=== PATIENT | female | born 1955 | race Caucasian/White ===

== ENCOUNTER 2023-06-15 13:32 | Outpatient (RCR) | payer MEDICARE, OTHER, SELFPAY | END 2023-06-16 11:30 | disposition home or self-care (01) | LOC: PT 13:32 | PROVIDERS: PCP Nurse Practitioner Family; Visit Provider Nurse Practitioner Family | DX: M16.11 Unilateral primary osteoarthritis, right hip (principal); M15.9 Polyosteoarthritis, unspecified | CPT/HCPCS: 97163 ==

== ENCOUNTER 2023-08-11 07:18 | Outpatient (OUT) | payer MEDICARE, OTHER, SELFPAY ==
[2023-08-11 07:35] LABS: Basophils Percent Auto 0.8 % (0.2-2.0); Eosinophils Absolute Auto 0.1 10^3/uL (0.0-0.7); Eosinophils Percent Auto 1.8 % (0.9-7.0); Hematocrit 38.2 % (36.0-48.0); Hemoglobin 12.7 g/dL (12.0-16.0); Immature Granulocytes Abs Auto 0.02 10^3/uL (0.00-0.03); Immature Granulocytes Pct Auto 0.4 % (0.0-0.5); Lymphocytes Absolute Auto 2.1 10^3/uL (1.2-3.8); Lymphocytes Percent Auto 41.8 % (20.5-60.0); Mean Corpuscular HGB Conc 33.2 g/dL (29.9-35.2); Mean Corpuscular Hemoglobin 31.1 pg (26.7-34.0); Mean Corpuscular Volume 93.6 fL (81.0-99.0); Mean Platelet Volume 8.8 fL (9.5-13.5); Monocytes Absolute Auto 0.5 10^3/uL (0.3-0.8); Neutrophils Absolute Auto 2.3 10^3/uL (1.4-6.5); Neutrophils Percent Auto 46.2 % (43.0-75.0); Platelet Count 147 10^3/uL (150-450); Red Blood Count 4.08 10^6/uL (4.20-5.40); Red Cell Distribution Width 13.8 % (11.0-15.0)
[2023-08-11 07:55] LABS: Anion Gap 10.2; Calcium 9.3 mg/dL (8.5-10.1); Carbon Dioxide 34.2 mmol/L (21.0-32.0); Chloride 102 mmol/L (98-107); Estimated GFR (African America >60 (>=60); Estimated GFR (Non-African Ame >60 (>=60); Glucose 106 mg/dL (74-106); Potassium 3.4 mmol/L (3.5-5.1); Sodium 143 mmol/L (136-145)
== END 2023-08-11 07:19 | disposition home or self-care (01) ==
LOC: LAB 07:20
PROVIDERS: PCP Nurse Practitioner Family
DX: K92.1 Melena (principal); Z86.39 Personal history of other endocrine, nutritional and metabolic disease
CPT/HCPCS: 36415; 80048; 85025

== ENCOUNTER 2023-11-29 12:42 | Emergency (ER) | payer MEDICARE, OTHER, SELFPAY ==
[2023-11-29 12:48] VITALS: BP 143/68; PULSE 73; RESP 18; TEMP 36.6; O2SAT 100; BMI 33.8
--- NOTE | 2023-11-29 13:44 | XR_ITS ---
The [address] [address] Patient Name: JERICA OGDEN MRN: [id number] date: 1955 Sex: F Assigned Patient Location: ER Current Patient Location: ER Accession/Order Number: [id number] Exam Date: 11/29/2023 13:30 Report Date: 11/29/2023 13:54 At the request of: THALIA BANDA Procedure: XR ankle RT min 3V PROCEDURE: XR ankle RT min 3V, XR foot RT min 3V COMPARISON: None. HISTORY: injury FINDINGS: BONES:4 mm calcification identified along the inferior aspect of the lateral malleolus possibly representing a small avulsion fracture. No additional fracture or dislocation of the foot or ankle. Moderate enthesopathic spurring Achilles insertion of the calcaneus SOFT TISSUES:Moderate lateral soft tissue swelling of the ankle EFFUSION:None visible. OTHER: Negative. XR/XR ankle RT min 3V IMPRESSION: Possible 4 mm fracture inferior lateral malleolus with overlying soft tissue swelling Electronically authenticated by: BRIANNA FUENTES Date: 11/29/2023 13:54
--- NOTE | 2023-11-29 13:44 | XR_ITS ---
The [address] [address] Patient Name: JERICA OGDEN MRN: [id number] date: 1955 Sex: F Assigned Patient Location: ER Current Patient Location: ER Accession/Order Number: [id number] Exam Date: 11/29/2023 13:30 Report Date: 11/29/2023 13:54 At the request of: THALIA BANDA Procedure: XR foot RT min 3V PROCEDURE: XR ankle RT min 3V, XR foot RT min 3V COMPARISON: None. HISTORY: injury FINDINGS: BONES:4 mm calcification identified along the inferior aspect of the lateral malleolus possibly representing a small avulsion fracture. No additional fracture or dislocation of the foot or ankle. Moderate enthesopathic spurring Achilles insertion of the calcaneus SOFT TISSUES:Moderate lateral soft tissue swelling of the ankle EFFUSION:None visible. OTHER: Negative. XR/XR foot RT min 3V IMPRESSION: Possible 4 mm fracture inferior lateral malleolus with overlying soft tissue swelling Electronically authenticated by: BRIANNA FUENTES Date: 11/29/2023 13:54
--- NOTE | 2023-11-29 13:50 | ED_ITS ---
HPI - Extremity Injury (Lower) General Chief Complaint: Extremity Injury, Lower Stated Complaint: lower extremity injury- right Time Seen by Provider: 11/29/23 13:21 History of Present Illness HPI Narrative: Patient is a 68-year-old female 5 weeks status post right hip replacement states she was in her kitchen last night when she dropped blueberries and in the process of trying to clean them up, she dropped a vacuum drum cleaner on her right foot. She complains of pain over the dorsum of the distal right foot and today has noticed mild pain and swelling into the ankle. She has finished taking Xarelto from her surgery. She denies any fall to the ground or other associated injuries. No medications taken prior to arrival other than Tylenol for pain. Related Data Previous Rx's Medication Instructions Recorded nabumetone 750 mg tablet 750 mg PO BID #10 tabs 11/29/23 Allergies Allergy/AdvReac Type Severity Reaction Status Date / Time beclomethasone Allergy Unknown Verified 11/29/23 13:01 [From Vancenase] clarithromycin [From Biaxin] Allergy Unknown Verified 11/29/23 13:01 diazepam [From Valium] Allergy Unknown Verified 11/29/23 13:01 doxycycline [From Vibramycin] Allergy Unknown Verified 11/29/23 13:01 erythromycin base Allergy Unknown Verified 11/29/23 13:01 Iodinated Contrast Media Allergy Unknown Verified 11/29/23 13:01 isoetharine [From Bronkosol] Allergy Unknown Verified 11/29/23 13:01 loratadine [From Claritin] Allergy Unknown Verified 11/29/23 13:01 metaxalone [From Skelaxin] Allergy Unknown Verified 11/29/23 13:01 metronidazole [From Flagyl] Allergy Unknown Verified 11/29/23 13:01 ofloxacin [From Floxin] Allergy Unknown Verified 11/29/23 13:01 Penicillins Allergy Unknown Verified 11/29/23 13:01 prochlorperazine Allergy Unknown Verified 11/29/23 13:01 [From Compazine] Review of Systems ROS Constitutional Denies: fever or chills Ears, nose, mouth, and throat Denies: throat pain or nasal congestion Cardiovascular Denies: chest pain Respiratory Denies: shortness of breath Gastrointestinal Denies: nausea or vomiting Musculoskeletal Reports: extremity pain, extremity swelling, joint pain and limited range of motion; Denies: back pain or neck pain Integumentary/Breast Denies: rash Neurological Denies: headache Hematologic/Lymphatic Reports: easy bruising Exam Narrative Exam Narrative: Gen.: Awake, alert, in no distress Head: Normocephalic, atraumatic ENT: Moist mucous membranes Respiratory: No respiratory distress Extremities: Moves extremities equally, Tenderness with diffuse mild swelling of the right dorsal aspect of the foot, limited flexion and extension of the toes of the right foot. 2+ DP pulse of the right foot. Minimal tenderness to the medial and lateral malleolus of the ankle Psych: Normal mood and affect Neuro: No focal neuro deficit Skin: Warm, dry, intact Constitutional Vital Signs, click to edit/add: Last Vital Signs Temp 97.9 F 11/29/23 12:48 Pulse 73 11/29/23 12:48 Resp 18 11/29/23 12:48 BP 143/68 H 11/29/23 12:48 Pulse Ox 100 11/29/23 12:48 O2 Del Method Room Air 11/29/23 12:48 Course Vital Signs Vital signs: Vital Signs Temperature 97.9 F 11/29/23 12:48 Pulse Rate 73 11/29/23 12:48 Respiratory Rate 18 11/29/23 12:48 Blood Pressure 143/68 H 11/29/23 12:48 Pulse Oximetry 100 11/29/23 12:48 Oxygen Delivery Method Room Air 11/29/23 12:48 Temperature 97.9 F 11/29/23 12:48 Pulse Rate 73 11/29/23 12:48 Respiratory Rate 18 11/29/23 12:48 Blood Pressure 143/68 H 11/29/23 12:48 Pulse Oximetry 100 11/29/23 12:48 Oxygen Delivery Method Room Air 11/29/23 12:48 MDM - Extremity Injury (Lower) MDM Narrative Medical decision making narrative: X-rays reviewed by the radiologist showing a possible 4 mm fracture of the lateral malleolus. Patient has no bony point tenderness to this area, her pain is located on the dorsum of the distal toes. She was made aware of these results but at this time we do not feel she has a fracture to this area. She was placed in an [place] wrap and postop shoe. Rest, ice, elevate. She remains neurovascularly intact. Return to the ER if symptoms change or worsen. Time of discharge, patient states she is not able to take tramadol, She is prescribed Relafen. She is no longer taking Xarelto and has taken Celebrex in the past. Medical Records Attestation: I reviewed the patient's medical records. Imaging Data XR foot: Attestation: I have reviewed the pertinent imaging results. Radiologist's impression: ITS Impressions Ankle X-Ray 11/29/23 13:44 IMPRESSION: Possible 4 mm fracture inferior lateral malleolus with overlying soft tissue swelling Electronically authenticated by: BRIANNA FUENTES Date: 11/29/2023 13:54 Foot X-Ray 11/29/23 13:44 IMPRESSION: Possible 4 mm fracture inferior lateral malleolus with overlying soft tissue swelling Electronically authenticated by: BRIANNA FUENTES Date: 11/29/2023 13:54 Discharge Plan Discharge Chief Complaint: Extremity Injury, Lower Clinical Impression: Contusion of foot, right Patient Disposition: Home, Self-Care Time of Disposition Decision: 14:08 Condition: Good Prescriptions / Home Meds: New nabumetone 750 mg tablet 750 mg PO BID Qty: 10 0RF Instructions: Foot Contusion (ED) Stand Alone Forms: Portal Instructions Referrals: ITA STANLEY [Primary Care Provider] - 1 week
== END 2023-11-29 14:39 | disposition home or self-care (01) ==
PROVIDERS: Emergency Provider Emergency Medicine; PCP Nurse Practitioner Family
DX: S90.31XA Contusion of right foot, initial encounter (principal); Z96.641 Presence of right artificial hip joint; W20.8XXA Other cause of strike by thrown, projected or falling object, initial encounter
CPT/HCPCS: 73610; 73630; 99284

== ENCOUNTER 2024-02-05 12:31 | Emergency (ER) | payer MEDICARE, OTHER, SELFPAY ==
--- OUTSIDE RECORDS SUMMARY | 2024-02-05 12:38 | XMS_ITS | CCD ---
Author Organization [facility] Care Team Providers Care Hemodialysis Technician Name Role Phone PHYSICIAN, DEFAULT Unavailable Unavailable PHYSICIAN, DEFAULT Unavailable Unavailable EBRAHEIM, SELIN Unavailable Unavailable EBRAHEIM, SELIN Unavailable Unavailable SELF, REFERRED Unavailable Unavailable SELF, REFERRED Unavailable Unavailable ANNELISE PEÑALOZA Primary Care Physician [phone] Luigi Flower II Unavailable Annelise Peñaloza Unavailable Yony Monahan Unavailable Nima Henning Unavailable JEN Peñaloza Primary Care Provider JEN Peñaloza Attending Provider Nima Pepper Unavailable Latisha Saenz Unavailable RAHEEL Saenz Attending Provider Annelise Peñaloza Unavailable Unavailable Unavailable ANNELISE PEÑALOZA Primary Care Physician JEN Peñaloza Primary Care Provider RAHEEL Saenz Attending Provider MD Luigi Flower II Attending Provider [phone] JEN Peñaloza Primary Care Provider JEN Peñaloza Attending Provider ANNELISE PEÑALOZA Primary Care Unavailable CHI ., NORTH Admitting Unavailable CHI ., NORTH Attending Unavailable GRECHNY ., SAFIA VÁSQUEZ Consulting Unavailabl e NEWATIA, LAUREN Consulting Unavailable ANABELA, ANNELISE Admitting Unavailable NAABELA, ANNELISE Attending Unavailable ANABELA, ANNELISE Primary Care Unavailable ANABELA, ANNELISE Consulting Unavailable ANABELA, ANNELISE Admitting Unavailable ANABELA, ANNELISE Attending Unavailable ANABELA, ANNELISE Primary Care Unavailable ANABELA, ANNELISE Consulting Unavailable ANABELA, ANNELISE Primary Care Unavailable MARKER ., DR PIZANO Admitting Unavailable MARKER ., DR PIZANO Attending Unavailable GRECHNY ., SAFIA VÁSQUEZ Consulting Unavailabl e MARKER ., DR PIZANO Consulting Unavailable EMMA, SHEREE Consulting Unavailable Anabela, ARMAAN-C Annelise Primary Care Provider MD Luigi Flower II Attending Provider JEN Peñaloza Attending Provider DO Simone Leiva Attending Provider DIONY Peñaloza Attending Provider [phone] Anabela, Ms. Castelan [facility] Care Un available Tawanda BASURTO, Dr. Alfie Ghotra Attending Unavailable Tawanda BASURTO, Dr. Alfie Ghotra Referring Unavailable Anabela, Ms. Castelan [facility] Care Un available Tawanda BASURTO, Dr. Alfie Ghotra Attending Unavailable [facility]. [facility] Primary Care Provider Annelise Peñaloza CNP Unavailable Unavailab le [facility] ANNELISE Trevino Attending Unavailable ANNELISE MORGAN A Referring Unavailable [facility], [facility] Care ANNELISE Infante Primary Care Physician [phone] JEN Peñaloza Primary Care Provider U rajeshailMD Luigi Vinson II Attending Provider [facility] ider Annelise Peñaloza CNP Unavailable Anabelairineo [facility] Primary Care Provider ALFIE NEFF Attending Unavailable [facility]avai JEN Castaneda Annelise Primary Care Provider U MD Luigi Dixon II Attending Provider JEN Peñaloza Primary Care Provider U MD Luigi Dixno II Attending Provider [phone] MD Luigi Flower II Admit Provider ISABELLA Hammer Other Provider Unavailable ISABELLA Christensen Other Provider Unavailable ISABELLA Deleon Other Provider Unavailable ISABELLA Mendoza Other Provider Unavailable ISABELLA Phan Other Provider Unavailable ISABELLA Pennington Other Provider Unavailable MD Calvin Balderas Other Provider GIO Hansen Other Provider [phone] DO Dewey Chapman Other Provider [phone] MD Brian Kruger Other Provider DO Kyle Morse Other Provider MD Yann Peterson Other Provider MD Clary Kirk Other Provider GIO Iyer Other Provider [phone] MD Cecy Goodwin Other Provider MD Man Clifford Other Provider MD Zack Don Other Provider MD Hina Prakash Other Provider DO Roscoe Wood Other Provider MD Ayo Brice Other Provider MD Raoul Griffiths Other Provider RAHEEL De La O Other Provider MD Domenico Stephen Other Provider MD Dylan Shafer Other Provider MD Chriss Blackwell Other Provider MD Fam Nunez Other Provider DO Laurie Stern Other Provider DO Parth Chairez Other Provider DO Sudheer Acosta Other Provider GIO Bennett Other Provider DO Rubio Heart Other Provider MD Maria Elena Alberto Other Provider GIO Nunes Other Provider GIO Silva Other Provider MD Pavel Mendez Other Provider MD Jeb Marin Other Provider [phone] DO Dominguez Emerson T Other Provider GIO Pelletier Other Provider DO Jocelyn Encarnacion Other Provider ISABELLA Desouza Other Provider Unavailable MD Alexander Blue Other Provider ANNELISE PEÑALOZA Attending Unavailable ANABELA, ANNELISE Admitting Unavailable ANABELA, ANNELISE Primary Care Unavailable LENNY BRADSHAW Admitting Unavailable LENNY BRADSHAW Attending Unavailable ANABELA, ANNELISE Primary Care Unavailable Hafredo, Astrit H Attending Unavailable ANABELA, ANNELISE Primary Care Unavailable ANABELA, ANNELISE Primary Care Unavailable Sarmini, Thai Talal Admitting Unavaila ble Sarmini, Andre Talal Attending Unavaila ble Carlitomini, Andre Talal Referring Unavaila ble ANABELA, ANNELISE Attending Unavailable ANABELA, ANNELISE Referring Unavailable ANABELA, ANNELISE Primary Care Unavailable ANABELA, ANNELISE Primary Care Unavailable Kortney Shelley Attending Unavailable ANABELA, ANNELISE Primary Care Unavailable ANABELA, ANNELISE Primary Care Unavailable Thai Abbasi Attending UnavailAdryan Victoria Attending Unavailable ANABELA, ANNELISE Primary Care Unavailable ANABELA, ANNELISE Referring Unavailable ANABELA, ANNELISE Admitting Unavailable ANABELA, ANNELISE Primary Care Unavailable ANABELA, ANNELISE Attending Unavailable LUIGI FLOWER Attending Unavailable ANABELA, ANNELISE Primary Care Unavailable MUNDO, LUIGI Admitting Unavailable Bhakti Waddell Unavailable Unavailable Primary Care Provider UnavailFERMIN Mensah Attending Unavailable AZAEL PAK Attending Unavailable SAMMY GILBERT Attending Unavailable MUNDO, LUIGI Referring Unavailable BETINA, BOOKER Attending Unavailable MUNDO, LUIGI Referring Unavailable TATTERSSAMMY ROGERS Attending Unavailable MUNDO, LUIGI Referring Unavailable BRKRISHNA EUBANKS Attending Unavailable MUNDO, LUIGI Referring Unavailable SAMMY GILBERT Attending Unavailable MUNDO, LUIGI Referring Unavailable BETINA, BOOKER Attending Unavailable MUNDO, LUIGI Referring Unavailable BRINKKRISHNA Attending Unavailable MUNDO, LUIGI Referring Unavailable BRKRISHNA EUBANKS Attending Unavailable MUNDO, LUIGI Referring Unavailable KELRADHA LIRIANO Attending Unavailable MUNDO, LUIGI Referring Unavailable FERMIN TAYLOR Attending Unavailable FERMIN TAYLOR Referring Unavailable KRISHNA WEISS Attending Unavailable MUNDO, LUIGI Referring Unavailable DAVIETERSSAMMY ROGERS Attending Unavailable MUNDO, LUIGI Referring Unavailable KELRADHA LIRIANO Attending Unavailable MUNDO, LUIGI Referring Unavailable BRINK, KRISHNA Attending Unavailable MUNDO, LUIGI Referring Unavailable BRKRISHNA EUBANKS Attending Unavailable MUNDO, LUIGI Referring Unavailable BRINKKRISHNA Attending Unavailable MUNDO, LUIGI Referring Unavailable FERMIN TAYLOR Attending Unavailable KRISHNA WEISS Attending Unavailable MUNDO, LUIGI Referring Unavailable RADHA SOLOMON Attending Unavailable LUIGI FLOWER Referring Unavailable ARMAAN Peñaloza-C Annelise Primary Care Provider U navailMD Luigi Vinson II Attending Provider [phone] DIONY Peñaloza Attending Provider [phone] Luigi Flower II Attending Unavailabl e Anabela, Annelise Primary Care Unavailable Yuba II, Luigi M Admitting Unavailabl e Anabela, Annelise Admitting Unavailable Anabela, Annelise Attending Unavailable Anabela, Annelise Primary Care Unavailable Anabela, Annelise Attending Unavailable Anabela, Annelise Admitting Unavailable Anabela, Annelise Primary Care Unavailable Yuba II, Luigi M Admitting Unavailabl e Mundo II, Luigi M Attending Unavailabl e Anabela, Annelise Primary Care Unavailable Yuba II, Luigi M Attending Unavailabl e Anabela, Annelise Primary Care Unavailable Yuba II, Luigi M Admitting Unavailabl e Yuba II, Luigi M Attending Unavailabl e Yuba II, Luigi M Admitting Unavailabl e Anabela, Annelise Primary Care Unavailable Yuba II, Luigi M Admitting Unavailabl e Mundo II, Luigi M Attending Unavailabl e Megan Hammer Consulting Unavailable Anabela, Annelise Primary Care Unavailable Rocio Christensen Consulting Unavailable Beth Deleon Consulting Unavailable Mary Jane Mendoza Consulting Unavailable Margo Phan Consulting Unavailable Sandee Pennington Consulting Unavailable Calvin Balderas Consulting Unavailable Dianne Hansen Consulting Unavailable Dewey Chapman Consulting Unavailable Brian Kruger Consulting Unavailable Kyle Morse Consulting UnavailYann Austin Consulting Unavailable Clary Kirk Consulting Unavailable Magda Iyer Consulting Unavailabl e Cecy Goodwin Consulting Unavailable Man Clifford Consulting Unavailable Zack Don Consulting Unavailable Hina Prakash Consulting Unavailable Roscoe Wood Consulting Unavailable Ayo Brice Consulting Unavailable Raoul Griffiths Consulting Unavailable Yaquelin De La O Consulting Unavailable Hailee Domenico E Consulting Unavailab Dylan Henderson Consulting Unavailable Chriss Blackwell Consulting Unavailable Fam Nunez Consulting Unavailable Laurie Stern Consulting Unavailable Parth Chairez Consulting Unavailable Sudheer Acosta Consulting Unavailable Delicia Bennett Consulting Unavailable Rubio [facility] Consulting Unavailable Maria Elena Alberto Consulting Unavailable Lindsay Nunes Consulting Unavailable Sonia Silva Consulting Unavailable Pavel Mendez Consulting Unavailable Jeb Marin Consulting Unavailable Dominguez Emerson Consulting Unavailable Stacy Pelletier Consulting Unavailable Jocelyn Encarnacion Consulting Unavailable Mariely Desouza Consulting Unavailable Alexander Blue Consulting Unavailable Luigi Flower II Admitting UnavailLuigi Genao II Attending UnavailAnnelise Stapleton Primary Care Unavailable Allergies Allergy Classification Reported Allergen(s) Allergy Type Date of Onset Reaction(s) Facility (20 sources) Clarithromycin; Translations: [clarithromycin] Drug Allergy 07-20-20 14 Unknown [facility] Other (20 sources) diazePAM; Translations: [diazepam] Drug Allergy 01-23-20 14 Unknown [facility] Other (20 sources) Erythromycin; Translations: [erythromycin] Drug Allergy 12-15-19 Anaphylaxis [facility] Other (20 sources) Loratadine; Translations: [loratadine] Drug Allergy 07-20-20 14 Unknown [facility] Other (20 sources) metaxalone; Translations: [metaxalone] Drug Allergy 07-20-20 14 Unknown [facility] Other (20 sources) metroNIDAZOLE; Translations: [metronidazole] Drug Allergy 12-15-19 20 Unknown [facility] Other (20 sources) Ofloxacin; Translations: [ofloxacin] Drug Allergy 12-15-19 20 Unknown [facility] (9 sources) Penicillin; Translations: [penicillin] Drug Allergy unknown [facility] (20 sources) Prochlorperazine; Translations: [prochlorperazine] Drug Allergy 12-15-19 20 sob, Unknown, Anaphylaxis [facility] Other (20 sources) Sertraline; Translations: [sertraline] Drug Allergy 12-15-19 Unknown [facility] Other (20 sources) Beclomethasone; Translations: [Vancenase] Drug Allergy 01-19-20 14 Unknown [facility] (20 sources) Doxycycline; Translations: [Doxycycline] Drug Allergy Dyspnea (finding) [facility] (20 sources) metaproterenol Drug Allergy Unknown [facility] Other (20 sources) Penicillin G Drug Allergy 11-10-19 24 Unknown [facility] (20 sources) Sulfamethoxazole / Trimethoprim Drug Allergy hives [facility] Other (20 sources) broncosol Propensity to adverse reactions 11-10-19 [facility] (20 sources) Floxin Otic Drug allergy Unknown [facility] Other (20 sources) Bronchial Drug allergy 11-10-19 Unknown [facility] (20 sources) GI, & IVP DYE Propensity to adverse reactions 11-10-19 [facility] (18 sources) Acetaminophen; Translations: [acetaminophen] Drug Allergy abdominal pain/constipat ion [facility] Other (20 sources) bees Propensity to adverse reactions anaphylaxis [facility] Other (13 sources) Beclomethasone; Translations: [beclomethasone] Drug Allergy 09-22-20 21 Unknown Reaction [facility] (13 sources) Doxycycline; Translations: [doxycycline] Drug Allergy 12-15-19 [facility] (20 sources) Isoetharine; Translations: [Isoetharine] Drug Allergy 01-23-20 14 [facility] (13 sources) metaproterenol; Translations: [metaproterenol] Drug Allergy 09-22-20 21 Unknown Reaction [facility] (20 sources) Penicillins; Translations: [Penicillins] Allergy to substance 01-19-20 14 [facility] (13 sources) Sulfamethoxazole; Translations: [sulfamethoxazole] Drug Allergy 09-22-20 Unknown Reaction, Unknown Reaction, [facility] (13 sources) Trimethoprim; Translations: [trimethoprim] Drug Allergy 09-22-20 Unknown Reaction, Unknown Reaction, [facility] (15 sources) erythromycin base; Translations: [Erythromycin Base] Allergy to substance 12-15-19 [facility] (20 sources) Iodinated Contrast Media; Translations: [IODINATED CONTRAST MEDIA] Allergy to substance 07-20-20 14 Unknown [facility] (2 sources) Contrast media Allergy to substance (finding) [place] [address] DO Work Phone: (2 sources) Hmg-Coa Reductase Inhibitors (Statins); Translations: [Statins] Allergy to drug (finding) [place] [address] DO Work Phone: (2 sources) Sulfonamides (Antibiotic); Translations: [Sulfa Drugs] Allergy to drug (finding) Rash [place] [address] DO Work Phone: (8 sources) oxybutynin; Translations: [oxybutynin] Drug Allergy Headache (finding) [facility] (7 sources) Contrast media; Translations: [contrast media (iodine-based)] Drug allergy Anaphylaxis (disorder) [facility] (7 sources) Tetracycline; Translations: [tetracycline] Drug Allergy Tachycardia [facility] (1 source) Clarithromycin Drug Allergy 01-19-[address] [facility] (1 source) diazePAM Drug Allergy 01-23-20 [address] [facility] (1 source) Doxycycline Drug Allergy 01-19-20 [address] [facility] (2 sources) Floxacillin; Translations: [FLOXACILLIN] Drug Allergy 01-19-20 [address] [facility] (1 source) Iodine (And Iodine Containting Drugs) Drug allergy (disorder) 01-19-20 [address] [facility] (1 source) Loratadine Drug Allergy 01-19-20 [address] [facility] (1 source) metaxalone Drug Allergy 01-19-20 [address] [facility] (1 source) metroNIDAZOLE Drug Allergy 01-19-20 [address] [facility] (1 source) Prochlorperazine Drug Allergy 01-19-20 [address] [facility] (1 source) Sertraline Drug Allergy 01-19-20 [address] [facility] (9 sources) Doxycycline; Translations: [DOXYCYCLINE CALCIUM] Drug Allergy 07-20-20 14 Unknown [facility] (8 sources) Floxacillin Drug Allergy 07-20-20 14 Unknown [facility] (9 sources) metaproterenol; Translations: [METAPROTERENOL SULFATE] Drug Allergy 07-20-20 14 Unknown [facility] (9 sources) metroNIDAZOLE; Translations: [METRONIDAZOLE HCL] Drug Allergy 07-20-20 14 Unknown [facility] (9 sources) Prochlorperazine; Translations: [PROCHLORPERAZINE EDISYLATE] Drug Allergy 07-20-20 14 Unknown [facility] (9 sources) Sertraline; Translations: [SERTRALINE HCL] Drug Allergy 07-20-20 14 Unknown [facility] (2 sources) HMG-CoA reductase inhibitor; Translations: [[id number]-HTQ REDUCTASE INHIBITORS] Drug Allergy 09-12-20 [facility] Work Phone: (2 sources) Sulfonamides (Antibiotic); Translations: [SULFA (SULFONAMIDE ANTIBIOTICS)] Drug Allergy 09-12-[address] [facility] Work Phone: (2 sources) Other; Translations: [OTHER] Propensity to adverse reactions 09-12-20 [facility] Work Phone: (10 sources) Iodine Drug Allergy 05-27-[address] [facility] (10 sources) Pravastatin Drug Allergy 05-27-[address] [facility] (3 sources) venom-honey bee Allergy to substance 11-10-19 anaphylaxis [facility] (1 source) Clarithromycin Drug Allergy 10-25-20 [facility] (1 source) diazePAM Drug Allergy 10-25-20 [facility] (1 source) Loratadine Drug Allergy 10-25-20 [facility] (1 source) metaxalone Drug Allergy 10-25-20 [facility] (1 source) metroNIDAZOLE Drug Allergy 10-25-20 [facility] (1 source) Ofloxacin Drug Allergy 10-25-20 [facility] (1 source) Prochlorperazine Drug Allergy 10-25-20 [facility] (1 source) Sertraline Drug Allergy 10-25-20 [facility] Medications Current Medications Medication Drug Class(es) Dates Sig (Normalized) Sig (Original) acetaminophen 500 mg oral tablet (20 sources) Start: 10-26-2023 take 500 mg by mouth every six hours Acetaminophen Active 500 MG PO Q6H October 26, 2023 1:00am Start: 10-13-2023 take 2 tablets by mo uth every eight hours for pain Acetaminophen 500 MG 2 tablets for pain Orally every 8 hrs for 30 days med to bed upon discharge DOS: 10/25/2023 Oct, Active Start: 10-11-2023 End: 10-26-2023 take 1 capsule by mouth four times daily Acetaminophen (Tylenol Extra Strength) 500 mg Capsule Discontinued 500 MG PO Four times daily October 11, 2023 1:00am October 26, 2023 12:35pm biotin 10 mg oral tablet (20 sources) take 1 tablet by ceasar th every twenty-four hours Biotin 10 MG 1 tablet Orally Once a day Active bisoprolol fumarate 5 mg / hydroCHLOROthiazide 6.25 mg oral tablet (20 sources) Thiazide Diuretic, beta-Adrenergic Mayela Start: 11-17-2017 End: 09-14-2023 take 1 tablet by mouth once daily in the morning Bisoprolol-Hydrochlorothiazide Active 1 TAB PO Every morning May 29, 2018 12:00am take 1 tablet by ceasar th in the morning bisoprolol-hydroCHLOROthiazide (Ziac) 5- 6.25 MG tablet Take 1 tablet by mouth in the morning. 0 Active Comment on above: Take 1 tablet by ceasar th once daily. cefadroxil 500 mg oral capsule (6 sources) Cephalosporin Antibacterial Start: 3 take 1 capsule by mouth every twelve hours Cefadroxil 500 MG 1 tablet Orally every 12 hrs for 7 days med to bed upon discharge DOS: 10/25/2023 Oct, Active cefdinir 300 mg oral capsule (5 sources) Cephalosporin Antibacterial Start: 3 take 1 tablet by mouth every twelve hours Cefdinir 300 MG ONE TABLET Orally EVERY 12 HOURS for 5 days Oct, Active chromium picolinate 0.4 mg oral tablet (20 sources) Start: 3 take 400 ug by mouth once daily Chromium Picolinate Active 400 MCG PO Daily October 11, 2023 1:00am Start: 09-15-2023 chromium picol inate 0 Refill(s), Refills(s) 0 Start Date: 09/15/23 Status: Ordered Chromium Picolin ate 800 MCG tablet 1 (one) time each day at the same time. 0 Active chromium picolin ate 1,000 mcg tab CHROMIUM PICOLINATE (20 sources) 0 Active Chromium Picolin ate Pt. unsure of dosage Active Comment on above: CHROMIUM PICOLINATE (20 sources) ciprofloxacin 500 mg oral tablet (4 sources) Quinolone Antimicrobial Start: 023 take 1 tablet by mouth every twelve hours Cipro 500 MG 1 tablet Orally every 12 hrs for 5 days Oct, Active cyclobenzaprine hydrochloride 5 mg oral tablet (18 sources) Muscle Relaxant Start: 023 take 1 tablet by mouth once daily at bedtime as needed cyclobenzaprine (Flexeril) 5 MG tablet TAKE 1 TABLET BY MOUTH AT BEDTIME ONCE A DAY NEEDED 0 04/28/2023 Active Start: 05-31-2021 take 1 tablet by ceasar th three times daily as needed for muscle spasms cyclobenzaprine 10 mg Tab 10 mg = 1 tab(s), Oral, TID, PRN for spasm, # 30 tab(s), Refills(s) 0 Start Date: 05/31/21 Status: Ordered dapagliflozin 5 mg oral tablet (20 sources) Sodium-Glucose Cotransporter 2 Inhibitor Start: 09-22-2021 take 1 tablet by mouth once daily in the morning Dapagliflozin Propanediol (Farxiga) 5 mg tablet Active 5 MG PO Every morning September 22, 2021 1:00am Comment on above: Take 5 mg by mouth o nce daily. ergocalciferol 1.25 mg oral capsule (11 sources) Provitamin D2 Compound Start: 08-25-2023 take 1 capsule by mouth every week Ergocalciferol 1.25 MG (12906 UT) 1 capsule Orally weekly for 30 days Aug, Active fluconazole 150 mg oral tablet (20 sources) Azole Antifungal Start: 11-23-2023 Fluconazole 150 MG 1 tablet Orally once daily and repeat in 72 hours for 2 days Nov, Active Start: 08-04-2021 End: 10-26-2023 Fluconazole (Diflucan) 150 m g tablet Discontinued 150 MG PO Once October 11, 2023 3:16pm October 26, 2023 12:35pm take one PO, if still symptomatic then take another pill in 72 hrs furosemide 20 mg oral tablet (19 sources) Loop Diuretic Start: 01-24-2023 End: 02-03-2023 take 1 tablet by mouth once daily Lasix 20 mg Tab 20 mg = 1 tab(s), Oral, Daily, X 10 day(s), # 10 tab(s), Refills(s) 0, Pharmacy: [facility] [id number], 159, cm, 01/24/23 12:15:00 EDT, Height/Length Dosing, 87, kg, 01/24/23 12:15:00 EDT, Weight Dosing Start Date: 01/24/23 Stop Date: 02/03/23 Status: Ordered furosemide (LASI X) 40 mg tablet Take 40 mg by mouth. 0 Active Comment on above: Take 40 mg by mouth. Handicap placards as directed (19 sources) Start: 2022 Handicap placards as directed use as directed to 2028 as directed as directed Jan, Active hydroCHLOROthiazide 12.5 mg oral tablet (20 sources) Thiazide Diuretic Start: 2022 take 1 tablet by mouth every twenty-four hours hydroCHLOROthiazide 12.5 MG 1 tablet in the morning Orally Once a day for 15 day(s) Nov, Active hyoscyamine sulfate 0.125 mg oral tablet (1 source) Start: 2020 take 1 tablet by mouth every four hours Levsin 0.125 mg SL Tab 0.125 mg = 1 tab(s), Oral, q4hr, # 30 tab(s), Refills(s) 0, Pharmacy: [facility] [place]/[facility]acy #[id number], 159, cm, 04/25/21 9:41:00 EDT, Height/Length Dosing, 83, kg, 04/25/21 9:41:00 EDT, Weight Dosing Start Date: 04/30/21 Status: Ordered meloxicam 7.5 mg oral tablet (20 sources) Nonsteroidal Anti-inflammatory Drug Start: 2019 take 1 tablet by mouth every twenty-four hours 24 hr mirabegron 25 mg extended release oral tablet (7 sources) beta3-Adrenergic Agonist Start: 2021 take 1 tablet by mouth once daily Myrbetriq 25 mg oral tablet, extended release 25 mg = 1 tab(s), Oral, Daily, # 30 tab(s), Refills(s) 11, Pharmacy: [facility] [place]/pharmacy #[id number], 159, cm, 11/03/22 15:30:00 EST, Height/Length Dosing, 83, kg, 11/03/22 15:30:00 EST, Weight Dosing Start Date: 11/03/22 Status: Ordered montelukast 10 mg oral tablet (16 sources) Leukotriene Receptor Antagonist Start: 2018 take 1 tablet by mouth once daily in the evening montelukast 10 mg Tab 10 mg = 1 tab(s), Oral, qPM, # 30 tab(s), Refills(s) 0 Start Date: 04/16/19 Status: Ordered Start: 04-15-2019 Singulair 4 mg oral granule 4 mg = 1 EA, Oral, Daily, # 30 EA, Refills(s) 0 Start Date: 04/15/19 Status: Ordered mupirocin 0.02 mg/mg topical ointment (20 sources) RNA Synthetase Inhibitor Antibacterial Start: 12-29-2022 Mupirocin 2 % 1 application to affected area Externally 2 times a day for 7 days prn Dec, Active naproxen 250 mg oral tablet (20 sources) Nonsteroidal Anti-inflammatory Drug take 1 tablet by mouth every twelve hours Naproxen 250 MG 1 tablet with food or milk Orally Twice a day Active omeprazole 40 mg delayed release oral capsule (15 sources) Proton Pump Inhibitor Start: 08-24-2023 take 1 capsule by mouth once daily omeprazole 40 mg Cap-DR 40 mg = 1 cap(s), Oral, Daily, # 90 cap(s), Refills(s) 3, Pharmacy: [facility] [id number], 159, cm, 08/24/23 14:20:00 EDT, Height/Length Dosing, 85.5, kg, 08/24/23 14:20:00 EDT, Weight Dosing Start Date: 08/24/23 Status: Ordered take 1 capsule by mouth once mary lou ly Omeprazole 10 MG 1 capsule 30 minutes before morning meal Orally Once a day Active take 1 capsule by [facility] once daily before mealtime omeprazole (PriLOSEC) [address] capsule Take 1 capsule (20 mg) by mouth once daily in the morning. Take before meals. Do not crush or chew. 0 Active ondansetron 4 mg disintegrating oral tablet (11 sources) Serotonin-3 Receptor Antagonist Start: 10-26-2023 take 8 mg by mouth three times daily Ondansetron Active 8 MG PO Three times daily October 26, 2023 1:00am Start: 10-13-2023 take 1 tablet by ceasar th three times daily as needed for nausea Ondansetron HCl 8 MG 1 tablet as needed for nausea Orally Three times a day for 10 days med to bed upon discharge DOS: 10/25/2023 Oct, Active pantoprazole 40 mg delayed release oral tablet (10 sources) Proton Pump Inhibitor Protonix 40 MG EC tablet 1 capsule 0 Active phenazopyridine hydrochloride 200 mg oral tablet (5 sources) Start: 2 take 1 tablet by mouth every eight hours Pyridium 200 MG 1 tablet after meals Orally Three times a day for 2 day(s) Aug, Active ramipril 10 mg oral capsule (20 sources) Angiotensin Converting Enzyme Inhibitor Start: 8 End: 3 take 10 mg by mouth once daily in the morning Ramipril Active 10 MG PO Every morning November 17, 2017 1:00am Comment on above: Take 10 mg by mouth once daily. Stool Softener (20 sources) Stool Softener Not-Taking Stool Softener A ctive tiZANidine 4 mg oral tablet (10 sources) Central alpha-2 Adrenergic Agonist Start: 05-17-2023 tiZANidine (Zanaflex ) 4 MG tablet every 8 (eight) hours. 0 05/17/2023 Active True Metrix Air Glucose Meter w/Device (20 sources) Start: 06-17-2020 Start: 06-17-2020 True Metrix r Glucose Meter w/Device as directed subQ before meals for 25 days Jun, Active Ventolin HFA 90 mcg/inh Aerosol (8 sources) Start: 04-15-2019 take 1 puff(s) by inhalation four times daily for wheezing Ventolin HFA 90 mcg/inh Aerosol 1 puff(s), Inhalation, QID for wheezing, 18 gram, Refill(s) 0 Start Date: 04/15/19 Status: Ordered Completed/Discontinued Medications Medication Drug Class(es) Dates Sig (Normalized) Sig (Original) acetaminophen 300 mg / codeine phosphate 30 mg oral tablet (20 sources) Opioid Agonist Start: 10-11-2023 End: 10-26-2023 take 1 tablet by mouth twice daily Acetaminophen-Codei ne (Tylenol-Codeine #3) 300-30 mg Tablet Discontinued 1 TAB PO Twice daily October 11, 2023 1:00am October 26, 2023 12:35pm Start: 11-05-2022 Acetaminophen- Codeine #3 300-30 MG 1 tablet as needed Orally at bedtime for 15 day(s) Oct, Active Start: 11-05-2022 Acetaminophen- Codeine #3 300-30 MG 1 tablet as needed Orally at bedtime for 15 day(s) Oct, Active Start: 04-13-2022 Acetaminophen- Codeine #3 300-30 MG 1 tablet as needed Orally at bedtime for 30 days Sep, Active [id number] 200 actuat albuterol 0.09 mg/actuat metered dose inhaler (20 sources) beta2-Adrenergic Agonist Start: 11-17-2017 End: 05-29-2018 Albuterol Sulfate (Proair Hfa) 90 mcg/actuation Hfa Aerosol Inhaler Discontinued 2 INH INHALATION Q4H November 17, 2017 1:00am May 29, 2018 10:01pm take 1 puff(s) by in halation every six hours albuterol HFA 90 mcg/act inhaler Inhale 1 puff every 6 (six) hours if needed. 0 Active take 1 puff(s) by in halation every six hours as needed albuterol HFA (PROVENTIL HFA, VENTOLIN HFA) 90 mcg/actuation inhaler Inhale 1 Puff as instructed every 6 hours as needed. 0 Active Comment on above: Inhale 1 Puff as ins tructed every 6 hours as needed. albuterol 0.833 mg/ml / ipratropium bromide 0.167 mg/ml inhalation solution (12 sources) Anticholinergic, beta2-Adrenergic Agonist Start: 06-16-20 End: 09-22-20 21 take 1 mL by inhalation every four to six hours Ipratropium-Albutero l Discontinued 3 ML INHALATION EVERY 4-6 HOURS June 16, 2019 12:00am September 22, 2021 2:40pm celecoxib 100 mg oral capsule (20 sources) Nonsteroidal Anti-inflammatory Drug Start: 01-01-20 End: 09-14-20 take 1 capsule by mouth twice daily at mealtime celecoxib (CeleBREX) 100 mg capsule Take 1 capsule (100 mg) by mouth 2 times a day. WITH FOOD FOR 30 DAYS 0 08/24/2022 09/14/2023 Discontinued (Therapy completed) Start: 01-01-2022 take 1 capsule by [facility] every twenty-four hours Celecoxib 100 MG 1 capsule with food Orally Once a day for 30 day(s) Dec, Active clindamycin 300 mg oral capsule (17 sources) Lincosamide Antibacterial Start: 10-28-2023 End: 01-27-2024 take 300 mg by mouth three times daily Clindamycin Hcl Discontinued 300 MG PO Three times daily 28 05October 28, 2023 1:00am January 27, 2024 2:57pm Start: 10-26-2023 take 300 mg by mouth every eight hours Clindamycin Hcl Active 300 MG PO Every 8 hours October 26, 2023 12:00am Start: 08-10-2018 End: 06-16-2019 take 300 mg by mouth twice daily Clindamycin Hcl Discontinued 300 MG PO Twice daily August 10, 2018 12:00am June 16, 2019 4:52pm clotrimazole 20 mg/ml vaginal cream (20 sources) Azole Antifungal Start: 09-11-2021 Clotrimazole 2 % 1 application at bedtime Vaginal Once a day for 3 day(s) Sep, Not-Taking/PRN Start: 09-11-2021 codeine phosphate 2 mg/ml / guaiFENesin 20 mg/ml oral solution (12 sources) Opioid Agonist Start: 11-17-2017 End: 05-29-2018 take 1 [tsp_us] by mouth every six hours Codeine-Guaifenesin Discontinued 2 TSP PO Q6H November 17, 2017 1:00am May 29, 2018 10:05pm Dexamethasone (20 sources) Corticosteroid Start: 03-28-2019 DEXAMETHASONE March, 8 mg 24 hr dilTIAZem hydrochloride 180 mg extended release oral capsule (8 sources) Calcium Channel Mayela Start: 06-15-2016 take 1 capsule by mouth once daily diltiazem CD (CARDIZEM CD, CARTIA XT) 180 mg 24 hr capsule Take 1 capsule by mouth once daily. 90 capsule 3 06/15/2016 Active Comment on above: Take 1 capsule by mo [facility] once daily. docusate sodium 50 mg / sennosides, [facility] 8.6 mg oral tablet (11 sources) Start: 10-13-2023 End: 01-27-2024 take 2 tablets by mouth once daily Sennosides-Docusate Sodium Discontinued 2 TAB PO Daily October 26, 2023 1:00am January 27, 2024 2:56pm doxycycline monohydrate 100 mg oral capsule (20 sources) Tetracycline-class Drug Start: 07-06-2022 take 1 capsule by mouth every twelve hours Doxycycline Monohydrate 100 MG 1 capsule Orally every 12 hrs for 10 days prn Dec, Not-Taking/PRN Start: 06-04-2022 take 1 capsule by mo [facility] every twelve hours Doxycycline Monohydrate 100 MG 1 capsule Orally every 12 hrs for 10 days May, Active Start: 04-05-2022 take 1 tablet by [facility] every twelve hours Doxycycline Monohydrate 100 MG 1 tablet Orally every 12 hrs for 10 day(s) March, Active Echinacea (12 sources) Start: 11-17-2017 End: 05-10-2018 take 760 mg by mouth once daily Echinacea Discontinued 760 MG PO Daily November 17, 2017 12:00am May 10, 2018 1:00pm Start: 11-17-2017 End: 05-10-2018 take 760 mg by mouth once daily Echinacea Discontinued 760 MG PO Daily November 17, 2017 1:00am May 10, 2018 2:00pm [id number] 0.3 ml EPINEPHrine 1 mg/ml auto-injector (20 sources) alpha-Adrenergic Agonist, beta-Adrenergic Agonist, Catecholamine Start: 06-16-2022 EpiPen 2-Johnny 0.3 MG/0.3ML as directed Injection qd for 1 days prn Jun, Not-Taking/PRN Start: 08-03-2018 End: 12-15-2019 inject 0.3 mg by intramuscular injection once Epinephrine Discontinued 0.3 MG IM Once 2 August 03, 2018 12:00am December 15, 2019 11:53pm famotidine 20 mg oral tablet (20 sources) Histamine-2 Receptor Antagonist Start: 07-06-2022 End: 09-14-2023 take 1 tablet by mouth once daily at dinner famotidine (Pepcid) 20 mg tablet Take 1 tablet (20 mg) by mouth once daily. DAY WTIH DINNER 0 07/06/2022 09/14/2023 Discontinued (Therapy completed) Ketorolac (20 sources) Nonsteroidal Anti-inflammatory Drug, Cyclooxygenase Inhibitor Start: 08-25-2019 Toradol per 15 mg Aug, 60 mg methylPREDNISolone (20 sources) Corticosteroid Start: 10-23-2020 Depo-Medrol 80 mg Oct, 80 mg Start: 08-29-2020 Depo-Medrol 80 mg Aug, 60 mg MOMETASONE/FORMOTEROL (DULERA INHALATION) (8 sources) MOMETASONE/FORMO TEROL (DULERA INHALATION) Inhale as instructed once daily. 0 Active Comment on above: Inhale as instructed once daily. nitrofurantoin, macrocrystals 25 mg / nitrofurantoin, monohydrate 75 mg oral capsule (20 sources) Nitrofuran Antibacterial Star t: 08-08 End: 02-25 take 1 capsule by mouth twice daily at mealtime Nitrofurantoin Monohyd/M-Cryst (Macrobid) 100 mg capsule Discontinued 100 MG PO Twice daily 10 September 22, 2021 1:00am October 11, 2023 3:14pm must administer with a meal/food nystatin 100 unt/mg topical powder (20 sources) Polyene Antifungal Star t: 07-10 Nystatin 149155 UNIT/GM 1 application Externally tid for 10 day(s) Jul, Not-Taking/PRN Start: 07-28-2021 [place] 6-Qoc-Qmh-Fish Oil (Fish Oil) 1,000 mg (120 mg-180 mg) Capsule (12 sources) Start: 05-29-2018 End: 08-10-2018 take 1 capsule by mouth once daily [place] 4-Aul-Cpf-Fish Oil (Fish Oil) 1,000 mg (120 mg-180 mg) Capsule Discontinued 1000 MG PO Daily May 28, 2018 11:00pm August 10, 2018 7:26pm Start: 05-29-2018 End: 08-10-2018 take 1 capsule by mouth once daily [place] 6-Eoz-Itu-Fish Oil (Fish Oil) 1,000 mg (120 mg-180 mg) Capsule Discontinued 1000 MG PO Daily May 29, 2018 12:00am August 10, 2018 8:26pm 24 hr oxybutynin chloride 5 mg extended release oral tablet (14 sources) Cholinergic Muscarinic Antagonist Start: 09-08-2022 End: 09-14-2023 take 1 tablet by mouth once daily oxybutynin XL (Ditropan-XL) 5 mg 24 hr tablet Take 1 tablet (5 mg) by mouth once daily. 0 09/08/2022 09/14/2023 Discontinued (Therapy completed) Start: 09-08-2022 take 1 tablet by ceasar th every twenty-four hours Oxybutynin Chloride ER 5 MG Oral Tablet Extended Release 24 Hour 1 pill a day Quantity: 0 Refills: 0 Ordered: 08-Sep-2022 DO Start : 08-Sep-2022 Active oxyCODONE hydrochloride 5 mg oral tablet (13 sources) Opioid Agonist Start: 10-13-2023 End: 01-27-2024 take 5 mg by mouth every four hours Oxycodone Discontinued 5 MG PO Every 4 hours October 26, 2023 January 27, 2024 2:56pm polyethylene glycol 3350 [id number] mg powder for oral solution (20 sources) Osmotic Laxative Start: 12-15-2019 End: 01-27-2024 Polyethylene Glycol 3350 (Miralax) 17 gram Powder In Packet Discontinued 17 GM PO Daily October 27, 2023 12:00pm January 27, 2024 2:56pm mix into 4-8 oz. of any hot/cold/room temp. beverage; use immediately predniSONE 10 mg oral tablet (20 sources) Start: 10-13-2023 End: 01-27-2024 take 10 mg by mouth once daily Prednisone Discontinued 10 MG PO Daily October 26, 2023 1:00am January 27, 2024 2:56pm Start: 04-16-2019 predniSONE 10 mg Tab See Instructions, supplemented for the previous prescription 60mg x 3 days 40mg x 3 days 20mg x 3 days then stop with food, # 21 tab(s), Refills(s) 0 Start Date: 04/16/19 Status: Ordered Start: 04-15-2019 predniSONE 20 mg Tab See Instructions, 60mg x 3 days 40mg x 3 days 20mg x 3 days then stop, # 18 tab(s), Refills(s) 0 Start Date: 04/15/19 Status: Ordered Start: 11-17-2017 End: 05-10-2018 take 20 mg by mouth once daily at mealtime Prednisone Discontinued 20 MG PO Daily November 17, 2017 1:00am May 10, 2018 2:00pm administer with food or milk rivaroxaban 10 mg oral tablet (13 sources) Factor Xa Inhibitor Start: 10-13-2023 End: 01-27-2024 take 1 tablet by mouth once daily Rivaroxaban (Xarelto) 10 mg Tablet Discontinued 10 MG PO Daily October 26, 2023 1:00am January 27, 2024 2:56pm sulfamethoxazole 800 mg / trimethoprim 160 mg oral tablet (20 sources) Dihydrofolate Reductase Inhibitor Antibacterial, Sulfonamide Antimicrobial Start: 08-24-2021 take 1 tablet by mouth every twelve hours Bactrim DS 800-160 MG 1 tablet Orally Twice a day for 7 days Aug, Not-Taking/PRN Start: 08-24-2021 take 1 tablet by mouth every t welve hours traMADol hydrochloride 50 mg oral tablet (20 sources) Opioid Agonist Start: 10-13-2023 End: 01-27-2024 take 50 mg by mouth every six hours Tramadol Discontinued 50 MG PO Q6H October 27, 2023 1:00am January 27, 2024 2:56pm Start: 01-24-2023 End: 01-27-2023 take 1 tablet by mouth every six hours as needed for pain Ultram 50 mg Tab 50 mg = 1 tab(s), Oral, q6hr, PRN as needed for pain, Take one tab by mouth every six hours as needed for pain, X 3 day(s), # 15 tab(s), Refills(s) 0, Pharmacy: [facility] [id number], 159, cm, 01/24/23 12:15:00 EDT, Height/Length Dosing, 87, kg, 01/24/23... Start Date: 01/24/23 Stop Date: 01/27/23 Status: Ordered Start: 01-20-2022 take 1 tablet by ceasar th every eight hours traMADol HCl 50 MG 1 tablet as needed Orally every 8 hours Jan, Not-Taking/PRN Start: 09-11-2021 take 1 tablet by ceasar th every eight hours traMADol HCl 50 MG 1 tablet as needed Orally every 8 hours Sep, Active Problems Active Problems Problem Classification Problem Date Documented Da te Episodic/Chronic Abdominal hernia (2 sources) Diaphragmatic hernia; Translations: [Diaphragmatic hernia without obstruction or gangrene] Onset: 3 Episodic Abdominal pain (4 sources) Generalized abdominal pain; Translations: [Abdominal pain] Onset: 1 Resolved: 1 Episodic Allergic reactions (20 sources) Allergy to bee venom; Translations: [Bee allergy status] Onset: 2 Resolved: 2 Episodic Asthma (20 sources) Asthma; Translations: [Exacerbation of intermittent asthma] 12-31-2020 Chronic Cardiac dysrhythmias (20 sources) Atrial fibrillation; Translations: [Unspecified atrial fibrillation] Onset: 4 12-31-2020 Chronic Cardiac dysrhythmias (18 sources) Palpitations; Translations: [Palpitations] Onset: 3 06-16-2019 Episodic Chronic obstructive pulmonary disease and bronchiectasis (20 sources) Bronchitis; Translations: [Bronchitis, not specified as acute or chronic] 11-17-2017 Episodic Deficiency and other anemia (16 sources) Anemia; Translations: [Anemia, unspecified] 12-31-2020 Episodic Diabetes mellitus with complications (2 sources) Secondary diabetes mellitus; Translations: [Diabetes mellitus due to underlying condition with diabetic polyneuropathy] 12-23-2023 Chronic Diabetes mellitus without complication (20 sources) Diabetes mellitus; Translations: [Type 2 diabetes mellitus without complication] Onset: 1 Resolved: 2 10-21-2020 Chronic Disorders of lipid metabolism (20 sources) Hypercholesterolemia; Translations: [Pure hypercholesterolemia, unspecified] Onset: 3 12-31-2020 Chronic Esophageal disorders (20 sources) Gastroesophageal reflux disease; Translations: [Gastro-esophageal reflux disease without esophagitis] Onset: 3 09-22-2021 Chronic Essential hypertension (20 sources) Hypertensive disorder; Translations: [Essential hypertension] Onset: 1 Resolved: 2 10-21-2020 Chronic Fracture of lower limb (2 sources) Closed fracture proximal phalanx, toe ; Translations: [Nondisplaced fracture of proximal phalanx of right lesser toe(s), initial encounter for closed fracture] 12-23-2023 Episodic Gastrointestinal hemorrhage (3 sources) Melena; Translations: [Melena] Onset: 3 Episodic Genitourinary symptoms and ill-defined conditions (20 sources) Genuine stress incontinence; Translations: [Post-micturition incontinence ] Onset: 2 12-31-2020 Chronic Genitourinary symptoms and ill-defined conditions (20 sources) Increased frequency of urination; Translations: [Nocturia] Onset: 2 12-31-2020 Episodic Gout and other crystal arthropathies (20 sources) Chondrocalcinosis of joint of right knee; Translations: [Other chondrocalcinosis, right knee] Chronic Headache; including migraine (8 sources) Headache 12-31-2020 Episodic Hemorrhoids (2 sources) Hemorrhoids; Translations: [Unspecified hemorrhoids] Onset: 3 Episodic Mood disorders (8 sources) Depressive disorder 12-31-2020 Chronic Nonmalignant breast conditions (20 sources) Fibrocystic disease of breast; Translations: [Diffuse cystic mastopathy of left breast] Chronic Nonmalignant breast conditions (14 sources) Mastitis without abscess; Translations: [Mastodynia] Onset: 2 Resolved: 2 Episodic Nonspecific chest pain (17 sources) Atypical chest pain; Translations: [Other chest pain] Onset: 3 06-16-2019 Episodic Osteoarthritis (20 sources) Primary osteoarthritis, left shoulder; Translations: [Arthritis] Onset: 8 Resolved: 2 12-31-2020 Chronic Osteoporosis (20 sources) Age-related osteoporosis without current pathological fracture; Translations: [Osteoporosis] Onset: 8 Resolved: 1 Chronic Other acquired deformities (2 sources) Contracture of joint of right ankle; Translations: [Contracture, right ankle] 12-23-2023 Chronic Other aftercare (7 sources) Patient encounter status; Translations: [Aftercare following joint replacement surgery] 12-10-2023 Chronic Other aftercare (2 sources) Aftercare following joint replacement surgery Chronic Other aftercare (5 sources) Other lobsterman (current) drug therapy; Translations: [OTH [facility] CURRENT DRUG THERAPY] Onset: 1 Resolved: 1 Episodic Other circulatory disease (1 source) Personal history of other diseases of the circulatory system; Translations: [PERSONAL HISTORY OTH DZ CIRC SYSTEM] Onset: 3 Episodic Other connective tissue disease (5 sources) History of total hip arthroplasty; Translations: [Presence of right artificial hip joint] 10-26-2023 Chronic Other connective tissue disease (9 sources) Presence of right artificial hip joint; Translations: [Hip joint replacement] Onset: 4 10-27-2023 Chronic Other connective tissue disease (3 sources) Hip joint prosthesis present; Translations: [Presence of right artificial hip joint] Chronic Other connective tissue disease (3 sources) History of total replacement of right hip joint; Translations: [Presence of right artificial hip joint] Chronic Other connective tissue disease (8 sources) Trochanteric bursitis, right hip Onset: 1 Resolved: 2 Episodic Other connective tissue disease (3 sources) Iliotibial band syndrome, right leg Episodic Other connective tissue disease (9 sources) Swelling of left upper limb; Translations: [Other specified soft tissue disorders] Onset: 3 Episodic Other connective tissue disease (1 source) Other specified soft tissue disorders; Translations: [Left arm swelling] Onset: 3 Episodic Other diseases of bladder and urethra (20 sources) Overactive bladder; Translations: [Overactive bladder] Chronic Other diseases of bladder and urethra (1 source) Overactive bladder Chronic Other diseases of veins and lymphatics (11 sources) Lymphedema; Translations: [Lymphedema, not elsewhere classified] Onset: 3 Chronic Other diseases of veins and lymphatics (4 sources) Lymphedema, not elsewhere classified; Translations: [Lymphedema] Onset: 3 Chronic Other diseases of veins and lymphatics (12 sources) Lymphedema of bilateral lower limbs; Translations: [Lymphedema, not elsewhere classified] Chronic Other diseases of veins and lymphatics (2 sources) Vascular insufficiency; Translations: [Venous insufficiency (chronic) (peripheral)] 12-23-2023 Episodic Other gastrointestinal disorders (12 sources) Constipation; Translations: [Constipation, unspecified] 12-15-2019 Episodic Other injuries and conditions due to external causes (16 sources) Injury of head; Translations: [Unspecified injury of head, initial encounter] 12-31-2020 Episodic Other nervous system disorders (20 sources) Right-sided piriformis syndrome; Translations: [Lesion of sciatic nerve, right lower limb] Chronic Other nervous system disorders (4 sources) Difficulty walking; Translations: [Difficulty in walking, not elsewhere classified] 12-10-2023 Chronic Other non-epithelial cancer of skin (9 sources) Malignant neoplasm of skin; Translations: [Unspecified malignant neoplasm of skin, unspecified] Onset: 3 12-31-2020 Episodic Other non-traumatic joint disorders (4 sources) Pain in left shoulder; Translations: [Stiffness of left shoulder, not elsewhere classified] Onset: 8 Episodic Other non-traumatic joint disorders (1 source) Pain in right knee Episodic Other non-traumatic joint disorders (4 sources) Pain in right hip joint; Translations: [Pain in right hip] 12-10-2023 Episodic Other nutritional; endocrine; and metabolic disorders (8 sources) Body mass index 30+ - obesity 04-25-2021 Chronic Other nutritional; endocrine; and metabolic disorders (3 sources) Obesity; Translations: [Obesity, unspecified] Onset: 3 09-12-2023 Chronic Other nutritional; endocrine; and metabolic disorders (1 source) Obese class I; Translations: [Body mass index (BMI) 33.0-33.9, adult] Onset: 3 Chronic Other upper respiratory disease (20 sources) Sinusitis; Translations: [Allergic rhinitis, unspecified] Chronic Other upper respiratory disease (1 source) Allergic rhinitis, unspecified Onset: 2 Resolved: 2 Chronic Phlebitis; thrombophlebitis and thromboembolism (9 sources) Personal history of other venous thrombosis and embolism; Translations: [Deep venous thrombosis] Onset: 3 07-20-2014 Episodic Residual codes; unclassified (20 sources) Sleep apnea; Translations: [Sleep apnea, unspecified] 07-20-2014 Chronic Residual codes; unclassified (20 sources) Obstructive sleep apnea syndrome; Translations: [Obstructive sleep apnea (adult) (pediatric)] Chronic Residual codes; unclassified (2 sources) Obstructive sleep apnea (adult) (pediatric) Onset: 2 Resolved: 2 Chronic Residual codes; unclassified (3 sources) Bilateral lower limb edema; Translations: [Edema] Onset: 3 09-12-2023 Episodic Residual codes; unclassified (6 sources) Localized edema; Translations: [LOCALIZED EDEMA] Onset: 3 Episodic Residual codes; unclassified (1 source) Other specified postprocedural states Episodic Residual codes; unclassified (1 source) Personal history of other specified conditions; Translations: [Personal history of other specified conditions] Onset: 4 Episodic Screening and history of mental health and substance abuse codes (3 sources) Ex-smoker; Translations: [Personal history of tobacco use] Onset: 3 Episodic Skin and subcutaneous tissue infections (2 sources) Cutaneous abscess of groin; Translations: [Cutaneous abscess, unspecified] Onset: 2 Resolved: 2 Episodic Spondylosis; intervertebral disc disorders; other back problems (20 sources) Sacroiliac disorder; Translations: [Spondylosis without myelopathy or radiculopathy, sacral and sacrococcygeal region] Onset: 1 Resolved: 1 Chronic Substance-related disorders (20 sources) Opioid dependence; Translations: [Opioid dependence, uncomplicated] Onset: 1 Resolved: 2 Chronic Superficial injury; contusion (2 sources) Contusion of right foot; Translations: [Contusion of right foot, initial encounter] 12-23-2023 Episodic Thyroid disorders (2 sources) Thyroid nodule; Translations: [Nontoxic single thyroid nodule] Onset: 3 Chronic Unclassified (2 sources) Unknown / UNK(Unknown) Onset: 8 Unclassified (8 sources) Asymptomatic microscopic hematuria 12-31-2020 Unclassified (1 source) Aftercare following joint replacement surgery; Translations: [Aftercare following joint replacement surgery] Onset: 4 Unclassified (1 source) Encounter for preprocedural laboratory examination; Translations: [Encounter for preprocedural laboratory examination] Onset: 3 Unclassified (1 source) Unilateral primary osteoarthritis, right hip; Translations: [Unilateral primary osteoarthritis, right hip] Onset: 3 Urinary tract infections (20 sources) Postinfective urethral stricture of female; Translations: [Recurrent urinary tract infection] Onset: 2 12-31-2020 Episodic Varicose veins of lower extremity (20 sources) Varicose veins of lower extremity; Translations: [Varicose veins of bilateral lower extremities with other complications] Episodic Past or Other Problems Problem Classification Problem Date Documented Da te Episodic/Chronic Administrative/social admission (8 sources) Other reduced mobility; Translations: [Impaired mobility and activities of daily living] Onset: 10-25-2023 10-26-2023 Episodic Conditions associated with dizziness or vertigo (1 source) Dizziness and giddiness Onset: 12-30-2021 Resolved: 12-30-2021 Episodic Mycoses (1 source) Candidiasis, unspecified Onset: 09-11-2021 Resolved: 09-11-2021 Episodic Other nutritional; endocrine; and metabolic disorders (4 sources) Body mass index (BMI) 29.0-29.9, adult Onset: 09-19-2021 Resolved: 04-29-2022 Episodic Other skin disorders (1 source) Nonscarring hair loss, unspecified Onset: 12-30-2021 Resolved: 12-30-2021 Episodic Residual codes; unclassified (4 sources) Other specified health status; Translations: [Statin intolerance] Onset: 09-12-2023 09-12-2023 Episodic Residual codes; unclassified (2 sources) Localized edema; Translations: [Localized edema] Onset: 01-24-2023 Episodic Unclassified (20 sources) Unclassified (1 source) Contact with and (suspected) exposure to covid-19 Z20.822 Onset: 07-06-2022 Resolved: 07-06-2022 Unclassified (1 source) Lumbar pain M54.50 Unclassified (1 source) Onset: 09-14-2023 09-14-2023 Unclassified (1 source) Vaginal yeast infection B37.31 Results Test Name Value Interpretation Reference Range Facility XR hip RT min 2V(w/wo pelvis )*on 01-27-2024 XR hip RT min 2V(w/wo pelvis)* [facility] [place] [address] [place] [id number] XRay Report Signed Patient: Radha Wright MR#: [id number] : 1955 Acct:[id number] Age/Sex: 69 / F ADM Date: 01/27/24 Loc: [facility] Room: Type: [facility] Attending Dr: Luigi Flower II, MD Copies to: Luigi Flower MD Ordering Provider: Luigi Flower MD Date of Service: 01/27/24 XR/XR hip RT min 2V(w/wo pelvis)*: Z96.641 - Presence of right artificial hip joint 2 views right hip single view pelvis plain film COMPARISON: 12/09/2023 HISTORY: Status post right total hip arthroplasty ACUTE FINDINGS: None DEGENERATIVE CHANGE: Unremarkable SOFT TISSUE FINDINGS: Unremarkable JOINT EFFUSION: None POSTOP CHANGES: Stable hardware BONY MINERALIZATION: Adequate XR/XR hip RT min 2V(w/wo pelvis)* IMPRESSION: Stable findings Impression dictated by: Zackery Cordon M.D.01/27/2024 6:14 PM Dictation Location: [place] [address] Transcribed By: [facility] 01/27/241813 Dictated By: Zackery Cordon DO 01/27/241813 Signed By: 01/27/241813 [facility] US breast LT limitedon 01-20 breast LT limited [facility] [place] [address] Mammography Report Signed Patient: Radha Wright MR#: [id number] : 1955 Acct:[id number] Age/Sex: 69 / F ADM Date: 01/21/24 Loc: [place] Room: Type: [facility] Attending Dr: Annelise MERCERBC Copies to: ANNELISE PEÑALOZA FNP-BC Ordering Provider: DIONY Zimmerman Date of Service: 01/21/24 MM/MM diagnostic mammo BI w/CAD: History of abnormal mammogram ([id number]) US/US breast LT limited: ABN MAMM DIAGNOSTIC BILATERAL BREAST MAMMOGRAM - FULL FIELD DIGITAL WITH TOMOSYNTHESIS CLINICAL DATA: Left breast pain, history of left breast mastitis with prominent left axillary lymph nodes Tomosynthesis Craniocaudal and mediolateral oblique views of the left breast were obtained using low-dose digital technique. Comparison is made to prior studies from 01/05/2023, 07/02/2022, 11/28/2021, 07/07/2021, and 04/09/2021. This examination was reviewed with the aid of CAD. Scattered benign-appearing calcifications are present bilaterally. There are scattered fibroglandular tissue. There are no dominant masses, typically malignant calcifications or architectural distortion. There has been no significant interval change. Limited left breast ultrasound: There is a benign-appearing lymph node in the left axilla similar to the prior exam measuring 1.6 x 1.0 x 1.1 cm in greatest dimension. There is scattered fibroglandular tissue is is no evidence of mass, architectural distortion, cyst, or atypical calcification. MM/MM diagnostic mammo BI w/CAD IMPRESSION: NO MAMMOGRAPHIC EVIDENCE OF MALIGNANCY. ROUTINE FOLLOW-UP IS RECOMMENDED IN ONE YEAR. THERE IS A BENIGN-APPEARING LYMPH NODE IN THE LEFT AXILLA SIMILAR TO THE PRIOR EXAM MEASURING 1.6 X 1.0 X 1.1 CM IN GREATEST DIMENSION. RESULT CODE: 2 Benign Findings(s) DENSITY CODE: 2 (approximately 25-50% glandular) FOLLOW UP: 1YR The false-negative rate of mammography is approximately 10-percent. Management of a palpable abnormality must be based on clinical grounds. Impression dictated by: Raúl Faye M.D.01/21/2024 8:43 AM Dictation Location: [facility] Transcribed By: [facility] 01/21/24 0843 Dictated By: Raúl Faye II, MD 01/21/24 0806 Signed By: 01/21/24 0843 Normal [facility] XR hip RT min 2V(w/wo pelvis )*on 12-09-2023 XR hip RT min 2V(w/wo pelvis)* [facility] [place] [address] [place] [address] XRay Report Signed Patient: Radha Wright MR#: [id number] : 1955 Acct:[id number] Age/Sex: 68 / F ADM Date: 12/09/23 Loc: [facility] Room: Type: [facility] Attending Dr: Luigi Flower II, MD Copies to: Luigi Flower MD Ordering Provider: Luigi Flower MD Date of Service: 12/09/23 XR/XR hip RT min 2V(w/wo pelvis)*: Aftercare following joint replacement surgery;Presence of ri RIGHT HIP - 2 views: CLINICAL HISTORY: Follow-up right ZEHRA COMPARISON: Right hip 10/25/2023 FINDINGS: Right hip prosthesis without radiographic complication. XR/XR hip RT min 2V(w/wo pelvis)* IMPRESSION: NO HARDWARE COMPLICATION.. Impression dictated by: Alexander Larry Jr., D.O.12/09/2023 2:02 PM Dictation Location: [facility]--12 Transcribed By: [facility] 12/09/23 140 Dictated By: Alexander Larry Jr, DO 12/09/23 140 Signed By: 12/09/23 1402 Normal [facility] Basic Metabolic Panelon 12- Anion gap [Moles/Vol] 5.5 mmol/L Low 6.0-15.0 [facility] Comment on above: Performed By: #### C BC, BMP #### [facility] [address] [place] [address] [place] Calcium [Mass/Vol] 8.6 mg/dL Normal 8.6-10.3 [facility] Comment on above: Performed By: #### C BC, BMP #### [facility] [address] [place] [id number] [place] Chloride [Moles/Vol] 104 mmol/L Normal 98-107 [facility] Comment on above: Performed By: #### C BC, BMP #### [facility] [address] [place] [id number] [place] CO2 [Moles/Vol] 34.5 mmol/L High 21.0-31.0 [facility] Comment on above: Performed By: #### C BC, BMP #### [facility] [address] [place] [id number] [place] Creatinine [Mass/Vol] 0.58 mg/dL Low 0.60-1.20 [facility] Comment on above: Performed By: #### C BC, BMP #### [place] [address] [place] Creatinine Clr Calc Pharmacy 69.72 Normal [facility] Comment on above: Result Comment: PERF ORMED BY: [place] [address] PATHOLOGIST DIRECTOR OF MANAGED CARE HARI GUERRA M.D. Performed By: #### C BC, BMP #### [place] [address] [place] GFR/1.73 sq M.predicted MDRD (S/P/Bld) [Vol rate/Area] mL/min/{1.73_m2} Normal [facility] Comment on above: Performed By: #### C BC, BMP #### [address] Glucose [Mass/Vol] 120 mg/dL High 70-100 [facility] Comment on above: Result Comment: [place] Glucose Reference Range is dependent on time and content of last meal. Glucose of more than 200 mg/dL in a nonstressed, ambulatory subject supports the diagnosis of Diabetes Mellitus. ADA recommended reference range Performed By: #### C BC, BMP #### [address] Potassium [Moles/Vol] 4.0 mmol/L Normal 3.5-5.1 [facility] Comment on above: Performed By: #### C BC, BMP #### [place] [address] [place] Sodium [Moles/Vol] 140 mmol/L Normal 136-145 [facility] Comment on above: Performed By: #### C BC, BMP #### [address] Urea nitrogen [Mass/Vol] 17 mg/dL Normal 7-25 [facility] Comment on above: Performed By: #### C BC, BMP #### [place] [address] [place] Basophils Auto (Bld) [#/Vol] Ordered By: Luigi Flower on 10-27-2023 Basophils (Bld) [#/Vol] 0.0 10*3/uL 0.0-0.2 [facility] Basophils/100 WBC Auto (Bld) Ordered By: Luigi Flower on 10-27-2023 Basophils/100 WBC (Bld) 0.4 % . [facility] Calcium [Mass/volume] in Ser um or PlasmaOrdered By: Luigi Flower on 10-27-2023 Calcium [Mass/Vol] 8.6 mg/dL 8.6-10.3 [facility] Carbon dioxide, total [Moles /volume] in Serum or PlasmaOrdered By: Luigi Flower on 10-27-2023 CO2 [Moles/Vol] 34.5 mmol/L 21.0-31.0 [facility] Chloride [Moles/volume] in S shirley or PlasmaOrdered By: Luigi Flower on 10-27-2023 Chloride [Moles/Vol] 104 mmol/L 98-107 [facility] Complete Blood Count Auto Di ffon 10-27-2023 Basophils (Bld) [#/Vol] 0.0 10*3/uL Normal 0.0-0.2 [facility] Comment on above: Result Comment: PERF ORMED BY: [place] [address] PATHOLOGIST DIRECTOR OF MANAGED CARE HARI GUERRA M.D. Performed By: #### C BC, BMP #### [facility] [address] [place] [address] [place] Basophils/100 WBC (Bld) 0.4 % Normal . [facility] Comment on above: Performed By: #### C BC, BMP #### [facility] [address] [place] [address] [place] Eosinophils (Bld) [#/Vol] 0.0 10*3/uL Normal 0.0-0.45 [facility] Comment on above: Performed By: #### C BC, BMP #### [facility] [address] [place] [address] [place] Eosinophils/100 WBC (Bld) 0.3 % Normal . [facility] Comment on above: Performed By: #### C BC, BMP #### [address] Erythrocyte distribution width (RBC) [Ratio] 15.0 % Normal 11.9-15.3 [facility] Comment on above: Performed By: #### C BC, BMP #### [address] Hematocrit (Bld) [Volume fraction] 23.2 % Low 34.0-46.4 [facility] Comment on above: Performed By: #### C BC, BMP #### [address] Hemoglobin (Bld) [Mass/Vol] 8.1 g/dL Low 11.8-15.4 [facility] Comment on above: Performed By: #### C BC, BMP #### [address] Lymphocytes (Bld) [#/Vol] 1.7 10*3/uL Normal 1.00-4.8 [facility] Comment on above: Performed By: #### C BC, BMP #### [place] [address] [place] Lymphocytes/100 WBC (Bld) 28.1 % Normal . [facility] Comment on above: Performed By: #### C BC, BMP #### [address] MCH (RBC) [Entitic mass] 31.8 pg Normal 24.7-34.3 [facility] Comment on above: Performed By: #### C BC, BMP #### [address] MCV (RBC) [Entitic vol] 91.4 fL Normal 80-100 [facility] Comment on above: Performed By: #### C BC, BMP #### [address] Mean Corpuscular HGB Conc 34.7 g/dL Normal 32.0-35.0 [facility] Comment on above: Performed By: #### C BC, BMP #### [facility] [address] [place] [address] [place] Monocytes (Bld) [#/Vol] 0.6 10*3/uL Normal 0.0-0.8 [facility] Comment on above: Performed By: #### C BC, BMP #### [facility] [address] [place] [address] [place] Monocytes/100 WBC (Bld) 9.9 % Normal . [facility] Comment on above: Performed By: #### C BC, BMP #### [facility] [address] [place] [address] [place] Neutrophils (Bld) [#/Vol] 3.8 10*3/uL Normal 1.8-7.7 [facility] Comment on above: Performed By: #### C BC, BMP #### [facility] [address] [place] [address] [place] Neutrophils/100 WBC (Bld) 61.3 % Normal . [facility] Comment on above: Performed By: #### C BC, BMP #### [facility] [address] [place] [address] [place] NRBC% 0.0 /100{WBC} Normal 0-0.5 [facility] Comment on above: Performed By: #### C BC, BMP #### [facility] [address] [place] [address] [place] Platelet mean volume (Bld) [Entitic vol] 6.7 fL Normal 6.3-10.7 [facility] Comment on above: Performed By: #### C BC, BMP #### [facility] [address] [place] [address] [place] Platelets (Bld) [#/Vol] 132 10*3/uL Low 150-450 [facility] Comment on above: Performed By: #### C BC, BMP #### [facility] [address] [place] [address] [place] RBC (Bld) [#/Vol] 2.54 10*6/uL Low 3.60-5.00 [facility] Comment on above: Performed By: #### C BC, BMP #### [facility] [address] [place] [address] [place] WBC (Bld) [#/Vol] 6.2 10*3/uL Normal 3.8-11.6 [facility] Comment on above: Performed By: #### C BC, BMP #### [facility] [address] Creatinine [Mass/volume] in Serum or PlasmaOrdered By: Luigi Flower on 10-27-2023 Creatinine [Mass/Vol] 0.58 mg/dL 0.60-1.20 [facility] Eosinophils Auto (Bld) [#/Vo l]Ordered By: Luigi Flower on 10-27-2023 Eosinophils (Bld) [#/Vol] 0.0 10*3/uL 0.0-0.45 [facility] Eosinophils/100 WBC Auto (Bl d)Ordered By: Luigi Flower on 10-27-2023 Eosinophils/100 WBC (Bld) 0.3 % . [facility] Erythrocyte distribution wid th Auto (RBC) [Ratio]Ordered By: Luigi Flower on 10-27-2023 Erythrocyte distribution width (RBC) [Ratio] 15.0 % 11.9-15.3 [facility] Glucose Glucometer (BldC) [M ass/Vol]Ordered By: Luigi Flower on 10-27-2023 Glucose [Mass/Vol] 161 mg/dL [facility] Comment on above: Random Glucose Refer ence Range is dependent on time and content of last meal. Glucose of more than 200 mg/dL in a nonstressed, ambulatory subject supports the diagnosis of Diabetes Mellitus. Glucose Poct Glucometerson 1 12-28-2022 Commemt1 Glu2: Cleaned Meter Normal [facility] Comment on above: Result Comment: PERF ORMED BY: [facility] [address] [place] [address] PATHOLOGIST DIRECTOR OF MANAGED CARE HARI GUERRA M.D. Performed By: #### G LULS ####Point of Care testing, Glucose [Mass/Vol] 161 mg/dL Normal [facility] Comment on above: Result Comment: [place] om Glucose Reference Range is dependent on time and content of last meal. Glucose of more than 200 mg/dL in a nonstressed, ambulatory subject supports the diagnosis of Diabetes Mellitus. Performed By: #### G LULS ####Point of Care testing, Commemt1 Glu2: Cleaned Meter Normal [facility] Comment on above: Result Comment: PERF ORMED BY: [facility] [place] [address] PATHOLOGIST DIRECTOR OF MANAGED CARE HARI GUERRA M.D. Performed By: #### G LULS #### Point of Care testing , Glucose [Mass/Vol] 166 mg/dL Normal [facility] Comment on above: Result Comment: [place] om Glucose Reference Range is dependent on time and content of last meal. Glucose of more than 200 mg/dL in a nonstressed, ambulatory subject supports the diagnosis of Diabetes Mellitus. Performed By: #### G LULS #### Point of Care testing , Glucose [Mass/Vol] 113 mg/dL Normal [facility] Comment on above: Result Comment: [place] om Glucose Reference Range is dependent on time and content of last meal. Glucose of more than 200 mg/dL in a nonstressed, ambulatory subject supports the diagnosis of Diabetes Mellitus. Performed By: #### G LULS #### Point of Care testing , Glucose [Mass/volume] in Ser um or PlasmaOrdered By: Luigi Flower on 10-27-2023 Glucose [Mass/Vol] 120 mg/dL 70-100 [facility] Comment on above: ADA recommended refe rence rangeRandom Glucose Reference Range is dependent on time and content of last meal. Glucose of more than 200 mg/dL in a nonstressed, ambulatory subject supports the diagnosis of Diabetes Mellitus. Hematocrit Auto (Bld) [Volum e fraction]Ordered By: Luigi Flower on 10-27-2023 Hematocrit (Bld) [Volume fraction] 23.2 % 34.0-46.4 [facility] Hemoglobin [Mass/volume] in BloodOrdered By: Luigi Flower on 10-27-2023 Hemoglobin (Bld) [Mass/Vol] 8.1 g/dL 11.8-15.4 [facility] Leukocytes [#/volume] correc elena for nucleated erythrocytes in Blood by Automated counOrdered By: Luigi Flower on 10-27-2023 WBC corrected for nucl RBC Auto (Bld) [#/Vol] 6.2 10*3/uL 3.8-11.6 [facility] Lymphocytes Auto (Bld) [#/Vo l]Ordered By: Luigi Flower on 10-27-2023 Lymphocytes (Bld) [#/Vol] 1.7 10*3/uL 1.00-4.8 [facility] Lymphocytes/100 WBC Auto (Bl d)Ordered By: Luigi Flower on 10-27-2023 Lymphocytes/100 WBC (Bld) 28.1 % . [facility] MCH Auto (RBC) [Entitic mass ]Ordered By: Luigi Flower on 10-27-2023 MCH (RBC) [Entitic mass] 31.8 pg 24.7-34.3 [facility] MCHC Auto (RBC) [Mass/Vol]Or dered By: Luigi Flower on 10-27-2023 MCHC (RBC) [Mass/Vol] 34.7 g/dL 32.0-35.0 [facility] MCV Auto (RBC) [Entitic vol] Ordered By: Luigi Flower on 10-27-2023 MCV (RBC) [Entitic vol] 91.4 fL 80-100 [facility] Monocytes Auto (Bld) [#/Vol] Ordered By: Luigi Flower on 10-27-2023 Monocytes (Bld) [#/Vol] 0.6 10*3/uL 0.0-0.8 [facility] Monocytes/100 WBC Auto (Bld) Ordered By: Luigi Flower on 10-27-2023 Monocytes/100 WBC (Bld) 9.9 % . [facility] Neutrophils Auto (Bld) [#/Vo l]Ordered By: Luigi Flower on 10-27-2023 Neutrophils (Bld) [#/Vol] 3.8 10*3/uL 1.8-7.7 [facility] Neutrophils/100 WBC Auto (Bl d)Ordered By: Luigi Flower on 10-27-2023 Neutrophils/100 WBC (Bld) 61.3 % . [facility] No Panel InformationOrdered By: Luigi Flower on 10-27-2023 Bedside Glucose Comment Glu2: cleaned meter [facility] Estimated GFR (CKD-EPI) > 60.0 mL/Min [facility] Pharmacy Creatinine Clearance (Chem 69.72 [facility] Nucleated erythrocytes [Pres ence] in Blood by Automated countOrdered By: Luigi Flower on 10-27-2023 Nucleated RBC Auto Ql (Bld) 0.0 /100{WBC} 0-0.5 [facility] Platelet mean volume Auto (B ld) [Entitic vol]Ordered By: Luigi Flower on 10-27-2023 Platelet mean volume (Bld) [Entitic vol] 6.7 fL 6.3-10.7 [facility] Platelets Auto (Bld) [#/Vol] Ordered By: Luigi Flower on 10-27-2023 Platelets (Bld) [#/Vol] 132 10*3/uL 150-450 [facility] Potassium [Moles/volume] in Serum or PlasmaOrdered By: Luigi Flower on 10-27-2023 Potassium [Moles/Vol] 4.0 mmol/L 3.5-5.1 [facility] RBC Auto (Bld) [#/Vol]Ordere d By: Luigi Flower on 10-27-2023 RBC (Bld) [#/Vol] 2.54 10*6/uL 3.60-5.00 [facility] Serum or plasma anion gap de terminationOrdered By: Luigi Flower on 10-27-2023 Anion gap [Moles/Vol] 5.5 mmol/L 6.0-15.0 [facility] Sodium [Moles/volume] in Ser um or PlasmaOrdered By: Luigi Flower on 10-27-2023 Sodium [Moles/Vol] 140 mmol/L 136-145 [facility] Urea nitrogen [Mass/volume] in Serum or PlasmaOrdered By: Luigi Flower on 10-27-2023 Urea nitrogen [Mass/Vol] 17 mg/dL 7-25 [facility] WBC Auto (Bld) [#/Vol]Ordere d By: Luigi Flower on 10-27-2023 WBC (Bld) [#/Vol] 6.2 10*3/uL 3.8-11.6 [facility] Basic Metabolic Panelon 10-08 Anion gap [Moles/Vol] 8.4 mmol/L Normal 6.0-15.0 [facility] Comment on above: Performed By: #### B MP, CBC ####[facility] [id number] [place] [address] [facility] Calcium [Mass/Vol] 8.6 mg/dL Normal 8.6-10.3 [facility] Comment on above: Performed By: #### B MP, CBC ####[place] [id number] [place] [address] [facility] Chloride [Moles/Vol] 103 mmol/L Normal 98-107 [facility] Comment on above: Performed By: #### B MP, CBC ####[facility] [address] [place] [address] [facility] CO2 [Moles/Vol] 30.8 mmol/L Normal 21.0-31.0 [facility] Comment on above: Performed By: #### B MP, CBC ####[place] [address] [place] [address] [facility] Creatinine [Mass/Vol] 0.44 mg/dL Low 0.60-1.20 [facility] Comment on above: Performed By: #### B MP, CBC ####[facility] [address] [place] [address] [place] Creatinine Clr Calc Pharmacy 69.72 Normal [facility] Comment on above: Result Comment: PERF ORMED BY: [facility] [address] [place] [id number] PATHOLOGIST DIRECTOR OF MANAGED CARE HARI GUERRA M.D. Performed By: #### B MP, CBC ####[place] [address] [place] [address] [place] GFR/1.73 sq M.predicted MDRD (S/P/Bld) [Vol rate/Area] mL/min/{1.73_m2} Normal [facility] Comment on above: Performed By: #### B MP, CBC ####[place] [address] [place] [id number] [facility] Glucose [Mass/Vol] 170 mg/dL High 70-100 [facility] Comment on above: Result Comment: [place] Glucose Reference Range is dependent on time and content of last meal. Glucose of more than 200 mg/dL in a nonstressed, ambulatory subject supports the diagnosis of Diabetes Mellitus. ADA recommended reference range Performed By: #### B MP, CBC ####[place] [id number] [place] [id number] [facility] Potassium [Moles/Vol] 4.2 mmol/L Normal 3.5-5.1 [facility] Comment on above: Performed By: #### B MP, CBC ####[place] [id number] [facility] Sodium [Moles/Vol] 138 mmol/L Normal 136-145 [facility] Comment on above: Performed By: #### B MP, CBC ####[place] [id number] [facility] Urea nitrogen [Mass/Vol] 11 mg/dL Normal 7-25 [facility] Comment on above: Performed By: #### B MP, CBC ####[place] [id number] [facility] Complete Blood Count Auto Di ffon 10-26-2023 Basophils (Bld) [#/Vol] 0.0 10*3/uL Normal 0.0-0.2 [facility] Comment on above: Result Comment: PERF ORMED BY: [facility] [address] [place] [id number] PATHOLOGIST DIRECTOR OF MANAGED CARE HARI GUERRA M.D. Performed By: #### B MP, CBC ####[place] [address] [place] [id number] [place] Basophils/100 WBC (Bld) 0.1 % Normal . [facility] Comment on above: Performed By: #### B MP, CBC ####[place] [id number] [facility] Eosinophils (Bld) [#/Vol] 0.0 10*3/uL Normal 0.0-0.45 [facility] Comment on above: Performed By: #### B MP, CBC ####[place] [id number] [facility] Eosinophils/100 WBC (Bld) 0.0 % Normal . [facility] Comment on above: Performed By: #### B MP, CBC ####[place] [id number] [facility] Erythrocyte distribution width (RBC) [Ratio] 15.1 % Normal 11.9-15.3 [facility] Comment on above: Performed By: #### B MP, CBC ####[address] Hematocrit (Bld) [Volume fraction] 25.9 % Low 34.0-46.4 [facility] Comment on above: Performed By: #### B MP, CBC ####[place] [id number] [facility] Hemoglobin (Bld) [Mass/Vol] 9.0 g/dL Low 11.8-15.4 [facility] Comment on above: Performed By: #### B MP, CBC ####[place] [id number] [facility] Lymphocytes (Bld) [#/Vol] 0.7 10*3/uL Low 1.00-4.8 [facility] Comment on above: Performed By: #### B MP, CBC ####[place] [id number] [facility] Lymphocytes/100 WBC (Bld) 11.1 % Normal . [facility] Comment on above: Performed By: #### B MP, CBC ####[place] [id number] [facility] MCH (RBC) [Entitic mass] 31.4 pg Normal 24.7-34.3 [facility] [facility] Comment on above: Performed By: #### B MP, CBC ####[address] [address] [facility] MCV (RBC) [Entitic vol] 90.8 fL Normal 80-100 F [facility] Comment on above: Performed By: #### B MP, CBC ####[address] [address] [facility] Mean Corpuscular HGB Conc 34.6 g/dL Normal 32.0-35.0 [facility] Comment on above: Performed By: #### B MP, CBC ####[address] [address] [facility] Monocytes (Bld) [#/Vol] 0.5 10*3/uL Normal 0.0-0.8 [facility] Comment on above: Performed By: #### B MP, CBC ####[address] [address] [facility] Monocytes/100 WBC (Bld) 7.5 % Normal . [facility] Comment on above: Performed By: #### B MP, CBC ####[address] [address] [facility] Neutrophils (Bld) [#/Vol] 5.3 10*3/uL Normal 1.8-7.7 [facility] Comment on above: Performed By: #### B MP, CBC ####[address] [address] [facility] Neutrophils/100 WBC (Bld) 81.3 % Normal . [facility] Comment on above: Performed By: #### B MP, CBC ####[address] [address] [facility] NRBC% 0.1 /100{WBC} Normal 0-0.5 [facility] Comment on above: Performed By: #### B MP, CBC ####[address] [address] [facility] Platelet mean volume (Bld) [Entitic vol] 6.7 fL Normal 6.3-10.7 [facility] Comment on above: Performed By: #### B MP, CBC ####[facility] [address] [place] [address] [facility] Platelets (Bld) [#/Vol] 161 10*3/uL Normal 150-450 [facility] Comment on above: Performed By: #### B MP, CBC ####[facility] [address] [place] [address] [facility] RBC (Bld) [#/Vol] 2.85 10*6/uL Low 3.60-5.00 [facility] Comment on above: Performed By: #### B MP, CBC ####[facility] [place] [address] [facility] WBC (Bld) [#/Vol] 6.6 10*3/uL Normal 3.8-11.6 [facility] Comment on above: Performed By: #### B MP, CBC ####[address] [address] [facility] Glucose Poct Glucometerson 1 12-27-2022 Glucose [Mass/Vol] 204 mg/dL Normal [facility] Comment on above: Result Comment: [facility] Glucose Reference Range is dependent on time and content of last meal. Glucose of more than 200 mg/dL in a nonstressed, ambulatory subject supports the diagnosis of Diabetes Mellitus. PERFORMED BY: [facility] [address] [place] [address] PATHOLOGIST DIRECTOR OF MANAGED CARE HARI GUERRA M.D. Performed By: #### G LULS #### Point of Care testing , Commemt1 Glu2: Cleaned Meter Normal [facility] Comment on above: Result Comment: PERF ORMED BY: [facility] [address] [place] [id number] PATHOLOGIST DIRECTOR OF MANAGED CARE HARI GUERRA M.D. Performed By: #### G LULS #### Point of Care testing , Glucose [Mass/Vol] 174 mg/dL Normal [facility] Comment on above: Result Comment: [facility] Glucose Reference Range is dependent on time and content of last meal. Glucose of more than 200 mg/dL in a nonstressed, ambulatory subject supports the diagnosis of Diabetes Mellitus. Performed By: #### G LULS #### Point of Care testing , Glucose [Mass/Vol] 204 mg/dL Normal [facility] Comment on above: Result Comment: [facility] Glucose Reference Range is dependent on time and content of last meal. Glucose of more than 200 mg/dL in a nonstressed, ambulatory subject supports the diagnosis of Diabetes Mellitus. PERFORMED BY: [address] [place] [id number] PATHOLOGIST DIRECTOR OF MANAGED CARE HARI GUERRA M.D. Performed By: #### G LULS ####Point of Care testing, Glucose [Mass/Vol] 168 mg/dL Normal [facility] Comment on above: Result Comment: [facility] Glucose Reference Range is dependent on time and content of last meal. Glucose of more than 200 mg/dL in a nonstressed, ambulatory subject supports the diagnosis of Diabetes Mellitus. PERFORMED BY: [address] [place] [address] PATHOLOGIST DIRECTOR OF MANAGED CARE HARI GUERRA M.D. Performed By: #### G LULS #### Point of Care testing , Glucose [Mass/Vol] 211 mg/dL Normal [facility] Comment on above: Result Comment: [facility] Glucose Reference Range is dependent on time and content of last meal. Glucose of more than 200 mg/dL in a nonstressed, ambulatory subject supports the diagnosis of Diabetes Mellitus. PERFORMED BY: [address] [place] [address] PATHOLOGIST DIRECTOR OF MANAGED CARE HARI GUERRA M.D. Performed By: #### G LULS #### Point of Care testing , ABO/Rh Retypeon 10-25-2023 ABO/RH Recheck Result Positive Normal [facility] Comment on above: Result Comment: PERF ORMED BY: [facility] [address] [address] PATHOLOGIST DIRECTOR OF MANAGED CARE HARI GUERRA M.D. Glucose Poct Glucometerson 1 12-26-2022 Commemt1 Glu2: Cleaned Meter Normal [facility] Comment on above: Result Comment: PERF ORMED BY: [facility] [place] [address] PATHOLOGIST DIRECTOR OF MANAGED CARE HARI GUERRA M.D. Performed By: #### G GABRIEL #### Point of Care testing , Glucose [Mass/Vol] 111 mg/dL Normal [facility] Comment on above: Result Comment: [facility] Glucose Reference Range is dependent on time and content of last meal. Glucose of more than 200 mg/dL in a nonstressed, ambulatory subject supports the diagnosis of Diabetes Mellitus. Performed By: #### G GABRIEL #### Point of Care testing , Sen 10-25-2023 L ---- Specimen: [id number] Received: 10/26/23 Status: JJ Pelletier Num: [id number] Spec Type: Surgical Subm Dr: Luigi Flower MD Tissues: A Femoral Head - Other than Fracture (RT HIP) Procedures: HE/2, Gross/Micro L3, Decalcification Age/ Patient Sex Location Account Attending Physician Radha Wright 68/F 4N [id number] Luigi Flower MD SPEC NUM: [id number] RECD: 10/26/23 STATUS: JJ PELLETIER NUM: [id number] RIVER: 10/25/23 DR: Luigi Flower MD ENTERED: 10/26/[address]: ZEN TYPE: Surgical DEPT: S ORDERED: HE/2, Gross/Micro L3, Decalcification ORDERED: HE/2, Gross/Micro L3, Decalcification Pathological Diagnosis Bone And Tissue, Right Hip, Arthroplasty: Degenerative Changes Consistent With Osteoarthritis. Gross only. Clinical Information DJD right hip, no exam required Gross Description Received in formalin labeled with the patient's name, date of and bone and tissue right hip is a 5.5 x 5.0 x 5.0 cm femoral head with a detached 10.5 x 8.5 x 4.2 cm aggregate of loya-red bone and yellow-longoria rubbery tissue. The femoral head has a smooth to granular loya-longoria articular surface with eburnation identified. The cut surface is yellow- loya, trabecular with focal hyperemia. Thinning of the articular cartilage is noted. A gross photo is taken.. Gross examination only. CPT Codes 40115 Gross Photo Specimen: [id number] Received: 10/26/23 Status: JJ Pelletier Num: [id number] Spec Type: Surgical Subm Dr: Luigi Flower MD Tissues: A Femoral Head - Other than Fracture (RT HIP) Procedures: HE/2, Gross/Micro L3, Decalcification Patient: Radha Wright [id number] (Continued) Signed (signature on file) Ricardo Hercules MD 10/27/23 2339 Normal [facility] XR hip RT 1Von 10-25-2023 XR hip RT 1V [address] [address] XRay Report Signed Patient: Radha Wright MR#: [id number] : 1955 Acct:[id number] Age/Sex: 68 / F ADM Date: 10/25/23 Loc: Room: [address] [place] [address] Type: ADM IN Attending Dr: Luigi Flower II, MD Copies to: Luigi Flower MD Ordering Provider: Luigi Flower MD Date of Service: 10/25/23 XR/XR hip RT 1V: ANTERIOR RIGHT HIP XR hip RT 1V 10/25/2023 3:40 PM SIGNS AND SYMPTOMS: Right total hip arthroplasty hardware placement PROTOCOL: Intraoperative views of the right hip COMPARISON: 07/14/2020. FINDINGS: Intraoperative views demonstrate total right hip arthroplasty hardware placement. Cumulative Air Kerma in mGy: 6.29 mGy XR/XR hip RT 1V IMPRESSION: Intraoperative views demonstrate total right hip arthroplasty hardware placement. Impression dictated by: Raúl Faye M.D.10/25/2023 4:59 PM Dictation Location: [place] [address] Transcribed By: [facility] 10/25/231658 Dictated By: Raúl Faye II, MD 10/25/231657 Signed By: 10/25/23 1659 Normal [facility] XR low pelvis w/RT x-table h ipon 10-25-2023 XR low pelvis w/RT x-table hip [facility] Main [place] [address] [place] [address] XRay Report Signed Patient: Radha Wright MR#: [id number] : 1955 Acct:[id number] Age/Sex: 68 / F ADM Date: 10/25/23 Loc: 4 Room: [id number] Type: ADM IN Attending Dr: Luigi Flower II, MD Copies to: Luigi Flower MD Ordering Provider: Luigi Flower MD Date of Service: 10/25/23 XR/XR low pelvis w/RT x-table hip: Total hip, do in PACU XR low pelvis w/RT x-table hip 10/25/2023 7:25 AM SIGNS AND SYMPTOMS: Status post total right hip arthroplasty hardware placement PROTOCOL: Frontal radiograph the pelvis with crosstable lateral view of the right hip COMPARISON: 10/25/2023 FINDINGS: Total right hip arthroplasty hardware is placed without hardware complication. No fracture or dislocation. The left hip is grossly intact. The bony ring of the pelvis is intact. Subcutaneous emphysema is noted in the right hip soft tissues. XR/XR low pelvis w/RT x-table hip IMPRESSION: Total right hip arthroplasty hardware is placed without hardware complication. No fracture or dislocation. Impression dictated by: Raúl Faye M.D.10/25/2023 5:05 PM Dictation Location: [place] [address] Transcribed By: JANET 10/25/231704 Dictated By: Raúl Faye II, MD 10/25/231703 Signed By: 10/25/231704 Normal [facility] Automated erythrocytes count in urine sediment (number/area)Ordered By: Luigi Flower on 10-11-2023 RBC Auto (Urine sed) [#/Area] 1-2 [HPF] 0-4 [facility] Automated leukocytes count i n urine sediment (number/area)Ordered By: Luigi Flower on 10-11-2023 WBC Auto (Urine sed) [#/Area] 0-1 [HPF] 0-4 [facility] Basic Metabolic Panelon Anion gap [Moles/Vol] 8.1 mmol/L Normal 6.0-15.0 [facility] Comment on above: Performed By: #### C DANA BMP ####[facility]#### FRUC ####[facility] , Calcium [Mass/Vol] 9.5 mg/dL Normal 8.6-10.3 [facility] Comment on above: Result Comment: PERF ORMED BY: [facility] [address] [place] [address] PATHOLOGIST DIRECTOR OF MANAGED CARE HARI GUERRA M.D. Performed By: #### C DANA BMP ####[facility] [address]#### FRUC ####[facility] , Chloride [Moles/Vol] 101 mmol/L Normal 98-107 [facility] Comment on above: Performed By: #### C BC, BMP ####[facility] [address] [place] [address] [place]#### FRUC ####[facility] , CO2 [Moles/Vol] 34.4 mmol/L High 21.0-31.0 [facility] Comment on above: Performed By: #### C BC, BMP ####[facility] [place] [address] [place]#### FRUC ####[facility] , Creatinine [Mass/Vol] 0.60 mg/dL Normal 0.60-1.20 [facility] Comment on above: Performed By: #### C BC, BMP ####[place] [address] [place] [address] [place]#### FRUC ####[facility] , GFR/1.73 sq M.predicted MDRD (S/P/Bld) [Vol rate/Area] mL/min/{1.73_m2} [facility] Comment on above: Performed By: #### C BC, BMP ####[place] [address] [place]#### FRUC ####[facility] , Glucose [Mass/Vol] 104 mg/dL High 70-100 [facility] Comment on above: Result Comment: [facility] Glucose Reference Range is dependent on time and content of last meal. Glucose of more than 200 mg/dL in a nonstressed, ambulatory subject supports the diagnosis of Diabetes Mellitus. ADA recommended reference range Performed By: #### C BC, BMP ####[facility] [place] [address] [place]#### FRUC ####[facility] , Potassium [Moles/Vol] 3.5 mmol/L Normal 3.5-5.1 [facility] Comment on above: Performed By: #### C BC, BMP ####[place] [address] [place]#### FRUC ####[facility] , Sodium [Moles/Vol] 140 mmol/L Normal 136-145 [facility] Comment on above: Performed By: #### C BC, BMP ####[facility] [address] [place] [id number] [facility]#### FRUC ####[facility] , Urea nitrogen [Mass/Vol] 13 mg/dL Normal 7-25 [facility] Comment on above: Performed By: #### C BC, BMP ####[facility] [address] [place] [address] [place]#### FRUC ####[facility] , Basophils Auto (Bld) [#/Vol] Ordered By: Luigi Flower on 10-11-2023 Basophils (Bld) [#/Vol] 0.0 10*3/uL 0.0-0.2 [facility] Basophils/100 WBC Auto (Bld) Ordered By: Luigi Flower on 10-11-2023 Basophils/100 WBC (Bld) 0.5 % . F [facility] Bilirubin Test strip Ql (U)O rdered By: Luigi Flower on 10-11-2023 Bilirubin Ql (U) Negative Negative [facility] Calcium [Mass/volume] in Ser um or PlasmaOrdered By: Luigi Flower on 10-11-2023 Calcium [Mass/Vol] 9.5 mg/dL 8.6-10.3 [facility] Carbon dioxide, total [Moles /volume] in Serum or PlasmaOrdered By: Luigi Flower on 10-11-2023 CO2 [Moles/Vol] 34.4 mmol/L 21.0-31.0 [facility] Chloride [Moles/volume] in S shirley or PlasmaOrdered By: Luigi Flower on 10-11-2023 Chloride [Moles/Vol] 101 mmol/L 98-107 [facility] Color Auto (U)Ordered By: Sharda Flower on 10-11-2023 Color (U) Yellow Yellow [facility] Complete Blood Count Auto Di ffon 10-11-2023 Basophils (Bld) [#/Vol] 0.0 10*3/uL Normal 0.0-0.2 [facility] Comment on above: Result Comment: PERF ORMED BY: [facility] [place] [address] PATHOLOGIST DIRECTOR OF MANAGED CARE HARI GUERRA M.D. Performed By: #### C BC, BMP ####[place] [address] [place]#### FRUC ####[facility] , Basophils/100 WBC (Bld) 0.5 % Normal . [facility] Comment on above: Performed By: #### C BC, BMP ####[place] [address] [place]#### FRUC ####[facility] , Eosinophils (Bld) [#/Vol] 0.1 10*3/uL Normal 0.0-0.45 [facility] Comment on above: Performed By: #### C BC, BMP ####[place] [address] [place]#### FRUC ####[facility] , Eosinophils/100 WBC (Bld) 1.4 % Normal . [facility] Comment on above: Performed By: #### C BC, BMP ####[place] [address] [place]#### FRUC ####[facility] , Erythrocyte distribution width (RBC) [Ratio] 14.9 % Normal 11.9-15.3 [facility] Comment on above: Performed By: #### C BC, BMP ####[place] [address] [place]#### FRUC ####[facility] , Hematocrit (Bld) [Volume fraction] 37.8 % Normal 34.0-46.4 [facility] Comment on above: Performed By: #### C BC, BMP ####[place] [address] [place]#### FRUC ####[facility] , Hemoglobin (Bld) [Mass/Vol] 12.7 g/dL Normal 11.8-15.4 [facility] Comment on above: Performed By: #### C BC, BMP ####[place] [address] [place]#### FRUC ####[facility] , Lymphocytes (Bld) [#/Vol] 1.4 10*3/uL Normal 1.00-4.8 [facility] Comment on above: Performed By: #### C BC, BMP ####[address]#### FRUC ####[facility] , Lymphocytes/100 WBC (Bld) 29.3 % Normal . [facility] Comment on above: Performed By: #### C BC, BMP ####[place] [address] [place]#### FRUC ####[facility] , MCH (RBC) [Entitic mass] 30.7 pg Normal 24.7-34.3 [facility] Comment on above: Performed By: #### C BC, BMP ####[place] [address] [place]#### FRUC ####[facility] , MCV (RBC) [Entitic vol] 91.4 fL Normal 80-100 F [facility] Comment on above: Performed By: #### C BC, BMP ####[place] [address] [place]#### FRUC ####[facility] , Mean Corpuscular HGB Conc 33.6 g/dL Normal 32.0-35.0 [facility] Comment on above: Performed By: #### C BC, BMP ####[place] [address] [place] [address] [place]#### FRUC ####[facility] , Monocytes (Bld) [#/Vol] 0.4 10*3/uL Normal 0.0-0.8 [facility] Comment on above: Performed By: #### C BC, BMP ####[place] [id number] [place]#### FRUC ####[facility] , Monocytes/100 WBC (Bld) 9.1 % Normal . [facility] Comment on above: Performed By: #### C BC, BMP ####[place] [address] [place]#### FRUC ####[facility] , Neutrophils (Bld) [#/Vol] 2.8 10*3/uL Normal 1.8-7.7 [facility] Comment on above: Performed By: #### C BC, BMP ####[place] [address] [place]#### FRUC ####[facility] , Neutrophils/100 WBC (Bld) 59.7 % Normal . [facility] Comment on above: Performed By: #### C BC, BMP ####[place] [id number] [place]#### FRUC ####[facility] , NRBC% 0.1 /100{WBC} Normal 0-0.5 [facility] Comment on above: Performed By: #### C BC, BMP ####[place] [address] [place]#### FRUC ####[facility] , Platelet mean volume (Bld) [Entitic vol] 6.7 fL Normal 6.3-10.7 [facility] Comment on above: Performed By: #### C BC, BMP ####[address] [place] [address] [place]#### FRUC ####[facility] , Platelets (Bld) [#/Vol] 166 10*3/uL Normal 150-450 [facility] Comment on above: Performed By: #### C BC, BMP ####[place] [address] [place] [address] [place]#### FRUC ####[facility] , RBC (Bld) [#/Vol] 4.14 10*6/uL Normal 3.60-5.00 [facility] Comment on above: Performed By: #### C BC, BMP ####[address]#### FRUC ####[facility] , WBC (Bld) [#/Vol] 4.7 10*3/uL Normal 3.8-11.6 [facility] Comment on above: Performed By: #### C BC, BMP ####[address]#### FRUC ####[facility] , Creatinine [Mass/volume] in Serum or PlasmaOrdered By: Luigi Flower on 10-11-2023 Creatinine [Mass/Vol] 0.60 mg/dL 0.60-1.20 [facility] Dipstick and Microscopicon 1 12-12-2022 Appearance (U) Clear Normal Clear [facility] Comment on above: Order Comment: Name Collection Type:: Clean-Voided Midstream Performed By: #### A DDONUAPLUS #### [facility] [address] Bacteria,Urine 3+ High None Seen [facility] Comment on above: Order Comment: Name Collection Type:: Clean-Voided Midstream Performed By: #### A DDONUAPLUS #### [facility] [address] Bilirubin,Urine Negative Normal Negative [facility] Comment on above: Order Comment: Name Collection Type:: Clean-Voided Midstream Performed By: #### A DDONUAPLUS #### [facility] [address] [place] [address] [place] Color (U) Yellow Normal Yellow [facility] Comment on above: Order Comment: Name Collection Type:: Clean-Voided Midstream Performed By: #### A DDONUAPLUS #### [facility] [address] [place] [address] [place] Glucose Ql (U) >=1000 High Normal [facility] Comment on above: Order Comment: Name Collection Type:: Clean-Voided Midstream Performed By: #### A DDONUAPLUS #### [place] [address] [place] Hyaline Casts,Urine None Seen Normal 0-8 [facility] Comment on above: Order Comment: Name Collection Type:: Clean-Voided Midstream Result Comment: PERF ORMED BY: [place] [address] PATHOLOGIST DIRECTOR OF MANAGED CARE HARI GUERRA M.D. Performed By: #### A DDONUAPLUS #### [facility] [address] [place] [address] [place] Ketones Ql (U) Negative Normal Negative [facility] Comment on above: Order Comment: Name Collection Type:: Clean-Voided Midstream Performed By: #### A DDONUAPLUS #### [facility] [address] [place] [address] [place] Leukocyte esterase Test strip Ql (U) Negative Normal Negative [facility] Comment on above: Order Comment: Name Collection Type:: Clean-Voided Midstream Performed By: #### A DDONUAPLUS #### [facility] [address] [place] [address] [place] Nitrite,Urine Positive High Negative [facility] Comment on above: Order Comment: Name Collection Type:: Clean-Voided Midstream Performed By: #### A DDONUAPLUS #### [facility] [address] [place] [address] [place] Occult Blood,Urine Negative Normal Negative [facility] Comment on above: Order Comment: Name Collection Type:: Clean-Voided Midstream Result Comment: PERF ORMED BY: [place] [address] PATHOLOGIST DIRECTOR OF MANAGED CARE HARI GUERRA M.D. Performed By: #### A DDONUAPLUS #### [address] pH (U) 5.0 [pH] Normal 5.0-9.0 [facility] Comment on above: Order Comment: Name Collection Type:: Clean-Voided Midstream Performed By: #### A DDONUAPLUS #### [address] Protein,Urine Negative Normal Negative [facility] Comment on above: Order Comment: Name Collection Type:: Clean-Voided Midstream Performed By: #### A DDONUAPLUS #### [address] RBC,Urine 1-2 Normal 0-4 [facility] Comment on above: Order Comment: Name Collection Type:: Clean-Voided Midstream Performed By: #### A DDONUAPLUS #### [address] Specificy [place],Urine 1.033 High 1.00 1-1.03 0 [facility] Comment on above: Order Comment: Name Collection Type:: Clean-Voided Midstream Performed By: #### A DDONUAPLUS #### [address] Squamous Epithelial Cell,Urine 0-1 Normal 0-2 [facility] Comment on above: Order Comment: Name Collection Type:: Clean-Voided Midstream Performed By: #### A DDONUAPLUS #### [address] Urobilinogen,Urine Normal Normal Normal [facility] Comment on above: Order Comment: Name Collection Type:: Clean-Voided Midstream Performed By: #### A DDONUAPLUS #### [place] [address] [place] WBC LM.HPF (Urine sed) [#/Area] 0 /[HPF] Normal 0-4 [facility] Comment on above: Order Comment: Name Collection Type:: Clean-Voided Midstream Performed By: #### A DDONUAPLUS #### [facility] [address] Eosinophils Auto (Bld) [#/Vo l]Ordered By: Luigi Flower on 10-11-2023 Eosinophils (Bld) [#/Vol] 0.1 10*3/uL 0.0-0.45 [facility] Eosinophils/100 WBC Auto (Bl d)Ordered By: Luigi Flower on 10-11-2023 Eosinophils/100 WBC (Bld) 1.4 % . [facility] Erythrocyte distribution wid th Auto (RBC) [Ratio]Ordered By: Luigi Flower on 10-11-2023 Erythrocyte distribution width (RBC) [Ratio] 14.9 % 11.9-15.3 [facility] Fructosamineon 10-11-2023 Fructosamine 246 umol/L Normal 0-285 [facility] Comment on above: Result Comment: Publ ished reference interval for apparently healthy subjects between age 20 and 60 is 205 - 285 umol/L and in a poorly controlled diabetic population is 228 - 563 umol/L with a mean of 396 umol/L. Performed at: [facility] [address] [id number] [employer]: Jama Diane PhD, Phone: [phone] PERFORMED BY: [place] [address] PATHOLOGIST DIRECTOR OF MANAGED CARE HARI GUERRA M.D. Performed By: #### C BC, BMP ####[facility] [address]#### FRUC ####[facility] , Fructosamine [Moles/volume] in Serum or PlasmaOrdered By: Luigi Flower on 10-11-2023 Fructosamine [Moles/Vol] 246 umol/L 0-285 [facility] Comment on above: Published reference interval for apparently healthysubjects between age 20 and 60 is 205 - 285 umol/L and in apoorly controlled diabetic population is 228 - 563 umol/Lwith a mean of 396 umol/L.Performed at: - [address] [id number] Director: Jama Diane PhD, Phone: [phone] Glucose [Mass/volume] in Ser um or PlasmaOrdered By: Luigi Flower on 10-11-2023 Glucose [Mass/Vol] 104 mg/dL 70-100 [facility] Comment on above: ADA recommended refe rence rangeRandom Glucose Reference Range is dependent on time and content of last meal. Glucose of more than 200 mg/dL in a nonstressed, ambulatory subject supports the diagnosis of Diabetes Mellitus. Hematocrit Auto (Bld) [Volum e fraction]Ordered By: Luigi Flower on 10-11-2023 Hematocrit (Bld) [Volume fraction] 37.8 % 34.0-46.4 [facility] Hemoglobin [Mass/volume] in BloodOrdered By: Luigi Flower on 10-11-2023 Hemoglobin (Bld) [Mass/Vol] 12.7 g/dL 11.8-15.4 [facility] Ketones Auto test strip (U) [Mass/Vol]Ordered By: Luigi Flower on 10-11-2023 Ketones (U) [Mass/Vol] Negative Negative [facility] Laboratory - UrinalysisOrder ed By: Luigi Flower on 10-11-2023 Hyaline casts LM Ql (Urine sed) None seen [LPF] 0-8 [facility] Leukocytes [#/volume] correc elena for nucleated erythrocytes in Blood by Automated counOrdered By: Luigi Flower on 10-11-2023 WBC corrected for nucl RBC Auto (Bld) [#/Vol] 4.7 10*3/uL 3.8-11.6 [facility] Lymphocytes Auto (Bld) [#/Vo l]Ordered By: Luigi Flower on 10-11-2023 Lymphocytes (Bld) [#/Vol] 1.4 10*3/uL 1.00-4.8 [facility] Lymphocytes/100 WBC Auto (Bl d)Ordered By: Luigi Flower on 10-11-2023 Lymphocytes/100 WBC (Bld) 29.3 % . [facility] MCH Auto (RBC) [Entitic mass ]Ordered By: Luigi Flower on 10-11-2023 MCH (RBC) [Entitic mass] 30.7 pg 24.7-34.3 [facility] MCHC Auto (RBC) [Mass/Vol]Or dered By: Luigi Flower on 10-11-2023 MCHC (RBC) [Mass/Vol] 33.6 g/dL 32.0-35.0 [facility] MCV Auto (RBC) [Entitic vol] Ordered By: Luigi Flower on 10-11-2023 MCV (RBC) [Entitic vol] 91.4 fL 80-100 [facility] Monocytes Auto (Bld) [#/Vol] Ordered By: Luigi Flower on 10-11-2023 Monocytes (Bld) [#/Vol] 0.4 10*3/uL 0.0-0.8 [facility] Monocytes/100 WBC Auto (Bld) Ordered By: Luigi Flower on 10-11-2023 Monocytes/100 WBC (Bld) 9.1 % . [facility] Neutrophils Auto (Bld) [#/Vo l]Ordered By: Luigi Flower on 10-11-2023 Neutrophils (Bld) [#/Vol] 2.8 10*3/uL 1.8-7.7 [facility] Neutrophils/100 WBC Auto (Bl d)Ordered By: Luigi Flower on 10-11-2023 Neutrophils/100 WBC (Bld) 59.7 % . [facility] Nitrite Test strip Ql (U)Ord ered By: Luigi Flower on 10-11-2023 Nitrite Ql (U) Positive Negative [facility] No Panel InformationOrdered By: Luigi Flower on 10-11-2023 Estimated GFR (CKD-EPI) > 60.0 mL/Min [facility] Pharmacy Creatinine Clearance (Chem N/A [facility] Nucleated erythrocytes [Pres ence] in Blood by Automated countOrdered By: Luigi Flower on 10-11-2023 Nucleated RBC Auto Ql (Bld) 0.1 /100{WBC} 0-0.5 [facility] PST Type and Screenon 2022 ABO and Rh group Nom (Bld) Blood group A Rh(D) positive Normal [facility] Comment on above: Order Comment: Date of Surgery: 20231025 Result Comment: PERF ORMED BY: [facility] [place] [address] PATHOLOGIST DIRECTOR OF MANAGED CARE HARI GUERRA M.D. Platelet mean volume Auto (B ld) [Entitic vol]Ordered By: Luigi Flower on 10-11-2023 Platelet mean volume (Bld) [Entitic vol] 6.7 fL 6.3-10.7 [facility] Platelets Auto (Bld) [#/Vol] Ordered By: Luigi Flower on 10-11-2023 Platelets (Bld) [#/Vol] 166 10*3/uL 150-450 [facility] Potassium [Moles/volume] in Serum or PlasmaOrdered By: Luigi Flower on 10-11-2023 Potassium [Moles/Vol] 3.5 mmol/L 3.5-5.1 [facility] Protein Auto test strip (U) [Mass/Vol]Ordered By: Luigi Flower on 10-11-2023 Protein (U) [Mass/Vol] Negative Negative [facility] RBC Auto (Bld) [#/Vol]Ordere d By: Luigi Flower on 10-11-2023 RBC (Bld) [#/Vol] 4.14 10*6/uL 3.60-5.00 [facility] Serum or plasma anion gap de terminationOrdered By: Luigi Flower on 10-11-2023 Anion gap [Moles/Vol] 8.1 mmol/L 6.0-15.0 [facility] Sodium [Moles/volume] in Ser um or PlasmaOrdered By: Luigi Flower on 10-11-2023 Sodium [Moles/Vol] 140 mmol/L 136-145 [facility] Specific gravity Auto test s trip (U) [Rel density]Ordered By: Luigi Flower on 10-11-2023 Specific gravity (U) [Rel density] 1.033 1.001-1.03 0 [facility] Squamous epithelial cells de tection in urine sediment by light microscopyOrdered By: Luigi Flower on 10-11-2023 Epithelial cells.squamous LM Ql (Urine sed) 0-1 [HPF] 0-2 [facility] Urea nitrogen [Mass/volume] in Serum or PlasmaOrdered By: Luigi Flower on 10-11-2023 Urea nitrogen [Mass/Vol] 13 mg/dL 7-25 [facility] Urine bacteria detection by automated methodOrdered By: Luigi Flower on 10-11-2023 Bacteria Auto Ql (U) 3+ None Seen [facility] Urine clarity by refractomet ry automatedOrdered By: Luigi Flower on 10-11-2023 Clarity Refractometry automated (U) Clear Clear [facility] Urine glucose measurement by automated test strip (mass/volume)Ordered By: Luigi Flower on 10-11-2023 Glucose Auto test strip (U) [Mass/Vol] >=1000 mg/dL Normal [facility] Urine hemoglobin detection b y automated test stripOrdered By: Luigi Flower on 10-11-2023 Hemoglobin Auto test strip Ql (U) Negative Negative [facility] Urine leukocyte esterase det ection by automated test stripOrdered By: Luigi Flower on 10-11-2023 Leukocyte esterase Auto test strip Ql (U) Negative Negative [facility] Urobilinogen Auto test strip (U) [Mass/Vol]Ordered By: Luigi Flower on 10-11-2023 Urobilinogen (U) [Mass/Vol] Normal mg/dL Normal [facility] WBC Auto (Bld) [#/Vol]Ordere d By: Luigi Flower on 10-11-2023 WBC (Bld) [#/Vol] 4.7 10*3/uL 3.8-11.6 [facility] pH Auto test strip (U)Ordere d By: Luigi Flower on 10-11-2023 pH (U) 5.0 [pH] 5.0-9.0 [facility] EGDon 10-06-2023 Endoscopic Procedure Report - Other Patient: RADHA WRIGHT Age: 68 years Sex: Female : 1955 Associated Diagnoses: None Author: Thai Abbasi MD Pre-Procedure Procedure Date 09/20/2023 12:58:00 . Procedure Type: Esophagogastroduodenosco py with biopsy. Procedure provider Performed by Thai Abbasi MD. Current history and physical Documented on chart. Informed Consent After discussing the rationale, risks and benefits, and alternatives to this procedure, the patient provided signed consent for the procedure. Pre-procedure diagnosis: blood in stool, epigastric pain. Medications Anticoagulant/antiplatel et None. ASA Classification: Class II. . Monitoring: See anesthesia record. . Procedure The procedure was performed in the hospital. See anesthesia record for sedation given during procedure. The patient was positioned starting in the left lateral decubitus position and with safety measures. Endoscope type used was an adult-size, introduced orally, advanced to the 3rd portion of the duodenum. No difficulty was encountered during the procedure. Views were excellent. The patient tolerated the procedure well. Extent reached: Duodenum third portion Findings 1. 3 cm hiatal hernia 2. Erythema in the antrum, mild patchy. Otherwise normal stomach. Biopsies of the stomach were taken to rule out H. pylori. 3. Normal duodenum. Images Procedure images: Rec_hd_video_ [id number] Rec_hd_video_ [id number] Rec_hd_video__[id number].jpg Rec_hd_video__[id number].jpg Rec_hd_video__[id number].jpg Rec_hd_video__[id number].jpg Rec_hd_video_ [id number].jpg Rec1_hd_video_2022_ [id number].jpg . Post-Procedure Complications: none. Estimated blood loss: minimal. Specimens: sent to pathology. Devices/ implants: none left in place. Impression and Plan 1. 3 cm hiatal hernia 2. Erythema in the antrum, mild patchy. Otherwise normal stomach. Biopsies of the stomach were taken to rule out H. pylori. 3. Normal duodenum. Recommendations: -Resume previous diet -Resume home medications -Await pathology results, follow in GI clinic in 1-2 after discharge for . from GI standpoint, no contra-indication for hip surgery Hb EGD/Colonoscopy not showing any lesions with risk of bleeding Normal [facility] Comment on above: Result Comment: Elec tronically Signed By: Elroy LORENZO, Thai Sarabia\.br\Date and Time Signed: 10/05/23 23:32 EST Other Comment: Taamr molina Attachment - attachment storage system not supported [id number] Can be viewed in source systemMissing Attachment - attachment storage system not supported [id number] Can be viewed in source systemMissMaui Fun Company Attachment - attachment storage system not supported [id number] Can be viewed in source systemMiCAS Medical Systems Attachment - attachment storage system not supported [id number] Can be viewed in source systemMissMaui Fun Company Attachment - attachment storage system not supported [id number] Can be viewed in source systemMissMaui [employer] Attachment - attachment storage system not supported [id number] Can be viewed in source systemMissMaui [employer] Attachment - attachment storage system not supported [id number] Can be viewed in source systemMissMaui [employer] Company Attachment - attachment storage system not supported [id number] Can be viewed in source system Gastroenterology Office/Clin ic Noteon 10-04-2023 Gastroenterology Office/Clinic Note Chief Complaint EGD and colonoscopy results. HPI Staff This is a 68 year old female who presents today for a follow-up to EGD and Colonoscopy. History of Present Illness Patient is a 68-year-old female who presents for follow-up from EGD/colonoscopy completed 09/20/[address] Abbasi. Presents with her sister during today's visit. Patient was previously evaluated by Dr. Abbasi 08/24/2023 and note indicated patient with abdominal pain, black stool, history of acid reflux. Note indicated patient had previous labs 08/2023 that revealed low RBC, low platelets, low potassium level. Note also indicated patient with history of IBS. Patient with history of cholecystectomy and appendectomy and hiatal hernia surgery at age 26. Patient was ordered EGD/colonoscopy. Previous normal Hgb. EGD completed 09/20/2023 revealed 3 cm hiatal hernia, erythema in antrum, normal duodenum, stomach biopsy revealed mild reactive gastropathy, negative for intestinal metaplasia, negative for H. pylori. Colonoscopy completed 09/20/2023 revealed hemorrhoids, otherwise normal and is due for repeat colonoscopy in 2032. During today's visit, patient reports she is having epigastric pain described as achy/crampy after eating that occurs off/on daily. She reports acid reflux has improved. Is taking omeprazole 40mg daily. Is having 1-3 formed BMs daily. Denies black/bloody stools, nausea/vomiting, fevers/chills, and denies having any other GI complaints. Review of Systems PHQ Score Initial Depression Screen Score: 0 SCORE ROS - Provider Constitutional: no fever, no chills. Skin: no Jaundice. ENMT: Denies dysphagia and heartburn. Respiratory: no shortness of breath. Cardiovascular: no chest pain. Gastrointestinal: no nausea, no vomiting, no diarrhea, no GI bleeding. Physical Exam Vitals & Measurements T: 36 ?C(Temporal Artery) HR: 66(Peripheral) BP: 132/76 HT: 63 in HT: 159 cm WT: 82.8 kg WT: 182.16 lb BMI: 32.75 General: Well developed, well nourished, in no acute distress Head: Normocephalic/atraumatic Lungs: Normal respiratory effort and clear to auscultation Cardio: Regular rate and rhythm, normal S1 and S2, no murmur, no rub Abdomen: Soft, non-distended, non-tender. Normoactive bowel sounds present in all 4 abdominal quadrants, bilaterally. Mental Status: Alert and oriented x3. Normal mood and affect Assessment/Plan 1. Epigastric pain (R10.13: Epigastric pain) Is having epigastric pain after eating. Hx. cholecystectomy. EGD completed 09/20/2023 revealed 3 cm hiatal hernia, erythema in antrum, normal duodenum, stomach biopsy revealed mild reactive gastropathy, negative for intestinal metaplasia, negative for H. pylori. Ordered CBC/CMP, lipase level. Ordered ultrasound of upper abdomen to evaluate for choledocholithiasis and evaluate liver. Ordered: CBC w/ Auto Diff Comprehensive Metabolic Panel Lipase Level US Abdomen, Limited 2. Acid reflux (K21.9: Gastro-esophageal reflux disease without esophagitis) Improved. EGD completed 09/20/2023 revealed 3 cm hiatal hernia, erythema in antrum, normal duodenum, stomach biopsy revealed mild reactive gastropathy, negative for intestinal metaplasia, negative for H. pylori. Continue omeprazole 40mg daily. 3. Hemorrhoids (K64.9: Unspecified hemorrhoids) Colonoscopy completed 09/20/2023 revealed hemorrhoids, otherwise normal and is due for repeat colonoscopy in 2032. Educated regarding fiber supplementation daily. 4. Hiatal hernia (K44.9: Diaphragmatic hernia without obstruction or gangrene) EGD completed 09/20/2023 revealed 3 cm hiatal hernia, erythema in antrum, normal duodenum, stomach biopsy revealed mild reactive gastropathy, negative for intestinal metaplasia, negative for H. pylori. Continue Omeprazole 40mg daily. Follow-up With When Contact Information Kortney Shelley CNP Within 1 month Additional Instructions: Patient Education Hemorrhoids Problem List/Past Medical History Ongoing Acid reflux Arthritis Asthma Asymptomatic microscopic hematuria Atrial fibrillation BMI 32.0-32.9,adult Depression Diabetes Epigastric pain Frequent urination Head injury Headache Hemorrhoids Hiatal hernia High cholesterol History of recurrent UTI (urinary tract infection) HTN (hypertension) Mixed incontinence Nocturia Post-void dribbling Postinfective urethral stricture in female Recurrent UTI Skin cancer Stress incontinence Urge incontinence Historical Anemia Procedure/Surgical History Colonoscopy (09/20/2023), EGD - esophagogastroduodenosco py (09/20/2023), Cystourethroscopy with dilation of urethral stricture (02/27/2021), Appendectomy, Cholecystectomy, Colonoscopy, Hemorrhoid, Hiatal hernia, Hysterectomy, Procedure on back. Medications bisoprolol-hydrochloroth iazide 5 mg-6.25 mg Tab chromium picolinate cyclobenzaprine 10 mg Tab, 10 mg= 1 tab(s), Oral, TID, PRN, Not taking Farxiga 5 mg oral tablet montelukast 10 mg (more content not included)... Normal [facility] Comment on above: Result Comment: Elec tronically Signed By: Kortney Shelley CNP\.tad\Date and Time Signed: 10/04/23 13:21 EST Patient Educationon 10-04-20 Patient Education Gastroenterology Hemorrhoids Hemorrhoids are swollen veins in and around the rectum or anus. There are two types of hemorrhoids: ? Internal hemorrhoids. These occur in the veins that are just inside the rectum. They may poke through to the outside and become irritated and painful. ? External hemorrhoids. These occur in the veins that are outside the anus and can be felt as a painful swelling or hard lump near the anus. Most hemorrhoids do not cause serious problems, and they can be managed with home treatments such as diet and lifestyle changes. If home treatments do not help the symptoms, procedures can be done to shrink or remove the hemorrhoids. What are the causes? This condition is caused by increased pressure in the anal area. This pressure may result from various things, including: ? Constipation. ? Straining to have a bowel movement. ? Diarrhea. ? . ? Obesity. ? Sitting for long periods of time. ? Heavy lifting or other activity that causes you to strain. ? Anal sex. ? Riding a bike for a long period of time. What are the signs or symptoms? Symptoms of this condition include: ? Pain. ? Anal itching or irritation. ? Rectal bleeding. ? Leakage of stool (feces). ? Anal swelling. ? One or more lumps around the anus. How is this diagnosed? This condition can often be diagnosed through a visual exam. Other exams or tests may also be done, such as: ? An exam that involves feeling the rectal area with a gloved hand (digital rectal exam). ? An exam of the anal canal that is done using a small tube (anoscope). ? A blood test, if you have lost a significant amount of blood. ? A test to look inside the colon using a flexible tube with a camera on the end (sigmoidoscopy or colonoscopy). How is this treated? This condition can usually be treated at home. However, various procedures may be done if dietary changes, lifestyle changes, and other home treatments do not help your symptoms. These procedures can help make the hemorrhoids smaller or remove them completely. Some of these procedures involve surgery, and others do not. Common procedures include: ? Rubber band ligation. Rubber bands are placed at the base of the hemorrhoids to cut off their blood supply. ? Sclerotherapy. Medicine is injected into the hemorrhoids to shrink them. ? Infrared coagulation. A type of light energy is used to get rid of the hemorrhoids. ? Hemorrhoidectomy surgery. The hemorrhoids are surgically removed, and the veins that supply them are tied off. ? Stapled hemorrhoidopexy surgery. The surgeon arabella the base of the hemorrhoid to the rectal wall. Follow these instructions at home: Eating and drinking ? Eat foods that have a lot of fiber in them, such as whole grains, beans, nuts, fruits, and vegetables. ? Ask your health care provider about taking products that have added fiber (fiber supplements). ? Reduce the amount of fat in your diet. You can do this by eating low-fat dairy products, eating less red meat, and avoiding processed foods. ? Drink enough fluid to keep your urine pale yellow. Managing pain and swelling ? Take warm sitz baths for 20 minutes, 3?4 times a day to ease pain and discomfort. You may do this in a bathtub or using a portable sitz bath that fits over the toilet. ? If directed, apply ice to the affected area. Using ice packs between sitz baths may be helpful. ? Put ice in a plastic bag. ? Place a towel between your skin and the bag. ? Leave the ice on for 20 minutes, 2?3 times a day. General instructions ? Take xnwn-caj-clknlrs and prescription medicines only as told by your health care provider. ? Use medicated creams or suppositories as told. ? Get regular exercise. Ask your health care provider how much and what kind of exercise is best for you. In general, you should do moderate exercise for at least 30 minutes on most days of the week (150 minutes each week). This can include activities such as walking, biking, or yoga. ? Go to the bathroom when you have the urge to have a bowel movement. Do not wait. ? Avoid straining to have bowel movements. ? Keep the anal area dry and clean. Use wet toilet paper or moist towelettes after a bowel movement. ? Do not sit on the toilet for long periods of time. This increases blood pooling and pain. ? Keep all follow-up visits as told by your health care provider. This is important. Contact a health care provider if you have: ? Increasing pain and swelling that are not controlled by treatment or medicine. ? Difficulty having a bowel movement, or you are unable to have a bowel movement. ? Pain or inflammation outside the area of the hemorrhoids. Get help right away if you have: ? Uncontrolled bleeding from your rectum. Summary ? Hemorrhoids are swollen veins in and around the rectum or anus. ? Most hemorrhoids can be manag (more content not included)... [facility] Reminderson 10-04-2023 Reminders - From: Kortney Shelley CNP To: Etelvina Arango; Sent: 10/04/2023 13:25:58 EST Show up: 10/04/2023 13:26:00 EST Subject: Ambulatory Reminder Reminder/Recall Colonoscopy in 2032. 10 year colon recall 09/20/2033 From: Etelvina Arango To: [facility] - Reminders/Recalls; Sent: 10/04/2023 14:54:36 EST ! Show up: 08/08/2033 14:54:00 EDT Due Date/Time: 09/08/2033 14:54:00 EDT [facility] IntraOperative Documentson 11-24-2022 IntraOperative Documents [id number]#1.00TIFF [facility] Consenton 09-22-2023 Consent [id number]#1.00TI FF [facility] Discharge Instructionson Discharge Instructions [id number]#[id number] FF [facility] Postoperative Documentson Postoperative Documents [id number]#1.00TI FF [facility] Progress Note-Physicianon Progress Note-Physician Patient: RADHA WRIGHT Age: 68 years Sex: Female : 1955 Associated Diagnoses: None Author: Pedro Germain Jr, DO Preoperative Information Anesthesia Preop Info: Time patient last ate or drank 09/20/2023 00:00:00. Anesthesia history: Patient history: None. Family history+: None. Informed consent: Signed by patient. Re-evaluation prior to induction: Initial evaluation reviewed: No significant change. Review of Systems Eye: Negative except as documented in history of present illness. Ear/Nose/Mouth/Throat: Negative except as documented in history of present illness. Respiratory: Negative except as documented in history of present illness. Cardiovascular: Negative except as documented in history of present illness. Musculoskeletal: Negative except as documented in history of present illness. Neurologic: Negative except as documented in history of present illness. Health Status Allergies: Allergic Reactions (Selected) Severity Not Documented Biaxin- Unknown. Claritin- Unknown. Compazine- Sob. Contrast media (iodine-based)- Anaphylactic reaction. Erythromycin- Unknown. Flagyl- Sob. Floxin- Unknown. Oxybutynin- Headache. Penicillin- Unknown. Skelaxin- Unknown. Tetracycline- Tachycardia. Valium- Unknown. Vibra-Tabs- Shortness of breath. Zoloft- Unknown. Problem list: All Problems Anemia / SNOMED CT 904048692 / Confirmed Arthritis / SNOMED CT 1464880 / Confirmed Asthma / SNOMED CT 011392468 / Confirmed Asymptomatic microscopic hematuria / SNOMED CT 2689635944 / Confirmed Atrial fibrillation / SNOMED CT 97871886 / Confirmed BMI 32.0-32.9,adult / SNOMED CT 130141993 / Confirmed Depression / SNOMED CT 03275330 / Confirmed Diabetes / SNOMED CT 801430620 / Confirmed Stress incontinence / SNOMED CT 859641828 / Confirmed Headache / SNOMED CT 93234902 / Confirmed History of recurrent UTI (urinary tract infection) / SNOMED CT 9523316396 / Confirmed High cholesterol / SNOMED CT 27614665 / Confirmed HTN (hypertension) / SNOMED CT 5699385098 / Confirmed Mixed incontinence / SNOMED CT 83305739 / Confirmed Frequent urination / SNOMED CT 986655218 / Confirmed Head injury / SNOMED CT 467408340 / Confirmed Skin cancer / SNOMED CT 9030765223 / Confirmed Nocturia / SNOMED CT 797479912 / Confirmed Post-void dribbling / SNOMED CT 717113209 / Confirmed Postinfective urethral stricture in female / SNOMED CT 7269869183 / Confirmed Recurrent UTI / SNOMED CT 241511322 / Confirmed Urge incontinence / SNOMED CT 760555902 / Confirmed Canceled: History of UTI / SNOMED CT 5953541017 Histories Procedure history: Cystourethroscopy with dilation of urethral stricture (782434083) on 02/27/2021 at 66 Years. Appendectomy (824690975). Hysterectomy (153776199). Cholecystectomy (18149417). Colonoscopy (646887709). Hemorrhoid (112891404). Procedure on back (044939709). Hiatal hernia (123099648). Social History Social & Psychosocial Habits Alcohol 08/24/2023 Risk Assessment: Denies Alcohol Use Substance Abuse 08/24/2023 Risk Assessment: Denies Substance Abuse Tobacco 08/24/2023 Risk Assessment: Denies Tobacco Use 08/24/2023 Tobacco Use: Former smoker, quit more Smokeless tobacco use: Never Smoking Cessation Yes Comment: stopped in 's - was a social smoker - 08/24/2023 14:18 - [place] . Physical Examination Airway: Mallampati classification: II (soft palate, fauces, uvula visible). Respiratory: adequate air exchange. Cardiovascular: Regular rhythm. Plan [place] [employer] (ASA) physical status classification: Class III. Anesthetic Preoperative Plan: Anesthesia General. [facility] Comment on above: Result Comment: Elec tronically Signed By: Pedro Germain Jr, DO\.br\Date and Time Signed: 09/22/23 07:55 EST Progress Note-Physician Patient: RADHA WRIGHT Age: 68 years Sex: Female : 1955 Associated Diagnoses: None Author: Pedro Germian Jr, DO Postoperative Information Postoperative disposition: Postoperative disposition: To PACU. Optimetrix number: Optimetrix number [id number]. Anesthetic utilized: General. Health Status Allergies: Allergic Reactions (Selected) Severity Not Documented Biaxin- Unknown. Claritin- Unknown. Compazine- Sob. Contrast media (iodine-based)- Anaphylactic reaction. Erythromycin- Unknown. Flagyl- Sob. Floxin- Unknown. Oxybutynin- Headache. Penicillin- Unknown. Skelaxin- Unknown. Tetracycline- Tachycardia. Valium- Unknown. Vibra-Tabs- Shortness of breath. Zoloft- Unknown. Physical Examination Vital Signs 09/20/2023 14:22 EST Heart Rate Monitored 65 bpm Respiratory Rate Monitored 10 br/min Systolic Blood Pressure 160 mmHg HI Diastolic Blood Pressure 90 mmHg Mean Arterial Pressure, Cuff 113 mmHg SpO2 99 % 09/20/2023 14:11 EST Heart Rate Monitored 67 bpm Respiratory Rate Monitored 19 br/min Systolic Blood Pressure 170 mmHg HI Diastolic Blood Pressure 90 mmHg Mean Arterial Pressure, Cuff 117 mmHg SpO2 100 % 09/20/2023 14:00 EST Heart Rate Monitored 58 bpm LOW Respiratory Rate Monitored 19 br/min Systolic Blood Pressure 167 mmHg HI Diastolic Blood Pressure 71 mmHg Mean Arterial Pressure, Cuff 103 mmHg SpO2 100 % 09/20/2023 13:52 EST Systolic Blood Pressure 178 mmHg HI Diastolic Blood Pressure 88 mmHg 09/20/2023 13:45 EST Heart Rate Monitored 71 bpm Respiratory Rate Monitored 16 br/min Systolic Blood Pressure 174 mmHg HI Diastolic Blood Pressure 96 mmHg HI Mean Arterial Pressure, Cuff 122 mmHg SpO2 100 % 09/20/2023 13:40 EST Heart Rate Monitored 64 bpm Respiratory Rate Monitored 9 br/min Systolic Blood Pressure 169 mmHg HI Diastolic Blood Pressure 92 mmHg HI Mean Arterial Pressure, Cuff 118 mmHg SpO2 100 % 09/20/2023 13:25 EST Heart Rate Monitored 79 bpm Respiratory Rate Monitored 15 br/min Systolic Blood Pressure 162 mmHg HI Diastolic Blood Pressure 89 mmHg Mean Arterial Pressure, Cuff 113 mmHg SpO2 100 % 09/20/2023 13:20 EST Heart Rate Monitored 67 bpm Respiratory Rate Monitored 21 br/min Systolic Blood Pressure 164 mmHg HI Diastolic Blood Pressure 93 mmHg HI Mean Arterial Pressure, Cuff 117 mmHg SpO2 100 % 09/20/2023 13:18 EST Temperature Temporal Artery 36.5 DegC Heart Rate Monitored 71 bpm Respiratory Rate Monitored 17 br/min Systolic Blood Pressure 164 mmHg HI Diastolic Blood Pressure 93 mmHg HI Blood Pressure Location Left arm Mean Arterial Pressure, Cuff 117 mmHg SpO2 97 % Pain Assessment: Controlled. General: Awake, Alert, Appropriate. Respiratory: Adequate air exchange. Cardiovascular: Stable, Normal peripheral perfusion. Neurological: Normal sensory function, Normal motor function. Assessment Anesthetic outcome No anesthetic complications noted. Adequate pain relief. able to void without difficulty, able to ambulate with assist, tolerating PO intake, no N/V. Review / Management Condition: Stable. Plan Transfer/Discharge: Transfer/Discharge Discharge when meets criteria ( To home ). Normal [facility] Comment on above: Result Comment: Elec tronically Signed By: Marcellus Huston DO, Pedro Olson\.tad\Date and Time Signed: 09/22/23 07:54 EST Main OR Intraoperative Recor don 09-21-2023 Main OR Intraoperative Record IntraOp Document Type FT Summary Primary Physician: Thai Abbasi MD Finalized Date/Time: 09/21/23 10:32:24 Pt. Name: RADHA WRIGHT Andrew Salgado./Sex: 1955 Female Med Rec #: [id number] Physician: Thai Abbasi MD Financial #: [id number] Pt. Type: O Room/Bed: Endo 06/08 Admit/Disch: 09/20/23 10:36:39 - 09/20/23 14:30:00 Institution: Case Times FT Entry 1 Patient Times In Room 09/20/23 12:47:00 Out Room 09/20/23 13:17:00 Procedure Times Start 09/20/23 12:54:00 Stop 09/20/23 13:13:00 Anesthesia Times Start 09/20/23 12:47:00 Stop 09/20/23 13:17:00 Time at [place] 09/20/23 13:07:00 Last Modified By: Anil MASON, Apryl Murillo 09/20/23 13:17:23 General Comments: EGD end time at 1257./PHUONGRN Colonoscopy start time at 1259./PHUONG,RN 09/21/23 Chart opened to review and send charges [facility]FA Case Attendance FT Entry 1 Entry 2 Entry 3 Case Attendee Reji Edgar RN, Sergio Casanova Role Performed Anesthesiologist Taper/Finisher - Primary Scrub - Primary Personal Lines Appraiser Time In 09/20/23 12:47:00 09/20/23 12:47:00 09/20/23 12:47:00 Time Out 09/20/23 13:17:00 09/20/23 13:17:00 09/20/23 13:17:00 Procedure EGD AND COLONOSCOPY(.) EGD AND COLONOSCOPY(.) EGD AND COLONOSCOPY(.) Comments Dr. Germain is supervising Last Modified By: Apryl Ma RN, RN, Kristin N Sherman RN, Kristin N 09/20/23 13:17:26 09/20/23 13:17:26 09/20/23 13:17:26 Entry 4 Case Attendee Elroy LORENZO, Thai Sarabia Role Performed Surgeon - Primary Time In 09/20/23 12:47:00 Time Out 09/20/23 13:17:00 Procedure EGD AND COLONOSCOPY(.) Comments Last Modified By: Apryl Ma RN 09/20/23 13:17:26 Perioperative Protocols FT Pre-Care Text: Implements protective measures prior to operative or invasive procedure, confirms identity before the operative or invasive procedure, verifies operative procedure, surgical site, and laterality Entry 1 Procedure(s) EGD AND COLONOSCOPY(.) Patient Identity Birthday, ID Band Verified (select at Check, Patient least 2): Participation Consents / H and P Anesthesia Consent, Operative Site N/A Verified HandP, Surgery/Procedure Marking Verified Consent Surgical Site No Laterality Verified n/a Verified Procedure Verified Yes Correct Patient Yes Position Verified Availability Equipment, Medication Prep Dry n/a Verified (If Applicable) PreOp Antibiotic No Time Out Reji Edgar, Given Participants Apryl Ma RN, Sparks, Micala E, Erloy LORENZO, Thai Sarabia Time Out Complete 09/20/23 12:53:00 Outcomes Met? Yes Last Modified By: Apryl Ma RN 09/20/23 12:59:55 Post-Care Text: The patient is free from signs and symptoms of injury caused by extraneous objects Allergy Information FT Pre-Care Text: Verifies allergies Entry 1 Allergies Reviewed? Yes Allergies Reviewed Self/Patient With Outcomes Met? Yes Last Modified By: Apryl Ma RN 09/20/23 13:00:06 Post-Care Text: The patient received appropriate medication(s) safely administered during the perioperative period Surgical Procedures FT Entry 1 Procedure Description Procedure EGD AND COLONOSCOPY Modifiers . Surgeon Description EGD with gastric biopsy. Colonoscopy Primary Procedure Yes Primary Surgeon Thai Abbasi MD Start 09/20/23 12:54:00 Stop 09/20/23 13:13:00 Anesthesia Type General Surgical Service Gastroenterology Wound Class 2 - Clean-Contaminated Last Modified By: Apryl Ma RN 09/20/23 13:14:59 General Case Data FT Pre-Care Text: Classifies surgical wound, implements aseptic technique, initiates traffic control Entry 1 Case Information OR ENDO 1 FT Case Level Level 2 Wound Class 2 - Clean-Contaminated Specialty Gastroenterology ASA Class 3 Preop Diagnosis Blood in stool, Postop Same As Preop No abdominal pain, black stool, skin cancer, BMI 33 - 33.9 Postop Diagnosis EGD- mild esophagitis, Outcomes Met? Yes hiatal hernia. Colonoscopy- Internal hemorrhoids. Last Modified By: Apryl Ma RN 09/20/23 13:17:15 Post-Care Text: The patient is free from signs and symptoms of infection Skin Assessment (Pre Procedure) FT Pre-Care Text: Implements protective measures to prevent skin/ tissue injury due to thermal or mechanical sources Evaluates for signs and symptoms of physical injury to skin and tissue Entry 1 Skin Integrity Intact, [place], Warm, and Skin Abnormality No Dry Outcomes Met? Yes Last Modified By: Apryl Ma RN 09/20/23 13:02:30 Post-Care Text: The patient is free from signs and symptoms of injury caused by extraneous objects Patient Positioning FT Pre-Care Text: Identifies physical alterations that require additional precautions for procedure-specific positioning, verifies presence of prosthetics or corrective devices, positions the patient, evaluates the patient for signs and sympto (more content not included)... Normal [facility] Main OR PACU I Recordon 09-08 Main OR PACU I Record PACU Phase I Docum ent Type FT Summary Primary Physician: Thai Abbasi MD Finalized Date/Time: 09/21/23 07:51:47 Pt. Name: MELVIRADHA LLAMAS/Sex: 1955 Female Med Rec #: [id number] Physician: Thai Abbasi MD Financial #: [id number] Pt. Type: O Room/Bed: [facility] 06/08 Admit/Disch: 09/20/23 10:36:39 - 09/20/23 14:30:00 Institution: Case Times PACU I FT Pre-Care Text: Identifies barriers to communication and implements measures to provide psychological support Develops individualized plan of care, and ensures continuity of care Maintains patient's dignity and privacy, and maintains patient confidentiality Identifies and reports philosophical, cultural, and spiritual beliefs and values Identifies individual values and wishes concerning care Implements aseptic technique, and administers prescribed antibiotic therapy and immunizing agents as ordered Evaluates postoperative tissue perfusion Implements thermoregulation measures, and monitors body temperature Evaluates postoperative respiratory status Evaluates postoperative cardiac status Evaluates postoperative neurological status Assesses pain control, collaborated in initiating patient-controlled analgesia and implements alternative methods of pain control Verifies allergies, administers prescribed medications and solutions, evaluates response to medications Entry 1 In PACU I 09/20/23 13:18:00 Discharge from PACU 09/20/23 14:30:00 I Outcomes Met? Yes Last Modified By: Adelita Hu RN 09/20/23 15:37:07 Post-Care Text: The patient demonstrates knowledge of the expected response to the operative or invasive procedure The patient's care is consistent with the individualized perioperative plan of care The patient's right to privacy is maintained The patient's value system, lifestyle, ethnicity, and culture are considered, respected, and incorporated into the perioperative plan of care The patient participates in decisions affecting his or her perioperative plan of care The patient is free from signs and symptoms of infection The patient has wound/tissue perfusion consistent with or improved from baseline levels established preoperatively The patient is at or returning to normothermia at the conclusion of the immediate postoperative period The patient's respiratory function is consistent with or improved from baseline levels established preoperatively The patient's cardiovascular status is consistent with or improved from baseline levels established preoperatively The patient's cardiovascular status is consistent with or improved from baseline levels established preoperatively The patient demonstrates and/or reports adequate pain control throughout the perioperative period The patient received appropriate medication(s), safely administered during the perioperative period Acuity Level PACU I FT Entry 1 Start Time 09/20/23 13:18:00 Stop Time 09/20/23 14:30:00 Acuity Level Acuity Level I Last Modified By: Bernadette Goodrich RN 09/21/23 07:51:43 Finalized By: Bernadette Goodrich RN Document Signatures Signed By: Adelita Hu RN 09/20/23 14:13 Adelita Hu RN 09/20/23 15:37 Bernadette Goodrich RN 09/21/23 07:51 Normal [facility] CHEMISTRYOrdered By: Lab ROP User on 09-20-2023 Glucose [Mass/Vol] 84 mg/dL Normal 55 - 99 mg/dL [facility] [place] Subsection Comment on above: Result Comment: Negrita roger Meter POC Username RUBEN MANLEY Invalid Interpretation Code [facility] [place] Subsection Sodium [Moles/Vol] [id number] mmol/L Invalid Interpretation Code [facility] [place] Subsection Sodium [Moles/Vol] [id number] mmol/L Invalid Interpretation Code [facility] [place] Subsection Capillary Glucose POCon 09-08 Glucose [Mass/Vol] 84 mg/dL Normal 55-99 [facility] Comment on above: Result Comment: Negrita roger Meter Performed By: #### 2 [id number] ####[facility] [id number] [place] [address] Consent for Treatmenton 09-08 Consent for Treatment [id number] Normal [facility] Discharge Instructionson Discharge Instructions RADHA WRIGHT :1955 Visit Date:09/20/2023 Inpatient Discharge Instructions Your Care Team Admitting Physician - Thai Abbasi MD Referring Physician - Thai Abbasi MD Reason for Your Visit BLOOD IN STOOL, ABDOMINAL PAIN, BLACK STOOLS, SKIN CA, BMI 33 - 33.9 Your Diagnosis Blood in stool Tests Performed Capillary Glucose POC Pathology Tissue Exam -- Results Pending -- Please visit your patient portal for your results or contact your primary care physician. This Is Your Medications List albuterol (Ventolin HFA 90 mcg/inh Aerosol) bisoprolol-hydrochloroth iazide (bisoprolol-hydrochlorot hiazide 5 mg-6.25 mg Tab) chromium picolinate cyclobenzaprine (cyclobenzaprine 10 mg Tab) dapagliflozin (Farxiga 5 mg oral tablet) mirabegron (Myrbetriq 25 mg oral tablet, extended release) montelukast (Singulair 4 mg oral granule) montelukast (montelukast 10 mg Tab) omeprazole (omeprazole 40 mg Cap-DR) predniSONE (predniSONE 10 mg Tab) predniSONE (predniSONE 20 mg Tab) predniSONE (predniSONE 20 mg Tab) ramipril (ramipril 10 mg Cap) Procedure History Colonoscopy (09/20/2023), EGD - esophagogastroduodenosco py (09/20/2023), Cystourethroscopy with dilation of urethral stricture (02/27/2021), Appendectomy, Cholecystectomy, Colonoscopy, Hemorrhoid, Hiatal hernia, Hysterectomy, Procedure on back. Discharge Vitals Temperature (Temporal Artery) 36.5 ?C Heart Rate (Monitored) 71 Respiratory Rate 16 Blood Pressure 178/88 Height 159 cm Weight 85.5 kg BMI 33.82 What to do next Instructions From Your Doctor Event Name Event Result Discharge Activity Resume normal activities in 24 hours Discharge Restrictions No driving for 24 hrs Discharge Diet(s) Regular Call Your Doctor For Persistent or heavy bleeding [facility] Discharge Instructions New Follow Up Appointments after Discharge Follow Up with Elroy LORENZO, KJ Hernandez, [facility] When: Comments: Office will call date and time of follow-up appt. Where: [address] [place] [address], [address] [phone]- [phone] Medications What How Much When Instructions Next Dose Unchanged albuterol (Ventolin HFA 90 mcg/ inh Aerosol) 1 Puffs Inhalation 4 times a day as needed for for wheezing Unchanged bisoprolol-hydrochloroth iazide (bisoprolol-hydrochlorot hiazide 5 mg-6.25 mg Tab) TAKE 1 TABLET BY MOUTH EVERY DAY FOR 30 DAYS Unchanged chromium picolinate 0 Refill(s) Unchanged cyclobenzaprine (cyclobenzaprine 10 mg Tab) 1 Tablets By Mouth 3 times a day as needed for for spasm Unchanged dapagliflozin (Farxiga 5 mg oral tablet) 30 EA, 0 Refill(s), TAKE 1 TABLET BY MOUTH EVERY DAY FOR 30 DAYS Unchanged mirabegron (Myrbetriq 25 mg oral tablet, extended release) 1 Tablets By Mouth Every day Unchanged montelukast (montelukast 10 mg Tab) 1 Tablets By Mouth Once a day (in the evening) Unchanged montelukast (Singulair 4 mg oral granule) 1 Each By Mouth Every day Unchanged omeprazole (omeprazole 40 mg Cap-DR) 1 Capsules By Mouth Every day Unchanged predniSONE (predniSONE 10 mg Tab) See instructions supplemented for the previous prescription 60mg x 3 days 40mg x 3 days 20mg x 3 days then stop with food Unchanged predniSONE (predniSONE 20 mg Tab) See instructions 60mg x 3 days 40mg x 3 days 20mg x 3 days then stop Unchanged predniSONE (predniSONE 20 mg Tab) See instructions 60mg x 3 days 40mg x 3 days 20mg x 3 days then stop Unchanged ramipril (ramipril 10 mg Cap) TAKE 1 CAPSULE BY MOUTH EVERY DAY Test Results No qualifying data available. Allergies Biaxin (unknown) Claritin (unknown) Compazine (sob) Flagyl (sob) Floxin (unknown) Skelaxin (unknown) Valium (unknown) Vibra-Tabs (Shortness of breath) Zoloft (unknown) contrast media (iodine-based) (Anaphylactic reaction) erythromycin (unknown) oxybutynin (Headache) penicillin (unknown) tetracycline (Tachycardia) Problems Ongoing - Any problem that you are currently receiving treatment for. Anemia Arthritis Asthma Asymptomatic microscopic hematuria Atrial fibrillation BMI 32.0-32.9,adult Depression Diabetes Frequent urination Head injury Headache High cholesterol History of recurrent UTI (urinary tract infection) HTN (hypertension) Mixed incontinence Nocturia Post-void dribbling Postinfective urethral stricture in female Recurrent UTI Skin cancer Stress incontinence Urge incontinence Education Materials AVOIDNonsteroidal Anti-Inflammatory Medications (NSAIDS) Non-steroidal anti-inflammatory drugs (NSAIDs) are a medication widely used to treat a wide range of conditions. Common acute (short-term) conditions that can be treated with NSAIDs include: ? headaches ? painful periods ? toothache ? soft tissue injuries such as sprains and strains ? reduce (more content not included)... Normal [facility] Comment on above: Result Comment: Elec tronically Signed By: Fritz MASON, Adelita\.br\Date and Time Signed: 09/20/23 14:01 SEBASTIÁN Castelan 09-20-2023 Esophagogastroduodenosc opy Patient: RADHA WRIGHT Age: 68 years Sex: Female : 1955 Associated Diagnoses: None Author: Thai Abbasi MD Pre-Procedure Procedure Date 09/20/2023 12:58:00 . Procedure Type: Esophagogastroduodenosco py with biopsy. Procedure provider Performed by Thai Abbasi MD. Current history and physical Documented on chart. Informed Consent After discussing the rationale, risks and benefits, and alternatives to this procedure, the patient provided signed consent for the procedure. Pre-procedure diagnosis: blood in stool, epigastric pain. Medications Anticoagulant/antiplatel et None. ASA Classification: Class II. . Monitoring: See anesthesia record. . Procedure The procedure was performed in the hospital. See anesthesia record for sedation given during procedure. The patient was positioned starting in the left lateral decubitus position and with safety measures. Endoscope type used was an adult-size, introduced orally, advanced to the 3rd portion of the duodenum. No difficulty was encountered during the procedure. Views were excellent. The patient tolerated the procedure well. Extent reached: Duodenum third portion Findings 1. 3 cm hiatal hernia 2. Erythema in the antrum, mild patchy. Otherwise normal stomach. Biopsies of the stomach were taken to rule out H. pylori. 3. Normal duodenum. Images Procedure images: Rec_hd_video_ [id number] Rec_hd_video_ [id number].jpg Rec_hd_video_ [id number].jpg Rec_hd_video_ [id number].jpg Rec_hd_video_ [id number].jpg Rec_hd_video_ [id number].jpg Rec1_hd_video_ [id number].jpg Rec1_hd_video_ [id number].jpg . Post-Procedure Complications: none. Estimated blood loss: minimal. Specimens: sent to pathology. Devices/ implants: none left in place. Impression and Plan 1. 3 cm hiatal hernia 2. Erythema in the antrum, mild patchy. Otherwise normal stomach. Biopsies of the stomach were taken to rule out H. pylori. 3. Normal duodenum. Recommendations: -Resume previous diet -Resume home medications -Await pathology results, follow in GI clinic in 1-2 after discharge for Normal [facility] Comment on above: Other Comment: Tamar molina Attachment - attachment storage system not supported [id number] Can be viewed in source systemMissing Attachment - attachment storage system not supported [id number] Can be viewed in source systemMissMaui [employer] Attachment - attachment storage system not supported [id number] Can be viewed in source systemMissing Attachment - attachment storage system not supported [id number] Can be viewed in source systemMissing Attachment - attachment storage system not supported [id number] Can be viewed in source systemMissing Attachment - attachment storage system not supported [id number] Can be viewed in source systemMissing Attachment - attachment storage system not supported [id number] Can be viewed in source systemMissing Attachment - attachment storage system not supported [id number] Can be viewed in source system Endoscopic Procedure Report - Otheron 09-20-2023 Endoscopic Procedure Report - Other Patient: RADHA WRIGHT Age: 68 years Sex: Female : 1955 Associated Diagnoses: None Author: Thai Abbasi MD Pre-Procedure Procedure Date 09/20/2023 13:15:00 . Procedure Type: Colonoscopy. Procedure provider Performed by Thai Abbasi MD. Current history and physical Documented on chart. Colorectal neoplasm risk assessment Average risk. Informed Consent After discussing the rationale, risks and benefits, and alternatives to this procedure, the patient provided signed consent for the procedure. Pre-procedure diagnosis: Rectal bleeding. Medications Anticoagulant/antiplatel et None. ASA Classification: Class II. . Monitoring: See anesthesia record. . Procedure The procedure was performed in the hospital. See anesthesia record for sedation given during procedure. The patient was positioned starting in the left lateral decubitus position. Endoscope type used was an adult-size. The endoscope was lubricated then introduced through the anus. The scope was advanced to the terminal ileum. No difficulties encountered during the procedure. The bowel preparation quality was adequate (see polyps greater than or equal to 6 millimeters). The patient tolerated the procedure well. Extent reached: 8min Time of withdrawal: 6min Findings 1. Small internal hemorrhoids 2. Normal colon 3. Normal terminal ileum Post-Procedure Complications: none. Estimated blood loss: none. Specimens: none. Devices/ implants: none left in place. Impression and Plan 1. Small internal hemorrhoids 2. Normal colon 3. Normal terminal ileum Recommendations: Repeat colonoscopy:: In 10 years. Follow-up:: in clinic as scheduled. Diet:: Previous. Medication resumption:: Continue current medications, Avoid NSAIDs. Return to activities:: After 24 hours. Education and Follow-up: Counseled: Patient, Family. [facility] Comment on above: Result Comment: Elec tronically Signed By: Thai Abbasi MD\.br\Date and Time Signed: 09/20/23 13:16 EST Inpatient Patient Summaryon 09-20-2023 Inpatient Patient Summary [place] [id number] [facility] Clinical Discharge Instructions PERSON INFORMATION Name: RADHA WRIGHT [facility] Admitting Physician: Thai Abbasi MD Attending Physician: Thai Abbasi MD PCP: ANNELISE PEÑALOZA CNP Discharge Diagnosis: Blood in stool Comment: PATIENT EDUCATION INFORMATION Instructions: Medication Leaflets: Follow up: MEDICATION LIST Medications to Continue with No Changes Other Medications albuterol (Ventolin HFA 90 mcg/inh Aerosol) 1 Puffs Inhalation 4 times a day as needed for wheezing. Refills: 0. bisoprolol-hydrochloroth iazide (bisoprolol-hydrochlorot hiazide 5 mg-6.25 mg Tab) TAKE 1 TABLET BY MOUTH EVERY DAY FOR 30 DAYS. chromium picolinate 0 Refill(s). cyclobenzaprine (cyclobenzaprine 10 mg Tab) 1 Tablets By Mouth 3 times a day as needed for spasm. Refills: 0. dapagliflozin (Farxiga 5 mg oral tablet) 30 EA, 0 Refill(s), TAKE 1 TABLET BY MOUTH EVERY DAY FOR 30 DAYS., Responsible Provider: ANNELISE PEÑALOZA mirabegron (Myrbetriq 25 mg oral tablet, extended release) 1 Tablets By Mouth every day. Refills: 11. montelukast (montelukast 10 mg Tab) 1 Tablets By Mouth once a day (in the evening). Refills: 0. montelukast (Singulair 4 mg oral granule) 1 Each By Mouth every day. Refills: 0. omeprazole (omeprazole 40 mg Cap-DR) 1 Capsules By Mouth every day. Refills: 3. predniSONE (predniSONE 10 mg Tab) supplemented for the previous prescription 60mg x 3 days 40mg x 3 days 20mg x 3 days then stop with food. Refills: 0. predniSONE (predniSONE 20 mg Tab) 60mg x 3 days 40mg x 3 days 20mg x 3 days then stop. Refills: 0. predniSONE (predniSONE 20 mg Tab) 60mg x 3 days 40mg x 3 days 20mg x 3 days then stop. Refills: 0. ramipril (ramipril 10 mg Cap) TAKE 1 CAPSULE BY MOUTH EVERY DAY. Comment: Normal [facility] Main OR Preoperative Recordo n 09-20-2023 Main OR Preoperative Record Holding Area Document Type FT Summary Primary Physician: Thai Abbasi MD Finalized Date/Time: 09/20/23 11:02:47 Pt. Name: RADHA WRIGHT/Sex: 1955 Female Med Rec #: [id number] Physician: Thai Abbasi MD Financial #: [id number] Pt. Type: O Room/Bed: Endo 06/08 Admit/Disch: 09/20/23 10:36:39 - Institution: Case Times Holding FT Pre-Care Text: Verifies consent for planned procedure, identifies individual values and wishes concerning care, includes family members in perioperative teaching Secures patient's records' belongings, and valuables, maintains patient's dignity and privacy, and maintains patient confidentiality Entry 1 In Holding 09/20/23 10:58:00 Outcomes Met? Yes Last Modified By: Ruben Mejia RN 09/20/23 11:00:36 Post-Care Text: The patient participates in decisions affecting his or her perioperative plan of care The patient's right to privacy is maintained Surgery Checklist FT Entry 1 Patient Birthday, ID Band Procedure History and Physical, Identification: Check, Patient Verification: Surgical Consent, With Participation Patient NPO after Midnight: Yes Date/Time: 09/20/23 08:00:00 Personal Items: Glasses Personal Items glasses, clothes, cane, Comment: shoes, metal in back Limitations: n/a Complaints of Pain: No Pain Comment: denies Operative Site n/a Marking: Marked By: n/a Availability Equipment Verified: Does Patient Smoke No Patient states Yes Comment - Adult sisters- Vinny postop adult Supervision supervision available Case Cancelled in No Holding Area see comments below for reason Last Modified By: Ruben Mejia RN 09/20/23 11:02:46 General Comments: Pt finished colon prep at 0800, states stool is clear liquid yellow /,RN Finalized By: Ruben Mejia RN Document Signatures Signed By: Ruben Mejia RN 09/20/23 11:02 Normal [facility] Monitor Recordon 09-20-2023 Monitor Record [id number] FF Normal [facility] Outpatient Surgery Discharge Instructionon 09-20-2023 Outpatient Surgery Discharge Instruction [place] [id number] Patient Discharge Instructions PERSON INFORMATION Name: RADHA WRIGHT Date of : 1955 Current Date: 09/20/2023 12:52:19 PHYSICIANS Admitting Physician: Thai Abbasi MD Discharge Diagnosis: Blood in stool LLOYD WRIGHTCHAS Morales has been given the following list of follow-up instructions, prescriptions, and patient education materials: PATIENT FOLLOW-UP INFORMATION Diet: Regular Discharge Activity: Resume normal activities in 24 hours Discharge Restrictions: No driving for 24 hrs Call Your Doctor For: Persistent or heavy bleeding IF UNABLE TO CONTACT YOUR PHYSICIAN AND YOU FEEL IT IS AN EMERGENCY, GO TO THE NEAREST EMERGENCY ROOM OR CALL 911 MELVI Palumbo MELISSA K, have received the attached patient education materials/instructions and have verbalized understanding: May we do a follow up call? Yes No I was present when discharge instructions were given Patient Signature Date Clinican/Nurse Signature Date Follow up: Pharmacy Information: [facility] You may receive a survey from [employer] asking you to rate your care experience. Your feedback is important and will help us understand what we do well and how we can improve the quality of care we provide to you, your loved ones and our community. It?s an honor to serve you. Thank you for choosing [facility] HERE ARE THE MEDICATION CHANGES THAT OCCURRED DURING YOUR HOSPITAL STAY Medications to Continue with No Changes Other Medications albuterol (Ventolin HFA 90 mcg/inh Aerosol) 1 Puffs Inhalation 4 times a day as needed for wheezing. Refills: 0. bisoprolol-hydrochloroth iazide (bisoprolol-hydrochlorot hiazide 5 mg-6.25 mg Tab) TAKE 1 TABLET BY MOUTH EVERY DAY FOR 30 DAYS. chromium picolinate 0 Refill(s). cyclobenzaprine (cyclobenzaprine 10 mg Tab) 1 Tablets By Mouth 3 times a day as needed for spasm. Refills: 0. dapagliflozin (Farxiga 5 mg oral tablet) 30 EA, 0 Refill(s), TAKE 1 TABLET BY MOUTH EVERY DAY FOR 30 DAYS., Responsible Provider: ANNELISE PEÑALOZA mirabegron (Myrbetriq 25 mg oral tablet, extended release) 1 Tablets By Mouth every day. Refills: 11. montelukast (montelukast 10 mg Tab) 1 Tablets By Mouth once a day (in the evening). Refills: 0. montelukast (Singulair 4 mg oral granule) 1 Each By Mouth every day. Refills: 0. omeprazole (omeprazole 40 mg Cap-DR) 1 Capsules By Mouth every day. Refills: 3. predniSONE (predniSONE 10 mg Tab) supplemented for the previous prescription 60mg x 3 days 40mg x 3 days 20mg x 3 days then stop with food. Refills: 0. predniSONE (predniSONE 20 mg Tab) 60mg x 3 days 40mg x 3 days 20mg x 3 days then stop. Refills: 0. predniSONE (predniSONE 20 mg Tab) 60mg x 3 days 40mg x 3 days 20mg x 3 days then stop. Refills: 0. ramipril (ramipril 10 mg Cap) TAKE 1 CAPSULE BY MOUTH EVERY DAY. PATIENT EDUCATION INFORMATION Instructions: Medication Leaflets: [facility] Patient Education - Texton 1 11-20-2022 Patient Education - Text Nonsteroidal Anti-Inflammatory Medications (NSAIDS) Non-steroidal anti-inflammatory drugs (NSAIDs) are a medication widely used to treat a wide range of conditions. Common acute (short-term) conditions that can be treated with NSAIDs include: ? headaches ? painful periods ? toothache ? soft tissue injuries such as sprains and strains ? reduce inflammation (redness and swelling) ? infections, such as the common cold or the flu (NSAIDs do not treat the underlying infections, but can help to relieve symptoms; especially fever) Common chronic (long-term) conditions that can be treated with NSAIDs include: ? most types of arthritis, including rheumatoid arthritis and osteoarthritis ? back pain ? neck pain Some NSAIDs are available qzzy-sgf-[id number], without the need for a prescription. However, because a medication is available over the counter it does not mean it is safe or suitable for everyone. Again, it is important to read the patient information leaflet that comes with your medication. NSAID drugs include: Brand: Generic: Bufferin; Des Aspirin; ASA Celebrex Celecoxib Zipsor; Cambia Diclofenac Motrin; Advil Ibuprofen Indosin Indometacin Actron; Orudis Ketoprofen Toradol Ketorolac Mobic Meloxicam Ponstel Mefenamic Acid Aleve; Naprosyn Naproxen Side effects: Most people take NSAIDs without having any side effects. Short term use is unlikely to cause significant problems, especially in younger patients. If side effects do occur they usually affect the stomach and can include: ? Indigestion ? Nausea ? Stomach pain ? Stomach ulcer ? Bleeding from the stomach and intestines Other side effects: ? Ringing in the ears ? itching ? Poor control of asthma ? Headache ? Allergic reactions NSAIDs are also not usually recommended for people who: ? are or ? have a history of kidney disease ? have a history of liver disease ? have active stomach ulcers (a sore in the lining of the stomach), or are at risk of developing stomach ulcers How to take NSAIDS: NSAIDS should be taken in the pill form or given by injection. If you are taking the pill form, it is best to take with food to avoid an upset stomach. IF a dose is missed: Some of these medications are taken ?as needed.? Do not take more of your NSAID than your doctor has prescribed. Follow the [id number]-[id number] labels and do not exceed the recommended dosage. If you take an NSAID daily, take the missed dose of your medication as soon as you remember it. If it is too close to the time for your next dose, skip the missed dose and go back to taking this medication at your normal time. Do not take two doses of this medication at the same time or take any extra doses of this medication. If any questions regarding your medications, contact your physician or pharmacist. Colonoscopy Care After Surgery Please read the instructions outlined below and refer to this sheet in the next few weeks. These discharge instructions provide you with general information on caring for yourself after you leave the hospital. Your doctor may also give you specific instructions. While your treatment has been planned according to the most current medical practices available, unavoidable complications occasionally occur. If you have any problems or questions after discharge, please call your doctor. ACTIVITY You may resume your regular activity, but move at a slower pace for the next 24 hours. Take frequent rest periods for the next 24 hours. Walking will help get rid of the air and reduce the bloated feeling in your abdomen (belly). No driving for 24 hours (because of the anesthesia (medicine) used during the test). You may shower. Do not sign any important legal documents or operate any machinery for 24 hours (because of the anesthesia used during the test). NUTRITION Drink plenty of fluids. You may resume your normal diet as instructed by your doctor. Begin with a light meal and progress to your normal diet. Heavy or fried foods are harder to digest and may make you feel nauseated (sick to your stomach). Avoid alcoholic beverages for 24 hours or as instructed. MEDICATIONS You may resume your normal medications unless your doctor tells you otherwise. WHAT YOU CAN EXPECT TODAY Some feelings of bloating in the abdomen. Passage of more gas than usual. Spotting of blood in your stool or on the toilet paper. FOLLOW-UP Your doctor will discuss the results of your test with you. SEEK IMMEDIATE MEDICAL ATTENTION IF: There is more than a spotting of blood in your stool. There is abdominal distention (your abdomen is swollen). There is vomiting. You have a temperature over 101.5 F. There is abdominal pain or discomfort that is severe or gets worse throughout the day. Normal [facility] ECG 12 Leadon 09-14-2023 Normal sinus rhythm Normal EKG QTc 424 ms [facility] Work Phone: OT - Otheron 08-27-2023 OT - Other [id number] FF Normal [facility] Consent for Procedure/Surger yon 08-26-2023 Consent for Procedure/Surgery [id number] FF [facility] Ambulatory Visit Summaryon 1 Ambulatory Visit Summary RADHA WRIGHT :1955 Visit Date:08/24/2023 Ambulatory Visit Instructions Your Diagnosis Blood in stool, Black stools Abdominal pain Skin cancer BMI 33.0-33.9,adult Your Care Team Attending Physician - Elroy LORENZO, Thai Sarabia Primary Care Physician - ANNELISE PEÑALOZA CNP This Is Your Medications List albuterol (Ventolin HFA 90 mcg/inh Aerosol) bisoprolol-hydrochloroth iazide (bisoprolol-hydrochlorot hiazide 5 mg-6.25 mg Tab) cyclobenzaprine (cyclobenzaprine 10 mg Tab) mirabegron (Myrbetriq 25 mg oral tablet, extended release) montelukast (Singulair 4 mg oral granule) montelukast (montelukast 10 mg Tab) omeprazole (omeprazole 40 mg Cap-DR) predniSONE (predniSONE 10 mg Tab) predniSONE (predniSONE 20 mg Tab) predniSONE (predniSONE 20 mg Tab) ramipril (ramipril 10 mg Cap) Procedures Performed Cystourethroscopy with dilation of urethral stricture (02/27/2021), Appendectomy, Cholecystectomy, Colonoscopy, Hemorrhoid, Hiatal hernia, Hysterectomy, Procedure on back. Discharge Vitals Heart Rate (Peripheral) 76 Respiratory Rate 16 Blood Pressure 130/70 Height 159 cm Height 63 in Weight 85.5 kg Weight 188.1 lb BMI 33.82 What to do next Scheduled Follow-Up Appointments 2022 8:30 AM EDT Where: [facility] Wednesday 10:15 AM EDT Where: [facility] Wednesday 8:00 AM EDT Where: [facility] You Need to Complete the Following Basic Metabolic Panel, Blood, Routine collect, 08/24/23, Order for future visit, Lab Collect, Blood in stool, Not Required, Print Label By Order Location CBC w/ Auto Diff, Blood, Routine collect, 08/24/23, Order for future visit, Lab Collect, Blood in stool, Not Required, Print Label By Order Location Medications What How Much When Instructions New omeprazole (omeprazole 40 mg Cap-DR) 1 Capsules By Mouth Every day Refills: 3 Pickup at [id number] Unchanged albuterol (Ventolin HFA 90 mcg/ inh Aerosol) 1 Puffs Inhalation 4 times a day as needed for for wheezing Unchanged bisoprolol-hydrochloroth iazide (bisoprolol-hydrochlorot hiazide 5 mg-6.25 mg Tab) TAKE 1 TABLET BY MOUTH EVERY DAY FOR 30 DAYS Unchanged cyclobenzaprine (cyclobenzaprine 10 mg Tab) 1 Tablets By Mouth 3 times a day as needed for for spasm Unchanged mirabegron (Myrbetriq 25 mg oral tablet, extended release) 1 Tablets By Mouth Every day Unchanged montelukast (montelukast 10 mg Tab) 1 Tablets By Mouth Once a day (in the evening) Unchanged montelukast (Singulair 4 mg oral granule) 1 Each By Mouth Every day Unchanged predniSONE (predniSONE 10 mg Tab) See instructions supplemented for the previous prescription 60mg x 3 days 40mg x 3 days 20mg x 3 days then stop with food Unchanged predniSONE (predniSONE 20 mg Tab) See instructions 60mg x 3 days 40mg x 3 days 20mg x 3 days then stop Unchanged predniSONE (predniSONE 20 mg Tab) See instructions 60mg x 3 days 40mg x 3 days 20mg x 3 days then stop Unchanged ramipril (ramipril 10 mg Cap) TAKE 1 CAPSULE BY MOUTH EVERY DAY Pharmacy Information [id number]: [address], [place] [id number] [phone] Medications and Immunizations Administered Not Given influenza virus vaccine, inactivated, Patient Refuses Allergies Biaxin (unknown) Claritin (unknown) Compazine (sob) Flagyl (sob) Floxin (unknown) Skelaxin (unknown) Valium (unknown) Vibra-Tabs (Shortness of breath) Zoloft (unknown) contrast media (iodine-based) (Anaphylactic reaction) erythromycin (unknown) oxybutynin (Headache) penicillin (unknown) tetracycline (Tachycardia) Problems Ongoing - Any problem that you are currently receiving treatment for. Anemia Arthritis Asthma Asymptomatic microscopic hematuria Atrial fibrillation BMI 32.0-32.9,adult Depression Diabetes Frequent urination Head injury Headache High cholesterol History of recurrent UTI (urinary tract infection) HTN (hypertension) Mixed incontinence Nocturia Post-void dribbling Postinfective urethral stricture in female Recurrent UTI Skin cancer Stress incontinence Urge incontinence Normal [facility] Gastroenterology Office/Clin ic Noteon 08-24-2023 Gastroenterology Office/Clinic Note Chief Complaint blood in stool HPI Staff Patient is a 68 year old female new patient who was referred by Mark for abdominal pain, black stool and blood in stool. Was given Pantoprazole for GERD - had diarrhea so stopped taking. Abdominal pain: When did you first have this pain: 1 1/2 weeks ago - was a few days of pain, had the black stool and then has not had any since. Quality (sharp, dull): cramping Constant or comes or go: it would come and go location and radiation: middle to lower abdomen Relation to food: out of the blue - no relation to food. Improving or worsening factors factors: Associated symptoms: black stools w/dark blood mixed with stools - happened a few times, no longer having blood in stool. Previous work up: Labs 08/11/23 @ [facility]. Scanned into chart. Low RBC (4.08) Low Platelet (147) Low Potassium (3.4) Had taken Iron and Potassium in the past - no longer takes now. EGD: done at [facility] - over 10 years ago. Colonoscopy 05/19/2019 @ [facility]: POSTOPERATIVE DIAGNOSIS: 1. Irritable bowel syndrome. 2. Incomplete bowel prep. 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 She had a cholecystectomy and appendectomy and she was checked for abdominal wall hernia, she also had hiatal hernia surgery when she was 26 Denies any blood thinners currently Overall she is doing well currently Review of Systems PHQ Score Initial Depression Screen Score: 0 Physical Exam Vitals & Measurements HR: 76(Peripheral) RR: 16 BP: 130/70 HT: 63 in HT: 159 cm WT: 85.5 kg WT: 188.1 lb BMI: 33.82 General: in Nad Abdomen: Soft, NTND Assessment/Plan 1. Blood in stool, (K92.1: Melena)Black stools Could be PUD, right colon lesion, or small bowel lesion? 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 Abdominal pain (R10.9: Unspecified abdominal pain) See #1 4. Skin cancer (C44.90: Unspecified malignant neoplasm of skin, unspecified) 5. BMI 33.0-33.9,adult (Z68.33: Body mass index [BMI] 33.0-33.9, adult) Follow-up No qualifying data available Problem List/Past Medical History Ongoing Anemia Arthritis Asthma Asymptomatic microscopic hematuria Atrial fibrillation BMI 32.0-32.9,adult Depression Diabetes Frequent urination Head injury Headache High cholesterol History of recurrent UTI (urinary tract infection) HTN (hypertension) Mixed incontinence Nocturia Post-void dribbling Postinfective urethral stricture in female Recurrent UTI Skin cancer Stress incontinence Urge incontinence Historical No qualifying data Procedure/Surgical History Cystourethroscopy with dilation of urethral stricture (02/27/2021), Appendectomy, Cholecystectomy, Colonoscopy, Hemorrhoid, Hiatal hernia, Hysterectomy, Procedure on back. Medications bisoprolol-hydrochloroth iazide 5 mg-6.25 mg Tab cyclobenzaprine 10 mg Tab, 10 mg= 1 tab(s), Oral, TID, PRN montelukast 10 mg Tab, 10 mg= 1 tab(s), Oral, qPM Myrbetriq 25 mg oral tablet, extended release, 25 mg= 1 tab(s), Oral, Daily, 11 refills predniSONE 10 mg Tab, See Instructions predniSONE 20 mg Tab, See Instructions predniSONE 20 mg Tab, See Instructions ramipril 10 mg Cap Singulair 4 mg oral granule, 4 mg= 1 EA, Oral, Daily Ventolin HFA 90 mcg/inh Aerosol, 1 puff(s), Inhalation, QID, PRN Allergies Biaxin (unknown) Claritin (unknown) Compazine (sob) Flagyl (sob) Floxin (unknown) Skelaxin (unknown) Valium (unknown) Vibra-Tabs (Shortness of breath) Zoloft (unknown) contrast media (iodine-based) (Anaphylactic reaction) erythromycin (unknown) oxybutynin (Headache) penicillin (unknown) tetracycline (Tachycardia) Social History Alcohol - Denies Alcohol Use, 04/15/2019 Substance Abuse - Denies Substance Abuse, 04/15/2019 Tobacco - Denies Tobacco Use, 04/15/2019 Former smoker, quit more than 30 days ago Tobacco Use:. Never Smokeless Tobacco Use:. Yes, 08/24/2023 Family History Anemia: Mother. Arthritis: Mother. Diabetes: Mother and Father. Hypertension: Mother and Father. Primary malignant neoplasm of lung: Father. Stroke: Mother and Father. Immunizations Vaccine Date Status Comments influenza virus vaccine, inactivated - Not Given Patient Refuses pneumococcal 13-valent vaccine 09/15/2021 Recorded SARS-CoV-2 (COVID-19) mRNA BNT-162b2 vax 09/15/2021 Recorded 2022-11-03: [id number] SARS-CoV-2 ( (more content not included)... Normal [facility] Comment on above: Result Comment: Elec tronically Signed By: Elroy LORENZO, Thai Sarabia\.br\Date and Time Signed: 08/24/23 15:00 EDT Nicotine and Metabolite, Lonnie nton 08-24-2023 Cotinine [Mass/Vol] <1.0 Invalid Interpretation Code [facility] Comment on above: Result Comment: This test was developed and its performance characteristics determined by [facility]. It has not been cleared or approved by the Food and Drug Administration. Cotinine levels greater than 20.0 are consistent with the use of tobacco or tobacco cessation products. Performed at: [address] [id number] MD Eliecer Yoder Performed By: #### 1 [id number] #### [facility] [address] [place] [address] Nicotine [Mass/Vol] <1.0 Invalid Interpretation Code [facility] Comment on above: Result Comment: This test was developed and its performance characteristics determined by [facility]. It has not been cleared or approved by the Food and Drug Administration. Nicotine levels greater than 2.0 are consistent with the use of tobacco or tobacco cessation products. Performed By: #### 1 [id number] #### [facility] [address] [place] [address] MRSA Screenon 08-21-2023 MRSA DNA RENETTA+probe Ql (Unsp spec) Microbiology PROCEDURE: MRSA Screen [R1] SOURCE: Nasal BODY SITE: COLLECTED DATE/TIME: 08/19/2023 08:28 EDT RECEIVED DATE/TIME: 08/19/2023 10:23 EDT START DATE/TIME: 08/19/2023 10:23 EDT FREE TEXT SOURCE: MUNDO LORENZO, LUIGI FLOWER MD, LUIGI FINAL REPORTS Final Report [] Verified Date/Time: 08/21/2023 09:33 EDT MRSA Negative. Performing Locations R1: This test was performed at: [facility], [address] [place] [address], [address], Normal [facility] Comment on above: Performed By: #### 1 [id number] ####[facility] [id number] [place] [address] Albuminon 08-19-2023 Albumin [Mass/Vol] 3.9 g/dL Normal 3.3-5.0 [facility] Comment on above: Performed By: #### 1 [id number], [id number], [id number], [id number] #### [facility] [address] [place] [address] Consent for Treatmenton 08-08 Consent for Treatment [id number] F Normal [facility] Hemoglobinon 08-19-2023 Hemoglobin (Bld) [Mass/Vol] 12.7 g/dL Normal 12.0-16.0 [facility] Comment on above: Performed By: #### 1 [id number], [id number], [id number], [id number] #### [facility] [address] [place] [address] [id number] 08-19-2023 HbA1c (Bld) [Mass fraction] 5.8 % Normal <=5.9 [facility] Comment on above: Performed By: #### 1 [id number], [id number], [id number] #### [facility] [address] [place] [address] Physician Orderon 08-19-2023 Physician Order [id number] FF Normal [facility] Vitamin D 25 Hydroxyon 08-19 25-hydroxyvitamin D3 [Mass/Vol] 14.4 ng/mL Low 30.0-100.0 [facility] Comment on above: Result Comment: Vit parra D deficiency has been defined as a level of serum 25-OH vitamin D less than 20 ng/mL (1,2) by the [employer] of [employer] and an Endocrine Society practice guideline. The Endocrine Society further defined vitamin D insufficiency as a level between 21 and 29 ng/mL (2). 1. IOM ([employer] of Medicine). 2010. Dietary reference intakes for calcium and D. [place]: The National Academies Press. 2. Caleb MF, Trell LOPEZ, Eric REAVES, et al. Evaluation, treatment, and prevention of vitamin D deficiency: an Endocrine Society clinical practice guideline. JCEM. 2010; 96 (7):1911-30. Performed By: #### 1 [id number], [id number], [id number] #### [facility] [address] [place] [address] Physician Referralon 023 Physician Referral [id number]: 127 Normal [facility] Physician Orderon 08-09-2023 Physician Order [id number] :127 Normal [facility] OT - Orderson 07-30-2023 OT - Orders [id number]: 127 Normal [facility] US LE Venous Duplex Righton 07-19-2023 US LE Venous Duplex Right Exam Date/Time: 07/16/2023 13:15 EDT Reason for Exam: M79.661 Report IMPRESSION: NO EVIDENCE OF VENOUS THROMBOSIS INVOLVING VISUALIZED DEEP VEINS OF THE RIGHT LEG. CLINICAL HISTORY: M79.661. Right leg edema. COMMENT: On the right, the external iliac vein, greater saphenous vein, common femoral vein, deep femoral vein, femoral vein, and popliteal vein demonstrate spontaneous phasic venous flow, with augmentation, non-pulsatility, and compressibility every 2 cm. The right posterior tibial and peroneal veins of the deep venous system compress. The contralateral left common femoral vein demonstrates spontaneous phasic venous flow. Ordering Provider: , FINAL REPORT Dictated: 07/19/2023 9:17 am Alfie Lyles M.D. Signed (Electronic Signature): 07/19/2023 9:17 am Signed by: Alfie Lyles M.D. Transcribed by: CORNELL Technologist: [facility] Consent for Treatmenton Consent for Treatment [id number]#1.00CD :127 [facility] Physician Orderon 07-16-2023 Physician Order [id number]#1.00CD :127 [facility] XR hip RT min 2V(w/wo pelvis )*on 07-14-2023 XR hip RT min 2V(w/wo pelvis)* [facility] [place] [place] [address] XRay Report Signed Patient: Radha Wright MR#: [id number] : 1955 Acct:[id number] Age/Sex: 68 / F ADM Date: 07/14/23 Loc: [facility] Room: Type: [facility] Attending Dr: Luigi Flower II, MD Copies to: Luigi Flower MD Ordering Provider: Luigi Flower MD Date of Service: 07/14/23 XR/XR hip RT min 2V(w/wo pelvis)*: Primary osteoarthritis of right hip AP PELVIS WITH RIGHT HIP- 2 views: CLINICAL HISTORY: Right anterolateral hip pain radiating down the leg. No injury. COMPARISON: 09/19/2021 AP weightbearing pelvis and crosstable lateral view of the right hip were obtained. There is no acute fracture or dislocation. The left hip joint space is maintained. There is loss of the right hip joint space with subchondral sclerosis, cystic change and hypertrophy. There is interval worsening since the comparison. There is sclerosis at the SI joints. There are postoperative and degenerative changes at the lower imaged lumbar spine. No soft tissue abnormalities are identified. XR/XR hip RT min 2V(w/wo pelvis)* IMPRESSION: WORSENING DEGENERATIVE CHANGE INVOLVING THE RIGHT HIP. Impression dictated by: Kailey Bar M.D.07/14/2023 5:41 PM Dictation Location: [place] [address] Transcribed By: [facility] 07/14/23 174 Dictated By: Kailey Bar MD 07/14/23 173 Signed By: 07/14/23 174 Normal [facility] XR hip RT min 2V(w/wo pelvis)* [facility] [employer] Other XR hip RT min 2V(w/wo pelvis)* [facility] [place] [employer] Other XR hip RT min 2V(w/wo pelvis)* [address] [place] [address] [employer] Other XR hip RT min 2V(w/wo pelvis)* [place] [address] [employer] Other XR hip RT min 2V(w/wo pelvis)* XRay Report [employer] Other XR hip RT min 2V(w/wo pelvis)* Signed [employer] Other XR hip RT min 2V(w/wo pelvis)* Patient: Radha Wright MR#: [id number] [employer] Other XR hip RT min 2V(w/wo pelvis)* [id number] [employer] Other XR hip RT min 2V(w/wo pelvis)* : 1955 Acct:[id number] [employer] Other XR hip RT min 2V(w/wo pelvis)* Age/Sex: 68 / F ADM Date: 07/14/23 [employer] Other XR hip RT min 2V(w/wo pelvis)* Loc: [facility] Room: Type: [facility] [employer] Other XR hip RT min 2V(w/wo pelvis)* Attending Dr: Luigi Flower II, MD [employer] Other XR hip RT min 2V(w/wo pelvis)* Copies to: Luigi Flower MD [employer] Other XR hip RT min 2V(w/wo pelvis)* Ordering Provider: Luigi Flower MD [employer] Other XR hip RT min 2V(w/wo pelvis)* Date of Service: 07/14/23 [employer] Other XR hip RT min 2V(w/wo pelvis)* XR/XR hip RT min 2V(w/wo pelvis)*: Primary osteoarthritis of right hip [employer] Other XR hip RT min 2V(w/wo pelvis)* AP PELVIS WITH RIGHT HIP- 2 views: [employer] Other XR hip RT min 2V(w/wo pelvis)* CLINICAL HISTORY: Right anterolateral hip pain radiating down the leg. No injury. [employer] Other XR hip RT min 2V(w/wo pelvis)* COMPARISON: 09/19/2021 [employer] Other XR hip RT min 2V(w/wo pelvis)* AP weightbearing pelvis and crosstable lateral view of the right hip were obtained. There is no [employer] Other XR hip RT min 2V(w/wo pelvis)* acute fracture or dislocation. The left hip joint space is maintained. There is loss of the right [employer] Other XR hip RT min 2V(w/wo pelvis)* hip joint space with subchondral sclerosis, cystic change and hypertrophy. There is interval [employer] Other XR hip RT min 2V(w/wo pelvis)* worsening since the comparison. There is sclerosis at the SI joints. There are postoperative and [employer] Other XR hip RT min 2V(w/wo pelvis)* degenerative changes at the lower imaged lumbar spine. No soft tissue abnormalities are identified. [employer] Other XR hip RT min 2V(w/wo pelvis)* XR/XR hip RT min 2V(w/wo pelvis)* [employer] Other XR hip RT min 2V(w/wo pelvis)* IMPRESSION: [employer] Other XR hip RT min 2V(w/wo pelvis)* WORSENING DEGENERATIVE CHANGE INVOLVING THE RIGHT HIP. [employer] Other XR hip RT min 2V(w/wo pelvis)* Impression dictated by: Kailey Bar M.D.07/14/2023 5:41 PM [employer] Other XR hip RT min 2V(w/wo pelvis)* Dictation Location: [place] [address] [employer] Other XR hip RT min 2V(w/wo pelvis)* Transcribed By: JANET 07/14/23 174 [employer] Other XR hip RT min 2V(w/wo pelvis)* Dictated By: Kailey Bar MD 07/14/23 1739 [employer] Other XR hip RT min 2V(w/wo pelvis)* Signed By: [employer] Other XR hip RT min 2V(w/wo pelvis)* 07/14/23 174 [employer] Other CNPSara 04-23-2023 [facility] Telephone (FuzmoSCarWoo!) -------- RADHA WRIGHT ([id number]) 1955 F Date Time Provider Department 04/23/23 BHAKTI CONNOR During your visit today, we recorded the following information about you: Bhakti Connor LPN 04/23/2023 1:48 PM Signed Called and spoke to pt regarding her thyroid ultrasound results. I had faxed over the results to her pcp as requested. Informed pt follow up with her pcp regarding results. Pt verbalized understanding will call her primary's office. She thanked me for the call. Bhakti Connor LPN Allergies As of Date: 04/23/2023 Noted Allergy Reaction ALUPENT (METAPROTERENOL SULFATE) 07/20/2014 16 - Unknown BIAXIN (CLARITHROMYCIN) 07/20/2014 16 - Unknown CLARITIN (LORATADINE) 07/20/2014 16 - Unknown COMPAZINE (PROCHLORPERAZINE EDISY*07/20/2014 16 - Unknown DIAZEPAM 01/22/2014 16 - Unknown Comments: Other reaction(s): Unknown ERYTHROMYCIN BASE 12/15/2019 10 - Anaphylaxis Comments: Other reaction(s): Unknown FLAGYL (METRONIDAZOLE HCL) 07/20/2014 16 - Unknown FLOXACILLIN 07/20/2014 16 - Unknown ISOETHARINE 07/20/2014 16 - Unknown IV DYE (IODINATED CONTRAST MEDIA) 07/20/2014 16 - Unknown PENICILLINS 07/20/2014 16 - Unknown SKELAXIN (METAXALONE) 07/20/2014 16 - Unknown VANCENASE 07/20/2014 16 - Unknown VIBRAMYCIN (DOXYCYCLINE CALCIUM) 07/20/2014 16 - Unknown ZOLOFT (SERTRALINE HCL) 07/20/2014 16 - Unknown Date Reviewed: 03/19/2023 Reviewed by: Bhakti Connor LPN - Fully Assessed Reason for Visit: Results [95] Prescriptions as of 04/23/2023 - chromium picolinate 1,000 mcg tab CHROMIUM PICOLINATE (20 sources) - FARXIGA 5 mg tablet Take 5 mg by mouth once daily. - furosemide (LASIX) 40 mg tablet Take 40 mg by mouth. - diltiazem CD (CARDIZEM CD, CARTIA XT) 180 mg 24 hr capsule Take 1 capsule by mouth once daily. - MOMETASONE/FORMOTEROL (DULERA INHALATION) Inhale as instructed once daily. - bisoprolol-hydrochloroth iazide (ZIAC) 5-6.25 mg per tablet Take 1 tablet by mouth once daily. - albuterol HFA (PROVENTIL HFA, VENTOLIN HFA) 90 mcg/actuation inhaler Inhale 1 Puff as instructed every 6 hours as needed. - ramipril (ALTACE) 10 mg capsule Take 10 mg by mouth once daily. Problem List As Of Date 04/23/2023 Noted Resolved Sleep apnea [G47.30] Hypertension [I10] Head injury [S09.90XA] GERD (gastroesophageal reflux disease) [K21.9] DVT (deep venous thrombosis) ([facility]) [I82.409] Bronchitis [J40] Asthma [J45.909] Anemia [D64.9] PVCs (premature ventricular contractions) [I49.*07/23/2014 Breast pain, left [N64.4] 03/19/2023 Lymphedema [I89.0] 03/19/2023 Left arm swelling [M79.89] 03/19/2023 Encounter Status:Closed by BHAKTI CONNOR on 04/23/23 [facility] US THYROID/PARATHYROIDon US THYROID/PARATHYROID * * *Final Report * * * DATE OF EXAM: Apr 14 2023 2:36PM [facility] 1048 - US THYROID/PARATHYROID / PROCEDURE REASON: Thyroid nodule * * * * Physician Interpretation * * * * EXAMINATION: THYROID ULTRASOUND CLINICAL HISTORY: Thyroid nodule TECHNIQUE: Sonography and Doppler imaging of the thyroid was performed. Images were obtained and stored in a permanent archive. MQ: UST_1 COMPARISON: None. RESULT: Right Lobe: 4.5 x 1.4 x 2.0 cm; heterogeneous echogenicity, expected vascular flow. Left Lobe: 4.0 x 1.3 x 1.7 cm; heterogeneous echogenicity, expected vascular flow. Isthmus: 0.3 cm The most suspicious thyroid nodule(s) (up to four) as below: NODULE 1: Location: Right mid Size: 1.8 x 1.5 x 0.8 cm Characteristics: Composition: Solid or almost completely solid, 2 points Echogenicity: Isoechoic, 1 point Shape: Rvmlw-covr-tywk, 0 points Margin: Smooth, 0 points Echogenic foci (add points for all that apply): None, 0 points Internal vascularity: present Interval growth: No prior available for comparison TI-RADS Category: TR3 ACR Recommendation: TI-RADS 3 nodule. Follow-up imaging at 1, 3 and 5 years is recommended. NODULE 2: Location: Left upper Size: 1.3 x 0.7 x 0.5 cm Characteristics: Composition: Solid or almost completely solid, 2 points Echogenicity: Hypoechoic, 2 points Shape: Qdjen-zshf-xrlb, 0 points Margin: Smooth, 0 points Echogenic foci (add points for all that apply): None, 0 points Internal vascularity: present Interval growth: No prior available for comparison TI-RADS Category: TR4 ACR Recommendation: TI-RADS 4 nodule. Follow up imaging in 1, 2, 3 and 5 years is advised. IMPRESSION: Thyroid nodule(s) is/are present. Surveillance imaging is recommended for one or more nodules as detailed in the synoptic report. TI-RADS Category: TR4 ACR Recommendation: TI-RADS 4 nodule. Follow up imaging in 1, 2, 3 and 5 years is advised. ACR recommendations are strictly based on the size and imaging appearance at the time of the exam and do not consider stability or previous biopsy results. Metal Technician: PSCB Transcribe Date/Time: Apr 14 2023 3:09P Dictated by : BRET VALENZUELA MD This examination was interpreted and the report reviewed and electronically signed by: BRET VALENZUELA MD on Apr 14 2023 3:11PM EST [id number] Normal [facility] Interdisciplinary Note - Dara n 04-02-2023 Interdisciplinary Note - OT Placed call to patient regarding schedule further lymphedema therapy. She reports she has had all the testing completed. Her LUE was negative for blood clot and the vascular physician recommended following through w/ Lymphedema therapy. Pt does report she has to have a mammogram on May [address] grantt afterward. Pt reports she wishes to be scheduled for LE lymphedema therapy as soon as possible. Normal [facility] CNCOon 03-29-2023 CNCO Letter Text Normal [facility] OT - Orderson 03-26-2023 OT - Orders [id number]#1.00CD: 127 Normal [facility] US DVT UPPER LEFTon 03-26-20 Radiology Result ACTIONABLE Abnormal [facility] HIPAA Forms Officeon 023 HIPAA Forms Office [id number]#1.00CD: 127 Normal [facility] OT - Consentson 03-23-2023 OT - Consents [id number]#1.00CD: 127 Normal [facility] OT - Progress Noteson 2022 OT - Progress Notes [id number]#1.00CD: 127 Normal [facility] CNOVon 03-19-2023 CNOV Office Visit (GENSF) -------- MELVIRADHA ([id number]) 1955 F Date Time Provider Department 03/19/23 11:30 AM ANNELISE MORGAN During your visit today, we recorded the following information about you: Weight 85.3 kg Annelise Morgan DO 03/20/2023 8:17 AM Signed REASON FOR TODAY'S VISIT: Patient presents with: New Patient: Left arm swelling breast pain arm swelling Radha Wright is a 68 year old year old white female who presents to the [facility] at the request of Anabela Abdul, [facility] family medicine for an opinion regarding left breast pain and axillary / arm swelling. Per the patient, in 2012 she fell and hit her left breast and had significant swelling. A few years later she had another fall with trauma to the left breast. States at some point she had an IV placed in her left hand which infiltrated and she has resultant lymphedema of her hand and upper extremity. She also reports that she may have had an embolus but has not had Duplex US performed on the LUE. Since then she has had chronic left breast pain that she has worsened in the last 6 months She has been getting mammograms and US at [facility] every 6 months. We are following an asymmetry in her breast as well as a lymph node both which have appeared stable and normal. Per her history, states la was also recently diagnosed with left breast mastitis and treated with doxycycline, abscess. This improved her symptoms, but they came back after she completed the course. She had another course of antibiotics, but continues to have symptoms of pain in her upper outer quadrant her left breast. Also has upper extremity pain that rotates through her axilla and to her breast. She denies any recent trauma or overuse of her upper extremity. She also notes a history of left breast biopsies in her 30s. Excisional biopies with benign findings. Most recent in 1997. She denies any palpable masses, skin changes, nipple discharge, or nipple retraction. There is a family history of breast cancer in her maternal grandmother. She has bilateral lower extremity lymphedema she states she had a superficial ? DVT there at some point. Follows with vascular medicine. Is not on any anticoagulation. PAST MEDICAL HISTORY Diagnosis Date Anemia Asthma Bronchitis Colitis DVT (deep venous thrombosis) ([facility]) 1997 GERD (gastroesophageal reflux disease) Head injury Hypertension Sleep apnea No CPAP use Symptomatic PVCs ALLERGIES ALLERGIES Allergen Reactions Alupent [Metaproter* Unknown Biaxin [Clarithromy* Unknown Claritin [Loratadin* Unknown Compazine [Prochlor* Unknown Diazepam Unknown Other reaction(s): Unknown Erythromycin Base Anaphylaxis Other reaction(s): Unknown Flagyl [Metronidazo* Unknown Floxacillin Unknown Isoetharine Unknown Iv Dye [Iodinated C* Unknown Penicillins Unknown Skelaxin [Metaxalon* Unknown Vancenase Unknown Vibramycin [Doxycyc* Unknown Zoloft [Sertraline * Unknown Current Outpatient Medications Medication Sig Dispense Refill chromium picolinate 1,000 mcg tab CHROMIUM PICOLINATE (20 sources) FARXIGA 5 mg tablet Take 5 mg by mouth once daily. furosemide (LASIX) 40 mg tablet Take 40 mg by mouth. diltiazem CD (CARDIZEM CD, CARTIA XT) 180 mg 24 hr capsule Take 1 capsule by mouth once daily. (Patient not taking: Reported on 03/19/2023) 90 capsule 3 MOMETASONE/FORMOTEROL (DULERA INHALATION) Inhale as instructed once daily. (Patient not taking: Reported on 03/19/2023) bisoprolol-hydrochloroth iazide (ZIAC) 5-6.25 mg per tablet Take 1 tablet by mouth once daily. albuterol HFA (PROVENTIL HFA, VENTOLIN HFA) 90 mcg/actuation inhaler Inhale 1 Puff as instructed every 6 hours as needed. (Patient not taking: Reported on 03/19/2023) ramipril (ALTACE) 10 mg capsule Take 10 mg by mouth once daily. No current facility-administered medications for this visit. 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 Exogenous Hormones: OCP for 6 years. HRT for 4 years. BREAST PROCEDURE HISTORY: Breast Biopsies: Excisional biopsies as below Breast Surgeries: No prior history Excisional Biopsy: roight breast 1 or 2 excisional biopsies. left breast 4 excisional biopsies., which was Negative for malignancy FAMILY HISTORY Problem Relation Age of Onset Cancer Father lung Diabetes Father Heart Father other (tia [Other]) Father Stroke Mother Diabetes Mother other (parkesons [Other]) Mo (more content not included)... Normal [facility] Coding Summary.on 03-15-2023 Coding Summary. CD:[id number] Ww+P GhlYWQ+XD6WEGSoS05hoPSom N8mA6ACMBvNGtafRKQMUZdXN jXfgpHuRE0ftGBcOAYk IC8+AB2oITPdPzkgvIAcm8X7 yUS2A74svu3aVZdqyLV3NZTx HoIuvxyok2dlyGm2RHqoOjcs OyBt DBPrvR82MBJ4wP27Kw82hZKq jFHbm8iifZf8ZaHxGUKkOJI7 vEqpEZhbf5QtZNQlD39gyXZv c2U6 ZBRdkKypdWOgBdKnwYQ2wZ9s NKygvioyt3znxndcWrk9xg37 nXAtb5R1sVE4W1IcgjF7TJEd bGQg FthuqDKJbY5ufvekh9wfdxdy RkCgAMWiKIk1SPy4HWUplFzq QpRrAZ20QRS7QVVpjfKcO6Zk LWFs nQhhTiJ3j4G6Kb6GF9IRFiqh R9HYROJIVLruxTY+ZF62ar54 P8LoNbxjQzg0PDOrDCZ1bUT0 aD0n WVAyUGvnk4W5pJN9M2SyceQa yt8ou8vwMPJbZDstC53jiQDf f9V1ACItjJD2CFXpxYpuLuSo aG93 Oyc+JJPzgQvqw7XyZebyp0zn f4xdoVm5HytyWZCjewRxuJwi IWY9x9ZxRa9oXPNqjBJ9kLP2 aD0i IkWjTkR4AVcoC175QeEhpVGx KkhwI91eQ2QpeFX+PHRyPjx0 PGFpyJuyHJ4tP3SgXHLqbnca bGVm cOmgFM8kNDHghdocFODraO9e YXRpY9x5OoDwQjQ0VHunO0St PGFnpsjfQd66xK0gHuYsVaY6 MGlu G1YechH8DQVgqYEnHWywXAC4 Q54mz0Z6GPEkNSZhIEM5sMC4 nH5ltDhtgrjsrSCofEgeypCg dGlj WLaqIQfgX324QGUehQtbSeBc ZGluZyBEYXRlOiAgMDUvMDgv MjAyMzwvdGQ+TNNwQKU8xNfv PSAn jBXxKTohDy9baOoimSzzUO2m PYMduftcKRIjzH7pWKLkyUBr cPssVB1nBWHcdtmuu324LdGs MHB0 PITsjEGeD7AkkU0aQdPnOQTb TLFyL7NfbCXlCKwhS049HPga YxB5WVQtfhWkO7IjZCMtwEcu OiB0 s2R9Ei0Gq2UploxiQ3LbrDLz ZvBoUccwDPs1O4JjHusnuEA+ VC33SOGzKS29RIc1QQA3rHhr PSdi WEMdY2ZxmB3bDvQvCEPpQOLx Oyc+PHRhYmxlIHdpZHRoPScx EYChLtWqnOgfMG1vTt2iWEFc LWNv wGrphSVnIxOqw6mtKVHzBSgc EB9hnUzdK1YdaSP7KLTjc4t6 Fq57P47yL0GrmDG+PGNvbCB3 aWR0 iK2bIrUyZqE1UFhnM307BzQm hKMuJwqzw1xpv7oeuCw8HzV6 KDUfglQkmRhwUMO2b9ZjMy77 Y29s IHdpZHRoPSIxNSUiIHZhbGln ys7goY8iOd1+HVVwgVQ2pZV3 fY0wOjLkIuP3KZbsW757TgVq cCIv Ahhwf3tpk2kjhEo8QcOeDJRg wnFjrPdrXAX2t3KiRj67O4Kd aDwil1ZcWyq7bz35xLLus0C9 bGU9 N1SgALUlbhhipOLdgJinCX9t AIRwydcsWGDtnK3tTGRjQ4j7 GxBjVdS4INwvF5IdksA1VYHc bGQg EVXvtMYXkS0nbwwad0gkzpxk EqIxLGEiVLx9UTy5PIPclTrt IyGjBGL4GkJ4VMF6hJTgtV1c bGln btjmiJ1rDwo+JUZ8tFWadAKK YI8nOpxsfHJ+MDKrJYF7dXzc YDnsVVTlaG6qGUVkE1i7GsDf LjA1 KOgaE5XgymP4TIDtfLYjKJEw yEIFxS4ulnqww0isdbtgArEe QLHnHAp2CRe4RHWmaOxrClVs ZWZ0 ZgM5EXR4fFHsbF2dhYcikqxs zG8vTii+AkgboAtuRVR3JHu4 Y8YjIrv2LWQlsEahGP3baFZh ZGlu Ot8joIrkkPluVJ1hRDGvcbbg p475UaIow7xlWLXpyXHnRFqd WTI8D01ss4I2UPFtHVSyQES6 dGV4 qX6mtIopgjfqoAUnqEaqfpRe xBqcHSmmNEddY898MXVajWex AtTeCUi9T0XlHpp0RRQquVsd ZT0n xCIsXZtkSi4dcYhbnLifDU0i LUDrkuedl661CvUuy0bdELRw qDYpBXddSJW5T40zj5E6WYJs MDAw GXC4rOI7kM5xsOdbxqwyoSDm eWfnovBdwMhwSCteVHqnB013 YWCkwKfaUpSpbWg6S5GeFdf1 ZCBz rZpfQM6amUReCZznHp0ipCud aThlTD2wGTNaonelt605CmBx i9taPAEbxUGbXBbgXGY7O18f b3I6 YVXzEYMyAKM9uIY0cR1hfGfx bjogbGVmdDsgdmVydGljYWwt KQsaO540YATjjQzfXnWyiTwm bnQg EFqvIEj6X4RyQgzrzIZ+PC90 WDAlDT14qCMipMCsn9gidCc3 DgLiMXTjZKH7cFcpPSbyw7Dg ZXIt V94syXVjr5V7RQEsgBlgtRCc TqJlvJW7hI2hIRmxnznbd7fg ucapUphcq7geao21rE93F72y IHdp YJJsEEKpMGErTVGsuZkzbu7u qM8cYx2+EDXouEH8mJZ2sA7y QPHkFiY7QBrhL606BhGqvTBq Pjxj y6vnw7husRw1TsC4ZVRupjNo nAakJGF0x1HwRs23M26qISgo ULOaDGTeGZNaCAZwuOespx0w dG9w Ii8+OQDohAV7fVA5nT0iVjQw AhO6KTxzP975MgGeiGViDegk R90oT5DvzZV+FLXvLhr5AOIp dHls KS4hsJSuSSfcAh1cUWM3YjWb ZxUvPGijN9XjCTHpnvsyjhkq kKS0MNLhLWWlqS11No2ctSbh MTBw oKTFqA7xkqjwa1ddcsmhCzLh YZKbWOr7WLv4CJGsyJmrVnWc WSJ2CiR2YXY2sTAgzP1ecYnl bjog nO9fG6VqNNOvvkvpPi61aK1x UuLqJrX9YUpxPsu+QkVSTkFS HSbeABPGITEBLLOZPP21ZX35 dGQg b3D8mGG1D9DhAAOpwzkxynkp gFH3XGDzIPPmwC31rJIgOCpl Oz2ju0Z4z262DLXhAWGquH37 Zm9u eNygGSYcdRLZjY7xgksfl0mk jsybGcEyKOLaEWp1KUw7QJWe dNgbJpWqFOX8YbN2ZQY9rIUl bC1h nIvenwuzyU2zHsz+MDMvMDEv OOr7JqrwjIF+GCYjQNL3pGfv DAgeIIRjsJ0hKPZgG0b7ThDs LjA1 SZttR2NlCQArbqfuWo66aA6i SmOwVqV7IDolO7BlvdL5VMAz uRGjWKobEFL8I71fz5Y7MSMm MDAw RDC1rTM6oI9fcIyprthjfFMu oNdtjqMidGndTZgaPXyaF396 SRTkrQunTnK8PLeyWTQfGK74 ZD48 gOJgw8X1sBF7D4RtYBMitshs sazpdSU9PFZrELQtgB08gLGk HBgyEd4pj4F7k474LGFnSZHk aW47 Sl8ruGdtTHTtxPZNsL2xikbx s9quyubqRmGnMASrPBm8DOy5 MEZkcEtnKtPvTYF0WxS2OPL4 aWNh hX5bdKholozheQ9xQbk+RmVt XQcbOQ99FZ02tDEzd0D3aFH1 B6YfSLGwzwcnafvchUI4JINi MDUw aF89eKZvLMjjIr6fc1O1c898 RRQbJEWadR96Nu8oqSgdZZYn qREDeB3kmoyku5wilvigCyBy MDAw GUg4YSd9DBHraHsnIqJdWNQ2 HpW9HMC0rWXidC8zgPatlnoi nP1yDwa+MaScaYHrzV9fBF38 ZD48 V1QuGbfzlSEkeJV+PHRhYmxl IHdpZHRoPScxMDAlJyBzdHls EW3hPc5cYLYmOQLfkDmzzBGk OiBj i4tyIKUgUXxlHJ9afFnfS8Xm nKU6VVGvp2k1Zx84D29tC8Yk dXA+GHUsqHN6qEI1tC9oKxGv IiB2 FNtvC240BnYhuOIfHqhix7df c0eigRl1VpWmPKAwwhKrkPas UYP5x0DnAa14H96gRWcqCWIe PSIy MJQsFLJaaPzndc6fmR5nFx9+ MDLgzTG4aXX9jA5tQyZrRiC4 OEopV902RxNsjABbOunjQ03q Z3Jv dXA+BFNbAxd5YXKmaXlpVC7h uYJgQQvzRj8mKQP6WeZrSsGa BFqiH8FoBUQkzhhjmodurLR7 IDAu OYMbaM68Uh2asDtmXj6pAMHd INT9PYPqhPSkO4HsiU3rQnXw NIKeUNJaN5QchXJfXGxxJ111 IGxl MpQ0DTDweoLoK3MvUIPowGjm DqQ2d0M8Nq8OsGhbiNDaWM4t LiPgHNh8O8ShFqe9UQBngAuq ZT0n pUNdFIsaVj1lvTrbzWajDP9v SIIsmlkdm778IdIeh2skSIDu vSSuJAbuNZU4A78nj8L1MIFt MDAw UUC5zKG0nX2uyCftnfvpvNIj mYqkxuNrbBsrFUyqWYpgH173 LKItiUvfGvTEKss2R0CsMyo0 ZCBz mForSG9adZQrJSspWu6jyKsz bFqvAL2tWMFngtjwi590QyXw k5wfBQSatZSqBItyJOV7I93b b3I6 IATvAAFjNIQ9tDB2pM0scJqh bjogbGVmdDsgdmVydGljYWwt PPllL098RTYxkUaqIh8OIjx4 L3Rk Qqg9ZPLfcAhiNR5imCYzMWnv Bu4ylFklaTskEO0vLNPtkpqo t872HiLki5yrTUWmuPOgYJii ZXM7 I39aa8J2GICnDQAyRQO5qAS3 hI6zdJxhrcnlbJNofTzbwbFr mUywMWrdIWmbF164BCEzzCqi PlBh eWVyOjwvdGQ+JX71be79O7Fg EwaiLlv1RATyMZV5pKI0dO1p CYIiKNnno4O5oQM2W5WjdiCo ci1j p1hsTUFt (more content not included)... Normal [facility] Consent for Treatmenton 05-0 Consent for Treatment [id number]#1.00CD: 127 Normal [facility] OT - Orderson 03-12-2023 OT - Orders [id number]#1.00CD: 127 Normal [facility] OT - Orders [id number]#1.00CD: [address] [facility] echo transthoracicon [facility] echo transthoracic [facility] [place] [address] [place] [address] Echocardiogram Signed Patient: Radha Wright MR#: [id number] : 1955 Acct:[id number] Age/Sex: 68 / F ADM Date: 02/15/23 Loc: Room: Type: [facility] Attending Dr: Annelise VORA Ordering Provider: DIONY Zimmerman Date of Service: 02/15/23/ [facility] echo transthoracic: EDEMA, HTN Copies to: DIONY Zimmerman MD Weight: 191 lb Performed By: JUAQUIN Hoang BSA: 1.9 m2 BP: 115/59 mmHg HR: 76 Reason For Study: EDEMA, HTN History: HTN. DM. Interpretation Summary The left ventricular size, thickness and function are normal Ejection Fraction = 60-65%. A variety of Doppler measurements indicate normal left ventricular diastolic function. There is trace mitral regurgitation. There is trace tricuspid regurgitation. Procedure/Quality: A two-dimensional transthoracic echocardiogram with color flow and Doppler was performed. The study was technically good in quality. Left Ventricle: The left ventricular size, thickness and function are normal. Ejection Fraction = 60-65%. A variety of Doppler measurements indicate normal left ventricular diastolic function. No left ventricular thrombus or mass is seen. Left Atrium: The left atrium appears normal in size. The atrial septum appears normal. Right Atrium: The right atrium appears normal in size. Right Ventricle: The right ventricular size, thickness and function are normal. Aortic Valve: The aortic valve is normal in structure and function. Mitral Valve: The mitral valve is mildly sclerotic. There is trace mitral regurgitation. Tricuspid Valve: The tricuspid valve is normal. There is trace tricuspid regurgitation. Pulmonic Valve: The pulmonic valve is not well visualized. Arteries: The aortic root is normal size. The aortic arch was visualized and no abnormalities were seen. Pericardium/Pleura: No pericardial effusion seen. There is no pleural effusion. IVC/Hepatic Viens: The inferior vena cava is normal in size, with a normal collapsibility index. Measurements with Normals IVSd: 1.2 cm (0.7-1.1 cm)LVIDd: 4.5 cm (3.7-5.4 cm) LVPWd: 1.0 cm (0.7-1.1 cm)LVIDs: 2.9 cm (2.3-3.6 cm) LA dimension: 3.1 cm (2.3-4.0 cm)Ao root diam: 2.8 cm(2.0-3.6 cm) asc Aorta Diam: 2.8 cm(2.1-3.4cm) Doppler with Normals MV E max kalin: 94.3 cm/sec(0.8-1.3m/s) MV A max kalin: 75.8 cm/sec(0.0-0.0m/s) MV E/A: 1.2 (<1.5) MMode/2D Measurements Calculations RVDd: 2.4 cm FS: 34.9 % Ao root area: 6.0 cm2 LVLd ap4: 5.7 cm TAPSE: 2.5 cm EDV(Teich): EDV(MOD-sp4): RV S Kalin: 93.4 ml 45.8 ml 14.6 cm/sec ESV(Teich): LVLs ap4: 4.7 cm 33.4 ml ESV(MOD-sp4): EF(Teich): 64.3 % 17.5 ml EF(MOD-sp4): 61.8 % __ SV(MOD-sp4): LAV(MOD-sp4): LA A2 area: 13.2 cm2 28.3 ml 19.2 ml LAV(MOD-sp2): LA A4 area: 10.3 cm2 32.4 ml LA length (vol): 4.3 cm LA vol: 26.6 ml LA vol index: 14.2 ml/m2 Doppler Measurements Calculations MV max P.0 mmHg E/E' lat: MR max kalin: TV max P.1 270.6 cm/sec 33.0 mmHg E/E' med: MR max P.3 mmHg 9.6 __ TR max kalin: 287.4 cm/sec TR max P.0 mmHg Transcribed By: SCV Performed At: 02/15/23 1341 Signed By: Alfie Neff MD 02/15/23 1439 [facility] Coding Summary.on 02-09-2023 Coding Summary. CD:[id number] Ww+P GhlYWQ+YQ2GSQFhS06ewUSjw P5oU3AAUMbTSpttISRRCRxWS zZkomVqYG9weTXrFRYp IC8+QK6tWDFaDmqlpOFqs7G1 tAE1C46hrw1zNVsdfWO5AMRk EqZkmhldb5eioIg8VVpuMnex OyBt TMSdkG43SAF6xT28Dx04fYTr dBVva4iboOo8PpCePSZvDRH6 nAvhULpse0RoFKSmT06jhVEb c2U6 JTQtvTebkCCeQgNsgZK0oJ6b NIjtgcqke4vvgseiOhh8kf79 hGOos2X3kER1Q3KibmG9CQFo bGQg UmzguTEGfV7lgjbpv2hdrrpg SgJtTJAkHVu9MKb9QVIelUfp YxKiBG46MNN7ZUHlscDdT8Py LWFs vYmhFsJ2z7Q0Od1XG8YANrkg Y3EEKVFTAPeumUQ+TN78jz86 V2HtTjuyHip8ICRsLCF0fZA6 aD0n HODgYXqwl3Z2jTX0J1GvljIj nu2kp4wjIAMhHBhtG71goQNc f9T0LFJvnDS1AIEmhFmvIqXc aG93 Oyc+OOOgzUxnh5CuYbprt9jp r9lcuJd1VmvsPWEkibYstOpp HXA8h2RpOt1kSSFynZV5iWY5 aD0i HaNlYnT9YObdD380NvRnoQSg YzacH70aR5QcjPY+PHRyPjx0 SGHunJcwCE2fG8EpWFHgusgx bGVm hSsnLT7yUFWfcyedMUVwfU7k RPChR5m8LcNcWlR5XRgoZ1Sc WOQincgrHp69uR9wKsFaBuF0 MGlu E0PemaU4MEHozNJqIWnwLYZ3 F80lf3N8UKEmNSZhJKO0tSW8 dZ0ijYzytovigCXpuNutoqFq dGlj UUjuJMffO165BHCidDtyKlOx ZGluZyBEYXRlOiAgMDQvMDQv MjAyMzwvdGQ+WHJsOMP6oIfm PSAn eHUkARopUj6bdHztkPlrUM0v ONAvhtnmALSqoN9wHFRpiVAe yPhxKJ7hOILofdzzy082LlWc MHB0 AANtnBFyW5NdbK4aAyXlDRZw LOUuG1LxiKSpOWbkR468NDtj DoS3IAQrxaWrH1PuFBBohVzu OiB0 n6L6Ha3Vf5DgfeemR9WpdHBs HgRgGauhTHq1R1DyPoczzOW+ PU71EARiYV83FFg0AXU3yZsz PSdi NSZhD3PixF3tLoTxNCQqUTIs Oyc+PHRhYmxlIHdpZHRoPScx BFEfEwYyuKfnWI0nJc6cINDg LWNv sSwwxGDtXiQlo8qaWPAtXBtd LZ0ikPuaS5VyiNO8ZCZve4k8 Ij16X82oE6LopSG+PGNvbCB3 aWR0 tN5rZkYmIjA6ZTloB232LeQb eWIoQkwbr7zpd2uwjSl1SsI9 XKOpxuAruKicXIJ7l1EfMv48 Y29s IHdpZHRoPSIxNSUiIHZhbGln dt3uuQ0eIr3+OEEysKK4cCC9 oU7nRdDyNdF3UAnvW664GnZh cCIv Evtkd5ebi8pmmWh3VfSvFHJp klUrxYvcRPL4k1ExVs00U9Zq xOuph4XcEhw9ug33uECos5L1 bGU9 O1SfHJLbxsngsMTwpRkoEA5k YHGdwqqlFVOinK7sYHZgL8h8 MsYkXrH1GHalL9EsycA0IHEq bGQg NKBdyDENsE6iwwmjm0xlsjdf NiLqMDUtWAg7REx5FAIczCyf FdXlFQK5NoS1QBF3jKRmoD6n bGln oqmmoK1vIbn+FEU5jLIikCBS LR9nZbfrqFF+SGZgDQG8qNpq IRnxTSAgjD7tACYgZ3l5UuRk LjA1 BZopO6QtnxK4TQTxtISkOPFx xOUOkV8moejtu9ebfnqyZgOo YKKbOYn1LOe7EWMswFfkUjEm ZWZ0 NlS1NND1mTWiiG0pjLzimwqt hL9hTzv+TafaqYasDBC2LKm0 C3ZxFyq7QLXwvErvNN1vkVYw ZGlu Oy8mhLebeMkiSV2jWPDqscsg g920NwKec0aoTPYqoDVwAOuj UWQ8T90lc9U2OLMzJXRbZDD3 dGV4 kS5cwCtxlcvnzRMxgFraizVd gZocSHhqJBrmR098NQPzmBwk WpEtAMa3R7PbPet7TSFcvTiy ZT0n bUWgFTkaWd1hxEequYojOK8h GPIzkfifh699VfDwm6clJWCj fVTsVImhZCM8W94uj9G5COXk MDAw AOZ9cCC3hC0irZljzvmfuWTb yMrdvvQqhVacGCvnNNtmH871 NDFdhUukNbAeqYm7K4FzHqn9 ZCBz pAfwOZ5zaJAiMBnqUr5ixWtk fPciQP3xFETmxgyxx758AxYb x0evCNMzoWNiXMtkFGQ7L55e b3I6 RNAxHIJyPLM9aPE4pW7gcJse bjogbGVmdDsgdmVydGljYWwt AAwaF734MQUefJktBqIdpNzd bnQg ROpwNAn0J4ExEytdjZJ+PC90 CSQpCG15uXDclHThu0jenRb3 IuJrKRYqIVI4pFgrENgvm2Hm ZXIt E01jiFRja7Z3ZTIduGovsBMe OsZcyWQ8tV4vPSmxflcrc5gk rflaImwaf0ibxv83aQ96H82s IHdp VUTlHSSoKLTcCJUquRsrnr6y bE2rBl8+TNFlcKN6eKF4eJ0w YAWyEgI7MMzfC639EoVzaBTf Pjxj n7jcn3huaDx0TtM8EVSgymZs lSifDVH4c2YfUa23W52nJJrc MFJkUPYqHVUdQRYzsMbcrf7r dG9w Ii8+DXGlcRV5gQF5zM7rUlFd XbF3WAhaR399WmSmqJQnIpye F43iJ0ChxOG+ZYEeBiv9DIDz dHls QC5aiJMrHCjfCi2tTWL2VsYe TnPjRYbxB8TiYNFuudjsqmic bFT7BWVpCMYokJ52Ay6qdByy MTBw wBOZuM0tcdqax7qqrrifIxLm OZQfHAf7IGh3HMVbeJvpGpBu VUU8NtH6GTB5bFGddU0kbUlj bjog gO8yZ3QoDRKcqvnrWd31kO1j AcCpVzK5EHvjDcn+QkVSTkFS KCqmNCXMZIFNMJONZJ76CD26 dGQg u2J8xXB8K6ThHWMgjdwohpzb qVM2TDLkRHXflO44xJJbIHcd Dr6pv5W1m328SEMdULNjoX67 Zm9u qGvsSJNujYRAkV2kpviwu0hi xpgnOrTfGWEqRBc3WYy4FNMk cOpyNgRcHDO7ZjJ7QBN2oBKf bC1h sNjrcossaC9oUnx+MDMvMDEv IJn0CxlihTD+AXPyYXK4hVjg OAhvRPCqzK5wSXOnM0w6PmMs LjA1 MXkxZ6TjSZRbipjfWk28bG7h HwNkTaE4RTpeT3EkyfK3IZBm rPZvWJdrTTN2Y88eo4J6IROr MDAw FOR7uXL2lP2iwDnynhjfyJUu xXavipBchMkoXPptVCgzV114 NVZlfSdzXlF8HBmpXJUtPH36 ZD48 aWHzy5C6sTQ5N3WjGMExwnmr pqjbmSC9MACrNXEjjO10tSWn ACuaOg8rs0B2w163CLTpTUAl aW47 Iv2ofQaeDMSocJZHrC8dkzkh c3qyzoxsPzJpPTVrIDs0MTp4 FYNdiOgkXkXkHUV3YyE7QTH4 aWNh bZ1vqVqwlqbjaN8aQpe+RmVt QUkrJE55HU70mQWaq6N6iRJ3 E0YpVINlxszqomiiiLT1SOYx MDUw kD30dFTmKWgfEm4kn6F3u726 JKPdGJEicF14Qy9ypBceTFMf aKQFjR8smvvre4pncnjpDtWq MDAw REz8FOf7BDYhqAlvZkJhVQE6 BqY8ZEH7gELgvY3xdFjkobtg iA4oBvv+KHNgGUPpk8Lty6Wc PC90 HE29H0WlDjvuqQEifEU+PHRh YmxlIHdpZHRoPScxMDAlJyBz aNkwPW8kYp9cRPJzDHFoiCsk cHNl MgLwm5xmJNAxRNlpGW5bkFpi Q8DrlGM9EJJoj2w7In63X55z T5BmoPS+HLBbdTH0jYP4uZ4j MzAl QeO5SXfhM332GnCktYIqZbnx j3pev3glvHj4LjUdALZkpcFz sFntXAW0q0FoDx04A00mQDqh ZHRo IACfBZYmKZZzkGvapx8suD4j Ii8+UDZflNX3iQX0mL4hXsUj QpR0RBsfY011ZzOnrRRuYyoz Y29s H3MqvYG+BEYdDxm5IPRuaNcz PL7btJFsQKdfAv9aROL1ReHz RrRpETlnD6JkZETmzlbehvbn aHQ6 EDXwULOxhK10Io7vaJmjLq2f PDBdEYZ6XCFexIFwE5DkiN9s MoFwMXFyXAIuY2LdqOIjWGku Z246 JHtvCdV1QNHjymHyW5RfDDOb nCrrKlD0o6Y6Gq6XdPigkMQm ZW2tGkSnWLv0C0LhUfn8WUFj dHls BG9nnUYhSChlDz0moIyjzGks DS2pKBOqysmok594EfUzj6om NVOdiHUlQVucVBU3J72zw6U7 ICMw KOMjAOJ7jYD1bD2cbJqxcysw bGVmdDsgdmVydGljYWwtYWxp V778TLZyeOhrAlFNInm0X3Dg Pjx0 IJLveQsmXK8yhOGkBGsvEx4c aCidwKbyKZ7lZQGvmprvo890 GdVcq2qcXLKmmCYdOHgzAGY9 Y29s f1D8YNNmWOMxTXJ3wZN5mA7w bGlnbjogbGVmdDsgdmVydGlj RGyeFMwmW945OVNgeEfqEh7E Tjo8 G2AvGqc3OUBeuJjmVH5ztOYh FYdrMc1hlIqqjIazRL2jXEUx vihvw088BjYqy6taYYVmhUAq VGlt FFY0Q06yp3U7FREgPHNnMSV9 dFU3rV5yiFtnfmmyxSCoeZvz gzIvySmyFJddFKbgF684YOGk cDsn PlBheWVyOjwvdGQ+HM90yc75 V9ZgYqhxPig9EHLyGWA2bJQ0 dQ8iJHLiLQfvf3B5eCI7Q4Wg cmRl hc9is3vv (more content not included)... Normal [facility] ERYTHROPOIETIN (EPO)on 02-05 Erythropoietin 28.4 mIU/mL Critically high 2.6-18.[address] [facility] Comment on above: Result Comment: [employer]el DxI 800 Immunoassay System . Values obtained with different assay methods or kits cannot be used interchangeably. Results cannot be interpreted as absolute evidence of the presence or absence of malignant disease. Performed By: #### C RP, CMP, BNP #### [facility] [address] [place] [address] Dr. Clive Pagan TSHon 02-04-2023 TSH 1.509 uIU/mL Normal 0.358-3.74 0 [facility] Comment on above: Performed By: #### C RP, CMP, BNP #### [facility] [address] [place] [address] Dr. Clive Pagan US BOO DOP LEG BILon 023 US BOO DOP LEG MATTEO EXAM: US BOO DOP LEG MATTEO HISTORY: Deep venous thrombosis COMPARISON: 01/04/2023 TECHNIQUE: Ultrasonography of both lower extremities is performed from the groin to the calf. FINDINGS: The deep venous structures demonstrate normal compressibility. No intraluminal thrombus. Normal color Doppler images with spectral waveforms. The peroneal veins were not visualized bilaterally. IMPRESSION: No evidence for deep venous thrombosis. There is bilateral calf edema. Electronically authenticated by: SHEREE CARTER Date: 2023-02-03 22:07 Normal [facility] BNPon 02-03-2023 Natriuretic peptide B (Bld) [Mass/Vol] 93.0 pg/mL Normal <=900.0 [facility] Comment on above: Performed By: #### C RP, CMP, BNP #### [facility] [address] [place] [address] Dr. Clive Pagan CBC AUTO DIFFon 02-03-2023 BASO # 0.0 103/ul Normal 0.0-0.1 [facility] Comment on above: Performed By: #### C BC #### [facility] [address] [address] [address] Clive Pagan Basophils/100 WBC (Bld) 0.7 % Normal 0.2-2.0 [facility] Comment on above: Performed By: #### C BC #### [facility] [address] [place] [address] Dr. Clive Pagan EO # 0.2 103/ul Normal 0.0-0.7 [facility] Comment on above: Performed By: #### C BC #### [facility] [address] [place] [address] Dr. Clive Pagan Eosinophils/100 WBC (Bld) 3.0 % Normal 0.9-7.0 [facility] Comment on above: Performed By: #### C BC #### [facility] [address] [place] [address] Dr. Clive Pagan Erythrocyte distribution width (RBC) [Ratio] 13.8 % Normal 11.0-15.0 [facility] Comment on above: Performed By: #### C BC #### [facility] [address] [place] [address] Dr. Clive Pagan Hematocrit (Bld) [Volume fraction] 37.0 % Normal 36.0-48.0 [facility] Comment on above: Performed By: #### C BC #### [facility] [address] [place] [address] Dr. Clive Pagan Hemoglobin (Bld) [Mass/Vol] 12.9 g/dL Normal 12.0-16.0 [facility] Comment on above: Performed By: #### C BC #### [facility] [address] [place] [address] Dr. Clive Pagan IG # 0.03 10e3/ul Normal 0.00-0.03 [facility] Comment on above: Performed By: #### C BC #### [facility] [address] [place] [address] Dr. Clive Pagan IG % 0.5 % Normal 0.0-0.5 [facility] Comment on above: Performed By: #### C BC #### [facility] [address] [place] [address] Dr. Clive Pagan LYMPH # 1.8 103/ul Normal 1.2-3.8 [facility] Comment on above: Performed By: #### C BC #### [facility] [address] [place] [address] Dr. Clive Pagan Lymphocytes/100 WBC (Bld) 32.6 % Normal 20.5-60.0 [facility] Comment on above: Performed By: #### C BC #### [facility] [address] [place] [address] Dr. Clive Pagan MANUAL DIFF REQ NO Normal [facility] Comment on above: Performed By: #### C BC #### [facility] [address] [place] [address] Dr. Clive Pagan MCH (RBC) [Entitic mass] 32.2 pg Normal 26.7-34.0 [facility] Comment on above: Performed By: #### C BC #### [facility] [address] [address] [address] Clive Pagan MCHC (RBC) [Mass/Vol] 34.9 g/dL Normal 29.9-35.2 [facility] Comment on above: Performed By: #### C BC #### [facility] [address] [address] [address] Clive Pagan MCV (RBC) [Entitic vol] 92.3 fL Normal 81.0-99.0 [facility] Comment on above: Performed By: #### C BC #### [facility] [address] [place] [address] Dr. Clive Pagan MONO # 0.5 103/ul Normal 0.3-0.8 [facility] Comment on above: Performed By: #### C BC #### [facility] [address] [place] [address] Dr. Clive Pagan Monocytes/100 WBC (Bld) 8.9 % Normal 1.7-12.0 [facility] Comment on above: Performed By: #### C BC #### [facility] [address] [place] [address] Dr. Clive Pagan NEUT # 3.0 103/ul Normal 1.4-6.5 [facility] Comment on above: Performed By: #### C BC #### [facility] [address] [place] [address] Dr. Clive Pagan Neutrophils/100 WBC (Bld) 54.3 % Normal 43.0-75.0 [facility] Comment on above: Performed By: #### C BC #### [facility] [address] [place] [address] Dr. Clive Pagan Platelet mean volume (Bld) [Entitic vol] 8.7 fL Critically low 9.5-13.5 [facility] Comment on above: Performed By: #### C BC #### [facility] [address] [place] [address] Dr. Clive Pagan PLT 170 103/ul Normal 150-[address] [facility] Comment on above: Performed By: #### C BC #### [facility] [address] [address] [address] Clive Pagan RBC 4.01 106/ul Critically low 4.20-5.40 [facility] Comment on above: Performed By: #### C BC #### [facility] [address] [address] [address] Clive Pagan WBC 5.6 103/ul Normal 4.0-11.0 [facility] Comment on above: Performed By: #### C BC #### [facility] [address] [place] [address] Dr. Clive Pagan CRPon 02-03-2023 CRP [Mass/Vol] mg/L Normal <=1.0 [facility] Comment on above: Performed By: #### C RP, CMP, BNP #### [facility] [address] [place] [address] Dr. Clive Pagan D-DIMERon 02-03-2023 D-DIMER 0.76 mg/L FEU Critically high <=0.59 [facility] Comment on above: Performed By: #### C RP, CMP, BNP #### [facility] [address] [place] [address] Dr. Clive Pagan D-DIMER COMMENTS SEE BELOW Normal [facility] Comment on above: Result Comment: Incr eases in D-Dimer concentration observed with thromboembolic events can be variable due to localization, size, and age of the thrombus. Therefore, a thromboembolic event cannot be diagnosed with certainty on the basis of the reference range. D-Dimers may also be elevated for a variety of disorders including: advanced age, , coronary disease, cancer, liver disease, infection, inflammation, hematoma, DIC, trauma, post-surgery, diabetes, thrombolytic or anticoagulant therapy, stress, and generalized hospitalization. Performed By: #### C RP, CMP, BNP #### [facility] [address] [place] [address] Dr. Clive Pagan PROF 14(COMP METB)on 023 Albumin [Mass/Vol] 3.9 g/dL Normal 3.4-5.0 [facility] Comment on above: Performed By: #### C RP, CMP, BNP #### [facility] [address] [address] [address] Clive Pagan Albumin/Globulin [Mass ratio] 1.1 {ratio} Normal [facility] Comment on above: Performed By: #### C RP, CMP, BNP #### [facility] [address] [address] [address] Clive Pagan ALP [Catalytic activity/Vol] 64 U/L Normal 46-116 [facility] Comment on above: Performed By: #### C RP, CMP, BNP #### [facility] [address] [address] [address] Clive Pagan ALT [Catalytic activity/Vol] 31 U/L Normal 14-59 [facility] Comment on above: Performed By: #### C RP, CMP, BNP #### [facility] [address] [place] [address] Dr. Clive Pagan Anion gap [Moles/Vol] 8.9 mmol/L Normal [facility] Comment on above: Performed By: #### C RP, CMP, BNP #### [facility] [address] [place] [address] Dr. Clive Pagan AST [Catalytic activity/Vol] 20 U/L Normal 15-37 [facility] Comment on above: Performed By: #### C RP, CMP, BNP #### [facility] [address] [place] [address] Dr. Clive Pagan Bilirubin [Mass/Vol] 0.7 mg/dL Normal 0.2-1.0 [facility] Comment on above: Performed By: #### C RP, CMP, BNP #### [facility] [address] [place] [address] Dr. Clive Pagan Calcium [Mass/Vol] 8.8 mg/dL Normal 8.5-10.1 [facility] Comment on above: Performed By: #### C RP, CMP, BNP #### [facility] [address] [address] [address] Clive Pagan Chloride [Moles/Vol] 101 mmol/L Normal 98-107 [facility] Comment on above: Performed By: #### C RP, CMP, BNP #### [facility] [address] [address] [address] Clive Pagan CO2 [Moles/Vol] 34.6 mmol/L Critically high 21.0-32.0 [facility] Comment on above: Performed By: #### C RP, CMP, BNP #### [facility] [address] [address] [address] Clive Pagan Creatinine [Mass/Vol] 0.69 mg/dL Normal 0.55-1.02 [facility] Comment on above: Performed By: #### C RP, CMP, BNP #### [facility] [address] [address] [address] Clive Pagan EGFR-AF FILIPINO >60 Normal >=60 [facility] Comment on above: Performed By: #### C RP, CMP, BNP #### [facility] [address] [address] [address] Clive Pagan EGFR-NON AF FILIPINO >60 Normal >=60 [facility] Comment on above: Performed By: #### C RP, CMP, BNP #### [facility] [address] [address] [address] Clive Pagan Globulin (S) [Mass/Vol] 3.4 g/dL Normal [facility] Comment on above: Performed By: #### C RP, CMP, BNP #### [facility] [address] [address] [address] Clive Pagan Glucose [Mass/Vol] 117 mg/dL Critically high 74-106 [facility] Comment on above: Performed By: #### C RP, CMP, BNP #### [facility] [address] [address] [address] Clive Pagan Potassium [Moles/Vol] 3.5 mmol/L Normal 3.5-5.1 [facility] Comment on above: Performed By: #### C RP, CMP, BNP #### [facility] [address] [address] [address] Clive Pagan Protein [Mass/Vol] 7.3 g/dL Normal 6.4-8.2 [facility] Comment on above: Performed By: #### C RP, CMP, BNP #### [facility] [address] [address] [address] Clive Pagan Sodium [Moles/Vol] 141 mmol/L Normal 136-145 [facility] Comment on above: Performed By: #### C RP, CMP, BNP #### [facility] [address] [address] [address] Clive Pagan Urea nitrogen [Mass/Vol] 16.0 mg/dL Normal 7.0-18.0 [facility] Comment on above: Performed By: #### C RP, CMP, BNP #### [facility] [address] [place] [address] Dr. Clive Pagan Urea nitrogen/Creatinine [Mass ratio] 23.2 mg/mg Normal [facility] Comment on above: Performed By: #### C RP, CMP, BNP #### [facility] [address] [place] [address] Dr. Clive Pagan CHEMISTRYOrdered By: SYSTEM SYSTEM on 01-29-2023 Albumin [Mass/Vol] 4.0 g/dL Normal 3.3 - 5.0 gm/dL [facility] Albumin/Globulin [Mass ratio] 1.2 {ratio} Normal 1.1 - 2.2 [facility] ALP [Catalytic activity/Vol] 51 [iU]/d Normal 21 - 98 Int._Unit/ L [facility] ALT No additional P-5'-P [Catalytic activity/Vol] 29 [iU]/d Normal 6 - 46 Int._Unit/ L [facility] Anion gap [Moles/Vol] 12 mmol/L Normal 6 - 16 mEq/L [facility] AST [Catalytic activity/Vol] 19 [iU]/d Normal 5 - 43 Int._Unit/ L [facility] Bilirubin [Mass/Vol] 1.0 mg/dL Normal 0.0 - 1 .1 mg/dL [facility] Calcium [Mass/Vol] 9.6 mg/dL Normal 8.9 - 11. 1 mg/dL [facility] Chloride [Moles/Vol] 96 mmol/L Low 101 - 1 11 mmol/L [facility] CO2 [Moles/Vol] 33 mmol/L High 21 - 31 mmol/L [facility] Creatinine [Mass/Vol] 0.6 mg/dL Normal 0.5 - 1.3 mg/dL [facility] GFR/1.73 sq M.predicted among blacks MDRD (S/P/Bld) [Vol rate/Area] mL/min/1.73 m2 Normal >=59mL/min /1.73 m2 [facility] S GFR/1.73 sq M.predicted among non-blacks MDRD (S/P/Bld) [Vol rate/Area] mL/min/1.73 m2 Normal >=59mL/min /1.73 m2 [facility] Chem S Globulin (S) [Mass/Vol] 3.2 g/dL Normal 1.4 - 4.0 gm/dL [facility] Glucose [Mass/Vol] 104 mg/dL Normal 55 - 199 mg/dL [facility] Potassium [Moles/Vol] 3.5 mmol/L Normal 3.5 - 5.3 mmol/L FT Remisol Protein [Mass/Vol] 7.2 g/dL Normal 6.0 - 7.8 gm/dL FT Remisol Sodium [Moles/Vol] 137 mmol/L Normal 135 - 145 mmol/L FT Remisol Urea nitrogen [Mass/Vol] 14 mg/dL Normal 5 - 21 mg/dL FT Remisol Urea nitrogen/Creatinine [Mass ratio] 23 mg/mg High 10 - 20 FT Remisol CMPon 01-29-2023 Albumin [Mass/Vol] 4.0 g/dL Normal 3.3-5.0 [facility] Comment on above: Performed By: #### 1 [id number] ####[facility] [address] [place] [address] Albumin/Globulin (S) [Mass conc ratio] 1.2 Normal 1.1-2.2 [facility] Comment on above: Performed By: #### 1 [id number] ####[facility] [address] [place] [address] ALP [Catalytic activity/Vol] 51 Int._Unit/L Normal 21-98 [facility] Comment on above: Performed By: #### 1 [id number], [id number] ####[facility] [address] [place] [address] ALT No additional P-5'-P [Catalytic activity/Vol] 29 Int._Unit/L Normal 6-46 [facility] Comment on above: Performed By: #### 1 [id number], [id number] ####[address] [place] [address] Anion gap [Moles/Vol] 12 mmol/L Normal 6-16 [facility] Comment on above: Performed By: #### 1 [id number], [id number] ####[address] [address] AST [Catalytic activity/Vol] 19 Int._Unit/L Normal 5-43 [facility] Comment on above: Performed By: #### 1 [id number], [id number] ####[address] [address] Bilirubin [Mass/Vol] 1.0 mg/dL Normal 0.0-1.1 [facility] Comment on above: Performed By: #### 1 [id number], [id number] ####[address] [address] Calcium [Mass/Vol] 9.6 mg/dL Normal 8.9-11.1 [facility] Comment on above: Performed By: #### 1 [id number], [id number] ####[address] [address] Chloride [Moles/Vol] 96 mmol/L Low 101-111 [facility] Comment on above: Performed By: #### 1 [id number], [id number] ####[address] [place] [address] CO2 [Moles/Vol] 33 mmol/L High 21-31 [facility] Comment on above: Performed By: #### 1 [id number], [id number] ####[address] [place] [address] Creatinine [Mass/Vol] 0.6 mg/dL Normal 0.5-1.3 [facility] Comment on above: Performed By: #### 1 [id number], [id number] ####[facility] [address] [place] [address] Globulin (S) [Mass/Vol] 3.2 g/dL Normal 1.4-4.0 [facility] Comment on above: Performed By: #### 1 [id number], [id number] ####[facility] [address] [place] [address] Glucose [Mass/Vol] 104 mg/dL Normal 55-199 [facility] Comment on above: Result Comment: If t his glucose result represents a fasting glucose, interpretation should refer to the following reference range: 55-99 mg/dL Performed By: #### 1 [id number], [id number] ####[facility] [address] [place] [address] Potassium [Moles/Vol] 3.5 mmol/L Normal 3.5-5.3 [facility] Comment on above: Performed By: #### 1 [id number], [id number] ####[facility] [address] [place] [address] Protein [Mass/Vol] 7.2 g/dL Normal 6.0-7.8 [facility] Comment on above: Performed By: #### 1 [id number], [id number] ####[facility] [address] [place] [address] Sodium [Moles/Vol] 137 mmol/L Normal 135-145 [facility] Comment on above: Performed By: #### 1 [id number], [id number] ####[facility] [address] [place] [address] Urea nitrogen [Mass/Vol] 14 mg/dL Normal 5-21 [facility] Comment on above: Performed By: #### 1 [id number], [id number] ####[facility] [address] [place] [address] Urea nitrogen/Creatinine [Mass ratio] 23 No Units High 10-20 [facility] Comment on above: Performed By: #### 1 [id number], [id number] ####[facility] [address] [place] [address] Physician Orderon 01-29-2023 Physician Order [id number] :[id number] Normal [facility] eGFRon 01-29-2023 GFR/1.73 sq M.predicted among blacks MDRD (S/P/Bld) [Vol rate/Area] mL/min/{1.73_m2} Normal >=59 [facility] Comment on above: Order Comment: Order added by Discern Expert. Result Comment: eGFR is race adjusted. AA=. Performed By: #### 1 [id number], [id number] ####[address] [place] [address] GFR/1.73 sq M.predicted among non-blacks MDRD (S/P/Bld) [Vol rate/Area] mL/min/{1.73_m2} Normal >=59 [facility] Comment on above: Order Comment: Order added by Discern Expert. Result Comment: Cuffer tawanda kidney disease could be indicated at eGFR's of less than 60 mL/min/1.73m2. Kidney failure is indicated at less than 15 mL/min/1.73m2. Performed By: #### 1 [id number], [id number] ####[address] [place] [address] Coding Summary.on 01-26-2023 Coding Summary. CD:[id number] Gh0b Ww+PGhlYWQ+GG5FKHMxC15ec USwzW8zT7QWLXsXUcabJFVOL LeJErYntbTnOJ0uhVAkPKAc IC8+IA6pXFJhDmqbvRVxu2B1 jGX6X43ded5pTPiobKF6NZJh VzLyvatqz6csjGx5DXrtYvmy OyBt XLQeeU35ICE1nP00Qc95fSVt nXJvz3cuyXa1NpNdQZGgZEO0 qQqcVTlco2MnGLFcP68icKYi c2U6 BAJkpTpxiDDaRjWdaQR5vH1c PVjquzxki7bchiaeXsk2kq77 aUZnp1L8vUQ2I0NlboL9TTSq bGQg CvpblHMUiS5qphojz2tnqhgi QwEyUACkWGh8RHp5JTUekFir CnGfNP70INA7OWHwigFyH0Wo LWFs dPhsOwC9t5K4Me7CC2IHNqas F5RHGKTALPyonYN+MW60tz51 S8UlQyjoRlv7USCrDOK5gCN0 aD0n LBVxBUumd2F1hHW6U8RczgMi uh9pa6riLITgBHeuD68oeVUx u0K3KBIziRY9XSTtnHdtIdMg aG93 Oyc+LRGtnYzur8ItFahew1hy w4pqsNk6CuwpPYZkjaVqkKzx JQV8y9JpQx5cGNAglAR6bEW5 aD0i OwUjFoJ6HTynA864NbRmtOEg IhgmU29eR7OddOK+PHRyPjx0 VKMwxPalLK6xF8DxEOFztlux bGVm lXrjFE8bPERnvtpiHOFxfK7t STHaH9d5QyStFfP0GTduV0Ip TTSscbplBd75nY5eUpNiFsK8 MGlu E4ThhhO3TBQwcTLiQJuzUYQ8 O86wy5R0MBOvMTBaXVY0qVH4 kN4wvFveqxiexGZrlJqtepLr dGlj BVrzYIcwY352SATexEteOcHv ZGluZyBEYXRlOiAgMDMvMjEv MjAyMzwvdGQ+DYOqRLG4eJxp PSAn sKLcWSxfFu6wiPybaExuGF7t AQTjxpsgPLNdhT0uKYMkiJUm dUiyLX4jOJFlqmlyu384NsNd MHB0 ADCuyHAsI0VpgC5wLtBxNICs BLZoA2TekXYqORpsZ538JZjr YzJ1RSKtxfLmJ3CaODEgoXvg OiB0 s5J1Jy9Cb0OmaahfD9EgsMIi CzVuXfauIFq2L2AhMwwwnXT+ TM87BUZrFP86HKx4BKC7rLgr PSdi BUFhC2HmmT7qSpEcPUNhSJJa Oyc+PHRhYmxlIHdpZHRoPScx NWSsVsNhbCryGT5mQg6aWNIu LWNv lOihbJRpHrMpu9mpQNBpFFbu GT5hvRbzB5PnxDD9NGJjr1x3 Ti42E62aR8VruOE+PGNvbCB3 aWR0 oJ9cPnZiGyW2WYmiO081TiQw lWThLbqsw2ucb0mkcLi6SvM8 LHLjvbXmtKhdPCC8x7QmWo04 Y29s IHdpZHRoPSIxNSUiIHZhbGln jp2huR1cVt7+WFBcbYV4uFS7 uY9nHzJgLyZ5RXnnO776KoRt cCIv Aevkw2ill2xveLq7AcBhFXTd khRhlQppCJS4t2WkDf27P4Qu hZdzg5JlTao5zn95mIEcg0Y2 bGU9 J1UhWSYlcprfgXZvpRmuEW9q GSMafyctKJJhzT3aRUElS7w8 GgBvJvL0QZncR8ZrcoP4FVPm bGQg YRExaTHRzL3jfxaxg9ojzeev GrQcWIPcEXk3UQq5ZVPnrSua BrMkXDX0AxX2XDS8iOUljT9u bGln wzcmgF1wEoh+AGQ2jPVshEYS FL7lDdibmBH+ZJIbKDQ2eHze PHgyLSIjfF2hYPCzL6e9IdCr LjA1 GLcrX2YpiqL9WPOgdLApRAKx yOCKfX6uxuhcc1osyexrBvIp MPAwWJu9QXi2CIEqvEuiQvXn ZWZ0 KeS2UYL0xSFyaG7hfDrnjpzu cF3zPrc+ZummjGdjQOK7JUo8 M2OoTkd4WMKvtHwzRY4qjXSr ZGlu Yz4sxUibvPtuID0mNTSdyavi j517QaMuq9wrAVOmtEUwEQgy EOA3Z43ny6L2ENWgILDmXVK1 dGV4 bI1foHwwjfovwSZrnFpdnaOj rLwbNOurGKxfM882VJYvrWhi VgFoBTr4C5DxBhm9SMUxaDav ZT0n bIJwLYtiBk5osBcrlYimLQ6t SCIrsozgz406NzJxi2pcUPEo cIRsFVneGIK9M71qs5B8SOYo MDAw FFJ2wQS5fZ7bfEktkdivcPJg bNgyjtVtjZcaBXlmFHzsT282 HMStdZomHmFagTt7V4HsVsf8 ZCBz dJduMZ0nhGUqVIosUp4pcHcc xAckYH0wVWYgyddpp377NpIh t2puGDClfZOeEQbsASU4Y38l b3I6 JSKzBTWaFLI6sPN2hN8ivNba bjogbGVmdDsgdmVydGljYWwt EYzhE726JNUfoGnjShJauWoa bnQg WSsrOXe7A7DcDqtvxTD+PC90 VOOkBY74dFOfrXImr5apoEf2 DrOrSLJfIYG4hPoxAMaqw2Jv ZXIt I48rqIReh9E1XJRzsRsveSSu LnAccUH4qU6ePXtayaqpe9fz hdauVnilf2ldgw43dE04F75q IHdp CJBjFZWeFZKmEHUqwJmdbi3n eL7zTa0+JNRgqYS7xXI2tO8b IJPxGtG4WGvsU141MrDlhVVn Pjxj b9uzb3oevNb6VfH5YHPjscDm gAfrSLN9l8BaXg44Y57qDLjm QBJsHQOePVWiDRZvlTnxlj1y dG9w Ii8+TRYifOA4bSC4zO2hMkQm JkQ0JSleK289IfIkgFLeGfli T41iU8SimJL+XDFfPcm5QTLz dHls ZB2cxYLpMTdfPr7pUQN5MoHp HxGpNTjwP4QyQNGkpqlchaxl kJK2XYFzNCMutI16Hb0cuVar MTBw hNAGnU8jifjmm0vngxdoPqOt UEMtHGz7UZm5JMUdiJisNdEm SQB5AkN7ZFN7oVRjkX1fiYpl bjog xY4rB8JgAXEwwzkxAe02gC5s QvAgOfB4BPsvLkr+QkVSTkFS VHgwLIQNGARCZZNQWJ92LR03 dGQg k8N2iNO8M7YsIRJypjbfcaug qDF7RKEcUQIlrP86gDWtBEyz Nl4nj0D4c672YHNvCPUpfK25 Zm9u fLdjASRnyUAMkI9affrxh4xi sybmTmYmSAQvPAo9DYa0ZNQc dQttIaLcOFS1JdG2GFK9yCNl bC1h uUajsdurcO9fGqi+MDMvMDEv NLx8CwjzqDJ+BLPvPOB7iYls DQmcRZWfxJ9lCADoS9r7FhEg LjA1 VUonJ2HzPDOkkborHh41mJ0c HpDkUbI3TDuyW3QauiQ1BSFq wASlDSluJVH4S69wk3G4DQLa MDAw MMQ8kFA3cV3okTtuojqrpYFc iImwbdTtoNzsVRsjEZhoT727 QFBzpLzxPcL3IXwhGZIzOW62 ZD48 xXVks0H1iQV1K2LjVSKqizlo bvxekZM8JRNlEBJgeE17tRYi AGtzZk3on4F9u937JXPuAOSz aW47 Zd3yrGnrEHWnpMUVpE7pdyar e2ocalyvPmKvLGLyHFa7CCf6 WONjzIwmPrKaBUF5MkI3KOP2 aWNh eT3crJjmocugtJ6bDum+RmVt AZhpST42ZX00zDOjf2G7mQJ3 M8ItHAQrzefnfoltxMF3VHAr MDUw yM91pBXoHIuhNf1vh3T9s056 ATDaGXTchX98Va8muVxnGDQi zZVDiA1qjtgnv8eulwomZkBf MDAw ISv2YWj9VJRzbJxjKpVdJFW7 KhB5YUF0zKPhcB1plJwitnzb vX1bOxz+VH1uafejzfB8IQ22 ZD48 U0VgZnmhkEHyjZD+PHRhYmxl IHdpZHRoPScxMDAlJyBzdHls DS7oNs7nECXhCGGwsZxigFBt OiBj t4llGUUiIHepPP6qiEzxW7Uv zNO0SHBkd6u4Ot49B50dF1Zq dXA+TSYpbDS3pDS6lG5nIgUk IiB2 WWyjF686KzSmtLMiXvswi4bn t9zjzCg3NeCuDWFeouKgwDqz UWS5r1TfOe78X27gFOhbCYTo PSIy EEQvJAKhtHxoft9zoY0vLk0+ IYPmwIN9mOD6qS0vEwCvMfI2 YFewE913ChLmoZVrSqslJ16k Z3Jv dXA+BONqFxe1QMPfpZzfSN7e jEXbOGkcYn5fXIM7EvMoGrYh ZPikU2DeHJYcchjuqcdckTO3 IDAu QZTksN25Ef1qcTzpDg3qEYNb ILJ1NTXgwFXpY7PwxU9aNdOp KYRqDCZoM3DvkNFqMNhsH257 IGxl LpK8KCYhzbDyA6LuVLLvdAjf JjM5u3B4Cj4JqSwfzMXsYN5e FiGrBIx3Y0QkLjp7AIIthLsp ZT0n vCQoZYzhTt6kjMhipFriSL0b KTIrpnhij553DwGba8gfWNJu jGAjAMrfLUE6E27uc4V1QQIj MDAw BPS4lBZ9fS6edKvutsrlpLLi mMvvhdVcyEhuHZegAZqcE228 OTUjiBlkPbIWAnf4Y3JiQxq9 ZCBz oYknTJ7cuWUhOEqaOd1vdBjf gYpjDT1hLIQegaqik459CoDv s8vtEVHlyCGdEHpyNDH4N92c b3I6 UBVmJPAvPQS6hWN4mB8xmQwe bjogbGVmdDsgdmVydGljYWwt KCmhI842VZGpfDbyEq8CPgz7 L3Rk Pqc9RSQroMktOC7zzNAbIBkv Pq1tjElupMtxOC7jDIVdrzmm m897ZyXwf8iyILUylWLbGArq ZXM7 B64sv6H2VILaHZZwOES0cTI1 gV7aoXhguohqzENmrUteztId bWeuLExtFBfiF389JNGvyVbw PlBh eWVyOjwvdGQ+CK56bq57X4Hf QtfyVmg1EBUsBBR4bXP6aX5n QDFlGWxuq0B0yJD8J1RmspOe ci1j b2xs (more content not included)... Normal [facility] ED Note-Physicianon 01-26-20 ED Note-Physician Basic Information Time Seen: Kevin Chairez PA-C 01/24/2023 12:14 Chief Complaint Pt presents to ED with complaints of lower extremity swelling and pain onset . History of Present Illness Six 8-year-old female comes to the ED for evaluation of lower extremity edema. Over the last few days she has had increased lower extremity edema. She also states this has been ongoing issue for the last month but worsening recently. She states she seen her PCP, and outside ED, as well as cardiology. She recently was referred to vascular. Complains of bilateral lower extremity edema with associated pain and discomfort. She has no fever, chills, nausea or vomiting. No cough or congestion. No chest pain or shortness of breath. No orthopnea. No exertional dyspnea or exercise intolerance. She currently takes hydrochlorothiazide, no other diuretics. She does describe being on Lasix at 1 time. She tried support hose but this caused worsening pain. Review of Systems A 10 point review of systems is negative except as noted above. Medical and Surgical History: Reviewed and noted Social history: Lives at home Tobacco: Denies Physical Exam Vitals & Measurements T: 36.8 ?C(Oral) HR: 74(Monitored) RR: 14 BP: 135/79 SpO2: 100% HT: 159 cm WT: 87 kg BMI: 34.41 Nurses notes and vital signs reviewed and patient is not hypoxic. General: The patient appears well and in no significant distress Patient is resting comfortably on the exam bed. Skin: Warm, dry, no pallor noted. Head: Atraumatic. Neck: No JVD. Eye: Normal conjunctiva. Ears, Nose, Mouth, and Throat: Moist mucous members. Cardiovascular: Strong distal pulses. Normal cardiac rate. 2+ pitting edema to bilateral lower extremities. Skin is intact. No breakdown or drainage. No ecchymosis or erythema. Strong distal pulses. Chest wall: Respiratory: Respirations are nonlabored. Clear to auscultation. Back: Normal range of motion, no CVA tenderness. Musculoskeletal: Normal ROM with no gross deformity. Gastrointestinal: Soft and nontender. Urological: Neurological: Awake and alert. No focal deficits. Follows commands. GCS 15. Psychiatric: Cooperative. Medical Decision Making Patient presents with progressive lower extremity edema. On exam she has no evidence of infectious process or neurovascular compromise. Laboratory studies are reviewed. EKG shows no ischemic changes. Chest x-ray shows no acute infiltrates. She has no complaints of chest pain or shortness of breath. At this time there is no indication for admission. She will be started back on Lasix and is to follow-up with her PCP. Patient was encouraged to return to the ED if symptoms worsen or change. Assessment/Plan Edema, lower extremity (R60.0: Localized edema) Ordered: tramadol, 50 mg = 1 tab(s), Oral, q6hr, PRN as needed for pain, Take one tab by mouth every six hours as needed for pain, X 3 day(s), # 15 tab(s), Refills(s) 0, Pharmacy: [facility] [id number], 159, cm, 01/24/23 12:15:00 EDT, Height/Length Dosing, 87, kg, 01/24/23... Orders: furosemide, 20 mg = 1 tab(s), Oral, Daily, X 10 day(s), # 10 tab(s), Refills(s) 0, Pharmacy: [facility] [place]/[id number], 159, cm, 01/24/23 12:15:00 EDT, Height/Length Dosing, 87, kg, 01/24/23 12:15:00 EDT, Weight Dosing Automated Diff Basic Metabolic Panel CBC w/ Auto Diff ECG 12 Lead Adult eGFR Hepatic Function Panel PT & PTT Troponin 0 Hr. UA With Cult Reflex XR Chest Single View Disposition Plan Patient Discharge Condition Disposition: Discharged home Condition: Improved and stable Counseled: Patient and/or family were counseled to workup, results, treatment plan and follow-up recommendations Discharge Prescription List Prescriptions Lasix 20 mg Tab, 20 mg= 1 tab(s), Oral, Daily Ultram 50 mg Tab, 50 mg= 1 tab(s), Oral, q6hr, PRN Follow-up With When Contact Information ANNELISE PEÑALOZA In 3 days 01/27/2023 EDT [id number] Business (1) Additional Instructions: Patient Education Peripheral Edema Attestation Patient seen and evaluated by the physician assistant chief of police. Attending physician was present in the emergency department and supervised care. This visit was performed by both the physician and an APC. I performed all aspects of the MDM as documented. This report was transcribed using voice recognition software. Every effort was made to ensure accuracy, however, inadvertently computerized business data analyst mistakes may be present. Appropriate healthcare PPE was used in evaluating this patient. The patient was placed in a mask. The healthcare provider was wearing mask, gloves, and utilizing proper hand hygiene. All equipment was properly cleansed. Problem List/Past Medical History Ongoing Anemia Arthritis Asthma Asymptomatic microscopic hematuria Atrial fibrillation BMI 32.0-32.9,adult Depression Diabetes Frequent urination Head injury Headache High cholesterol History of recurrent UTI (urinary (more content not included)... Normal [facility] Comment on above: Result Comment: Elec tronically Signed By: Kevin Chairez PA-C\.br\Date and Time Signed: 01/24/23 15:56 EDT\.br\Electronically Co-Signed By: Yakelin Owens M.D.\.br\Date and Time Co-Signed: 01/25/23 00:22 EDT Auto Diffon 01-24-2023 Basophils/100 WBC (Bld) 1.3 % Normal 0.0-2.0 [facility] Comment on above: Order Comment: Order Added by Discern Expert. Performed By: #### 2 633994, 5205092, 00457992, 0596251, 7737487, 66753198, 49167800 ####[facility] [address] [place] [address] Basophils/Leukocytes Auto (Bld) [Pure # fraction] 0.1 E9/L Normal 0.0-0.2 [facility] Comment on above: Order Comment: Order Added by Discern Expert. Performed By: #### 2 225885, 0138760, 92849733, 7011501, 6676455, 19688280, 97663117 ####[facility] [address] [place] [address] Eosinophils/100 WBC (Bld) 2.5 % Normal 0.0-8.0 [facility] Comment on above: Order Comment: Order Added by Discern Expert. Performed By: #### 2 146677, 3915389, 66568276, 0487471, 8906190, 89679700, 33949690 ####[facility] [address] [place] [address] Eosinophils/Leukocytes Auto (Bld) [Pure # fraction] 0.1 E9/L Normal 0.0-0.5 [facility] Comment on above: Order Comment: Order Added by Discern Expert. Performed By: #### 2 495485, 4285646, 95598136, 7583802, 8555713, 77500069, 32651881 ####[address] [place] [address] Lymphocytes/100 WBC (Bld) 34.8 % Normal 14.0-50.0 [facility] Comment on above: Order Comment: Order Added by Discern Expert. Performed By: #### 2 717863, 4821898, 55480836, 7875804, 5510263, 41620572, 95013466 ####[address] [address] Lymphocytes/Leukocytes Auto (Bld) [Pure # fraction] 1.5 E9/L Normal 1.0-4.0 [facility] Comment on above: Order Comment: Order Added by Chuck Expert. Performed By: #### 2 938220, 9350018, 79925198, 5234090, 8824812, 12413316, 29446236 ####[address] [place] [address] Monocytes/100 WBC (Bld) 12.7 % Normal 4.0-14.0 [facility] Comment on above: Order Comment: Order Added by Discern Expert. Performed By: #### 2 754266, 4965977, 79112548, 2882375, 4234200, 64880555, 75831117 ####[address] [place] [address] Monocytes/Leukocytes Auto (Bld) [Pure # fraction] 0.5 E9/L Normal 0.2-1.0 [facility] Comment on above: Order Comment: Order Added by Chuck Expert. Performed By: #### 2 758269, 4595401, 76063266, 8402835, 2849629, 08856541, 78860561 ####[facility] [address] [place] [address] Neutrophils/100 WBC (Bld) 48.7 % Normal 36.0-75.0 [facility] Comment on above: Order Comment: Order Added by Discern Expert. Performed By: #### 2 716030, 2574407, 68777874, 4921936, 8018270, 87023296, 92409284 ####[facility] [address] [place] [address] Neutrophils/Leukocytes Auto (Bld) [Pure # fraction] 2.1 E9/L Normal 2.0-7.5 [facility] Comment on above: Order Comment: Order Added by Discern Expert. Performed By: #### 2 649432, 7190003, 34335307, 3243155, 7151568, 13844754, 14454142 ####[facility] [address] [place] [address] BMPon 01-24-2023 Creatinine [Mass/Vol] 0.6 mg/dL Normal 0.5-1.3 [facility] Comment on above: Performed By: #### 2 025742, 0671191, 93235831, 6764273, 5370671, 35288015, 95155971 ####[facility] [address] [place] [address] Urea nitrogen [Mass/Vol] 12 mg/dL Normal 5-21 [facility] Comment on above: Performed By: #### 2 879446, 1867356, 07875276, 0866649, 0527131, 89563241, 63121070 ####[facility] [address] [place] [address] Urea nitrogen/Creatinine [Mass ratio] 20 No Units Normal 10-20 [facility] Comment on above: Performed By: #### 2 668508, 9763314, 65534255, 9676671, 4611100, 33522809, 64453614 ####[facility] [address] [place] [address] Anion gap [Moles/Vol] 10 mmol/L Normal 6-16 [facility] Comment on above: Performed By: #### 2 071069, 5056070, 91985260, 0578021, 1538209, 50906772, 14050986 ####[facility] [address] [place] [address] Calcium [Mass/Vol] 8.7 mg/dL Low 8.9-11.1 [facility] Comment on above: Performed By: #### 2 287018, 6439193, 07622232, 9380773, 4455138, 88644459, 11270295 ####[facility] [address] [place] [address] Chloride [Moles/Vol] 101 mmol/L Normal 101-111 [facility] Comment on above: Performed By: #### 2 085225, 9438615, 22661911, 7254297, 6318012, 24031653, 47519346 ####[facility] [address] [place] [address] CO2 [Moles/Vol] 32 mmol/L High 21-31 [facility] Comment on above: Performed By: #### 2 527769, 0600371, 94859241, 5226695, 4635895, 49198107, 87975287 ####[facility] [address] [place] [address] Glucose [Mass/Vol] 129 mg/dL Normal 55-199 [facility] Comment on above: Result Comment: If t his glucose result represents a fasting glucose, interpretation should refer to the following reference range: 55-99 mg/dL Performed By: #### 2 109465, 7368224, 01404674, 5074092, 5510055, 67224937, 13325189 ####[facility] [address] [address] Potassium [Moles/Vol] 3.6 mmol/L Normal 3.5-5.3 [facility] Comment on above: Performed By: #### 2 292993, 0799807, 23878429, 9516351, 6101868, 99968076, 64579837 ####[address] [place] [address] Sodium [Moles/Vol] 139 mmol/L Normal 135-145 [facility] Comment on above: Performed By: #### 2 771919, 9244338, 49407894, 7108687, 2468543, 13582673, 18101162 ####[address] [address] CBC w/ Auto Diffon 3 Erythrocyte distribution width (RBC) [Ratio] 14.3 % High 10.9-14.2 [facility] Comment on above: Performed By: #### 2 368339, 6957992, 49015391, 9182199, 4781700, 93033397, 86156472 ####[address] [address] Hematocrit (Bld) [Volume fraction] 37.7 % Normal 34.0-46.0 [facility] Comment on above: Performed By: #### 2 577886, 5638276, 71238520, 9062295, 5375272, 97327677, 25495589 ####[address] [address] Hemoglobin (Bld) [Mass/Vol] 13.0 g/dL Normal 12.0-16.0 [facility] Comment on above: Performed By: #### 2 304164, 6677844, 13111584, 4526183, 6711942, 36309193, 71600980 ####[address] [place] [address] MCH (RBC) [Entitic mass] 31.7 pg Normal 27.0-34.0 [facility] Comment on above: Performed By: #### 2 162772, 8835671, 84032437, 1047011, 5762508, 63063012, 55830711 ####[address] [place] [address] MCHC (RBC) [Mass/Vol] 34.4 g/dL Normal 31.4-36.0 [facility] Comment on above: Performed By: #### 2 871844, 5628088, 99800505, 3625937, 5561073, 64907417, 68487303 ####[address] [place] [address] MCV (RBC) [Entitic vol] 92.2 fL Normal 80.0-100.0 [facility] Comment on above: Performed By: #### 2 411065, 5896478, 62956198, 4497476, 3322945, 66203697, 73711139 ####[facility] [address] [place] [address] Platelet mean volume (Bld) [Entitic vol] 7.3 fL Normal 6.4-10.8 [facility] Comment on above: Performed By: #### 2 904631, 2390944, 96766896, 8985585, 3976354, 13622489, 95181151 ####[address] [address] Platelets (Bld) [#/Vol] 131.0 E9/L Low 150. 0-500. 0 [facility] Comment on above: Performed By: #### 2 741433, 3021186, 90929444, 2601270, 7359645, 54901447, 75134569 ####[facility] [address] [place] [address] RBC (Bld) [#/Vol] 4.1 E12/L Low 4.3-5.9 [facility] Comment on above: Performed By: #### 2 217933, 0290442, 84727734, 1202694, 3617889, 92385617, 56236098 ####[address] [address] WBC corrected for nucl RBC Auto (Bld) [#/Vol] 4.3 E9/L Normal 4.0-11.0 [facility] Comment on above: Performed By: #### 2 471440, 2901526, 69826272, 9387123, 4924302, 16556168, 58331683 ####[facility] [address] [place] [address] CHEMISTRYOrdered By: SYSTEM SYSTEM on 01-24-2023 Albumin [Mass/Vol] 3.6 g/dL Normal 3.3 - 5.0 gm/dL [facility] Albumin/Globulin [Mass ratio] 1.3 {ratio} Normal 1.1 - 2.2 [facility] ALP [Catalytic activity/Vol] 49 [iU]/d Normal 21 - 98 Int._Unit/ L [facility] ALT No additional P-5'-P [Catalytic activity/Vol] 23 [iU]/d Normal 6 - 46 Int._Unit/ L [facility] Anion gap [Moles/Vol] 10 mmol/L Normal 6 - 16 mEq/L [facility] AST [Catalytic activity/Vol] 19 [iU]/d Normal 5 - 43 Int._Unit/ L [facility] Bilirubin [Mass/Vol] 0.6 mg/dL Normal 0.0 - 1 .1 mg/dL [facility] Bilirubin.direct [Mass/Vol] 0.1 mg/dL Normal 0.1 - 0.4 mg/dL [facility] Bilirubin.indirect [Mass or moles/Vol] 0.5 mg/dL Normal 0.1 - 0.9 mg/dL [facility] Calcium [Mass/Vol] 8.7 mg/dL Low 8.9 - 11. 1 mg/dL [facility] Chloride [Moles/Vol] 101 mmol/L Normal 101 - 1 11 mmol/L [facility] CO2 [Moles/Vol] 32 mmol/L High 21 - 31 mmol/L [facility] Creatinine [Mass/Vol] 0.6 mg/dL Normal 0.5 - 1.3 mg/dL [facility] GFR/1.73 sq M.predicted among blacks MDRD (S/P/Bld) [Vol rate/Area] mL/min/1.73 m2 Normal >=59mL/min /1.73 m2 [facility] [place] S GFR/1.73 sq M.predicted among non-blacks MDRD (S/P/Bld) [Vol rate/Area] mL/min/1.73 m2 Normal >=59mL/min /1.73 m2 [facility] [place] Chem S Globulin (S) [Mass/Vol] 2.8 g/dL Normal 1.4 - 4.0 gm/dL [facility] [place] Glucose [Mass/Vol] 129 mg/dL Normal 55 - 199 mg/dL [facility] [place] Potassium [Moles/Vol] 3.6 mmol/L Normal 3.5 - 5.3 mmol/L [facility] Protein [Mass/Vol] 6.4 g/dL Normal 6.0 - 7.8 gm/dL [facility] [place] [facility] Sodium [Moles/Vol] 139 mmol/L Normal 135 - 145 mmol/L [facility] [place] Troponin I.cardiac [Mass/Vol] 4.00 pg/mL Low 10.10 - 27.10 pg/mL [facility] [place] [facility] Urea nitrogen [Mass/Vol] 12 mg/dL Normal 5 - 21 mg/dL [facility] [place] [facility] Urea nitrogen/Creatinine [Mass ratio] 20 mg/mg Normal 10 - 20 [facility] COAGULATIONOrdered By: Marybeth Anne on 01-24-2023 aPTT Coag (PPP) [Time] 28.1 s Normal 25.1 - 36.5 second(s) [facility] [place] Auto Coag INR Coag (PPP) [Relative time] 1.0 {INR} Invalid Interpretation Code [facility] [place] PT Coag (PPP) [Time] 11.0 s Normal 9.4 - 1 2.5 second(s) [facility] [place] Coag Consent for Treatmenton 01-06 Consent for Treatment [id number]: 127 Normal [facility] Discharge Instructionson Discharge Instructions [id number] :127 Normal [facility] ED Clinical Summaryon 2022 ED Clinical Summary (Inserted Image. Marilee ble to display) [address] [address] ED Clinical Summary Person Information Name: RADHA WRIGHT [place] Age: 68 Years : 1955 Sex: Female Language: Turkish PCP: ANNELISE PEÑALOZA CNP Marital Status: Visit Id: Visit Reason: Leg pain-swelling; Edema; PAIN IN FEET Speciality: Acuity: 3 Enc Type: Emergency Med Service: Emergency Arrival: 01/24/2023 12:04:09 Discharge: 01/24/2023 14:46:37 LOS: 000 02:42 Checkin: 01/24/2023 12:04:09 Checkout: 01/24/2023 14:46:37 Dispo Type: Home (Routine DC) EVENTS: Event Name Event Status Request Date/Time Start Date/Time Complete Date/Time Arrive Complete 01/24/2023 12:04:09 01/24/2023 12:04:09 01/24/2023 12:04:09 Document Home Meds Request 01/24/2023 12:04:09 Triage Complete 01/24/2023 12:04:09 01/24/2023 12:15:36 01/24/2023 12:15:36 Bed Assign Complete 01/24/2023 12:07:59 01/24/2023 12:07:59 01/24/2023 12:07:59 Dr Exam Complete 01/24/2023 12:07:59 01/24/2023 12:14:42 01/24/2023 12:14:42 RN Exam Complete 01/24/2023 12:07:59 01/24/2023 12:40:43 01/24/2023 12:40:43 Registration Complete 01/24/2023 12:14:42 01/24/2023 12:15:57 01/24/2023 12:29:53 Dr Exam Complete 01/24/2023 12:20:06 01/24/2023 12:20:06 01/24/2023 12:20:06 Reg Complete Request 01/24/2023 12:29:53 Reg Bed Request Complete 01/24/2023 12:29:53 01/24/2023 12:29:53 01/24/2023 12:29:53 EKG Complete 01/24/2023 12:44:45 01/24/2023 12:51:19 Pending Labs Request 01/24/2023 12:44:45 Lab Request 01/24/2023 12:44:45 Urine Collect Request 01/24/2023 12:44:45 X-Ray Complete 01/24/2023 12:44:45 01/24/2023 13:15:14 01/24/2023 13:41:30 Pending Labs Complete 01/24/2023 13:03:23 01/24/2023 13:03:23 01/24/2023 13:22:10 Lab Complete 01/24/2023 13:03:23 01/24/2023 13:03:23 01/24/2023 13:22:10 Pending Labs Complete 01/24/2023 13:04:33 01/24/2023 13:04:33 01/24/2023 13:04:40 Lab Complete 01/24/2023 13:04:33 01/24/2023 13:04:33 01/24/2023 13:04:40 Wet Read Request 01/24/2023 13:41:30 Discharge Complete 01/24/2023 14:34:10 01/24/2023 14:46:42 01/24/2023 14:46:42 Transfer Complete 01/24/2023 14:46:42 01/24/2023 14:46:42 01/24/2023 14:46:42 ADDRESS: [address] [place] [phone] PHYS DOC NOTES: MEDICAL INFORMATION: Prescriptions Given: New Medications [id number], [address], [place] [id number], [phone] furosemide (Lasix 20 mg Tab) 1 Tablets By Mouth every day for 10 Days. Refills: 0. tramadol (Ultram 50 mg Tab) 1 Tablets By Mouth every 6 hours as needed as needed for pain for 3 Days. Take one tab by mouth every six hours as needed for pain. Refills: 0. Medications to Continue with No Changes Other Medications albuterol (Ventolin HFA 90 mcg/inh Aerosol) 1 Puffs Inhalation 4 times a day as needed for wheezing. Refills: 0. cyclobenzaprine (cyclobenzaprine 10 mg Tab) 1 Tablets By Mouth 3 times a day as needed for spasm. Refills: 0. mirabegron (Myrbetriq 25 mg oral tablet, extended release) 1 Tablets By Mouth every day. Refills: 11. montelukast (montelukast 10 mg Tab) 1 Tablets By Mouth once a day (in the evening). Refills: 0. montelukast (Singulair 4 mg oral granule) 1 Each By Mouth every day. Refills: 0. predniSONE (predniSONE 10 mg Tab) supplemented for the previous prescription 60mg x 3 days 40mg x 3 days 20mg x 3 days then stop with food. Refills: 0. predniSONE (predniSONE 20 mg Tab) 60mg x 3 days 40mg x 3 days 20mg x 3 days then stop. Refills: 0. predniSONE (predniSONE 20 mg Tab) 60mg x 3 days 40mg x 3 days 20mg x 3 days then stop. Refills: 0. PATIENT EDUCATION INFORMATION: Instructions: Peripheral Edema Follow up: With: Address: When: ANNELISE PEÑALOZA [address] [place] [address] Business (1) In 3 days 01/27/2023 DIAGNOSIS: Edema, lower extremity Normal [facility] ED Patient Education Noteon 01-24-2023 ED Patient Education Note Nephrology Peripheral Edema Peripheral edema is swelling that is caused by a buildup of fluid. Peripheral edema most often affects the lower legs, ankles, and feet. It can also develop in the arms, hands, and face. The area of the body that has peripheral edema will look swollen. It may also feel heavy or warm. Your clothes may start to feel tight. Pressing on the area may make a temporary dent in your skin. You may not be able to move your swollen arm or leg as much as usual. There are many causes of peripheral edema. It can happen because of a complication of other conditions such as congestive heart failure, kidney disease, or a problem with your blood circulation. It also can be a side effect of certain medicines or because of an infection. It often happens to women during . Sometimes, the cause is not known. Follow these instructions at home: Managing pain, stiffness, and swelling ? Raise (elevate) your legs while you are sitting or lying down. ? Move around often to prevent stiffness and to lessen swelling. ? Do not sit or stand for long periods of time. ? Wear support stockings as told by your health care provider. Medicines ? Take pvmm-fpa-rcyfpwz and prescription medicines only as told by your health care provider. ? Your health care provider may prescribe medicine to help your body get rid of excess water (diuretic). General instructions ? Pay attention to any changes in your symptoms. ? Follow instructions from your health care provider about limiting salt (sodium) in your diet. Sometimes, eating less salt may reduce swelling. ? Moisturize skin daily to help prevent skin from cracking and draining. ? Keep all follow-up visits as told by your health care provider. This is important. Contact a health care provider if you have: ? A fever. ? Edema that starts suddenly or is getting worse, especially if you are or have a medical condition. ? Swelling in only one leg. ? Increased swelling, redness, or pain in one or both of your legs. ? Drainage or sores at the area where you have edema. Get help right away if you: ? Develop shortness of breath, especially when you are lying down. ? Have pain in your chest or abdomen. ? Feel weak. ? Feel faint. Summary ? Peripheral edema is swelling that is caused by a buildup of fluid. Peripheral edema most often affects the lower legs, ankles, and feet. ? Move around often to prevent stiffness and to lessen swelling. Do not sit or stand for long periods of time. ? Pay attention to any changes in your symptoms. ? Contact a health care provider if you have edema that starts suddenly or is getting worse, especially if you are or have a medical condition. ? Get help right away if you develop shortness of breath, especially when lying down. This information is not intended to replace advice given to you by your health care provider. Make sure you discuss any questions you have with your health care provider. Document Released: 12/02/2005 Document Revised: 07/19/2019 Document Reviewed: 07/19/2019 ElseiLost Patient Education ? 2019 [employer]. [facility] ED Patient Summaryon 023 ED Patient Summary (Inserted Image. Marilee ble to display) [place] [id number] Patient Discharge Instructions Person Information Name: RADHA WRIGHT Age: 68 Years Arrival Date: 01/24/2023 12:04:09 Discharge Diagnosis: Edema, lower extremity Primary Care Physician: ANNELISE PEÑALOZA CNP Provider Information Primary Provider: Yakelin Owens M.D. Advanced Human Resources Officer:Kevin Chairez PA-C The exam and treatment you received in the Emergency Department were for an urgent problem and are not intended as complete care. It is important that you follow up with a doctor, nurse practitioner, or physician?s assistant chief of police for ongoing care. If your symptoms become worse or you do not improve as expected and you are unable to reach your usual health care provider, you should return to the Emergency Department. We are available 24 hours a day. RADHA WRIGHT has been given the following list of patient education materials, prescriptions and follow-up instructions: Follow-up Instructions: With: Address: When: ANNELISE PEÑALOZA [address] [place], [place] [id number] Business (1) In 3 days 01/27/2023 In the event that this physician does not participate in your insurance network, please consult with your insurance company to find a nearby participating provider. Patient Education Materials: Peripheral Edema A MESSAGE TO ALL PATIENTS REGARDING OPIOIDS PRESCRIPTION OPIOIDS: WHAT YOU NEED TO KNOW Prescription opioids can be used to help relieve wdadfkfp-zc-kkmckh pain and are often prescribed following a surgery or injury, or for certain health conditions. These medications can be an important part of the treatment but also come with serious risks. It is important to work with your healthcare provider to make sure you are getting the safest, most effective care. WHAT ARE THE RISKS AND SIDE EFFECTS OF OPIOID USE? Prescription opioids carry serious risks of addiction and overdose, especially with prolonged use. An opioid overdose, often marked by slowed breathing, can cause sudden . The use of prescription opioids can have a number of side effects as well, even when taken as directed: ? Tolerance?meaning you might need to take more of the medication for the same pain relief ? Physical dependence?meaning you have symptoms of withdrawal when a medication is stopped ? Increased sensitivity to pain ? Constipation ? Nausea, vomiting, and dry mouth ? Sleepiness and dizziness ? Confusion ? Depression ? Low levels of testosterone that can result in lower sex drive, energy, and strength ? Itching and sweating RISKS ARE GREATER WITH: ? History of drug misuse, substance use disorder, or overdose ? Mental health conditions (such as depression or anxiety) ? Sleep apnea ? Older age (65 years and older) ? Avoid alcohol while taking prescription opioids. Also, unless specifically advised by your health care provider, medications to avoid include: ? Benzodiazepines (such as Xanax or Valium) ? Muscle relaxants (such as Soma or Flexeril) ? Hypnotics (such as Ambien or Lunesta) ? Other prescription opioids KNOW YOUR OPTIONS Talk to your health care provider about ways to manage your pain that don?t involve prescription opioids. Some of these options may actually work better and have fewer risks and side effects. Options may include: ? Pain relievers such as acetaminophen, ibuprofen, and naproxen ? Some medication that are also used for depression or seizures ? Physical therapy and exercise ? Cognitive behavioral therapy, a psychological, goal-directed approach, in which patients learn how to modify physical, behavioral, and emotional triggers of pain and stress. IF YOU ARE PRESCRIBED OPIOIDS FOR PAIN: ? Never take opioids in greater amounts or more often than prescribed. ? Follow up with your primary health care provider. o Work together to create a plan on how to manage your pain. o Talk about ways to help manage your pain that don?t involve prescription opioids. o Talk about any and all concerns and side effects. ? Help prevent misuse and abuse o Never sell or share prescription opioids. o Never use another person?s prescription opioids. ? Store prescription opioids in a secure place and out of reach of others (this may include visitors, children, friends, and family). ? Safely dispose of unused prescription opioids: Find your community drug take-back program or your pharmacy mail-back program, or flush them down the toilet, following guidance from the Food and Drug Administration (www.fda.gov/Drugs/Resou rcesForYou). ? Visit www.cdc.gov/drugoverdose to learn about the risks of opioids abuse and overdose. ? If you believe you may be struggling with addiction, tell your health healthcare translator and ask for guidance or call SAMHSA?S National Helpline at 9-629-659-IXUV. (more content not included)... Normal [facility] HEMATOLOGYOrdered By: SYSTEM SYSTEM on 01-24-2023 Basophils/100 WBC (Bld) 1.3 % Normal 0.0 - 2.0 % [facility] Basophils/Leukocytes Auto (Bld) [Pure # fraction] 0.1 E9/L Normal 0.0 - 0.2 E9/L [facility] Eosinophils/100 WBC (Bld) 2.5 % Normal 0.0 - 8.0 % [facility] Eosinophils/Leukocytes Auto (Bld) [Pure # fraction] 0.1 E9/L Normal 0.0 - 0.5 E9/L [facility] Lymphocytes/100 WBC (Bld) 34.8 % Normal 14.0 - 50.0 % [facility] Lymphocytes/Leukocytes Auto (Bld) [Pure # fraction] 1.5 E9/L Normal 1.0 - 4.0 E9/L [facility] Monocytes/100 WBC (Bld) 12.7 % Normal 4.0 - 14.0 % [facility] Monocytes/Leukocytes Auto (Bld) [Pure # fraction] 0.5 E9/L Normal 0.2 - 1.0 E9/L [facility] Neutrophils/100 WBC (Bld) 48.7 % Normal 36.0 - 75.0 % [facility] Neutrophils/Leukocytes Auto (Bld) [Pure # fraction] 2.1 E9/L Normal 2.0 - 7.5 E9/L [facility] HEMATOLOGYOrdered By: Shannan Deleon on 01-24-2023 Erythrocyte distribution width (RBC) [Ratio] 14.3 % High 10.9 - 14.2 % [facility] Hematocrit (Bld) [Volume fraction] 37.7 % Normal 34.0 - 46.0 % [facility] Hemoglobin (Bld) [Mass/Vol] 13.0 g/dL Normal 12.0 - 16.0 gm/dL [facility] MCH (RBC) [Entitic mass] 31.7 pg Normal 27.0 - 34.0 pg [facility] MCHC (RBC) [Mass/Vol] 34.4 g/dL Normal 31.4 - 36.0 gm/dL [facility] MCV (RBC) [Entitic vol] 92.2 fL Normal 80.0 - 100.0 fL [facility] Platelet mean volume (Bld) [Entitic vol] 7.3 fL Normal 6.4 - 10.8 fL [facility] Platelets (Bld) [#/Vol] 131.0 E9/L Low 150. 0 - 500.0 E9/L [facility] RBC (Bld) [#/Vol] 4.1 E12/L Low 4.3 - 5.9 E12/L [facility] WBC corrected for nucl RBC Auto (Bld) [#/Vol] 4.3 E9/L Normal 4.0 - 11.0 E9/L [facility] Hep Func Panelon 01-24-2023 Albumin [Mass/Vol] 3.6 g/dL Normal 3.3-5.0 [facility] Comment on above: Performed By: #### 2 872004, 9917734, 34891149, 6686277, 3856911, 52339850, 58859831 ####[facility] [address] [place] [address] Albumin/Globulin (S) [Mass conc ratio] 1.3 Normal 1.1-2.2 [facility] Comment on above: Performed By: #### 2 875214, 8952622, 05597812, 8767296, 5769880, 32401082, 35431163 ####[facility] [address] [place] [address] ALP [Catalytic activity/Vol] 49 Int._Unit/L Normal 21-98 [facility] Comment on above: Performed By: #### 2 365207, 3146602, 28179944, 0699942, 9917419, 29601925, 53159930 ####[facility] [address] [place] [address] ALT No additional P-5'-P [Catalytic activity/Vol] 23 Int._Unit/L Normal 6-46 [facility] Comment on above: Performed By: #### 2 661206, 5297485, 01158598, 9323861, 9297512, 65704965, 22027227 ####[facility] [address] [place] [address] AST [Catalytic activity/Vol] 19 Int._Unit/L Normal 5-43 [facility] Comment on above: Performed By: #### 2 716811, 4115704, 93278226, 5120860, 5002367, 87965832, 15265784 ####[facility] [address] [place] [address] Bilirubin [Mass/Vol] 0.6 mg/dL Normal 0.0-1.1 [facility] Comment on above: Performed By: #### 2 950310, 4484519, 80061920, 7416976, 7032520, 18744461, 33586175 ####[place] [address] Bilirubin.direct [Mass/Vol] 0.1 mg/dL Normal 0.1-0.4 [facility] Comment on above: Performed By: #### 2 122763, 6566719, 87937853, 0659535, 9395189, 51135724, 91076648 ####[place] [address]857 Bilirubin.indirect [Mass or moles/Vol] 0.5 mg/dL Normal 0.1-0.9 [facility] Comment on above: Performed By: #### 2 288618, 7475211, 79717234, 1225449, 6682825, 99715410, 88476247 ####[facility] [address] [place] [address] Globulin (S) [Mass/Vol] 2.8 g/dL Normal 1.4-4.0 [facility] Comment on above: Performed By: #### 2 971682, 0110808, 90552181, 8010442, 5024972, 58042987, 27004741 ####[place] [id number] Protein [Mass/Vol] 6.4 g/dL Normal 6.0-7.8 [facility] Comment on above: Performed By: #### 2 778109, 8724467, 22363745, 0375499, 2617498, 82888148, 56619040 ####[facility] [address] [place] [address] PT & PTTon 01-24-2023 aPTT Coag (PPP) [Time] 28.1 second(s) Normal 25.1-36.5 [facility] Comment on above: Result Comment: Para meter 15 days - 4 weeks 1 - 5 months 6 - 11 months 1 - 5 years 6 - 10 years 11 - 17 years PTT Mean: 35.4 (27.6-45.6) Mean: 33.5 (24.8-40.7) Mean: 32.4 (25.1-40.7) Mean: 31.6 (24.0-39.2) Mean: 31.6 (26.9-38.7) Mean: 31.0 (24.6-38.4) Pediatric Reference ranges were obtained from a study by Carlos Rios et al. prepared from 1437 samples obtained at 7 different centers using the same coagulation reagent and instrumentation as [facility]. Currently there are no coagulation studies available worldwide for children to 14 days, and no normal ranges. Heparin therapeutic range (represented by Anti-Factor Xa activity of 0.2 - 0.4 U/mL) corresponds to PTT of 56.6 - 109.0 sec. Performed By: #### 2 827098, 0183886, 01136846, 2175049, 5135451, 49422864, 00643654 ####[facility] [address] [place] [address] INR Coag (PPP) [Relative time] 1.0 {INR} Invalid Interpretation Code [facility] Comment on above: Result Comment: INR results are specifically intended to assess patients stabilized on long-term Anticoagulation therapy suggested INR?s ?Less Intensive Anticoagulation? 2.0 ? 3.0 Conventional Range 3.0 ? 4.5 Performed By: #### 2 697364, 6751411, 32780463, 7727164, 8315180, 22472425, 97256943 ####[facility] [address] [place] [address] PT Coag (PPP) [Time] 11.0 second(s) Normal 9.4-12.5 [facility] Comment on above: Result Comment: 15 d ays - 4 weeks 1 - 5 months 6 -11 months 1-5 years 6-10 years 11 -17 years Mean: 11.2 (9.5-12.6) Mean: 11.0 (9.7-12.8) Mean: 11.0 (9.8-13.0) Mean: 11.3 (9.9-13.4) Mean: 11.7 (10.0-14.6) Mean: 11.8 (10.0 - 14.1) Pediatric Reference ranges were obtained from a study by Carlos Rios et al. prepared from 1437 samples obtained at 7 different centers using the same coagulation reagent and instrumentation as [facility]. Currently there are no coagulation studies available worldwide for children to 14 days, and no normal ranges. Performed By: #### 2 511394, 4390338, 97794412, 0024884, 8411416, 19768828, 00506863 ####[facility] [address] [place] [address] Troponin 0 Hr.on 01-24-2023 Troponin I.cardiac [Mass/Vol] 4.00 pg/mL Low 10.10-27.1 0 [facility] Comment on above: Result Comment: The 95% CI (Confidence Interval) PPV (Positive Predictive Value) for myocardial infarction in females is 38 pg/mL, in males 51 pg/mL. The results should be used in conjunction with clinical conditions of myocardial infarction. (Access High Sensitivity Troponin I Instructions For Use, Silvia Jayu[place], June 2018) Performed By: #### 2 841015, 1676484, 65159806, 2391519, 0716854, 16868229, 81776350 ####[facility] [address] [place] [address] XR Chest Single Viewon 01-24 XR Chest Single View Exam Date/Time: 01/24/2023 13:41 EDT Reason for Exam: Shortness of breath (SOB) Report IMPRESSION: No acute radiographic abnormality. EXAMINATION: XR Chest Single View Clinical History: Shortness of breath (SOB) Comparison: 04/15/2019. RESULT: No consolidation. No pleural effusion. No pneumothorax. Normal pulmonary vascular pattern. Normal cardiomediastinal silhouette. No acute osseous findings. Ordering Provider: Kevin Chairez FINAL REPORT Dictated: 01/24/2023 1:45 pm Jeb Partida MD. Signed (Electronic Signature): 01/24/2023 1:45 pm Signed by: Jeb Partida MD Transcribed by: CORNELL Technologist: DORA Technical Comments Radiation Dose: Ka,r in mGy = na DAP = na Normal [facility] eGFRon 01-24-2023 GFR/1.73 sq M.predicted among blacks MDRD (S/P/Bld) [Vol rate/Area] mL/min/{1.73_m2} Normal >=59 [facility] Comment on above: Order Comment: Order added by Discern Expert. Result Comment: eGFR is race adjusted. AA=. Performed By: #### 2 323191, 8416122, 01908632, 3913017, 5317045, 67213468, 72660288 ####[facility] [address] [place] [address] GFR/1.73 sq M.predicted among non-blacks MDRD (S/P/Bld) [Vol rate/Area] mL/min/{1.73_m2} Normal >=59 [facility] Comment on above: Order Comment: Order added by Discern Expert. Result Comment: Cuffer tawanda kidney disease could be indicated at eGFR's of less than 60 mL/min/1.73m2. Kidney failure is indicated at less than 15 mL/min/1.73m2. Performed By: #### 2 511019, 8653930, 45264561, 8288424, 0147797, 79053507, 18590192 ####[facility] [address] [place] [address] Provider Letter FTMCon 01-06 Provider Letter [facility] January 06, 2023 RADHA WRIGHT [address] [place] [id number] RADHA WRIGHT 1955 Dear Radha , We have been trying to reach you with no success. It is important that you return our call regarding your medication upon receiving this letter. Also, at the time of your call, please provide us with your current information. Thank you for your prompt attention to this matter. Sincerely, [facility] [address] [place] [address] [place] [address] Normal [facility] BNPon 01-04-2023 Natriuretic peptide B (Bld) [Mass/Vol] 108.0 pg/mL Normal <=900.0 [facility] Comment on above: Performed By: #### C RP, CMP, BNP #### [facility] [address] [place] [address] Dr. Clive Pagan CBC AUTO DIFFon 01-04-2023 BASO # 0.1 103/ul Normal 0.0-0.1 [facility] Comment on above: Performed By: #### C RP, CMP, BNP #### [facility] [address] [place] [address] [address] Clive Pagan Basophils/100 WBC (Bld) 1.0 % Normal 0.2-2.0 [facility] Comment on above: Performed By: #### C RP, CMP, BNP #### [facility] [address] [place] [address] [address] Clive Pagan EO # 0.1 103/ul Normal 0.0-0.7 [facility] Comment on above: Performed By: #### C RP, CMP, BNP #### [facility] [address] [place] [address] [address] Clive Pagan Eosinophils/100 WBC (Bld) 2.3 % Normal 0.9-7.0 [facility] Comment on above: Performed By: #### C RP, CMP, BNP #### [facility] [address] [place] [address] Dr. Clive Pagan Erythrocyte distribution width (RBC) [Ratio] 13.5 % Normal 11.0-15.0 [facility] Comment on above: Performed By: #### C RP, CMP, BNP #### [facility] [address] [place] [address] Dr. Clive Pagan Hematocrit (Bld) [Volume fraction] 39.3 % Normal 36.0-48.0 [facility] Comment on above: Performed By: #### C RP, CMP, BNP #### [facility] [address] [place] [address] Dr. Clive Pagan Hemoglobin (Bld) [Mass/Vol] 13.5 g/dL Normal 12.0-16.0 [facility] Comment on above: Performed By: #### C RP, CMP, BNP #### [facility] [address] [place] [address] Dr. Clive Pagan IG # 0.02 10e3/ul Normal 0.00-0.03 [facility] Comment on above: Performed By: #### C RP, CMP, BNP #### [facility] [address] [place] [address] Dr. Clive Pagan IG % 0.4 % Normal 0.0-0.5 [facility] Comment on above: Performed By: #### C RP, CMP, BNP #### [facility] [address] [place] [address] Dr. Clive Pagan LYMPH # 1.7 103/ul Normal 1.2-3.8 [facility] Comment on above: Performed By: #### C RP, CMP, BNP #### [facility] [address] [place] [address] Dr. Clive Pagan Lymphocytes/100 WBC (Bld) 34.3 % Normal 20.5-60.0 [facility] Comment on above: Performed By: #### C RP, CMP, BNP #### [facility] [address] [place] [address] Dr. Clive Pagan MANUAL DIFF REQ NO Normal [facility] Comment on above: Performed By: #### C RP, CMP, BNP #### [facility] [address] [place] [address] Dr. Clive Pagan MCH (RBC) [Entitic mass] 31.6 pg Normal 26.7-34.0 [facility] Comment on above: Performed By: #### C RP, CMP, BNP #### [facility] [address] [place] [address] Dr. Clive Pagan MCHC (RBC) [Mass/Vol] 34.4 g/dL Normal 29.9-35.2 [facility] Comment on above: Performed By: #### C RP, CMP, BNP #### [facility] [address] [place] [address] Dr. Clive Pagan MCV (RBC) [Entitic vol] 92.0 fL Normal 81.0-99.0 [facility] Comment on above: Performed By: #### C RP, CMP, BNP #### [facility] [address] [place] [address] Dr. Clive Pagan MONO # 0.4 103/ul Normal 0.3-0.8 [facility] Comment on above: Performed By: #### C RP, CMP, BNP #### [facility] [address] [place] [address] Dr. Clive Pagan Monocytes/100 WBC (Bld) 8.2 % Normal 1.7-12.0 [facility] Comment on above: Performed By: #### C RP, CMP, BNP #### [facility] [address] [place] [address] Dr. Clive Pagan NEUT # 2.6 103/ul Normal 1.4-6.5 [facility] Comment on above: Performed By: #### C RP, CMP, BNP #### [facility] [address] [place] [address] Dr. Clive Pagan Neutrophils/100 WBC (Bld) 53.8 % Normal 43.0-75.0 [facility] Comment on above: Performed By: #### C RP, CMP, BNP #### [facility] [address] [place] [address] Dr. Clive Pagan Platelet mean volume (Bld) [Entitic vol] 8.7 fL Critically low 9.5-13.5 [facility] Comment on above: Performed By: #### C RP, CMP, BNP #### [facility] [address] [place] [address] Dr. Clive Pagan PLT 146 103/ul Critically low 150-450 [facility] Comment on above: Performed By: #### C RP, CMP, BNP #### [facility] [address] [place] [address] Dr. Clive Pagan RBC 4.27 106/ul Normal 4.20-5.40 [facility] Comment on above: Performed By: #### C RP, CMP, BNP #### [facility] [address] [place] [address] Dr. Clive Pagan WBC 4.9 103/ul Normal 4.0-11.[address] [facility] Comment on above: Performed By: #### C RP, CMP, BNP #### [facility] [address] [place] [address] Dr. Clive Pagan CRPon 01-04-2023 CRP [Mass/Vol] mg/L Normal <=1.0 [facility] Comment on above: Performed By: #### C RP, CMP, BNP #### [facility] [address] [place] [address] Dr. Clive Pagan PROF 14(COMP METB)on 023 Albumin [Mass/Vol] 3.8 g/dL Normal 3.4-5.0 [facility] Comment on above: Performed By: #### C RP, CMP, BNP #### [facility] [address] [place] [address] Dr. Clive Pagan Albumin/Globulin [Mass ratio] 1.2 {ratio} Normal [facility] Comment on above: Performed By: #### C RP, CMP, BNP #### [facility] [address] [place] [address] Dr. Clive Pagan ALP [Catalytic activity/Vol] 64 U/L Normal 46-116 [facility] Comment on above: Performed By: #### C RP, CMP, BNP #### [facility] [address] [place] [address] Dr. Clive Pagan ALT [Catalytic activity/Vol] 25 U/L Normal 14-59 [facility] Comment on above: Performed By: #### C RP, CMP, BNP #### [facility] [address] [place] [address] Dr. Clive Pagan Anion gap [Moles/Vol] 10.7 mmol/L Normal [facility] Comment on above: Performed By: #### C RP, CMP, BNP #### [facility] [address] [place] [address] Dr. Clive Pagan AST [Catalytic activity/Vol] 15 U/L Normal 15-37 [facility] Comment on above: Performed By: #### C RP, CMP, BNP #### [facility] [address] [place] [address] Dr. Clive Pagan Bilirubin [Mass/Vol] 0.4 mg/dL Normal 0.2-1.0 [facility] Comment on above: Performed By: #### C RP, CMP, BNP #### [facility] [address] [place] [address] Dr. Clive Pagan Calcium [Mass/Vol] 9.0 mg/dL Normal 8.5-10.1 [facility] Comment on above: Performed By: #### C RP, CMP, BNP #### [facility] [address] [place] [address] Dr. Clive Pagan Chloride [Moles/Vol] 104 mmol/L Normal 98-107 [facility] Comment on above: Performed By: #### C RP, CMP, BNP #### [facility] [address] [place] [address] Dr. Clive Pagan CO2 [Moles/Vol] 30.9 mmol/L Normal 21.0-32.0 [facility] Comment on above: Performed By: #### C RP, CMP, BNP #### [facility] [address] [place] [address] Dr. Clive Pagan Creatinine [Mass/Vol] 0.54 mg/dL Critically low 0.55-1.02 [facility] Comment on above: Performed By: #### C RP, CMP, BNP #### [facility] [address] [address] [address] Clive Pagan EGFR-AF FILIPINO >60 Normal >=60 [facility] Comment on above: Performed By: #### C RP, CMP, BNP #### [facility] [address] [address] [address] Clive Pagan EGFR-NON AF FILIPINO >60 Normal >=[address] [facility] Comment on above: Performed By: #### C RP, CMP, BNP #### [facility] [address] [address] [address] Clive Pagan Globulin (S) [Mass/Vol] 3.1 g/dL Normal T [facility] Comment on above: Performed By: #### C RP, CMP, BNP #### [facility] [address] [place] [address] Dr. Clive Pagan Glucose [Mass/Vol] 103 mg/dL Normal 74-106 [facility] Comment on above: Performed By: #### C RP, CMP, BNP #### [facility] [address] [place] [address] Dr. Clive Pagan Potassium [Moles/Vol] 3.6 mmol/L Normal 3.5-5.[address] [facility] Comment on above: Performed By: #### C RP, CMP, BNP #### [facility] [address] [place] [address] Dr. Clive Pagan Protein [Mass/Vol] 6.9 g/dL Normal 6.4-8.2 [facility] Comment on above: Performed By: #### C RP, CMP, BNP #### [facility] [address] [place] [address] Dr. Clive Pagan Sodium [Moles/Vol] 142 mmol/L Normal 136-145 [facility] Comment on above: Performed By: #### C RP, CMP, BNP #### [facility] [address] [place] [address] Dr. Clive Pagan Urea nitrogen [Mass/Vol] 15.0 mg/dL Normal 7.0-18.0 [facility] Comment on above: Performed By: #### C RP, CMP, BNP #### [facility] [address] [place] [address] Dr. Clive Pagan Urea nitrogen/Creatinine [Mass ratio] 27.8 mg/mg Normal [facility] Comment on above: Performed By: #### C RP, CMP, BNP #### [facility] [address] [place] [address] Dr. Clive Pagan PROTIMEon 01-04-2023 INR Coag (PPP) [Relative time] 0.99 {INR} Normal [facility] Comment on above: Performed By: #### P TT, PT #### [facility] [address] [place] [address] Dr. Clive Pagan INR GUIDELINES SEE BELOW Normal [facility] Comment on above: Result Comment: VENKATESH RED INR: 2.0 - 3.0 CONDITIONS NOT LISTED BELOW 2.5 - 3.5 FOR PROSTHETIC HEART VALVE REPLACEMENT 2.5 - 3.5 RECURRENT THROMBOSIS Performed By: #### P TT, PT #### [facility] [address] [place] [address] Dr. Clive Pagan PT Coag (PPP) [Time] 10.5 s Normal 9.0-11.6 [facility] Comment on above: Performed By: #### P TT, PT #### [facility] [address] [place] [address] Dr. Clive Pagan PTTon 01-04-2023 aPTT Coag (Bld) [Time] 25.1 s Normal 22.3-36.2 [facility] Comment on above: Performed By: #### P TT, PT #### [facility] [address] [place] [address] Dr. Clive Pagan SED RATE WESTERGRENon 2022 SED RATE 19 mm/hr Normal <=30 [facility] Comment on above: Performed By: #### C RP, CMP, BNP #### [facility] [address] [place] [address] Dr. Clive Pagan US BOO DOP LEG BILon 023 US BOO DOP LEG MATTEO EXAMINATION: US BOO DOP LEG MATTEO HISTORY: Deep venous thrombosis COMPARISON: None. TECHNIQUE: Venous duplex examination of the left lower extremity performed using B-mode, color flow and spectral analysis. FINDINGS: Right Leg: Common Femoral: Patent. Femoral (SFV): Patent. Popliteal: Patent. Calf veins: Patent. Left Leg: Common Femoral: Patent. Femoral (SFV): Patent. Popliteal: Patent. Calf veins: Patent. Peroneal veins are not visualized bilaterally. IMPRESSION: No evidence of deep venous thrombosis in the lower extremities bilaterally. Electronically authenticated by: LAUREN NICHOLSON Date: 2023-01-04 20:51 Normal [facility] XR lumbar spine min 4V*on XR lumbar spine min 4V* [facility] [employer] Other XR lumbar spine min 4V* [facility] [employer] Other XR lumbar spine min 4V* [address] [place] [address] [employer] Other XR lumbar spine min 4V* [place] [id number] [employer] Other XR lumbar spine min 4V* XRay Report [employer] Other XR lumbar spine min 4V* Signed N [employer] Other XR lumbar spine min 4V* Patient: Radha Wright MR#: [id number] [employer] Other XR lumbar spine min 4V* [id number] [address] [employer] Other XR lumbar spine min 4V* : 1955 Acct:[id number] [employer] Other XR lumbar spine min 4V* Age/Sex: 67 / F ADM Date: 12/29/22 [employer] Other XR lumbar spine min 4V* Loc: XDUCLY Room : Type: REG [facility] [employer] Other XR lumbar spine min 4V* Attending Dr: St myra JOHNSONP-Benji [employer] Other XR lumbar spine min 4V* Copies to: ANNELISE PEÑALOZA [employer] Other XR lumbar spine min 4V* Ordering Provide r: ANNELISE PEÑALOZA [employer] Other XR lumbar spine min 4V* Date of Service: 12/29/22 [employer] Other XR lumbar spine min 4V* XR/XR lumbar spine min 4V*: Lumbar pain [employer] Other XR lumbar spine min 4V* XR lumbar spine min 4V* 12/29/2022 6:03 PM [employer] Other XR lumbar spine min 4V* SIGNS AND SYMPTO MS: Low back pain [employer] Other XR lumbar spine min 4V* PROTOCOLS: Front al, lateral, and bilateral oblique radiographs of the lumbar spine [employer] Other XR lumbar spine min 4V* COMPARISON: None [employer] Other XR lumbar spine min 4V* FINDINGS: N [employer] Other XR lumbar spine min 4V* The alignment, development and bony structures are normal. There is no fracture or destructive [employer] Other XR lumbar spine min 4V* lesion. N [employer] Other XR lumbar spine min 4V* There is evidenc e of prior intervertebral fusion at L4-5 and L5-S1. The vertebral body heights are [employer] Other XR lumbar spine min 4V* preserved. Facet hypertrophy is present at L4-L5 and L5-S1. [employer] Other XR lumbar spine min 4V* Mild degenerativ e changes are noted in the sacroiliac joints. Degenerative changes are noted in the [employer] Other XR lumbar spine min 4V* hips, right grea ter than left. [employer] Other XR lumbar spine min 4V* Atherosclerotic changes are present in the abdominal aorta. There is evidence of prior [employer] Other XR lumbar spine min 4V* cholecystectomy. [employer] Other XR lumbar spine min 4V* 45 XR/XR lumbar spine min 4V* [employer] Other XR lumbar spine min 4V* IMPRESSION: [employer] Other XR lumbar spine min 4V* No fracture or subluxation. [employer] Other XR lumbar spine min 4V* There is evidenc e of prior intervertebral fusion at L4-5 and L5-S1. [employer] Other XR lumbar spine min 4V* Degenerative alfonzo nges are noted in the hips right greater than left. [employer] Other XR lumbar spine min 4V* Mild degenerativ e changes are noted in the sacroiliac joints. [employer] Other XR lumbar spine min 4V* Impression dicta elena by: Raúl Faye M.D.12/29/2022 6:32 PM [employer] Other XR lumbar spine min 4V* Dictation Locati on: RADIO-PC-13 [employer] Other XR lumbar spine min 4V* Transcribed By: JANET 12/29/221831 [employer] Other XR lumbar spine min 4V* Dictated By: Julianne Faye II, MD 12/29/221827 [employer] Other XR lumbar spine min 4V* Signed By: Edward Lettuce[employer]inner Other XR lumbar spine min 4V* 12/29/221831 [employer] Other BNPon 11-09-2022 Natriuretic peptide B (Bld) [Mass/Vol] 87.0 pg/mL Normal <=900.0 [facility] Comment on above: Performed By: #### C MP, BNP #### [facility] [address] [place] [address] Dr. Clive Pagan PROF 14(COMP METB)on 023 Albumin [Mass/Vol] 3.7 g/dL Normal 3.4-5.0 [facility] Comment on above: Performed By: #### C MP, BNP #### [facility] [address] [place] [address] Dr. Clive Pagan Albumin/Globulin [Mass ratio] 1.1 {ratio} Normal [facility] Comment on above: Performed By: #### C MP, BNP #### [facility] [address] [place] [address] Dr. Clive Pagan ALP [Catalytic activity/Vol] 58 U/L Normal 46-116 [facility] Comment on above: Performed By: #### C MP, BNP #### [facility] [address] [place] [address] Dr. Clive Pagan ALT [Catalytic activity/Vol] 22 U/L Normal 14-59 [facility] Comment on above: Performed By: #### C MP, BNP #### [facility] [address] [place] [address] Dr. Clive Pagan Anion gap [Moles/Vol] 6.9 mmol/L Normal [facility] Comment on above: Performed By: #### C MP, BNP #### [facility] [address] [place] [address] Dr. Clive Pagan AST [Catalytic activity/Vol] 14 U/L Critically low 15-37 [facility] Comment on above: Performed By: #### C MP, BNP #### [facility] [address] [place] [address] Dr. Clive Pagan Bilirubin [Mass/Vol] 0.5 mg/dL Normal 0.2-1.0 [facility] Comment on above: Performed By: #### C MP, BNP #### [facility] [address] [place] [address] Dr. Clive Pagan Calcium [Mass/Vol] 9.4 mg/dL Normal 8.5-10.1 [facility] Comment on above: Performed By: #### C MP, BNP #### [facility] [address] [address] [address] Clive Pagan Chloride [Moles/Vol] 102 mmol/L Normal 98-107 [facility] Comment on above: Performed By: #### C MP, BNP #### [facility] [address] [place] [address] Dr. Clive Pagan CO2 [Moles/Vol] 34.1 mmol/L Critically high 21.0-32.0 [facility] Comment on above: Performed By: #### C MP, BNP #### [facility] [address] [place] [address] Dr. Clive Pagan Creatinine [Mass/Vol] 0.49 mg/dL Critically low 0.55-1.02 [facility] Comment on above: Performed By: #### C MP, BNP #### [facility] [address] [place] [address] Dr. Clive Pagan EGFR-AF FILIPINO >60 Normal >=60 [facility] Comment on above: Performed By: #### C MP, BNP #### [facility] [address] [place] [address] Dr. Clive Pagan EGFR-NON AF FILIPINO >60 Normal >=60 [facility] Comment on above: Performed By: #### C MP, BNP #### [facility] [address] [place] [address] Dr. Clive Pagan Globulin (S) [Mass/Vol] 3.5 g/dL Normal [facility] Comment on above: Performed By: #### C MP, BNP #### [facility] [address] [place] [address] Dr. Clive Pagan Glucose [Mass/Vol] 122 mg/dL Critically high 74-106 [facility] Comment on above: Performed By: #### C MP, BNP #### [facility] [address] [address] [address] Clive Pagan Potassium [Moles/Vol] 4.0 mmol/L Normal 3.5-5.1 [facility] Comment on above: Performed By: #### C MP, BNP #### [facility] [address] [place] [address] Dr. Clive Pagan Protein [Mass/Vol] 7.2 g/dL Normal 6.4-8.2 [facility] Comment on above: Performed By: #### C MP, BNP #### [facility] [address] [address] [address] Clive Pagan Sodium [Moles/Vol] 139 mmol/L Normal 136-145 [facility] Comment on above: Performed By: #### C MP, BNP #### [facility] [address] [place] [address] Dr. Clive Pagan Urea nitrogen [Mass/Vol] 11.0 mg/dL Normal 7.0-18.0 [facility] Comment on above: Performed By: #### C MP, BNP #### [facility] [address] [place] [address] Dr. Clive Pagan Urea nitrogen/Creatinine [Mass ratio] 22.4 mg/mg Normal [facility] Comment on above: Performed By: #### C MP, BNP #### [facility] [address] [place] [address] Dr. Clive Pagan Office Visit (Cardiology)on 09-10-2022 Follow-up visit Diagnoses/Problems Assessed Paroxysmal atrial fibrillation (427.31) (I48.0) Palpitations (785.1) (R00.2) Hyperlipidemia (272.4) (E78.5) Essential hypertension (401.9) (I10) Bilateral edema of lower extremity (782.3) (R60.0) Statin intolerance (995.27) (Z78.9) Former smoker (V15.82) (Z87.891) Class 1 obesity with body mass index (BMI) of 34.0 to 34.9 in adult (278.00,V85.34) (E66.9,Z68.34) Diabetes mellitus (250.00) (E11.9) Orders Class 1 obesity with body mass index (BMI) of 34.0 to 34.9 in adult Healthy Weight Tips; Status:Complete - Retrospective Authorization; Done: 10Sep2022 Some eating tips that can help you lose weight.; Status:Complete - Retrospective Authorization; Done: 10Sep2022 SocHx: Former smoker Tobacco Use Screening; Status:Complete; Done: 10Sep2022 Patient Instructions Please bring all medicines, vitamins, and herbal supplements with you when you come to the office. Prescriptions will not be filled unless you are compliant with your follow up appointments or have a follow up appointment scheduled as per instruction of your physician. Refills should be requested at the time of your visit. Follow up in 1 year. Chief Complaint RADHA WRIGHT is being seen for an annual follow-up of. History of Present Illness Returns in follow-up of problems as noted. She doing well. She has not arrhythmia symptoms that preceded her diagnosis of paroxysmal atrial fibrillation. She not on antiarrhythmics or anticoagulant therapy and this was discussed in great detail and she does not wish to implement either therapy. She is convinced she can tell if or when she goes out of rhythm and will seek care or attention if and when such an event occurs. Treatment of other risk factors including her lipids and blood pressure is reviewed and felt to be adequate and appropriate as is that of her diabetes treatment. Because of all the above we believe she is doing well. Once again we advocated statin treatment which she is not interested. Merits of diet and weight loss were advocated. Surgical History Problems History of Back surgery History of Breast biopsy History of Cholecystectomy History of Complete colonoscopy History of Hernia repair History of Hysterectomy History of Surgery exploratory surgery done Current Meds Medication NameInstruction Bisoprolol-hydroCHLOROth iazide 5-6.25 MG Oral TabletTAKE 1 TABLET DAILY. Celecoxib 100 MG Oral CapsuleTAKE 1 CAPSULE BY MOUTH TWICE A DAY WITH FOOD FOR 30 DAYS Famotidine 20 MG Oral TabletTAKE 1 TABLET BY MOUTH EVERY DAY WTIH DINNER Farxiga 5 MG Oral TabletTAKE 1 TABLET BY MOUTH EVERY MORNING Oxybutynin Chloride ER 5 MG Oral Tablet Extended Release 24 Hour1 pill a day Ramipril 10 MG Oral CapsuleTAKE 1 CAPSULE BY MOUTH EVERY DAY FOR 90 DAYS Allergies Medication Sulfa Drugs Rash; Recorded By: Yaquelin Shelley; 09/10/2022 3:22:57 PM Biaxin Recorded By: Marilyn Cardenas; 03/26/2022 9:36:26 AM Claritin Recorded By: Marilyn Cardenas; 03/26/2022 9:36:26 AM Flagyl Recorded By: Marilyn Cardenas; 03/26/2022 9:36:26 AM Floxin Recorded By: Marilyn Cardenas; 03/26/2022 9:36:26 AM Penicillins Recorded By: Marilyn Cardenas; 03/26/2022 9:36:26 AM Skelaxin Recorded By: Marilyn Cardenas; 03/26/2022 9:36:26 AM Statins Recorded By: Marilyn Cardenas; 03/26/2022 9:36:26 AM Valium Recorded By: Marilyn Cardenas; 03/26/2022 9:36:26 AM Zoloft Recorded By: Marilyn Cardenas; 03/26/2022 9:36:26 AM NonMedication IV Contrast Dye Recorded By: Marilyn Cardenas; 03/26/2022 9:36:26 AM Social History Problems Caffeine use (V49.89) (Z78.9) Former smoker (V15.82) (Z87.891) No alcohol use No illicit drug use Review of Systems Constitutional: not feeling tired. Eyes: no eyesight problems. ENT: no hearing loss and no nosebleeds. Cardiovascular: no intermittent leg claudication and as noted in HPI. Respiratory: no chronic cough and no shortness of breath. Gastrointestinal: no change in bowel habits and no blood in stools. Genitourinary: no urinary frequency. Skin: no skin rashes. Neurological: no seizures and no frequent falls. Psychiatric: no depression and not suicidal. All other systems have been reviewed and are negative for complaint. Vitals Vital Signs Recorded: 10Sep2022 03:25PM Heart Rate60, L Radial [id number], RUE, Sitting Bwwbnvgzu23, RUE, Sitting Height5 ft 2 in Fnxjmy678 lb BMI Xskzwkkyuz44.2 kg/m2 BSA Calculated1.86 Tobacco Useb) No PHQ-2 #1. Over the last 2 weeks have you felt down, depressed or hopeless? (If yes, answer PHQ-9 below)No PHQ-2 #2. Over the last 2 weeks have you felt little interest or pleasure in doing things? (If yes, answer PHQ-9 below)No Falls Screening (Age 18+)a) No falls within the last year Physical Exam Constitutional: alert and in no acute distress. Eyes: no erythema, swelling or discharge from the eye . Neck: neck is supple, symmetric, trachea midline, no masses and no thyromegaly . Pulmonary: no increased work of breathing or signs of respir (more content not included)... Normal [employer] Tobacco Screening.on 022 Adult depression screening assessment No [facility] y 250 DO Work Phone: Fall risk assessment a) No falls within the last year [facility] y 250 DO Work Phone: Tobacco use status [facility] b) No [facility] DO Work Phone: Urinalysis - AUTOMATEDon Appearance (U) clear [employer] Other Bilirubin Ql (U) Negative [employer] Other Color (U) yellow [employer] Other Glucose Ql (U) 500 [employer] Other Hemoglobin Ql (U) Negative [employer] Other Ketones Ql (U) Negative [employer] Other Leukocyte esterase Test strip Ql (U) Negative [employer] Other Nitrite Ql (U) Negative [employer] Other pH (U) 7.0 [pH] [employer] Other Protein Ql (U) Negative [employer] Other Specific gravity (U) [Rel density] 1.025 [employer] Other Urobilinogen (U) [Mass/Vol] 0.2 mg/dL [employer] Other Urinalysis - AUTOMATED No [employer] Other Urinalysis - AUTOMATEDon Appearance (U) clear [employer] Other Bilirubin Ql (U) Negative [employer] Other Color (U) yellow [employer] Other Glucose Ql (U) 500 [employer] Other Hemoglobin Ql (U) Negative [employer] Other Ketones Ql (U) Negative [employer] Other Leukocyte esterase Test strip Ql (U) Negative [employer] Other Nitrite Ql (U) Negative [employer] Other pH (U) 7.0 [pH] [employer] Other Protein Ql (U) Negative [employer] Other Specific gravity (U) [Rel density] 1.025 [employer] Other Urobilinogen (U) [Mass/Vol] 0.2 mg/dL [employer] Other Urinalysis - AUTOMATED No [employer] Other Urine Cultureon 09-02-2022 Bacteria identified Cx Nom (U) [employer] Other Urine culture routineOrdered By: Latisha Saenz on 09-02-2022 Bacteria identified Cx Nom (U) 2 Days [facility] COVID Quick Testingon 2021 Result Negative [employer] Other A1C HEMOGLOBINon 09-11-2021 HbA1c (Bld) [Mass fraction] 5.6 % [employer] Other HbA1c (Bld) [Mass fraction]o n 09-11-2021 A1C HEMOGLOBIN [employer] Other SHOULDER LEFTon 03-23-2018 [facility]OULDER LEFT [facility] [address] [place] [address] ==Patient Name: RADHA WRIGHT : 1955Sex: FAge: Race: WhiteMRN: [id number]. Location: 84Patient Status: OVisit #: [id number] Date: 03/23/2018 2:50:00 PMCompleted Date: 03/23/2018 02:52 PMRequesting Provider: SELIN NAVARRO Attending Provider: SELIN NAVARRO Report Copy To: SELF, REFERRED Signs & Symptoms: M25.512 Pain in left shoulder X71Kbfufry: AthenaComments: , , Views (X-RAY, SHOULDER): AP, Axillary , , , Ordering Provider - SELIN NAVARRO MD , Rendering Provider - SELIN NAVARRO MD , Exam: SHOULDER LEFTAccession #: [id number] =========SHOULDER LEFT 03/23/2018 2:52 PM EDT SIGNS AND SYMPTOMS: M25.512 Pain in left shoulder I10 TECHNOLOGIST COMMENTS: left shoulder pain, limited ROM and weakness x5 days no known trauma QUESTION FOR THE RADIOLOGIST: , , Views (X-RAY, SHOULDER): AP, Axillary , , , Ordering Rimma NAVARRO MD , Rendering Provider Aleena NAVARRO MD , PROTOCOL: COMPARISON: None FINDINGS: Soft tissues:No acute findings Bones:No acute findingsOsteoporosis Joints:Mild AC joint arthritis IMPRESSION: 1. No acute abnormality2. Moderate AC joint arthritis Electronically signed by:Alicia Gorman. Transcribed by: [id number], User Resident: Electronically Signed by: ALICIA GORMAN @ 03/23/2018 04:10 PM Normal [facility] Comment on above: Order Comment: , , V iews (X-RAY, SHOULDER): AP, Axillary , , , Ordering Provider - SELIN NAVARRO MD , Rendering Provider - SELIN NAVARRO MD , Vital Signs Date Time Vital Sign Value Performing Clinician Facility 12-23-2023 09:37-0500 Body height 154.9 cm Fermin Taylor DPM Work Phone: [facility] 12-23-2023 09:37-0500 Body mass index (BMI) [Ratio] 34.96 kg/m2 Fermin Taylor DPM Work Phone: [facility] 12-23-2023 09:37-0500 Body weight 83.92 kg Fermin Taylor DPM Work Phone: [facility] 12-23-2023 09:37-0500 Diastolic blood pressure 81 mm[Hg] Fermin Taylor DPM Work Phone: [facility] 12-23-2023 09:37-0500 Heart rate 79 /min Fermin Taylor DPM Work Phone: [facility] 12-23-2023 09:37-0500 Systolic blood pressure 123 mm[Hg] Fermin Taylor DPM Work Phone: [facility] 10-27-2023 12:05-0500 Body temperature 97.8 [degF] 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 [facility] 10-27-2023 12:05-0500 Diastolic blood pressure 68 mm[Hg] 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 [facility] [facility] 10-27-2023 12:05-0500 Heart rate 75 /min 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 [facility] 10-27-2023 12:05-0500 Respiratory rate 17 /min [facility] 10-27-2023 12:05-0500 SaO2% (BldA) [Mass fraction] 96 % [facility] 10-27-2023 12:05-0500 Systolic blood pressure 119 mm[Hg] [facility] 10-27-2023 06:00-0500 Body weight 83.2 kg [facility] 10-26-2023 11:20-0500 Body height 160.02 cm [facility] 10-25-2023 16:27-0500 Inhaled oxygen flow rate 6 L/min [facility] 10-25-2023 13:48-0500 Body mass index (BMI) [Ratio] 32.4 kg/m2 [facility] 10-04-2023 12:40-0500 Blood Pressure Location Kortney Daphney [facility] 10-04-2023 12:40-0500 Body temperature 96.8 [degF] Kortney Daphney [facility] 10-04-2023 12:40-0500 Diastolic blood pressure 76 mm[Hg] Kortney Shelley [facility] 10-04-2023 12:40-0500 Heart rate 66 /min Kortney Daphney [facility] 10-04-2023 12:40-0500 Systolic blood pressure 132 mm[Hg] Kortney Shelley [facility] 09-20-2023 14:22-0500 Diastolic blood pressure 90 mm[Hg] Thai Abbasi [facility] 09-20-2023 14:22-0500 Heart rate 65 /min Andre Sarmini [facility] 09-20-2023 14:22-0500 Mean blood pressure 113 mm[Hg] Andre Sarmini [facility] 09-20-2023 14:22-0500 Respiratory rate 10 /min Andre Sarmini [facility] 09-20-2023 14:22-0500 SaO2% (BldA) [Mass fraction] 99 % Andre Sarmini [facility] 09-20-2023 14:22-0500 Systolic blood pressure 160 mm[Hg] Andre Sarmini [facility] 09-20-2023 14:11-0500 Diastolic blood pressure 90 mm[Hg] Andre Sarmini [facility] 09-20-2023 14:11-0500 Heart rate 67 /min Andre Sarmini [facility] 09-20-2023 14:11-0500 Mean blood pressure 117 mm[Hg] Andre Sarmini [facility] 09-20-2023 14:11-0500 Respiratory rate 19 /min Andre Sarmini [facility] 09-20-2023 14:11-0500 SaO2% (BldA) [Mass fraction] 100 % Andre Sarmini [facility] 09-20-2023 14:11-0500 Systolic blood pressure 170 mm[Hg] Andre Sarmini [facility] 09-20-2023 14:00-0500 Diastolic blood pressure 71 mm[Hg] Andre Sarmini [facility] 09-20-2023 14:00-0500 Heart rate 58 /min Andre Sarmini [facility] 09-20-2023 14:00-0500 Mean blood pressure 103 mm[Hg] Andre Sarmini [facility] 09-20-2023 14:00-0500 Systolic blood pressure 167 mm[Hg] Andre Sarmini [facility] 09-20-2023 13:18-0500 Blood Pressure Location Andre Sarmini [facility] 09-20-2023 13:18-0500 Body temperature 97.7 [degF] Andre Sarmini [facility] 09-20-2023 13:10-0500 Respiratory rate 16 /min Andre Sarmini [facility] 09-20-2023 13:05-0500 Respiratory rate 16 /min Andre Sarmini [facility] 09-20-2023 11:26-0500 gluc 84 mg/dL Andre Sarmini [facility] 09-20-2023 11:23-0500 Blood Pressure Location Andre Sarmini [facility] 09-20-2023 11:22-0500 Blood Pressure Location Andre Sarmini [facility] 09-20-2023 11:22-0500 Body temperature 97.34 [degF] Andre Sarmini [facility] 09-14-2023 09:37-0500 Body height 157.5 cm Alfie Neff MD Work Phone: [facility] 09-14-2023 09:37-0500 Body mass index (BMI) [Ratio] 33.84 kg/m2 Alfie Neff MD Work Phone: [facility] 09-14-2023 09:37-0500 Body weight 83.92 kg Alfie Neff MD Work Phone: [facility] 09-14-2023 09:37-0500 Diastolic blood pressure 60 mm[Hg] Alfie Neff MD Work Phone: [facility] 09-14-2023 09:37-0500 Heart rate 67 /min Alfie Neff MD Work Phone: [facility] 09-14-2023 09:37-0500 Systolic blood pressure 126 mm[Hg] Alfie Neff MD Work Phone: [facility] 08-25-2023 11:15-0400 Body height 160.02 cm Luigi Flower II Other [employer] Other 08-25-2023 11:15-0400 Body mass index (BMI) [Ratio] 32.77 kg/m2 Luigi Flower II Other [facility] Other 08-25-2023 11:15-0400 Body weight 83.92 kg Luigi Flower II Other [employer] Other 08-24-2023 14:17-0400 Blood Pressure Location Andre Sarmini [facility] 08-24-2023 14:17-0400 Diastolic blood pressure 70 mm[Hg] Andre Sarmini [facility] 08-24-2023 14:17-0400 Heart rate 76 /min Andre Sarmini [facility] 08-24-2023 14:17-0400 Respiratory rate 16 /min Andre Carlitomini [facility] 08-24-2023 14:17-0400 Systolic blood pressure 130 mm[Hg] Andre Carlitomini [facility] 07-14-2023 11:00-0400 Body height 160.02 cm Luigi Flower II Other [facility] Other 07-14-2023 11:00-0400 Body mass index (BMI) [Ratio] 33.48 kg/m2 Luigi Flower II Other [facility] Other 07-14-2023 11:00-0400 Body weight 85.73 kg Luigi Flower II Other [facility] Other 03-19-2023 11:45-0400 Body weight 85.28 kg Annelise Morgan DO Work Phone: [facility] 01-24-2023 14:43-0400 Diastolic blood pressure 79 mm[Hg] [facility] 01-24-2023 14:43-0400 Heart rate 74 /min [facility] 01-24-2023 14:43-0400 Mean blood pressure 98 mm[Hg] [facility] 01-24-2023 14:43-0400 Respiratory rate 14 /min [facility] 01-24-2023 14:43-0400 SaO2% (BldA) [Mass fraction] 100 % [facility] 01-24-2023 14:43-0400 Systolic blood pressure 135 mm[Hg] [facility] 01-24-2023 14:31-0400 Diastolic blood pressure 55 mm[Hg] [facility] 01-24-2023 14:31-0400 Heart rate 71 /min [facility] 01-24-2023 14:31-0400 Mean blood pressure 70 mm[Hg] [facility] 01-24-2023 14:31-0400 Respiratory rate 15 /min [facility] 01-24-2023 14:31-0400 SaO2% (BldA) [Mass fraction] 99 % [facility] 01-24-2023 14:31-0400 Systolic blood pressure 101 mm[Hg] [facility] 01-24-2023 14:02-0400 Diastolic blood pressure 64 mm[Hg] [facility] 01-24-2023 14:02-0400 Heart rate 62 /min [facility] 01-24-2023 14:02-0400 Mean blood pressure 80 mm[Hg] [facility] 01-24-2023 14:02-0400 Respiratory rate 16 /min [facility] 01-24-2023 14:02-0400 SaO2% (BldA) [Mass fraction] 97 % [facility] 01-24-2023 14:02-0400 Systolic blood pressure 111 mm[Hg] [facility] 01-24-2023 12:08-0400 Body temperature 98.24 [degF] [facility] 01-24-2023 12:08-0400 Heart rate 81 /min [facility] 01-06-2023 15:20-0500 Body height 160.02 cm Annelise Peñaloza Other [facility] [facility] Other 01-06-2023 15:20-0500 Body mass index (BMI) [Ratio] 33.83 kg/m2 Annelise Peñaloza Other [facility] Other 01-06-2023 15:20-0500 Body temperature 97.7 [degF] Annelise Peñaloza Other [facility] Other 01-06-2023 15:20-0500 Body weight 86.64 kg Annelise Peñaloza Other [facility] Other 01-06-2023 15:20-0500 Diastolic blood pressure 68 mm[Hg] Annelise Peñaloza Other [facility] Other 01-06-2023 15:20-0500 Respiratory rate 18 /min Annelise Peñaloza Other [facility] Other 01-06-2023 15:20-0500 SaO2% (BldA) [Mass fraction] 98 % Annelise Medeirosault Other [facility] Other 01-06-2023 15:20-0500 Systolic blood pressure 113 mm[Hg] Annelise Peñaloza Other [facility] Other 12-29-2022 17:00-0500 Body height 160.02 cm Annelise Medeirosault Other [facility] Other 12-29-2022 17:00-0500 Body mass index (BMI) [Ratio] 31.53 kg/m2 Annelise Medeirosault Other [facility] Other 12-29-2022 17:00-0500 Body temperature 97.4 [degF] Annelise Medeirosault Other [facility] Other 12-29-2022 17:00-0500 Body weight 80.74 kg Annelise Medeirosault Other [facility] Other 12-29-2022 17:00-0500 Respiratory rate 18 /min Annelise Peñaloza Other [facility] Other 12-29-2022 17:00-0500 SaO2% (BldA) [Mass fraction] 98 % Annelise Peñaolza Other [facility] Other 11-23-2022 13:30-0500 Body height 160.02 cm Annelise Peñaloza Other [facility] Other 11-23-2022 13:30-0500 Body mass index (BMI) [Ratio] 33.48 kg/m2 Annelise Peñaloza Other [facility] Other 11-23-2022 13:30-0500 Body temperature 97.7 [degF] Annelise Peñaloza Other [facility] Other 11-23-2022 13:30-0500 Body weight 85.73 kg Annelise Peñaloza Other [facility] Other 11-23-2022 13:30-0500 Diastolic blood pressure 63 mm[Hg] Annelise Peñaloza Other [facility] Other 11-23-2022 13:30-0500 Respiratory rate 18 /min Annelise Medeirosault Other [facility] Other 11-23-2022 13:30-0500 SaO2% (BldA) [Mass fraction] 100 % Annelise Medeirosault Other [facility] Other 11-23-2022 13:30-0500 Systolic blood pressure 119 mm[Hg] Annelise Anabela Other [facility] Other 11-09-2022 16:00-0500 Body height 160.02 cm Annelise Anabela Other [facility] Other 11-09-2022 16:00-0500 Body mass index (BMI) [Ratio] 33.48 kg/m2 Annelise Anabela Other [facility] Other 11-09-2022 16:00-0500 Body temperature 97.1 [degF] Annelise Anabela Other [facility] Other 11-09-2022 16:00-0500 Body weight 85.73 kg Annelise Anabela Other [facility] Other 11-09-2022 16:00-0500 Diastolic blood pressure 61 mm[Hg] Annelise Anabela Other [facility] Other 11-09-2022 16:00-0500 Respiratory rate 18 /min Annelise Anabela Other [facility] Other 11-09-2022 16:00-0500 SaO2% (BldA) [Mass fraction] 98 % Annelise Anabela Other [facility] Other 11-09-2022 16:00-0500 Systolic blood pressure 109 mm[Hg] Annelise Anabela Other [facility] Other 09-10-2022 15:25-0400 Body height 157.48 cm Annelise Peñaloza Work Phone: [place] [address] DO Work Phone: 09-10-2022 15:25-0400 Body mass index (BMI) [Ratio] 34.2 kg/m2 Annelise Menjivar Anabela Work Phone: [facility] [address] DO Work Phone: 09-10-2022 15:25-0400 Body surface area Derived from formula 1.86 m2 Annelise Otto Peñaloza Work Phone: [facility] 250 DO Work Phone: 09-10-2022 15:25-0400 Body weight 84.82 kg Annelise Menjivar Anabela Work Phone: [facility] 250 DO Work Phone: 09-10-2022 15:25-0400 Diastolic blood pressure 67 mm[Hg] Annelise J Anabela Work Phone: [facility] 250 DO Work Phone: 09-10-2022 15:25-0400 Heart rate 60 /min Annelise Menjivar Anabela Work Phone: [facility] 250 DO Work Phone: 09-10-2022 15:25-0400 Systolic blood pressure 118 mm[Hg] Annelise J Anabela Work Phone: [facility] 250 DO Work Phone: 09-08-2022 15:00-0400 Body height 160.02 cm Annelise Peñaloza Other [facility] Other 09-08-2022 15:00-0400 Body mass index (BMI) [Ratio] 33.3 kg/m2 Annelise Peñaloza Other [facility] Other 09-08-2022 15:00-0400 Body temperature 98 [degF] Annelise Peñaloza Other [facility] Other 09-08-2022 15:00-0400 Body weight 85.28 kg Annelise Peñaloza Other [facility] Other 09-08-2022 15:00-0400 Diastolic blood pressure 74 mm[Hg] Annelise Peñaloza Other [facility] Other 09-08-2022 15:00-0400 Respiratory rate 18 /min Annelise Peñaloza Other [facility] Other 09-08-2022 15:00-0400 SaO2% (BldA) [Mass fraction] 97 % Annelise Peñaloza Other [facility] Other 09-08-2022 15:00-0400 Systolic blood pressure 122 mm[Hg] Annelise Peñaloza Other [facility] Other 09-02-2022 17:45-0400 Body height 160.02 cm Ltaisha Negretemond Other [facility] Other 09-02-2022 17:45-0400 Body mass index (BMI) [Ratio] 31.17 kg/m2 Latisha Letty Other [facility] Other 09-02-2022 17:45-0400 Body temperature 97.3 [degF] Latisha Letty Other [facility] Other 09-02-2022 17:45-0400 Body weight 79.83 kg Latisha Saenz Other [facility] Other 09-02-2022 17:45-0400 Diastolic blood pressure 71 mm[Hg] Latisha Saenz Other [facility] Other 09-02-2022 17:45-0400 Respiratory rate 16 /min Latisha Saenz Other [facility] Other 09-02-2022 17:45-0400 SaO2% (BldA) [Mass fraction] 99 % Latisha Saenz Other [facility] Other 09-02-2022 17:45-0400 Systolic blood pressure 134 mm[Hg] Latisha Saenz Other [facility] Other 07-30-2022 14:00-0400 Body height 160.02 cm Luigi Casonisle II Other [facility] Other 07-30-2022 14:00-0400 Body mass index (BMI) [Ratio] 31.17 kg/m2 Luigi Casonisle II Other [facility] Other 07-30-2022 14:00-0400 Body weight 79.83 kg Luigi Yuba II Other [facility] Other 07-06-2022 18:30-0400 Body height 160.02 cm Annelise Peñaloza Other [facility] Other 07-06-2022 18:30-0400 Body mass index (BMI) [Ratio] 31.53 kg/m2 Annelise Peñaloza Other [facility] Other 07-06-2022 18:30-0400 Body temperature 97.7 [degF] Annelise Peñaloza Other [facility] Other 07-06-2022 18:30-0400 Body weight 80.74 kg Annelise Peñaloza Other [facility] Other 07-06-2022 18:30-0400 Diastolic blood pressure 71 mm[Hg] Annelise Peñaloza Other [facility] Other 07-06-2022 18:30-0400 Respiratory rate 16 /min Annelise Peñaloza Other [facility] Other 07-06-2022 18:30-0400 SaO2% (BldA) [Mass fraction] 97 % Annelise Peñaloza Other [facility] Other 07-06-2022 18:30-0400 Systolic blood pressure 136 mm[Hg] Annelise Peñaloza Other [facility] Other 06-16-2022 11:00-0400 Body height 160.02 cm Annelise Peñaloza Other [facility] Other 06-16-2022 11:00-0400 Body mass index (BMI) [Ratio] 31.53 kg/m2 Annelise Medeirosault Other [facility] Other 06-16-2022 11:00-0400 Body temperature 97.1 [degF] Annelise Peñaloza Other [facility] Other 06-16-2022 11:00-0400 Body weight 80.74 kg Annelise Medeirosault Other [facility] Other 06-16-2022 11:00-0400 Diastolic blood pressure 64 mm[Hg] Annelise Medeirosault Other [facility] Other 06-16-2022 11:00-0400 Respiratory rate 16 /min Annelise Peñaloza Other [facility] Other 06-16-2022 11:00-0400 SaO2% (BldA) [Mass fraction] 99 % Annelise Peñaloaz Other [facility] Other 06-16-2022 11:00-0400 Systolic blood pressure 124 mm[Hg] Annelise Peñaloza Other [facility] Other 06-04-2022 14:00-0400 Body height 160.02 cm Annelise Peñaloza Other [facility] Other 06-04-2022 14:00-0400 Body mass index (BMI) [Ratio] 31.53 kg/m2 Annelise Peñaloza Other [facility] Other 06-04-2022 14:00-0400 Body temperature 97.3 [degF] Annelise Peñaloza Other [facility] Other 06-04-2022 14:00-0400 Body weight 80.74 kg Annelise Peñaloza Other [facility] Other 06-04-2022 14:00-0400 Diastolic blood pressure 61 mm[Hg] Annelise Peñaloza Other [facility] Other 06-04-2022 14:00-0400 Respiratory rate 16 /min Annelise Peñaloza Other [facility] Other 06-04-2022 14:00-0400 SaO2% (BldA) [Mass fraction] 100 % Annelise Anabela Other [facility] Other 06-04-2022 14:00-0400 Systolic blood pressure 130 mm[Hg] Annelise Peñaloza Other [facility] Other 04-29-2022 14:00-0400 Body height 160.02 cm De Novo Other [facility] Other 04-29-2022 14:00-0400 Body mass index (BMI) [Ratio] 31.53 kg/m2 Luigi Polyera Other [facility] Other 04-29-2022 14:00-0400 Body weight 80.74 kg De Novo Other [facility] Other 04-05-2022 15:25-0400 Body height 160.02 cm Nima Gallardoaker Other [facility] Other 04-05-2022 15:25-0400 Body mass index (BMI) [Ratio] 29.76 kg/m2 Nima Henning Other [facility] Other 04-05-2022 15:25-0400 Body temperature 97.3 [degF] Nima Henning Other [facility] Other 04-05-2022 15:25-0400 Body weight 76.2 kg Nima Henning Other [facility] Other 04-05-2022 15:25-0400 Diastolic blood pressure 66 mm[Hg] Nima Henning Other [facility] Other 04-05-2022 15:25-0400 Respiratory rate 16 /min Nima Henning Other [facility] Other 04-05-2022 15:25-0400 SaO2% (BldA) [Mass fraction] 97 % Nima Henning Other [facility] Other 04-05-2022 15:25-0400 Systolic blood pressure 127 mm[Hg] Nima Henning Other [facility] Other 03-05-2022 14:15-0400 Body height 160.02 cm Luigi Yuba II Other [facility] Other 03-05-2022 14:15-0400 Body mass index (BMI) [Ratio] 30.82 kg/m2 Luigi Mundo II Other [facility] Other 03-05-2022 14:15-0400 Body weight 78.93 kg Luigi Yuba II Other [facility] Other 01-01-2022 14:00-0500 Body height 160.02 cm Luigi Yuba II Other [facility] Other 01-01-2022 14:00-0500 Body mass index (BMI) [Ratio] 27.81 kg/m2 Luigi Yuba II Other [facility] Other 01-01-2022 14:00-0500 Body weight 71.22 kg Luigi Yuba II Other [facility] Other 12-30-2021 11:30-0500 Body height 160.02 cm Annelise Peñaloza Other [facility] Other 12-30-2021 11:30-0500 Body mass index (BMI) [Ratio] 29.58 kg/m2 Annelise Peñaloza Other [facility] Other 12-30-2021 11:30-0500 Body temperature 97.1 [degF] Annelise Peñaloza Other [facility] Other 12-30-2021 11:30-0500 Body weight 75.75 kg Annelise Peñaloza Other [facility] Other 12-30-2021 11:30-0500 Respiratory rate 18 /min Annelise Peñaloza Other [facility] Other 12-30-2021 11:30-0500 SaO2% (BldA) [Mass fraction] 99 % Annelise Peñaloza Other [facility] Other 12-03-2021 14:30-0500 Body height 160.02 cm Yony Monahan Other [facility] Other 12-03-2021 14:30-0500 Body mass index (BMI) [Ratio] 29.67 kg/m2 Yony Arguellono Other [facility] Other 12-03-2021 14:30-0500 Body temperature 94.8 [degF] Harriser Taniya Other [facility] Other 12-03-2021 14:30-0500 Body weight 75.98 kg Harriser Taniya Other [facility] Other 12-03-2021 14:30-0500 Diastolic blood pressure 65 mm[Hg] Harriser Taniya Other [facility] Other 12-03-2021 14:30-0500 SaO2% (BldA) [Mass fraction] 99 % Yony Arguellono Other [facility] Other 12-03-2021 14:30-0500 Systolic blood pressure 97 mm[Hg] Yony Taniya Other [facility] Other 09-29-2021 15:30-0500 Body height 160.02 cm Annelise Medeirosault Other [facility] Other 09-29-2021 15:30-0500 Body mass index (BMI) [Ratio] 30.11 kg/m2 Annelise Anabela Other [facility] Other 09-29-2021 15:30-0500 Body temperature 97.3 [degF] Annelise Anabela Other [facility] Other 09-29-2021 15:30-0500 Body weight 77.11 kg Annelise Medeirosault Other [facility] Other 09-29-2021 15:30-0500 Diastolic blood pressure 70 mm[Hg] Annelise Anabela Other [facility] Other 09-29-2021 15:30-0500 Respiratory rate 18 /min Annelise Anabela Other [facility] Other 09-29-2021 15:30-0500 SaO2% (BldA) [Mass fraction] 98 % Annelise Anabela Other [facility] Other 09-29-2021 15:30-0500 Systolic blood pressure 143 mm[Hg] Annelise Peñaloza Other [facility] Other 09-19-2021 11:30-0500 Body height 160.02 cm Luigi Mendozale II Other [facility] Other 09-19-2021 11:30-0500 Body mass index (BMI) [Ratio] 29.93 kg/m2 Luigi Casonisle II Other [facility] Other 09-19-2021 11:30-0500 Body weight 76.66 kg Luigi Casonisle II Other [facility] Other 09-11-2021 15:30-0400 Body height 160.02 cm Annelise Peñaloza Other [facility] Other 09-11-2021 15:30-0400 Body mass index (BMI) [Ratio] 30.11 kg/m2 Annelise Peñaloza Other [facility] Other 09-11-2021 15:30-0400 Body temperature 98 [degF] Annelise Peñaloza Other [facility] Other 09-11-2021 15:30-0400 Body weight 77.11 kg Annelise Peñaloza Other [facility] Other 09-11-2021 15:30-0400 Diastolic blood pressure 68 mm[Hg] Annelise Peñaloza Other [facility] Other 09-11-2021 15:30-0400 Respiratory rate 18 /min Annelise Medeirosault Other [facility] Other 09-11-2021 15:30-0400 SaO2% (BldA) [Mass fraction] 98 % Annelise Peñaloza Other [facility] Other 09-11-2021 15:30-0400 Systolic blood pressure 129 mm[Hg] Annelise Peñaloza Other [facility] Other Encounters Encounter Date Encounter Type Care Provider Facility Start: 01-27-2024 End: 01-27-2024 ambulatory Luigi Flower II Facility:[facility] Start: 01-27-2024 End: 01-27-2024 ambulatory 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 Annelise [facility] Work Phone: Start: 01-27-2024 End: 01-27-2024 Patient encounter procedure 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 Annelise Peñaloza [facility] Work Phone: Start: 01-26-2024 End: 01-26-2024 ambulatory RADHA CARLGISELALeón Not Available Start: 01-21-2024 End: 01-21-2024 ambulatory Anenlise Peñaloza Facility:[facility] Start: 01-21-2024 End: 01-21-2024 ambulatory 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 Annelise Peñaloza [facility] Work Phone: Start: 01-21-2024 End: 01-21-2024 Patient encounter procedure 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 Annelise Peñaloza [facility] Work Phone: Start: 01-19-2024 End: 01-19-2024 ambulatory KRISHNA BRINK Not Available Start: 01-13-2024 End: 01-13-2024 ambulatory FERMIN TAYLOR Not Available Start: 01-12-2024 End: 01-12-2024 ambulatory KRISHNA BRINK Not Available Start: 2024 End: 2024 ambulatory KRISHNA BRINK Not Available Start: 01-05-2024 End: 01-05-2024 ambulatory KRISHNA BRINK Not Available Start: 12-31-2023 End: 12-31-2023 ambulatory RADHA SOLOMON Not Available Start: 12-29-2023 End: 12-29-2023 ambulatory SAMMY GILBERT Not Available Start: 12-24-2023 End: 12-24-2023 ambulatory KRISHNA WEISS Not Available Start: 12-23-2023 Chart abstracting Fermin langston DPM Work Phone: [facility] Start: 12-23-2023 End: 12-23-2023 ambulatory FERMIN TAYLOR Not Available Start: 12-23-2023 End: 12-23-2023 Office outpatient visit 25 minutes Fermin Taylor DPM Work Phone: [facility] Comment on above: Contusion of right f oot, initial encounter (Primary Dx); Diabetes mellitus due to underlying condition with diabetic polyneuropathy, without long-term current use of insulin ([facility]); Venous insufficiency; Closed nondisplaced fracture of proximal phalanx of lesser toe of right foot, initial encounter; Contracture of right ankle Start: 12-22-2023 Bamboo flowsheet Radha Solomon CAREER AGENT [facility] Start: 12-22-2023 Bamboo flowsheet Radha Solomon CAREER AGENT [facility] Start: 12-22-2023 End: 12-22-2023 Admission to same day surgery center Radha Solomon CAREER AGENT [facility] Comment on above: Right hip pain (Prim anusha Dx); Aftercare following right hip joint replacement surgery; Difficulty walking Start: 12-22-2023 End: 12-22-2023 ambulatory Radha Solomon CAREER AGENT [facility] Start: 12-17-2023 End: 12-17-2023 Admission to same day surgery center Krishna Shashank CAREER AGENT [facility] Comment on above: Right hip pain (Prim anusha Dx); Aftercare following right hip joint replacement surgery; Difficulty walking Start: 12-17-2023 End: 12-17-2023 ambulatory Krishna Weiss CAREER AGENT [facility] Start: 12-15-2023 Bamboo flowsheet Krishna Weiss CAREER AGENT [facility] Start: 12-15-2023 Bamboo flowsheet Krishna Weiss CAREER AGENT [facility] Start: 12-15-2023 End: 12-15-2023 Admission to same day surgery center Krishna Weiss CAREER AGENT [facility] Comment on above: Right hip pain (Prim anusha Dx); Aftercare following right hip joint replacement surgery; Difficulty walking Start: 12-15-2023 End: 12-15-2023 ambulatory Krishna Weiss CAREER AGENT [facility] Start: 12-10-2023 Bamboo flowsheet Booker Moffett PT A [facility] Start: 12-10-2023 Bamboo flowsheet Booker Moffett PT A [facility] Start: 12-10-2023 End: 12-10-2023 Admission to same day surgery center Booker Moffett CAREER AGENT [facility] Comment on above: Right hip pain (Prim anusha Dx); Aftercare following right hip joint replacement surgery; Difficulty walking Start: 12-10-2023 End: 12-10-2023 ambulatory Booker Moffett CAREER AGENT [facility] Start: 12-09-2023 End: 12-09-2023 ambulatory Luigi Flower II Facility:[facility] Start: 12-09-2023 Postop follow up vis it related to original px Luigi Flower II [facility] Start: 12-09-2023 End: 12-09-2023 ambulatory 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 Annelise [facility] Work Phone: Start: 12-09-2023 End: 12-09-2023 Patient encounter procedure 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 [facility] Start: 12-08-2023 End: 12-08-2023 ambulatory SAMMY OFELIA Not Available Start: 12-03-2023 End: 12-03-2023 ambulatory KRISHNA WEISS Not Available Start: 12-01-2023 End: 12-02-2023 ambulatory SAMMY OFELIA Not Available Start: 11-26-2023 End: 11-29-2023 ambulatory BOOKER MOFFETT Not Available Start: 11-24-2023 End: 11-24-2023 ambulatory Luigi Flower II Other [facility] Other Start: 11-24-2023 Postop follow up vis it related to original px Luigi Flower II [facility] Start: 11-22-2023 End: 11-22-2023 ambulatory SAMMY GILBERT Not Available Start: 11-18-2023 End: 11-18-2023 ambulatory Bhakti Waddell Other [facility] Other Start: 11-18-2023 Telephone encounter Bhakti Waddell [facility] Start: 11-17-2023 End: 11-17-2023 ambulatory AZAEL PAK Not Available Start: 11-10-2023 End: 11-10-2023 Patient encounter procedure 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 Annelise Peñaloza [facility] Work Phone: Start: 11-04-2023 End: 11-04-2023 ambulatory FERMIN Olson CLAUDIA Not Available Start: 10-28-2023 End: 10-28-2023 ambulatory Luigi Mendozale II Other [facility] Other Start: 10-28-2023 Telephone encounter Luigi Yuba II [facility] Start: 10-27-2023 End: 10-27-2023 ambulatory Luigi Casonisle II Other [facility] Other Start: 10-27-2023 Telephone encounter Luigi Yuba II [facility] Start: 10-25-2023 End: 10-27-2023 ambulatory Luigi Mendozale II Facility:[facility] Start: 10-25-2023 End: 10-27-2023 Admission to same day surgery center 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 [facility] [place] Start: 10-25-2023 End: 10-27-2023 Evaluation and management of inpatient 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 Annelise [facility] [place] [address] Surgical Work Phone: Start: 10-21-2023 End: 10-21-2023 ambulatory Luigi Casonisle II Other [facility] Other Start: 10-21-2023 Telephone encounter Luigi Yuba II [facility] Start: 10-15-2023 End: 10-15-2023 ambulatory Luigi Yuba II Other [facility] Other Start: 10-15-2023 Telephone encounter Luigi Mundo II [facility] Start: 10-14-2023 End: 10-15-2023 ambulatory Luigi M Mundo II Facility:[facility] Start: 10-14-2023 Registered Recurring 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 Jarrett owens [facility] Ctr-Physical Therapy [facility] [place] Start: 10-13-2023 End: 10-13-2023 ambulatory Luigi Mundo II Other [facility] Other Start: 10-13-2023 Office outpatient vi sit 40 minutes Luigi Mundo II [facility] Start: 10-11-2023 End: 10-11-2023 ambulatory Luigi Soco Mendozale II Facility:[facility] Start: 10-11-2023 End: 10-11-2023 ambulatory 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 Annelise Peñaloza [facility] Work Phone: Start: 10-11-2023 End: 10-11-2023 Patient encounter procedure 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 Annelise Peñaloza [facility] Work Phone: Start: 10-04-2023 End: 10-05-2023 ambulatory Kortney Shelley Facility:[facility] Start: 10-04-2023 End: 10-04-2023 Patient encounter procedure Kortney Shelley [facility] Start: 09-20-2023 End: 09-20-2023 ambulatory ANNELISE PEÑALOZA Facility[place] Start: 09-20-2023 End: 09-20-2023 Patient encounter procedure Andre Talal Sarmini [facility] Start: 09-14-2023 End: 09-14-2023 ambulatory ALFIE NEFF [facility] Ambulatory Start: 09-14-2023 End: 09-14-2023 Office outpatient visit 25 minutes Alfie Neff MD Work Phone: [facility] Comment on above: Palpitations (Primar y Dx); Mixed hyperlipidemia; Essential hypertension; Paroxysmal atrial fibrillation (CMS/HCC) Start: 09-07-2023 End: 09-07-2023 ambulatory Luigi Mundo II Other [facility] Other Start: 09-07-2023 Telephone encounter Luigi Yuba II [facility] Start: 08-25-2023 End: 08-25-2023 ambulatory Luigi Mundo II Other [facility] Other Start: 08-25-2023 Office outpatient vi sit 40 minutes Luigi Yuba II [facility] Start: 08-24-2023 End: 08-25-2023 ambulatory ANNELISEGILBERTO PEÑALOZA Facility:[facility] Start: 08-24-2023 End: 08-24-2023 Patient encounter procedure Thai Sarabia Sarmini [facility] Start: 08-19-2023 End: 08-20-2023 ambulatory LUIGI FLOWER Facility:[facility] Start: 08-11-2023 ambulatory ANNELISE PEÑALOZA Facil ity:[place] Start: 08-06-2023 End: 08-07-2023 ambulatory LENNY BRADSHAW Facility:[facility] Start: 07-16-2023 End: 07-17-2023 ambulatory ANNELISEGILBERTO PEÑALOZA Facility:[facility] Start: 07-14-2023 Office outpatient vi sit 25 minutes Luigi Yuba II [facility] Start: 07-14-2023 End: 07-14-2023 ambulatory Luigi Flower II Facility:[facility] Start: 07-14-2023 End: 07-14-2023 ambulatory 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 Annelise Peñaloza [facility] Work Phone: Start: 07-14-2023 End: 07-14-2023 Patient encounter procedure 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 Annelise Peñaloza [facility] Start: 05-03-2023 ambulatory No Pcp MOBILITY ARCHITECT MANAGER [facility] [place] Start: 04-26-2023 ambulatory No Pcp [facility] [place] Start: 04-23-2023 Telephone encounter Bhakti parra HOT BRAIDER Work Phone: General Surgery Comment on above: Results Start: 04-14-2023 End: 04-14-2023 Orders Only Annelisegilberto Morgan DO Work Phone: General Surgery Comment on above: Lymphedema (Primary Dx) Thyroid nodule [E04. 1] Start: 03-26-2023 End: 03-26-2023 Subsequent hospital visit by physician [facility] Work Phone: [facility] Radiology Ultrasound Comment on above: Breast pain, left [N 64.4] Start: 03-19-2023 End: 03-19-2023 ambulatory ATILIO WOLFF [facility] Facility:[facility] Start: 03-19-2023 End: 03-19-2023 Patient encounter procedure Annelise Morgan DO Work Phone: General Surgery Comment on above: Breast pain, left (P rimary Dx); Lymphedema; Left arm swelling Start: 03-12-2023 End: 11-08-2023 ambulatory ANNELISE PEÑALOZA Facility:[facility] Start: 03-12-2023 End: 06-10-2023 Recurring ANNELISE PEÑALOZA [facility] Start: 03-03-2023 Orders Only Bhakti nguyen HOT BRAIDER Work Phone: [facility] Start: 02-23-2023 ambulatory Adryan KELLOGG Facility :[facility] Start: 02-22-2023 End: 02-22-2023 ambulatory Nima Pepper Other [facility] Other Start: 02-22-2023 Telephone encounter Nima CARPIO [facility] Start: 02-15-2023 End: 02-15-2023 ambulatory Annelise Peñaloza Facility:[facility] Start: 02-15-2023 End: 02-15-2023 ambulatory 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 Annelise Peñaloza Work Phone: [facility] Work Phone: Start: 02-15-2023 End: 02-15-2023 Patient encounter procedure 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 Annelise Peñaloza Work Phone: [facility]-Electrodiagnostics Work Phone: Start: 02-15-2023 ambulatory Ms. Annelise Peñaloza Facility:[id number] Start: 02-03-2023 End: 02-04-2023 ambulatory ANNELISE PEÑALOZA Facility: Start: 02-03-2023 End: 02-04-2023 ambulatory ANNELISE PEÑALOZA Facility: Start: 01-29-2023 End: 01-30-2023 ambulatory ANNELISE PEÑALOZA Facility:[facility] Start: 01-29-2023 End: 01-29-2023 Lab Drop off ANNELISE PEÑALOZA [facility] Start: 01-24-2023 End: 01-24-2023 Emergency department patient visit Yakelin Rajan Roman Facility:[facility] Start: 01-24-2023 End: 01-24-2023 [facility] Start: 01-13-2023 End: 01-13-2023 ambulatory Luigi Flower II Other [facility] Other Start: 01-13-2023 Office outpatient vi sit 25 minutes Luigi Flower II [facility] Start: 01-08-2023 End: 01-08-2023 ambulatory Annelise Peñaloza Other [facility] Other Start: 01-08-2023 Telephone encounter Annelise Bebayonirabia carson [facility] Start: 01-06-2023 End: 01-06-2023 ambulatory Annelise Medeirosault Other [facility] Other Start: 01-06-2023 Office outpatient vi sit 25 minutes Annelise Anabela [facility] Start: 01-05-2023 End: 01-05-2023 Patient encounter procedure 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 Annelise Medeirosault Work Phone: [facility] Work Phone: Start: 01-04-2023 End: 01-04-2023 ambulatory ANNELISE MEDEIROSAULT Facility: Start: 12-29-2022 End: 12-29-2022 Patient encounter procedure 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 Annelise Peñaloza Work Phone: [facility] [place] Work Phone: Start: 12-29-2022 End: 12-29-2022 ambulatory 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 Annelise Peñaloza Work Phone: [facility] Work Phone: Start: 12-29-2022 Office outpatient vi sit 25 minutes Annelise Medeirosault [facility] Start: 11-23-2022 End: 11-23-2022 ambulatory Annelisegilberto Peñaloza Other [employer] Other Start: 11-23-2022 Patient encounter procedure Annelise Medeirosault [facility] [place] Start: 11-19-2022 Telephone encounter Luigi Flower II [facility] Start: 11-19-2022 End: 11-19-2022 ambulatory 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 Annelise Anabela Work Phone: [facility] Work Phone: Start: 11-19-2022 End: 11-19-2022 Patient encounter procedure 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 Annelise Anabela Work Phone: [facility] Start: 11-09-2022 End: 11-10-2022 ambulatory ANNELISE PEÑALOZA [facility] [employer] Other Start: 11-09-2022 Office outpatient vi sit 15 minutes Annelise Peñaloza [facility] Start: 11-04-2022 End: 11-04-2022 ambulatory Annelise Peñaloza Other [employer] Other Start: 11-04-2022 Telephone encounter Annelise carson [facility] Start: 11-03-2022 End: 11-03-2022 Patient encounter procedure Adryan KELLOGG [facility] Start: 10-27-2022 End: 10-27-2022 ambulatory Luigi Flower II Other [employer] Other Start: 10-27-2022 Telephone encounter Luigi Mundo II [facility] Start: 09-10-2022 Office outpatient vi sit 25 minutes Annelise Peñaloza Work Phone: [facility] DO Work Phone: Start: 09-10-[address] Alfie Neff II Facility: Start: 09-08-2022 End: 09-08-2022 ambulatory Annelise Peñaloza Other [employer] Other Start: 09-08-2022 Office outpatient vi sit 15 minutes Annelise Peñaloza [facility] Start: 09-03-2022 End: 09-03-2022 ambulatory Annelise Peñaloza Other [employer] Other Start: 09-03-2022 Telephone encounter Annelise Breyonil t [facility] Start: 09-02-2022 End: 09-02-2022 Departed Referred 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 Annelise Peñaloza Work Phone: [facility] [place] Start: 09-02-2022 End: 09-02-2022 ambulatory 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 Annelise Pñealoza Work Phone: [facility] Work Phone: Start: 09-02-2022 Office outpatient vi sit 15 minutes Latisha Saenz [facility] Start: 08-25-2022 End: 08-25-2022 ambulatory Annelise Anabela Other [employer] Other Start: 08-25-2022 Telephone encounter Annelise Breaul t [facility] Start: 08-17-2022 (Procedure) Rm Pepper [facility] Start: 08-17-2022 End: 08-17-2022 ambulatory Nima Pepper Other [facility] Other Start: 07-30-2022 End: 07-30-2022 ambulatory Luigi Mundo II Other [employer] Other Start: 07-30-2022 Office outpatient vi sit 25 minutes Luigi Yuba II [facility] Start: 07-24-2022 End: 07-24-2022 ambulatory Annelise Anabela Other [employer] Other Start: 07-24-2022 Telephone encounter Annelise Breaul t [facility] Start: 07-06-2022 End: 07-06-2022 ambulatory Annelise Anabela Other [employer] Other Start: 07-06-2022 Office outpatient vi sit 25 minutes Annelise Anabela [facility] Start: 07-02-2022 End: 07-02-2022 ambulatory Annelise Peñaloza Other [employer] Other Start: 07-02-2022 Telephone encounter Annelise Breaul t [facility] Start: 07-02-2022 End: 07-02-2022 Patient encounter procedure 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 Annelise Peñaloza Work Phone: [facility] Start: 06-26-2022 End: 06-26-2022 ambulatory Annelise Peñaloza Other [employer] Other Start: 06-26-2022 Telephone encounter Annelise Breaul t [facility] Start: 06-23-2022 End: 06-23-2022 ambulatory Annelise Peñaloza Other [employer] Other Start: 06-23-2022 Telephone encounter Annelisegilberto Marvinl t [facility] Start: 06-16-2022 End: 06-16-2022 ambulatory Annelise Peñaloza Other [employer] Other Start: 06-16-2022 Office outpatient vi sit 25 minutes Annelise Anabela [facility] Start: 06-04-2022 End: 06-04-2022 ambulatory Annelisegilberto Peñaloza Other [employer] Other Start: 06-04-2022 Office outpatient vi sit 25 minutes Annelise Anabela [facility] Start: 05-18-[address] Alfie Neff II Facility: Start: 04-29-2022 End: 04-29-2022 ambulatory Luigi Flower II Other [employer] Other Start: 04-29-2022 Office outpatient vi sit 15 minutes Luigi Mundo II [facility] Start: 04-23-2022 End: 04-23-2022 ambulatory Luigi Yuba II Other [employer] Other Start: 04-23-2022 Telephone encounter Luigi Yuba II [facility] Start: 04-10-2022 End: 04-10-2022 ambulatory Nima Henning Other [employer] Other Start: 04-10-2022 Telephone encounter Nima [facility] [address] Start: 04-05-2022 End: 04-05-2022 ambulatory Nima Henning Other [employer] Other Start: 04-05-2022 Office outpatient vi sit 15 minutes Nima Henning [facility] Start: 03-05-2022 End: 03-05-2022 ambulatory Luigi Mundo II Other [employer] Other Start: 03-05-2022 Office outpatient vi sit 25 minutes Luigi Yuba II [facility] Start: 02-24-2022 End: 02-24-2022 ambulatory Annelise Peñaloza Other [employer] Other Start: 02-24-2022 Telephone encounter Annelise carson [facility] Start: 02-03-2022 End: 02-03-2022 ambulatory Luigi Yuba II Other [employer] Other Start: 02-03-2022 Telephone encounter Luigi Yuba II [facility] Start: 01-01-2022 End: 01-01-2022 ambulatory Luigi Yuba II Other [employer] Other Start: 01-01-2022 Office outpatient vi sit 25 minutes Luigi Yuba II [facility] Start: 12-30-2021 End: 12-30-2021 ambulatory Annelise Peñaloza Other [employer] Other Start: 12-30-2021 Office outpatient vi sit 15 minutes Annelise Peñaloza [facility] Start: 12-04-2021 End: 12-04-2021 ambulatory Yony Monahan Other [employer] Other Start: 12-04-2021 Telephone encounter Yony evans [facility] Start: 12-03-2021 End: 12-03-2021 ambulatory Yony Monahan Other [employer] Other Start: 12-03-2021 Office outpatient ne w 30 minutes Yony Monahan [facility] Start: 10-21-2021 End: 10-21-2021 ambulatory Luigi Yuba II Other [employer] Other Start: 10-21-2021 Telephone encounter Luigi Yuba II [facility] Start: 10-10-2021 Message Alfie murillo MD Work Phone: [facility] 250 DO Work Phone: Start: 10-10-2021 End: 10-10-2021 ambulatory Annelise Peñaloza Other [employer] Other Start: 10-10-2021 Telephone encounter Annelise carson [facility] Start: 10-08-2021 End: 10-08-2021 ambulatory Luigi Yuba II Other [employer] Other Start: 10-08-2021 Telephone encounter Luigi Yuba II [facility] Start: 10-07-2021 End: 10-07-2021 ambulatory Luigi Yuba II Other [employer] Other Start: 10-07-2021 Telephone encounter Luigi Yuba II [facility] Start: 10-06-2021 End: 10-06-2021 ambulatory Luigi Yuba II Other [employer] Other Start: 10-06-2021 Telephone encounter Luigi Mendozale II [facility] Start: 09-29-2021 End: 09-29-2021 ambulatory Annelise Peñaloza Other [employer] Other Start: 09-29-2021 Office outpatient vi sit 15 minutes Annelise Anabela [facility] Start: 09-19-2021 End: 09-19-2021 ambulatory Luigi Yuba II Other [employer] Other Start: 09-19-2021 Office outpatient vi sit 15 minutes Luigi Yuba II [facility] Start: 09-12-2021 End: 09-12-2021 ambulatory Luigi Yuba II Other [employer] Other Start: 09-12-2021 Telephone encounter Luigi Mendozale II [facility] Start: 09-11-2021 End: 09-11-2021 ambulatory Annelise Medeirosault Other [employer] Other Start: 09-11-2021 Office outpatient vi sit 15 minutes Annelise Anabela [facility] Start: 07-16-2021 End: 09-19-2021 Pre-admission assessment Luis Avilez [facility] Start: 03-23-2018 End: 03-24-2018 Ambulatory SELIN NAVARRO Facility:[facility] Start: 03-23-2018 End: 03-24-2018 Ambulatory DEFAULT PHYSICIAN Facility:[facility] Procedures Date Procedure Procedure Detail Performing Clinician Start: 01-27-2024 Plain X-ray of right hip 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 Annelise Peñaloza Start: 01-21-2024 Ultrasonography of left breast 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 Jarrett Peñaloza Start: 01-21-2024 Bilateral mammography 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 Annelise Peñaloza Start: 12-09-2023 Plain X-ray of right hip 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 Annelise Peñaloza Start: 10-25-2023 Plain X-ray of right hip 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 Annelise Peñaloza Start: 10-25-2023 Total replacement of right hip joint 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 Annelise Peñaloza Start: 10-25-2023 Plain X-ray of right hip 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 Annelise Peñaloza Start: 10-11-2023 Antibody screen Luigi Flower II Comment on above: Order Comment: Date of Surgery: [id number] Result Comment: PERF ORMED BY: [facility] [address] [place] [address] PATHOLOGIST DIRECTOR OF MANAGED CARE HARI GUERRA M.D. Start: 09-20-2023 Colonoscopy Booker Betina PEACE Start: 09-20-2023 Colonoscopy Thai Estebantania Start: 09-20-2023 Esophagogastroduodenoscopy Andre Teresa injus Start: 09-14-2023 ECG 12-LEAD ALFIE NEFF Start: 09-14-2023 Ecg routine ecg w/least 12 lds w/i&r Alfie Neff MD Work Phone: Start: 07-14-2023 Plain X-ray of right hip 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 Annelise Peñaloza Start: 04-14-2023 Us soft tissue head & neck real time imge docm Annelise Olson Eddie DO Work Phone: Start: 03-26-2023 Dup-scan xtr veins unilateral/limited study Annelise Olson Eddie DO Work Phone: Start: 01-05-2023 End: 01-05-2023 Mammography of left breast 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 Mohit Peñaloza Work Phone: Start: 01-05-2023 Ultrasonography of left breast 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 Jarrett Peñaloza Work Phone: Start: 01-04-2023 Mammography Booker Moffett PTA Start: 12-29-2022 X-ray of lumbar spine, four or more views 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 Annelise Peñaloza Work Phone: Start: 11-19-2022 X-ray of right knee 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 Annelise Peñaloza Work Phone: Start: 09-02-2022 Urine culture 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 Annelise Peñaloza Work Phone: Start: 07-02-2022 Bilateral mammography 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 Annelise Peñaloza Work Phone: Start: 07-02-2022 Ultrasonography of left breast 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 Jarrett Peñaloza Work Phone: Start: 02-27-2021 Cystourethroscopy with dilation of urethral stricture Luis Pocos Appendectomy Luis Pocos Biopsy of breast Annelise J Anabela Work Phone: Cholecystectomy Luis Richardsonos Cholecystectomy Annelise J Anabela Work Phone: Colonoscopy Luis Pocos Hemorrhoids (disorder) Luis Pocos Hiatal hernia (disorder) Anival id Pocos Hysterectomy Luis Pocos Hysterectomy Annelise Peñaloza Work Phone: Procedure on back Luis Holder s Procedure on back Annelise Peñaloaz Work Phone: Surgical procedure Annelise Peñaloza Work Phone: Comment on above: exploratory surgery done; Total colonoscopy Annelise Peñaloza Work Phone: Plan of Treatment Date Care Activity Detail Author Start: 09-20-2033 Screening for malign ant neoplasm of colon [facility] Start: 09-12-2024 End: 09-12-2024 Patient encounter procedure 09/12/2024 9:40 AM EST Office Visit [facility] [address] [facility] [address] [place] [address] Alfie Neff MD [address] [facility] [address] [place] [address] [facility] Start: 01-27-2024 Plain X-ray of right hip XR hi p RT min 2V(w/wo pelvis)* [facility] Start: 01-27-2024 XR Hip - right 2 Views [facility] Start: 01-13-2024 End: 01-13-2024 Patient encounter procedure 01/13/2024 2:40 PM EST Office Visit [facility] [address] [facility] [address] [place] [id number] Fermin Taylor DPM [address] [facility] [address] [place] [address] [facility] Start: 01-05-2024 Screening for malign ant neoplasm of breast Mammogram [facility] Start: 01-04-2024 Screening for malign ant neoplasm of breast Mammogram [facility] Start: 12-24-2023 End: 12-24-2023 ambulatory 12/24/2023 1:00 PM EST Treatment [facility] [address] [place] [address] Krishna Weiss PTA [facility] Start: 12-23-2023 End: 12-23-2023 Professional / ancillary services management 12/23/2023 10:10 AM EST Ancillary Procedure [facility] [address] [place] [address] Arrived [facility] Comment on above: Arrived Start: 12-23-2023 End: 12-23-2023 Patient encounter procedure 12/23/2023 9:20 AM EST Office Visit [facility] [address] [place] [phone] Fermin Taylor, DPM [address] [facility] [address] [place] [address] [facility] Start: 12-17-2023 End: 12-17-2023 ambulatory 12/17/2023 1:00 PM EST Treatment [facility] [address] [facility] [address] [place] [phone] Krishna Weiss, CAREER AGENT [facility] Start: 12-15-2023 End: 12-15-2023 ambulatory [facility] Comment on above: Arrived Start: 12-10-2023 End: 12-10-2023 ambulatory 12/10/2023 1:00 PM EST Treatment [facility] [address] [facility] [address] [place] [phone] Booker Moffett CAREER AGENT Arrived [facility] Comment on above: Arrived Start: 10-26-2023 Referral to rehabilitation physician [facility] Start: 10-25-2023 [facility] Start: 10-25-2023 Referral to clinical speech therapist technician [facility] Start: 10-25-2023 Hospital admission [facility] Start: 10-11-2023 [facility] Start: 09-14-2023 FUV, Provider: Alfie Neff, Status: Pen, Time: 9:50 AM FUV, Provider: Alfie Neff, Status: Pen, Time: 9:50 AM [place] [address] DO Work Phone: Start: 07-09-2023 Covid-19 Vaccine ( season) Covid-19 Vaccine ( season) [facility] Start: 07-09-2023 Influenza vaccination [facility] Start: 11-08-2022 ADVANCE DIRECTIVE DISCUSSION ADVANCE DIRECTIVE DISCUSSION [facility] Start: 11-08-2022 DEPRESSION ASSESSMENT DEPRESSION ASS ESSMENT [facility] Start: 09-15-2022 Pneumococcal Vaccine : 65+ Years (2 - PPSV23 or PCV20) Pneumococcal Vaccine: 65+ Years (2 - PPSV23 or PCV20) [facility] Start: 09-15-2022 Pneumococcal Vaccine : 65+ Years (2 of 2 - PPSV23 or PCV20) Pneumococcal Vaccine: 65+ Years (2 of 2 - PPSV23 or PCV20) [facility] Start: 05-26-2022 FUV, Provider: Alfie Neff, Status: Pen, Time: 10:00 AM FUV, Provider: Alfie Neff, Status: Pen, Time: 10:00 AM [place] [address] DO Work Phone: Start: 11-10-2021 COVID-19 VACCINE (3 - Booster for Ricardo series) COVID-19 VACCINE (3 - Booster for Ricardo series) [facility] Start: 11-10-2021 Pneumococcal Vaccine : 65+ Years (2 - PPSV23 or PCV20) Pneumococcal Vaccine: 65+ Years (2 - PPSV23 or PCV20) [facility] Start: 01-06-2021 BONE DENSITY BONE DENSITY [facility] Start: 01-06-2021 Bone Density Screening Bone Density Screening [facility] Start: 01-06-2021 PNEUMOCOCCAL: 65+ (1 - PCV) PNEUMOCOCCAL: 65+ (1 - PCV) [facility] Start: 2016 RSV Vaccine (1 - 1-d ose 60+ series) RSV Vaccine (1 - 1-dose 60+ series) [facility] Start: 07-31-2010 DTaP/Tdap/Td Vaccine s (1 - Tdap) DTaP/Tdap/Td Vaccines (1 - Tdap) [facility] Start: 01-06-2006 SHINGRIX VACCINE (1 of 2) SHINGRIX VACCINE (1 of 2) [facility] Start: 01-06-2006 Zoster Vaccines (1 of 2) Zoste r Vaccines (1 of 2) [facility] Start: 01-06-2001 COLOGUARD (FIT-DNA) COLOGUARD (FIT-D NA) [facility] Start: 01-06-2001 Colonoscopy COLONOSCOPY [facility] Start: 01-06-2001 COLORECTAL CANCER SCREENING COLORECTAL CANCER SCREENING [facility] Start: 01-06-[address] COLONOGRAPHY [facility] Start: 01-06-2001 DIABETES SCREEN DIABETES SCREEN [facility] Start: 01-06-2001 Diabetes Screening Diabetes Screenin g [facility] Start: 01-06-2001 FECAL OCCULT BLOOD FECAL OCCULT BLOO D [facility] Start: 01-06-2001 Lipid 1996 panel - S shirley or Plasma Lipid Screening [facility] Start: 01-06-2001 LIPID SCREEN LIPID SCREEN [facility] Start: 01-06-2001 SIGMOIDOSCOPY SIGMOIDOSCOPY [facility] Start: 1996 Mammography [facility] Start: 01-06-1975 Urine microalbumin profile [facility] Start: 01-06-1975 Urine screening for protein Diabetes: Urine Protein Screening [facility] Start: 01-06-1974 ANNUAL PCP TEAM [employer]UC[employer] SPECIALIST TAWANDA DISEASE VISIT ANNUAL PCP TEAM CHRONIC DISEASE VISIT [facility] Start: 01-06-1974 BP CONTROLLED (<130/80) BP CONTROLLE D (<130/80) [facility] Start: 01-06-1974 HEPATITIS C SCREENING HEPATITIS C [facility] Start: 01-06-1974 Hepatitis C screening Hepatitis C [facility] Start: 01-06-1974 SPIROMETRY SPIROMETRY [facility] Start: 01-06-1966 Diabetic foot examination Diabetes: Foot Exam [facility] Start: 01-06-1966 Glaucoma screening Diabetes: R etinopathy Screening [facility] Start: 01-06-1962 Pneumococcal Vaccine : 65+ (1 - PCV) Pneumococcal Vaccine: 65+ (1 - PCV) [facility] Start: 01-06-1962 PNEUMOCOCCAL: 65+ (1 - PCV) PNEUMOCOCCAL: 65+ (1 - PCV) [facility] Start: 1956 Hemoglobin A1c measurement Diabetes: Hemoglobin A1C [facility] Start: 1956 Lipid panel Lipid Panel [facility] Start: 1956 Medicare Annual Well ness Visit Medicare Annual Wellness Visit (AWV) [facility] Start: 1956 Screening for malign ant neoplasm of colon [facility] Bacteria identified in Urine by Culture Urine Culture [facility] End: 04-17-2024 JOSE DIAGNOSTIC LEFT JOSE DIAGNOSTIC LEFT Radiology Routine Breast pain, left 1 Occurrences starting 03/19/2023 until 04/17/2024 [facility] Work Phone: Comment on above: 1 Occurrences starti ng 03/19/2023 until 04/17/2024 Patient Education [facility] Therapy [facility] Work Phone: Patient referral [facility] Work Phone: End: 04-17-2024 US BREAST LTD LEFT US BREAST LTD LEFT Radiology Routine Breast pain, left 1 Occurrences starting 03/19/2023 until 04/17/2024 [facility] Work Phone: Comment on above: 1 Occurrences starti ng 03/19/2023 until 04/17/2024 End: 04-17-2024 US DVT UPPER LEFT US DVT UPPER LEFT Radiology Routine Breast pain, left Lymphedema Left arm swelling 1 Occurrences starting 03/19/2023 until 04/17/2024 [facility] Work Phone: Comment on above: 1 Occurrences starti ng 03/19/2023 until 04/17/2024 XR Foot - right 3 Views XR foot 3+ views right Imaging Routine Closed nondisplaced fracture of proximal phalanx of lesser toe of right foot, initial encounter 12/23/2023 10:08 AM EST [facility] Work Phone: [facility] Immunizations Immunization Date Immunization Notes Care Provider Dwight dietz 09-15-2021 COVID-19 (Pfizer) 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 David Peñaloza [facility] 09-15-2021 Do not use COVID-19 Pfizer 2 dose Luigi Flower II Other [facility] Comment on above: Result Comment: 2021: [id number] 09-15-2021 pneumococcal conjugate vaccine, 13 valent Annelise Peñaloza Work Phone: [facility] 03-07-2021 tetanus toxoid, reduced diphtheria toxoid, and acellular pertussis vaccine, adsorbed Annelise Peñaloza Other [employer] Other 03-07-2021 tetanus and diphtheria toxoids, adsorbed, preservative free, for adult use (5 Lf of tetanus toxoid and 2 Lf of diphtheria toxoid) 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 Annelise Peñaloza [facility] 01-15-2021 COVID-19 Vaccine Ricardo - Documentation Purposes Only Luigi Flower II Other [facility] 07-30-2010 tetanus toxoid, reduced diphtheria toxoid, and acellular pertussis vaccine, adsorbed Annelise Peñaloza Other [facility] 07-30-2010 tetanus and diphtheria toxoids, adsorbed, preservative free, for adult use (2 Lf of tetanus toxoid and 2 Lf of diphtheria toxoid) Adryan KELLOGG [facility] 07-30-2010 tetanus and diphtheria toxoids, adsorbed, preservative free, for adult use (5 Lf of tetanus toxoid and 2 Lf of diphtheria toxoid) Annelise Peñaloza Work Phone: [facility] 250 DO Work Phone: NEGATED: Highlighted row has not occurred!09-29-2023 influenza virus vaccine, unspecified formulation Kortney Shelley [facility] NEGATED: Highlighted row has not occurred!08-24-2023 influenza virus vaccine, unspecified formulation Thai Abbasi [facility] NEGATED: Highlighted row has not occurred!12-31-2020 influenza virus vaccine, unspecified formulation Luis Avilez [facility] Payers Date Payer Category Payer Self-pay [id number] 2021 Unknown 2020 Medicare [id number] 1959 Medicare [id number] 2.16.840.1.733807.19 1959 Unknown [id number] 2.16.840.1.067267.19 1956 Unknown [id number] 2.16.840.1.837768.3.579.2.59 3 1956 Unknown [id number] 2.16.840.1.291996.3.579.2.59 3 1956 Unknown [id number] 2.16.840.1.072387.3.579.2.59 3 1956 Unknown [id number] 2.16.840.1.486549.3.579.2.59 3 1956 Unknown [id number] 2.16.840.1.489384.3.579.2.35 6 1956 Unknown [id number] 2.16.840.1.416463.3.579.2.35 6 1956 Unknown [id number] 2.16.840.1.245766.3.579.2.35 6 1956 Unknown [id number] 2.16.840.1.492842.3.579.2.12 44 1956 Unknown [id number] 2.16.840.1.477613.3.579.2.72 7 1956 Unknown [id number] 2.16.840.1.958801.3.579.2.72 7 1956 Unknown [id number] 2.16.840.1.690876.3.579.2.72 7 1956 Unknown [id number] 2.16.840.1.209552.3.579.2.72 7 1956 Unknown [id number] 2.16.840.1.108592.3.579.2.72 7 1956 Unknown [id number] 2.16.840.1.183550.3.579.2.72 7 1956 Unknown [id number] 2.16.840.1.529386.3.579.2.72 7 1956 Unknown [id number] 2.16.840.1.501803.3.579.2.72 7 1956 Unknown [id number] 2.16.840.1.502376.3.579.2.72 7 1956 Unknown [id number] 2.16.840.1.310835.3.579.2.72 7 1956 Unknown [id number] 2.16.840.1.477953.3.579.2.12 59 1956 Unknown [id number] 2.16.840.1.202214.3.579.2.12 59 1956 Unknown [id number] 2.16.840.1.868070.3.579.2.12 59 1956 Unknown [id number] 2.16.840.1.630346.3.579.2.12 59 1956 Unknown [id number] 2.16.840.1.708253.3.579.2.12 59 1956 Unknown [id number] 2.16.840.1.538455.3.579.2.12 59 1956 Unknown [id number] 2.16.840.1.936811.3.579.2.12 59 1956 Unknown [id number] 2.16.840.1.947499.3.579.2.12 59 1956 Unknown [id number] 2.16.840.1.657047.3.579.2.12 59 1956 Unknown [id number] 2.16.840.1.838700.3.579.2.12 59 1956 Unknown [id number] 2.16.840.1.969610.3.579.2.12 59 1956 Unknown [id number] 2.16.840.1.620386.3.579.2.12 59 1956 Unknown [id number] 2.16.840.1.371605.3.579.2.12 59 1956 Unknown [id number] 2.16.840.1.932135.3.579.2.12 59 1956 Unknown [id number] 2.16.840.1.799795.3.579.2.12 59 1956 Unknown [id number] 2.16.840.1.044315.3.579.2.12 59 1956 Unknown [id number] 2.16.840.1.099930.3.579.2.12 59 1956 Unknown [id number] 2.16.840.1.749146.3.579.2.12 59 1956 Unknown [id number] 2.16.840.1.327443.3.579.2.12 59 1956 Unknown [id number] 2.16.840.1.407462.3.579.2.12 59 1956 Unknown [id number] 2.16.840.1.533553.3.579.2.12 59 1956 Unknown [id number] 2.16.840.1.065999.3.579.2.12 59 Blue Cross Blue Shield [id number] Unknown [place] BC/BS [id number] Unknown Regular Auto/Liability [id number] Unknown [id number] 2.16.840.1.842683.3.579.2.53 1 Unknown [id number] 2.16.840.1.238028.3.579.2.53 1 Unknown [id number] 2.16.840.1.509882.3.579.2.53 1 Unknown [id number] 2.16.840.1.809748.3.579.2.53 1 Unknown [id number] 2.16.840.1.971251.3.579.2.53 1 Unknown [id number] 2.16.840.1.484140.3.579.2.53 1 Social History Date Type Detail Facility Start: 04-25-2021 End: 05-27-2023 Tobacco smoking status Never smoked tobacco (finding) [facility] [employer] Other Tobacco smoking status Never [facility] Comment on above: stopped in - s a social smoker Start: 03-19-2023 End: 12-23-2023 Sex Assigned At Female [facility] [employer] Other Start: 09-22-2021 End: 10-26-2023 Tobacco smoking status NHIS Ex-smoker (finding) [facility] Comment on above: stopped in - s a social smoker Start: 1955 Sex Assigned At Female [facility] Start: 07-23-2014 End: 12-23-2023 Caffeine use Caffeine use -[facility] 250 DO Work Phone: Start: 11-08-1968 End: 11-08-1977 History of tobacco use Current smoker [facility] Start: 11-08-1968 End: 11-08-1977 History of tobacco use Cigarette Smoker [facility] Start: 06-22-2022 End: 03-19-2023 Alcohol intake Current non-drinker of alcohol (finding) [facility] Start: 1955 Sex Assigned At Not on file [facility] Start: 05-27-2023 End: 09-14-2023 Tobacco use and exposure Smokeless tobacco non-user [facility] Work Phone: Start: 09-14-2023 End: 12-23-2023 Alcohol intake Lifetime non-drinker (finding) [facility] Work Phone: Start: 09-04-2023 End: 09-14-2023 Exposure to SARS-CoV-2 (event) Not sure [facility] Start: 12-23-2023 Alcohol Comment caffeine yes t ype: coffee,tea [facility] Medical Equipment Procedure Code Equipment Code Equipment Origin al Text Equipment Identifier Dates Arthroplasty, hip, total, anterior approach Acetabular shell [id number] FDA Start: 10-25-2023 Arthroplasty, hip, total, anterior approach Ceramic femoral head prosthesis ()[id number] FDA Start: 10-25-2023 Arthroplasty, hip, total, anterior approach Coated hip femur prosthesis, modular ()[id number] FDA Start: 10-25-2023 Arthroplasty, hip, total, anterior approach Non-constrained polyethylene acetabular liner ()[id number] FDA Start: 10-25-2023 Start: 06-17-2020 Goals Date Patient Goal Desired Activity /State Functional Status Date Assessment Result Facility 10-27-2023 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 status 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 [facility] Work Phone: 10-04-2023 Functional Status N/A [facility] 09-20-2023 Functional Status N/A [facility] 08-24-2023 Functional Status N/A [facility] 01-24-2023 Functional Status N/A [facility] 11-03-2022 Functional Status N/A [facility] [place] Mental Status Date Assessment Result Facility 10-27-2023 Cognitive function Cognitive Sta tus Patient at Baseline [facility] Work Phone: Clinical Notes 09-11-2021 to 12-23-2023 Fermin Taylor, NICOLÁS - 12/23/2023 9:20 AM EST Note Date & Type Note Facility 12-23-2023 History of Presen t illness Narrative Patient: Radha Wright : 1955 PCP: No primary care provider on file. SUBJECTIVE This is a 68 y.o. female that presents today with a CC of painful right 2nd and 3rd toes Patient is DM2 Patient has positive history of lymphedema and is in lymphedema clinic and very happy with recent results of degrees swelling to her legs Patient states proximally 3 weeks ago she dropped a sweeper on her foot and had continued pain to the area and she was told that she might have a fracture. She had been wearing a postop shoe with minimal improvement states pain about a 5/10 Allergies: Allergies Allergen Reactions Iodine Ofloxacin Unknown Pravastatin Past Medical History: Past Medical History: Diagnosis Date A-fib ([facility]) Anemia Appendicitis Arthritis Asthma ([facility]) Bowel obstruction ([facility]) 2013 Bowel obstruction ([facility]) hx of hospitalization Bronchitis Chemical dependency ([facility]) Chickenpox DM (diabetes mellitus) ([facility]) Goiter ([facility]) Hx of cervical fibromuscular dysplasia Hx of hypercholesterolemia Hx of migraine headaches Hypertension ([facility]) Infectious mononucleosis Measles Mumps OA (osteoarthritis) Pain management Pneumonia Rectal bleeding Skin cancer Thyroid disease ([facility]) Tonsillitis Vaginal infection Medications: Current Outpatient Medications: albuterol HFA 90 mcg/act inhaler, Inhale 1 puff every 6 (six) hours if needed., Disp: , Rfl: bisoprolol-hydroCHLOROthiazide (Ziac) 5-6.25 MG tablet, Take 1 tablet by mouth in the morning., Disp: , Rfl: Chromium Picolinate 800 MCG tablet, 1 (one) time each day at the same time., Disp: , Rfl: cyclobenzaprine (Flexeril) 5 MG tablet, TAKE 1 TABLET BY MOUTH AT BEDTIME ONCE A DAY NEEDED, Disp: , Rfl: dapagliflozin (Farxiga) 5 MG, Take 1 tablet by mouth in the morning., Disp: , Rfl: furosemide (Lasix) 20 MG tablet, 1 (one) time each day at the same time., Disp: , Rfl: Protonix 40 MG EC tablet, 1 capsule, Disp: , Rfl: tiZANidine (Zanaflex) 4 MG tablet, every 8 (eight) hours., Disp: , Rfl: Social History: Social History Socioeconomic History Marital status: Spouse name: Not on file Number of children: Not on file Years of education: Not on file Highest education level: Not on file Occupational History Occupation: unemployed, Retired Tobacco Use Smoking status: Never Smokeless tobacco: Never Vaping Use Vaping Use: Unknown Substance and Sexual Activity Alcohol use: Never Comment: caffeine yes type: coffee,tea Drug use: Never Sexual activity: Defer Other Topics Concern Not on file Social History Narrative Not on file Social Determinants of Health Financial Resource Strain: Not on file Food Insecurity: Not on file Transportation Needs: Not on file Physical Activity: Not on file Stress: Not on file Social Connections: Not on file Intimate Partner Violence: Not on file Housing Stability: Not on file ROS: General: denies fever, chills, fatigue, malaise OBJECTIVE LE EXAM: DERM: Elongated thick yellow crumbly nails digits 1 through 10. Negative hair growth with thin shiny atrophic skin bilaterally, Minimal dry and scaly skin to bilateral feet Plus 1pitting edema to bilateral ankles with varicosities Positive ecchymosis to the right 2nd digit VASC: Positive DP and negative PT pedal pulses NEURO: 5.07 [place] Alvin monofilament test intact to digits and forefoot bilaterally 125Hz tuning fork diminished to 1st MPJ bilaterally ORTHO: Positive pain on palpation to nails 1 through 10 Positive pain palpation to the right 2nd and 3rd digit PIPJ region Range of motion of ankle joint less than 10 degrees dorsiflexion bilaterally Verbal order today for x-rays be taken by staff. AP/Oblique/Lateral 3 view radiographs today of the right foot demonstrated the following: Notable slight periosteal reaction to the 3rd proximal phalanx midshaft region with negative gross fractures identified on plain films ASSESSMENT 1. Diabetes mellitus due to underlying condition with diabetic polyneuropathy, without long-term current use of insulin ([facility]) 2. Venous insufficiency 3. Contusion of right foot, initial encounter 4. Closed nondisplaced fracture of proximal phalanx of lesser toe of right foot, initial encounter 5. Contracture of right ankle PLAN Reviewed x-rays today with patient Pt dispensed pneumatic CAM walker ([id number]) today to maintain 90 degree foot to ankle position. Pt informed to only remove walker when at rest or bathing. ABN signed and in chart for device if warranted. The boot was assembled and adjusted liner and straps and pneumatically inflated for proper custom fitting by Fermin Taylor DPM and staff. A verbal order was given for dispensing of device. The patient is ambulatory and may benefit functionally from this device. It may be used for the following conditions as noted per medical diagnosis. Patient to continue with oral anti - inflammatories as needed for pain and recommended OTC medications such as tylenol or Ibuprofen Performed toe taping of right 2nd and 3rd digits and to perform daily if helpful with follow up for nail care in 3 weeks and reassessment Patient continue with lymphedema Clinic Fermin Taylor DPM documented in this encounter [facility] 12-09-2023 Evaluation note Encounter Date Diagnosis Assessment Notes Dec, History of total right hip replacement (ICD-10 - Z96.641) Dec, Aftercare following joint replacement surgery (ICD-10 - Z47.1) Dec, Presence of right artificial hip joint (ICD-10 - Z96.641) Dec, Other [facility] [place] [facility] [place] Doing well Patient may continue increasing activities as tolerated. Certainly recommended that she continue with physical therapy Continue taking [id number] er anti-inflammat ories as needed for assistance with swelling and pain associated with the operative extremity. Follow-up in 6 weeks for repeat examination and repeat x-rays. [facility] Other 01-17-2024 Evaluation note* Encounter Date Diagnosis Assessment Notes Treatment Notes Treatment Clinical Notes Nov, History of total right hip replacement (ICD-10 - Z96.641) Patient was doing well and progressing at 4 weeks out from her right total hip. She is now on a cane all the time. Over these next couple weeks working with therapy I would expect her to come off the cane completely. We discussed trying to progress with activities as she works with physical therapy. We again stressed local wound care and trying to keep her inguinal folds clean dry with gauze in the fold. I will plan to see her back in 2 weeks with x-rays of the right hip. Nov, Aftercare following joint replacement surgery (ICD-10 - Z47.1) Nov, Presence of right artificial hip joint (ICD-10 - Z96.641) [facility] Other 01-11-2024 Evaluation note* Encounter Date Diagnosis Assessment Notes Treatment Notes Treatment Clinical Notes Nov, Vaginal yeast infection (ICD-10 - B37.31) [employer] Other 12-20-2023 Progress note Author Hina Prakash [facility] October 27, 2023 3:37pm Note Date/Time October 27, 2023 3:37pm [facility] [address] [place] [address] Hospitalist Progress Note Signed Patient: Radha Wright MR#: [id number] : 1955 Acct:[id number] Age/Sex: 68 / F Adm Date: 3 Loc: 4N Room: [address] [place] [address] Type: ADM IN Attending Dr: Luigi Flower II, MD Copies to: ~ Date of Service: 10/27/2023 Subjective Subjective Narrative: Patient seems to be doing well. Able to ambulate. Pain seems to be improving. Constipated since admission. Denies any dizziness. Blood pressure was low thismorning and blood pressure pills were placed on hold. Repeat blood pressure reading is 119/68 Exam Physical Exam Vital Signs: Temp Pulse Resp BP Pulse Ox O2 Del Method O2 Flow Rate 97.8 F 75 17 119/68 96 Room Air 6 10/27/23 12:05 10/27/23 12:05 10/27/23 12:05 10/27/23 12:05 10/27/23 12:05 10/27/23 12:05 10/25/23 16:27 Narrative: General: Patient is alert and awake, sitting up in chair, no signs of distress CVS: Regular rate and rhythm, no added sounds or murmurs RES: Clear to auscultation bilaterally, symmetric expansion, no distress ABD: Soft, not distended, no tenderness, positive bowel sounds, no palpable masses EXT: Right knee dressing without bleeding, no edema or calf tenderness NEURO: Alert, oriented by 3, normal speech, normal motor function Objective Lab Results 10/27/23 04:30 10/27/23 04:30 Meds Allergies and Active Meds Allergies beclomethasone [From Vancenase] Allergy (Verified 10/25/23 10:47) Unknown Reaction clarithromycin [From Biaxin] Allergy (Verified 10/25/23 10:47) Anaphylaxis diazepam [From Valium] Allergy (Verified 10/25/23 10:47) Unknown Reaction doxycycline [From Vibramycin] Allergy (Verified 10/25/23 10:47) Anaphylaxis erythromycin base [From E.E.S.] Allergy (Verified 10/25/23 10:47) Anaphylaxis Iodinated Contrast Media [Iodinated Contrast- Oral and IV Dye] Allergy (Jvfokajd82/18/23 10:47) Anaphylaxis isoetharine [From Bronkosol] Allergy (Verified 10/25/23 10:47) Anaphylaxis loratadine [From Claritin] Allergy (Verified 10/25/23 10:47) Rash metaproterenol [From Alupent] Allergy (Verified 10/25/23 10:47) Unknown Reaction metaxalone [From Skelaxin] Allergy (Verified 10/25/23 10:47) Anaphylaxis metronidazole [From Flagyl] Allergy (Verified 10/25/23 10:47) Anaphylaxis ofloxacin [From Floxin] Allergy (Verified 10/25/23 10:47) Anaphylaxis Penicillins Allergy (Verified 10/25/23 10:47) Anaphylaxis prochlorperazine [From Compazine] Allergy (Verified 10/25/23 10:47) Anaphylaxis sertraline [From Zoloft] Allergy (Verified 10/25/23 10:47) Unknown Reaction sulfamethoxazole [From Bactrim] Allergy (Verified 10/25/23 10:47) Unknown Reaction trimethoprim [From Bactrim] Allergy (Verified 10/25/23 10:47) Unknown Reaction Active Meds: Active Medications Generic Name Dose Route Start Last Admin Trade Name Freq PRN Reason Stop Dose Admin Acetaminophen 500 mg 10/25/23 17:30 10/27/23 11:45 Acetaminophen 500 Mg Tablet PO 10/28/23 17:29 500 mg Q6H LONA Administration Ascorbic Acid 500 mg 10/25/23 21:30 10/27/23 08:57 Ascorbic Acid 500 Mg Tablet PO 10/24/24 21:29 500 mg BID.WITH.MEALS LONA Administration Bisoprolol Fumarate 5 mg 10/26/23 09:00 10/27/23 11:55 Bisoprolol 5 Mg Tablet PO 10/25/24 08:59 Not Given DAILY LONA Calcium Carbonate 1 tab 10/25/23 09:00 10/27/23 08:57 Calcium Carbonate/Vitamin D3 500 Mg/200 Unit Tablet PO 10/24/24 08:59 1 tab BID LONA Administration Clindamycin HCl 300 mg 10/26/23 14:00 10/27/23 13:44 Clindamycin 300 Mg Capsule PO 11/09/23 13:59 300 mg Q8HR LONA Administration Dextrose 0 gm 10/25/23 19:11 Dextrose 50% In Water 25 Gm/50 Ml Syringe IV-PUSH 10/24/24 19:10 PRN PRN Hypoglycemia Empagliflozin 10 mg 10/26/23 09:00 10/27/23 08:57 Empagliflozin 10 Mg Tablet PO 10/25/24 08:59 10 mg QAM LONA Administration Ferrous Sulfate 324 mg 10/25/23 21:30 10/27/23 08:57 Ferrous Sulfate 324 Mg Tablet.Dr PO 10/24/24 21:29 324 mg BID.WITH.MEALS LONA Administration Glucose 0 gm 10/25/23 19:11 Dextrose 40% Gel 15 Gm Tube PO 10/24/24 19:10 PRN PRN Hypoglycemia Insulin Aspart 0 units 10/25/23 22:00 10/27/23 12:28 Insulin Aspart 300 Units/3 Ml Insuln.Pen SUBCUT 10/24/24 21:59 2 units TID.WM.HS LONA Administration Protocol Lidocaine HCl 0.1 ml 10/25/23 10:10 Lidocaine 1% 50 Ml Vial INTRADERMA PREOP PRN Venipuncture x 1 Dose Lisinopril 10 mg 10/27/23 09:00 10/27/23 11:55 Lisinopril 10 Mg Tablet PO 10/26/24 08:59 Not Given QAM [facility] Mineral Oil 1 each 10/28/23 07:19 Mineral Oil ([place]) 1 Each Enema MD ONCE PRN Constipation Morphine Sulfate 15 mg 10/25/23 07:19 Morphine Sulfate 12hr Er 15 Mg Tablet.Er PO Q12H PRN Pain Naloxone HCl 0.4 mg 10/25/23 07:19 Naloxone Hcl 0.4 Mg/Ml Vial IV-PUSH 10/24/24 07:18 Q2M PRN Opioid Reversal Ondansetron HCl 8 mg 10/25/23 07:19 Ondansetron Odt 4 Mg Tab.Rapdis PO 10/24/24 07:18 TID PRN Nausea Oxycodone HCl 5 mg 10/25/23 07:19 10/27/23 13:45 Oxycodone Ir 5 Mg Tablet PO 5 mg Q4HR PRN Administration Pain Scale 6 - 10 Polyethylene Glycol 17 gm 10/25/23 07:19 Polyethylene Glycol 3350 17 Gm Powd.Pack PO 11/01/23 07:18 DAILY PRN Constipation Prednisone 10 mg 10/25/23 09:00 10/27/23 08:57 Prednisone 10 Mg Tablet PO 11/03/23 09:01 10 mg DAILY LONA Administration Rivaroxaban 10 mg 10/26/23 09:00 10/27/23 08:56 Rivaroxaban 10 Mg Tablet PO 11/29/23 09:01 10 mg DAILY LONA Administration Senna/Docusate Sodium 2 tab 10/25/23 09:00 10/27/23 08:57 Sennosides/Docusate 8.6-50mg 1 Tab Tablet PO 11/24/23 08:59 2 tab DAILY LONA Administration Sodium Chloride 0 ml 10/25/23 11:30 Sodium Chloride 0.9 % 10 Ml Syringe IV-PUSH 10/24/24 11:29 PRN PRN Flush Sodium Chloride 0 ml 10/25/23 14:00 10/27/23 13:45 Sodium Chloride 0.9 % 10 Ml Syringe IV-PUSH 10/24/24 13:59 10 ml QSHIFT LONA Administration Sodium Chloride 0 ml 10/25/23 10:10 Sodium Chloride 0.9 % 10 Ml Syringe IV-PUSH 10/24/24 10:09 PRN PRN Flush Tramadol HCl 50 mg 10/25/23 07:19 10/26/23 08:49 Tramadol 50 Mg Tablet PO 04/22/24 07:18 50 mg Q4H PRN Administration Pain Scale 1 - 5 A&P - Hospitalist Assessment/Plan (1) Diabetes mellitus, type 2: (2) Hypertension: Plan Status post right hip replacement Continue postoperative care per orthopedic surgery including pain control and bowel regimen for constipation PT/OT discharge planning Hypertension Blood pressure was low this morning, home blood pressure medications were placedon hold, previously adjusted, this may be due to pain medications decreasing vascular tone, she is currently on lisinopril 10 mg and bisoprolol 5 mg twice daily. Type 2 diabetes mellitus Continue Jardiance and ISS coverage Constipation, continue Senokot and as needed MiraLAX Documented By: Hina Prakash MD 10/27/23 6601 Signed By: <Electronically signed by Hina Prakash MD> 10/27/23 1537 [facility] Work Phone: [phone] 645-882812-20-2023 Evaluation note* Encounter Date Diagnosis Assessment Notes Treatment Notes Treatment Clinical Notes Oct, Other specified postprocedural states (ICD-10 - Z98.890) [place] Other 12-20-2023 Hospital Discharge instructionsAmbulatory Orders* Initiate Home Health Time Frame: 10/27/23, Location: Determined By Patient Additional Instructions Joint Replacement Discharge Instructions Your safety during your recovery process is important to us. Please seek immediate emergency care if you have sudden chest pain or shortness of breath. Additionally, please call our office at [phone] should any of the following occur: wound bleeding or an increase in bleeding, increased swelling, redness around the incision, fever over 101 F, excessive vomiting, nosebleeds, or bloody stool. Discharge Medications (scheduled) indicated with an X: __X___ Senokot-S 8.6-50mg tablet. Take 2 tablets by mouth daily for 30 days or as long as you are taking a narcotic pain medication (tramadol, oxycodone, or morphine). Begin the day of surgery. ____X____ Miralax 17g packet. Drink 1 packet mixed with 8 ounces of water daily for 7 days. Begin the morning after surgery. __X___ Begin your home anticoagulation medication, Xarelto the morning after surgery. Take as prescribed like you were before surgery. Ecotrin (coated aspirin) 81mg tablet by mouth twice daily for 35 days. Begin the morning after surgery. Protonix (pantoprazole) 20mg tablet by mouth daily for 35 days. Begin the morning after surgery. Xarelto (rivaroxaban) 10mg table by mouth daily for 35 days. Begin the morning after surgery. Celebrex (celecoxib) 200mg tablet by mouth twice daily for 30 days. Take with food. Begin the morning after surgery. Duricef (cefadroxil) 500mg tablet by mouth twice daily for 7 days. Take with food. Begin the morning after surgery. Bactrim-DS (sulfamethoxazole & trimethoprim) 800mg-160mg tablet by mouth twice daily for 7 days. Take with food. Begin the morning after surgery. ___X___ Cleocin (clindamycin) 300mg tablet by mouth 3 times (every 8 hours) a day for 7 days. Take with food. Begin the morning after surgery. ___X__ Tylenol (acetaminophen) 500mg tablet. Take 2 tablets 3 times (every 8 hours) a day for 30 days. Begin the night of surgery if necessary. ___X__ Prednisone 10mg tablet. Take 1 tablet daily for 10 days. Begin the morning after surgery. *If you have a patch behind your ear remove it the morning after surgery, discard, and thoroughly wash your hands. Discharge Medications (as needed) indicated with an X: ___X__ Zofran (Ondansetron) 8mg tablet by mouth 3 times (every 8 hours) a day as needed for nausea. Begin the night of surgery if necessary. ___X__ Tramadol (Ultram) 50mg tablet. Take 1 tablet by mouth every 6 hours as needed for pain. Do not take at the same time as oxycodone, MS Contin (morphine extended release), or Dilaudid (hydromorphone). Take with food. Begin the night of surgery. Take around the clock for 24 hours after surgery and then utilize if necessary. ___X__ Oxycodone 5mg tablet. Take 1 tablet by mouth every 4 hours as needed for pain. If pain unrelenting 30 minutes after taking 1 tablet, then take another 1 tablet. Do not take at the same time as MS Contin (morphine extended release), Dilaudid (hydromorphone), or Tramadol (Ultram). Take with food. Begin the night of surgery. Take around the clock for 24 hours after surgery and then utilize if necessary. MS Contin (morphine extended release) 15mg tablet. Take 1 tablet by mouth every 12 hours as needed for BREAKTHROUGH pain only. If pain unrelenting 30 minutes after you have taken the second oxycodone 5mg tablet, then take 1 MS Contin tablet. Do not take at the same time as oxycodone or Tramadol (Ultram); this is a time-released medication and can only be taken once every 12 hours. Resume oxycodone at next scheduled time (4 hours after the MS Contin tablet). Begin the night of surgery if necessary. Dilaudid (hydromorphone) 2mg tablet. Take 1 tablet by mouth every 8 hours as needed for BREAKTHROUGH pain only. If pain unrelenting 30 minutes after oxycodone, then take 1 Dilaudid tablet. Do not take at the same time as oxycodone or Tramadol (Ultram). Resume oxycodone at next scheduled time (4 hours after the Dilaudid tablet). Begin the night of surgery if necessary. Discharge Instructions: BE SURE YOU HAVE READ THE BOOKLET YOU RECEIVED IN THE OFFICE. Home Health: Home health is a valuable partner in the joint replacement process; they will be your first step to your road of recovery. A therapist will see you the day after your surgery; they will be at your home before noon. They will see you the first three days after surgery and continue working with you until I see you in the office for your 2-week post-op appointment. Follow their instructions. Exercises are to be done several times a day, including the days the therapist does not come to your house! Wound Care: Your surgical incision may be covered with a few different dressings. Your home health physical therapist will remove the gauze dressing the first day after surgery, but they will leave one of the following in place until you see me in the office. Zipline This is a no contact dressing that will stay in place until you are seen in the office for your 2-week post-op appointment. Do not place any ointments, creams, or lotions on your wound. Avoid getting outside on hot days; excessive sweating can increase the risk of wound infection. If there is drainage, place a gauze dressing over the wound, secure with paper tape, and call your therapist. A small amount of drainage is expected. When you do bathe, allow soapy water to run over the dressing site, but do not scrub the incision or the dressing. Pat the dressing site dry with a towel after you shower. DO NOT take a bath, enter a pool, hayden/pond,or ocean until we discuss this at your post-op appointments. Prevena This is a negative pressure wound therapy device with a collection container for any drainage. If this becomes completely full, call your therapist to discuss changing the collection container. This device also has a 14-day battery. Your home health physical therapist will remove the dressing 14 days after your surgery; it will be removed prior to your initial follow up appointment. Do not place any ointments, creams, or lotions around your wound or on the dressing. Avoid getting outside on hot days; excessive sweating can increase the risk of wound infection. When you do bathe, allow soapy water to run over the dressing site, but do not scrub the device or the surrounding skin. DO NOT get the device wet! Pat the dressing site dry with a towel after you shower. DO NOT take a bath, enter a pool, hayden/pond, or ocean until we discuss this at your post-op appointments. What to expect: SWELLING: Ice frequently, a minimum of 4 times a day for 20 minutes at a time for the first 2-3 weeks after surgery, especially after doing your exercises. While icing, elevate your foot above the level of your heart with several pillows under your ankle. DO NOT put pillows under your knee. (KNEE REPLACEMENT ONLY) Avoid prolonged periods of sitting over the first 7 to 10 days after surgery. We recommend that you not sit for more than 45 to 60 minutes at a time. You should get up and move around or lie down and elevate your leg. BRUISING: You will have bruising to some degree; possibly the thigh, calf, ankle, foot, and in some cases the genitalia. Do not be alarmed. The bruising will eventually go away on its own as the body reabsorbs the blood. BLISTERS: Some patients may develop blisters around the knee/hip and/or the incision. Although they can be alarming in appearance, they pose no significant risk to your joint replacement. Leave the blisters alone and allow them to heal on their own. NUMBNESS: Usually normal around the incision. For knee replacements, the outside of the knee may be involved as well. The area of numbness may shrink over time or it could last forever. For hip replacements, you may notice numbness on the outside of the thigh extending down the outside of the knee. The area of numbness may shrink over time or it could last forever. ELENA anderson (stockinette): Wear them for 4 weeks on the operative side and 2 weeks on the nonoperative side. Try to wear these as 24/ as possible to help decrease swelling. Weight Bearing, Walkers, and Canes: Do not remove your knee immobilizer. Do not walk without this until your therapist has removed it either on the first day after surgery or the second day after surgery. Do not attempt to walk without your walker and your career technical education teacher until the therapist checks you the following day after surgery and gives you further instruction. Typically, you will start out on a walker, then progress to a cane, and eventually walk without any device. Some of our patients do this within 2 weeks of surgery, while others can take 6 weeks. Pain Medications: You may experience significant pain. Our goal is to make your pain manageable (not absent, since this is usually not realistic) and to allow you to progress with your therapy for your hip or knee. Take your pain medication scheduled for the first 24 hours, then take it as needed. Always take your pain medication with food to decrease nausea and vomiting. Be sure to take stool softeners and/or laxatives as directed. You may take [id number] Benadryl if itching occurs without a rash or hives. Icing and elevation will help relieve pain as well, do not underestimate the power of ice and elevation. We do recommend that you stop taking narcotic pain medications by 4-6 weeks after surgery and if necessary, continue to use anti-inflammatory medications such as Mobic (meloxicam), Celebrex (celecoxib), or an [id number] medication (Aleve, Motrin, Ibuprofen, etc). Driving an automobile: You must be off all narcotic pain medications. If your right leg is involved, that is your braking leg. Your physical therapist needs to help you determine that you can actively and firmly hit the brake and sustain it as this could be a life or situation for you or someone else. You will not be cleared to drive by me or anyone else. It is up to you to know when you feel safe to drive. We do recommend utilizing an empty parking lot to practice and ensure you are able to slam on the brakes if necessary during an emergency. Low Grade Fever (less than 101 F): Low-grade fevers can be treated, but make sure you do not exceed the daily limit of Tylenol. The daily limit on Tylenol (acetaminophen) is 3000 mg in a 24-hour period. If you have procedures done after your joint replacement: Dental procedures (including routine cleaning), prostate surgery, colonoscopy, and other invasive procedures could increase your risk for a total joint infection. During a postoperative visit, be sure to discuss the use of prophylactic antibiotic therapy prior to and sometimes after these invasive procedures. The decision to utilize antibiotics before and/or after these invasive procedures is a shared decision process between you and myself. Constipation: If you develop constipation in spite of taking stool softeners and/or laxatives, follow the protocol below: Day 2 of constipation if no results, use a Dulcolax suppository Day 3 of constipation if no results, use a fleet s enema. If no results by the afternoon, notify our office. Bladder Habits: If you have difficulty urinating or are unable to urinate within 12 hours after arriving home following your surgery, please notify our office immediately. Expectations for Pain Relief after Joint Replacement: Patients predictably improve for up to a year after a hip or knee replacement. It is normal for you to still have some pain in your hip or knee for as much as 3 to 9 months after surgery. The pain relief will come, but you should not expect great relief of pain in less than this time. High demand activities (such as going up and down stairs) frequently take 3 to 9 months before patients feel comfortable doing them. It is permissible to go up and down stairs whenever you can safely navigate them, but it will take much longer to do them normally and with great confidence. Questions or Problems: If you have any questions, problems, or confusion about your recovery after your hip or knee replacement, please feel free to call our office at [phone]. You are a priority of ours and we will not be upset with you if you call. We would much rather you call to confirm aspects of your recovery process as opposed to possibly hindering your recovery with inappropriate care. We are committed to providing you with the best care possible. Luigi Flower II, MD Updated 01/22/2023[facility] Work Phone: [phone] 749-626812-19-2023 Progress note Author Hina Prakash [facility] October 26, 2023 3:26pm Note Date/Time October 26, 2023 3:16pm [facility] [address] [place] [address] Hospitalist Progress Note Signed Patient: Radha Wright MR#: [id number] : 1955 Acct:[id number] Age/Sex: 68 / F Adm Date: 3 Loc: 4N Room: [address] [place] [address] Type: ADM IN Attending Dr: Luigi Flower II, MD Copies to: ~ Date of Service: 10/26/2023 Subjective Subjective Narrative: The patient seems to be doing well today. Sitting up on the chair. She feels shaky. Her blood pressure was noted to be on the lower side but she denies dizziness. Hip pain seems to be adequately controlled and was able to ambulate with assistance. Exam Physical Exam Vital Signs: Temp Pulse Resp BP Pulse Ox O2 Del Method O2 Flow Rate 98.9 F 78 20 94/59 L 95 Room Air 6 10/26/23 07:37 10/26/23 11:43 10/26/23 11:43 10/26/23 14:40 10/26/23 11:43 10/26/23 11:43 10/25/23 16:27 Narrative: General: Patient is alert and awake, sitting up in chair, no signs of distress neck: Supple, no masses, no lymphadenopathy CVS: Regular rate and rhythm, no added sounds or murmurs RES: Clear to auscultation bilaterally, symmetric expansion, no distress ABD: Soft, not distended, no tenderness, positive bowel sounds, no palpable masses EXT: Right knee dressing without bleeding, no edema or calf tenderness NEURO: Alert, oriented by 3, normal speech, normal motor function Objective Lab Results 10/26/23 05:20 10/26/23 05:20 Meds Allergies and Active Meds Allergies beclomethasone [From Vancenase] Allergy (Verified 10/25/23 10:47) Unknown Reaction clarithromycin [From Biaxin] Allergy (Verified 10/25/23 10:47) Anaphylaxis diazepam [From Valium] Allergy (Verified 10/25/23 10:47) Unknown Reaction doxycycline [From Vibramycin] Allergy (Verified 10/25/23 10:47) Anaphylaxis erythromycin base [From E.E.S.] Allergy (Verified 10/25/23 10:47) Anaphylaxis Iodinated Contrast Media [Iodinated Contrast- Oral and IV Dye] Allergy (Hwsgikuv65/18/23 10:47) Anaphylaxis isoetharine [From Bronkosol] Allergy (Verified 10/25/23 10:47) Anaphylaxis loratadine [From Claritin] Allergy (Verified 10/25/23 10:47) Rash metaproterenol [From Alupent] Allergy (Verified 10/25/23 10:47) Unknown Reaction metaxalone [From Skelaxin] Allergy (Verified 10/25/23 10:47) Anaphylaxis metronidazole [From Flagyl] Allergy (Verified 10/25/23 10:47) Anaphylaxis ofloxacin [From Floxin] Allergy (Verified 10/25/23 10:47) Anaphylaxis Penicillins Allergy (Verified 10/25/23 10:47) Anaphylaxis prochlorperazine [From Compazine] Allergy (Verified 10/25/23 10:47) Anaphylaxis sertraline [From Zoloft] Allergy (Verified 10/25/23 10:47) Unknown Reaction sulfamethoxazole [From Bactrim] Allergy (Verified 10/25/23 10:47) Unknown Reaction trimethoprim [From Bactrim] Allergy (Verified 10/25/23 10:47) Unknown Reaction Active Meds: Active Medications Generic Name Dose Route Start Last Admin Trade Name Freq PRN Reason Stop Dose Admin Acetaminophen 500 mg 10/25/23 17:30 10/26/23 12:22 Acetaminophen 500 Mg Tablet PO 10/28/23 17:29 500 mg Q6H LONA Administration Ascorbic Acid 500 mg 10/25/23 21:30 10/26/23 08:48 Ascorbic Acid 500 Mg Tablet PO 10/24/24 21:29 500 mg BID.WITH.MEALS LONA Administration Bisoprolol Fumarate 5 mg 10/26/23 09:00 10/26/23 08:49 Bisoprolol 5 Mg Tablet PO 10/25/24 08:59 5 mg DAILY LONA Administration Calcium Carbonate 1 tab 10/25/23 09:00 10/26/23 08:48 Calcium Carbonate/Vitamin D3 500 Mg/200 Unit Tablet PO 10/24/24 08:59 1 tab BID LONA Administration Clindamycin HCl 300 mg 10/26/23 14:00 10/26/23 13:37 Clindamycin 300 Mg Capsule PO 11/09/23 13:59 300 mg Q8HR LONA Administration Dextrose 0 gm 10/25/23 19:11 Dextrose 50% In Water 25 Gm/50 Ml Syringe IV-PUSH 10/24/24 19:10 PRN PRN Hypoglycemia Empagliflozin 10 mg 10/26/23 09:00 10/26/23 08:49 Empagliflozin 10 Mg Tablet PO 10/25/24 08:59 10 mg QAM LONA Administration Ferrous Sulfate 324 mg 10/25/23 21:30 10/26/23 08:48 Ferrous Sulfate 324 Mg Tablet.Dr PO 10/24/24 21:29 324 mg BID.WITH.MEALS LONA Administration Glucose 0 gm 10/25/23 19:11 Dextrose 40% Gel 15 Gm Tube PO 10/24/24 19:10 PRN PRN Hypoglycemia Lactated Ringer's 1,000 mls @ 75 mls/hr 10/25/23 07:30 10/26/23 09:56 Lactated Ringers IV 10/24/24 07:29 Not Given .[id number] LONA Insulin Aspart 0 units 10/25/23 22:00 10/26/23 12:23 Insulin Aspart 300 Units/3 Ml Insuln.Pen SUBCUT 10/24/24 21:59 3 units TID.WM.HS LONA Administration Protocol Lidocaine HCl 0.1 ml 10/25/23 10:10 Lidocaine 1% 50 Ml Vial INTRADERMA PREOP PRN Venipuncture x 1 Dose Lisinopril 10 mg 10/27/23 09:00 Lisinopril 10 Mg Tablet PO 10/26/24 08:59 QAM LONA Mineral Oil 1 each 10/28/23 07:19 Mineral Oil ([place]) 1 Each Enema MD ONCE PRN Constipation Morphine Sulfate 15 mg 10/25/23 07:19 Morphine Sulfate 12hr Er 15 Mg Tablet.Er PO Q12H PRN Pain Naloxone HCl 0.4 mg 10/25/23 07:19 Naloxone Hcl 0.4 Mg/Ml Vial IV-PUSH 10/24/24 07:18 Q2M PRN Opioid Reversal Ondansetron HCl 8 mg 10/25/23 07:19 Ondansetron Odt 4 Mg Tab.Rapdis PO 10/24/24 07:18 TID PRN Nausea Oxycodone HCl 5 mg 10/25/23 07:19 10/25/23 22:11 Oxycodone Ir 5 Mg Tablet PO 5 mg Q4HR PRN Administration Pain Scale 6 - 10 Polyethylene Glycol 17 gm 10/25/23 07:19 Polyethylene Glycol 3350 17 Gm Powd.Pack PO 11/01/23 07:18 DAILY PRN Constipation Prednisone 10 mg 10/25/23 09:00 10/26/23 08:49 Prednisone 10 Mg Tablet PO 11/03/23 09:01 10 mg DAILY LONA Administration Rivaroxaban 10 mg 10/26/23 09:00 10/26/23 08:48 Rivaroxaban 10 Mg Tablet PO 11/29/23 09:01 10 mg DAILY LONA Administration Senna/Docusate Sodium 2 tab 10/25/23 09:00 10/26/23 08:48 Sennosides/Docusate 8.6-50mg 1 Tab Tablet PO 11/24/23 08:59 2 tab DAILY LONA Administration Sodium Chloride 0 ml 10/25/23 11:30 Sodium Chloride 0.9 % 10 Ml Syringe IV-PUSH 10/24/24 11:29 PRN PRN Flush Sodium Chloride 0 ml 10/25/23 14:00 10/26/23 13:37 Sodium Chloride 0.9 % 10 Ml Syringe IV-PUSH 10/24/24 13:59 10 ml QSHIFT LONA Administration Sodium Chloride 0 ml 10/25/23 10:10 Sodium Chloride 0.9 % 10 Ml Syringe IV-PUSH 10/24/24 10:09 PRN PRN Flush Tramadol HCl 50 mg 10/25/23 07:19 10/26/23 08:49 Tramadol 50 Mg Tablet PO 04/22/24 07:18 50 mg Q4H PRN Administration Pain Scale 1 - 5 A&P - Hospitalist Assessment/Plan (1) Diabetes mellitus, type 2: (2) Hypertension: Plan Status post right hip replacement Continue postoperative care per orthopedic surgery including pain control and bowel regimen for constipation PT/OT discharge planning Hypertension Patient was noted to be hypotensive today, she did receive her morning blood pressure medications, she was asymptomatic, adjustments were made to her blood pressure regimen, HCTZ will be stopped for now and lisinopril decreased to 10 mg daily, continue bisoprolol 5 mg twice daily Type 2 diabetes mellitus Continue Jardiance and ISS coverage History of paroxysmal atrial fibrillation Not on anticoagulation with recent echocardiogram and February showing normal ejection fraction without any significant diastolic dysfunction and mild mitral and tricuspid regurgitation Documented By: Hina Prakash MD 10/26/23 1514 Signed By: <Electronically signed by Hina Prakash MD> 10/26/23 1526 [facility] Work Phone: [phone] 964-228412-19-2023 Consult note Author Alexander Blue [facility] October 26, 2023 2:03pm Note Date/Time October 26, 2023 12:59pm [facility] [address] [place] [address] Physiatry (Rehab) Consult Note Signed Patient: Radha Wright MR#: [id number] : 1955 Acct:[id number] Age/Sex: 68 / F Adm Date: 3 Loc: 4N Room: [address] [place] [address] Type: ADM IN Attending Dr: Luigi Flower II, MD Copies to: ANNELISE PEÑALOZA MD Robert M Carlisle, MD~ Etiologic Dx/Impairment Group Narrative Narrative: Total hip arthroplasty HPI Consult Date: 10/26/23 Requesting Physician: Luigi Flower II, MD Primary Care Provider: JEN Zimmerman Consult Narrative Reason for consult: [facility]EHRA/rehab needs HPI: Ms. Wright is a 68 year old female medical history as below including lymphedema, presents with functional decline after total hip arthroplasty. Discussed with physical and Occupational Therapy, she is not yet at her premorbid baseline. Patient does not feel comfortable returning to home yet. She reports that she has a high bed to get into and a tub but is difficult to access, in addition to having a few stairs (3 or 4). She reports feeling tremulous. Otherwise no acute issues aside from pain. Review of Systems Review of Systems All other systems reviewed & are negative unless noted below or in HPI [facility] Medical History (Updated 10/26/23 @ 14:03 by Alexander Blue MD) Afib Arthritis Asthma Blood clot in vein Diabetes mellitus, type 2 DVT (deep venous thrombosis) 2018 Hiatal hernia History of cervical dysplasia History of E. coli septicemia History of depression History of thyroid disease Hx of cyst of breast left Hypertension Lymph edema Migraine Pneumonia Right hip pain Skin cancer basal cell Sleep apnea I cant wear the mask Thyroid nodule Vertigo Surgical History (Updated 10/26/23 @ 07:17 by Luigi Flower II, MD) H/O colonoscopy History of abdominal surgery lysis of adhesions, 2010 History of back surgery x3, with titanium hardware History of biopsy of thyroid, and stomach History of breast biopsy History of D&C History of hysterectomy 1991 History of removal of cyst right eye Hx of cholecystectomy Status post total replacement of right hip Family History Mother Parkinsons Stroke Diabetes Father Myocardial infarction Stroke Diabetes Lung cancer Brother Stroke Sister Uterine cancer Skin cancer Sister Skin cancer Social History Smoking Status: Former smoker Substance Use Type: None Meds Medications and Allergies Allergies beclomethasone [From Vancenase] Allergy (Verified 10/25/23 10:47) Unknown Reaction clarithromycin [From Biaxin] Allergy (Verified 10/25/23 10:47) Anaphylaxis diazepam [From Valium] Allergy (Verified 10/25/23 10:47) Unknown Reaction doxycycline [From Vibramycin] Allergy (Verified 10/25/23 10:47) Anaphylaxis erythromycin base [From E.E.S.] Allergy (Verified 10/25/23 10:47) Anaphylaxis Iodinated Contrast Media [Iodinated Contrast- Oral and IV Dye] Allergy (Zjfjszkf18/18/23 10:47) Anaphylaxis isoetharine [From Bronkosol] Allergy (Verified 10/25/23 10:47) Anaphylaxis loratadine [From Claritin] Allergy (Verified 10/25/23 10:47) Rash metaproterenol [From Alupent] Allergy (Verified 10/25/23 10:47) Unknown Reaction metaxalone [From Skelaxin] Allergy (Verified 10/25/23 10:47) Anaphylaxis metronidazole [From Flagyl] Allergy (Verified 10/25/23 10:47) Anaphylaxis ofloxacin [From Floxin] Allergy (Verified 10/25/23 10:47) Anaphylaxis Penicillins Allergy (Verified 10/25/23 10:47) Anaphylaxis prochlorperazine [From Compazine] Allergy (Verified 10/25/23 10:47) Anaphylaxis sertraline [From Zoloft] Allergy (Verified 10/25/23 10:47) Unknown Reaction sulfamethoxazole [From Bactrim] Allergy (Verified 10/25/23 10:47) Unknown Reaction trimethoprim [From Bactrim] Allergy (Verified 10/25/23 10:47) Unknown Reaction Home Medications ramipril 10 mg capsule 10 mg PO QAM 11/17/17 [History Confirmed 10/25/23] bisoprolol 5 mg-hydrochlorothiazide 6.25 mg tablet 1 tab PO QAM 05/29/18 [History Confirmed 10/25/23] polyethylene glycol 3350 17 gram oral powder packet (Miralax) 17 g PO DAILY PRN Constipation #1 ea 12/15/19 [Rx Confirmed 10/25/23] dapagliflozin propanediol 5 mg tablet (Farxiga) 5 mg PO QAM 09/22/21 [History Confirmed 10/25/23] chromium picolinate 400 mcg tablet 400 mcg PO DAILY 10/11/23 [History Confirmed 10/25/23] acetaminophen 500 mg tablet 500 mg PO Q6H 10/26/23 [Rx] clindamycin HCl 300 mg capsule 300 mg PO Q8HR 10/26/23 [Rx] ondansetron 4 mg disintegrating tablet 8 mg PO TID PRN Nausea 10/26/23 [Rx] oxycodone 5 mg tablet 5 mg PO Q4HR PRN Pain Scale 6 - 10 10/26/23 [Rx] polyethylene glycol 3350 17 gram oral powder packet (HealthyLax) 17 g PO DAILY PRN Constipation 10/26/23 [Rx] prednisone 10 mg tablet 10 mg PO DAILY 10/26/23 [Rx] rivaroxaban 10 mg tablet (Xarelto) 10 mg PO DAILY 10/26/23 [Rx] sennosides 8.6 mg-docusate sodium 50 mg tablet 2 tab PO DAILY 10/26/23 [Rx] tramadol 50 mg tablet 50 mg PO Q4H PRN Pain Scale 1 - 5 10/26/23 [Rx] Exam Physical Exam Vital Signs: Temp Pulse Resp BP Pulse Ox O2 Del Method O2 Flow Rate 98.9 F 78 20 79/53 L 95 Room Air 6 10/26/23 07:37 10/26/23 11:43 10/26/23 11:43 10/26/23 11:43 10/26/23 11:43 10/26/23 11:43 10/25/23 16:27 Narrative: Pleasant NAD RRR Non-labored breathing 2+ edema at right lower extremity Moves antigravity, somewhat limited by pain. Vac in place. Results Labs Labs: Laboratory Results - last 24 hr 10/25/23 10/26/23 10/26/23 22:08 05:20 05:20 Corrected WBC 6.6 Uncorrected WBC Count 6.6 RBC 2.85 L Hgb 9.0 L Hct 25.9 L MCV 90.8 MCH 31.4 MCHC 34.6 RDW 15.1 Plt Count 161 MPV 6.7 Neut % (Auto) 81.3 Lymph % (Auto) 11.1 [place] % (Auto) 7.5 Eos % (Auto) 0.0 Baso % (Auto) 0.1 Nucleat RBC Rel Count 0.1 Neut # (Auto) 5.3 Lymph # (Auto) 0.7 L [place] # (Auto) 0.5 Eos # (Auto) 0.0 Baso # (Auto) 0.0 PHA Creatinine Clear 69.72 Sodium 138 Potassium 4.2 Chloride 103 Carbon Dioxide 30.8 Anion Gap 8.4 BUN 11 Creatinine 0.44 L Est GFR (CKD-EPI) > 60.0 Glucose 170 H POC Glucose 211 Calcium 8.6 10/26/23 10/26/23 07:38 11:42 Corrected WBC Uncorrected WBC Count RBC Hgb Hct MCV MCH MCHC RDW Plt Count MPV Neut % (Auto) Lymph % (Auto) [place] % (Auto) Eos % (Auto) Baso % (Auto) Nucleat RBC Rel Count Neut # (Auto) Lymph # (Auto) [place] # (Auto) Eos # (Auto) Baso # (Auto) PHA Creatinine Clear Sodium Potassium Chloride Carbon Dioxide Anion Gap BUN Creatinine Est GFR (CKD-EPI) Glucose POC Glucose 168 204 Calcium Additional Results Results Comment: I reviewed clinical lab tests, radiology reports and obtained and summated medical records and have ordered follow up lab tests and imaging studies as needed for rehabilitation care. Assessment/Plan (1) Status post total replacement of right hip: (2) Hypertension: (3) Diabetes mellitus, type 2: (4) Impaired mobility and activities of daily living: Plan 68-year-old female status post total hip arthroplasty. ? At this time does not meet criteria for IRF admission. - Recommend additional 1-2 days of PT / OT on acute care and hopefully will improve to d/c to home with home health care and appropriate DME as indicated. - Thank you for consult, will follow peripherally. Documented By: Alexander Blue MD 10/26/23 1251 Signed By: <Electronically signed by Alexander Blue MD> 10/26/23 1408 [facility] Work Phone: 1(765) 584-841112-19-2023 Progress note Author Luigi Flower [facility] October 26, 2023 7:18am Note Date/Time October 26, 2023 7:18am [facility] [address] [place] [address] Orthopedic Progress Note Signed Patient: Radha Wright MR#: [id number] : 1955 Acct:[id number] Age/Sex: 68 / F Adm Date: 3 Loc: 4N Room: [address] [place] [address] Type: ADM IN Attending Dr: Luigi Flower II, MD Copies to: ~ Date of Service: 10/26/2023 Subjective Subjective Interval History: Patient resting comfortably in bed this morning. She reports having soreness inthe right hip. Nursing reports no acute events overnight. Nursing reports the patient was veryreluctant to move at all yesterday. Denies chest pain, shortness of breath, or calf pain. Exam Physical Exam Vital Signs: Temp Pulse Resp BP Pulse Ox O2 Del Method O2 Flow Rate 98.5 F 68 18 137/69 97 Room Air 6 10/26/23 03:39 10/26/23 03:39 10/26/23 03:39 10/26/23 03:39 10/26/23 03:39 10/26/23 04:28 10/25/23 16:27 Narrative: Right hip Prevena dressing is on and working. No drainage in the container. Foot is warm and well-perfused. Sensation intact to light touch throughout the foot. Wiggles their toes and moves their ankle up and down. Nontender to palpation in the calf. Objective Labs Labs: Laboratory Results - last 24 hr 10/25/23 10/25/23 10/25/23 11:00 11:05 22:08 Corrected WBC Uncorrected WBC Count RBC Hgb Hct MCV MCH MCHC RDW Plt Count MPV Neut % (Auto) Lymph % (Auto) [place] % (Auto) Eos % (Auto) Baso % (Auto) Nucleat RBC Rel Count Neut # (Auto) Lymph # (Auto) [place] # (Auto) Eos # (Auto) Baso # (Auto) PHA Creatinine Clear Sodium Potassium Chloride Carbon Dioxide Anion Gap BUN Creatinine Est GFR (CKD-EPI) Glucose POC Glucose 111 211 POC Glucose Comment Glu2: cleaned meter Calcium Blood Type Recheck A Positive 10/26/23 10/26/23 05:20 05:20 Corrected WBC 6.6 Uncorrected WBC Count 6.6 RBC 2.85 L Hgb 9.0 L Hct 25.9 L MCV 90.8 MCH 31.4 MCHC 34.6 RDW 15.1 Plt Count 161 MPV 6.7 Neut % (Auto) 81.3 Lymph % (Auto) 11.1 [place] % (Auto) 7.5 Eos % (Auto) 0.0 Baso % (Auto) 0.1 Nucleat RBC Rel Count 0.1 Neut # (Auto) 5.3 Lymph # (Auto) 0.7 L [place] # (Auto) 0.5 Eos # (Auto) 0.0 Baso # (Auto) 0.0 PHA Creatinine Clear 69.72 Sodium 138 Potassium 4.2 Chloride 103 Carbon Dioxide 30.8 Anion Gap 8.4 BUN 11 Creatinine 0.44 L Est GFR (CKD-EPI) > 60.0 Glucose 170 H POC Glucose POC Glucose Comment Calcium 8.6 Blood Type Recheck [facility] Ambulation: 1 Yes, Ambulation Day of Surgery or 4 hours from PACU discharge [facility] Discharge Exclusion: 3 Unknown Assessment / Plan Assessment and plan (1) Diabetes mellitus, type 2: Plan: see hospitalist note Code(s): E11.9 - Type 2 diabetes mellitus without complications (2) Hypertension: Plan: see hospitalist note Code(s): I10 - Essential (primary) hypertension (3) Status post total replacement of right hip: Plan: POD 1 s/p R ZEHRA 1.? Pain control 2.? DVT prophylaxis: ELENA Hose bilaterally, SCDs bilaterally, and Xarelto x 10 mgx 35 days postop 3.? Perioperative antibiotics with IV vancomycin and then clindamycin postop x 7days 4.? PT/OT: WBAT right lower extremity 5.? Appreciate hospitalist assistance with medical management 6.? PACU x-rays look good 7.? Hemoglobin 9.0 this am, continue and Vit C 8.? Today's Plan: Work with PT/OT 9.? Disposition: pending PT/OT eval Code(s): Z96.641 - Presence of right artificial hip joint Documented By: Luigi Flower MD 10/26/23 07 16 Signed By: <Electronically signed by Luigi Flower MD> 10/26/23 0718 [facility] Work Phone: 1([phone]) 636-846912-18-2023 Consult note Author Hina Prakash [facility] October 25, 2023 7:18pm Note Date/Time October 25, 2023 7:18pm [facility] [address] [place] [address] Hospitalist Consult Note Signed Patient: Radha Wright MR#: [id number] : 1955 Acct:[id number] Age/Sex: 68 / F Adm Date: 3 Loc: 4N Room: [address] [place] [address] Type: ADM IN Attending Dr: Luigi Flower II, MD Copies to: ANNELISE PEÑALOZA MD Safwan Khader, MD~ HPI DATE OF CONSULTATION: 10/25/23 REQUESTING PROVIDER: Luigi Flower II Consult Narrative Reason for Consult: Management of diabetes and hypertension after the surgery HPI: This is a 68-year-old female with past medical history of diabetes mellitus, hypertension, arthritis of the lower extremities, who had ZEHRA of the right hip today as an elective procedure for chronic osteoarthritis. Hospitalist service was consulted for medical management. Patient reported being on bisoprolol, HCTZ and ramipril for hypertension and Farxiga for diabetes. She did not take her morning medications today. She is doing well postoperatively. She was started on prednisone 10 mg daily per orthopedic surgery. She denies any significant pain, shortness of breath, nausea vomiting or abdominal pain. Review of Systems Review of Systems All other systems reviewed & are negative unless noted below or in HPI [facility] Medical History (Updated 10/25/23 @ 19:16 by Hina Prakash MD) Afib Arthritis Asthma Blood clot in vein Diabetes mellitus, type 2 DVT (deep venous thrombosis) 2018 Hiatal hernia History of cervical dysplasia History of E. coli septicemia History of depression History of thyroid disease Hx of cyst of breast left Hypertension Lymph edema Migraine Pneumonia Right hip pain Skin cancer basal cell Sleep apnea I cant wear the mask Thyroid nodule Vertigo Surgical History H/O colonoscopy History of abdominal surgery lysis of adhesions, 2010 History of back surgery x3, with titanium hardware History of biopsy of thyroid, and stomach History of breast biopsy History of D&C History of hysterectomy 1991 History of removal of cyst right eye Hx of cholecystectomy Family History Mother Parkinsons Stroke Diabetes Father Myocardial infarction Stroke Diabetes Lung cancer Brother Stroke Sister Uterine cancer Skin cancer Sister Skin cancer Social History Smoking Status: Former smoker Substance Use Type: None Meds Medications and Allergies Allergies beclomethasone [From Vancenase] Allergy (Verified 10/25/23 10:47) Unknown Reaction clarithromycin [From Biaxin] Allergy (Verified 10/25/23 10:47) Anaphylaxis diazepam [From Valium] Allergy (Verified 10/25/23 10:47) Unknown Reaction doxycycline [From Vibramycin] Allergy (Verified 10/25/23 10:47) Anaphylaxis erythromycin base [From E.E.S.] Allergy (Verified 10/25/23 10:47) Anaphylaxis Iodinated Contrast Media [Iodinated Contrast- Oral and IV Dye] Allergy (Snsjwbxg60/18/23 10:47) Anaphylaxis isoetharine [From Bronkosol] Allergy (Verified 10/25/23 10:47) Anaphylaxis loratadine [From Claritin] Allergy (Verified 10/25/23 10:47) Rash metaproterenol [From Alupent] Allergy (Verified 10/25/23 10:47) Unknown Reaction metaxalone [From Skelaxin] Allergy (Verified 10/25/23 10:47) Anaphylaxis metronidazole [From Flagyl] Allergy (Verified 10/25/23 10:47) Anaphylaxis ofloxacin [From Floxin] Allergy (Verified 10/25/23 10:47) Anaphylaxis Penicillins Allergy (Verified 10/25/23 10:47) Anaphylaxis prochlorperazine [From Compazine] Allergy (Verified 10/25/23 10:47) Anaphylaxis sertraline [From Zoloft] Allergy (Verified 10/25/23 10:47) Unknown Reaction sulfamethoxazole [From Bactrim] Allergy (Verified 10/25/23 10:47) Unknown Reaction trimethoprim [From Bactrim] Allergy (Verified 10/25/23 10:47) Unknown Reaction Home Medications ramipril 10 mg capsule 10 mg PO QAM 11/17/17 [History Confirmed 10/25/23] bisoprolol 5 mg-hydrochlorothiazide 6.25 mg tablet 1 tab PO QAM 05/29/18 [History Confirmed 10/25/23] polyethylene glycol 3350 17 gram oral powder packet (Miralax) 17 g PO DAILY PRN Constipation #1 ea 12/15/19 [Rx Confirmed 10/25/23] dapagliflozin propanediol 5 mg tablet (Farxiga) 5 mg PO QAM 09/22/21 [History Confirmed 10/25/23] acetaminophen 300 mg-codeine 30 mg tablet 1 tab PO BID PRN Pain 10/11/23 [History Confirmed 10/25/23] acetaminophen 500 mg capsule 500 mg PO QID PRN Pain 10/11/23 [History Confirmed 10/25/23] chromium picolinate 400 mcg tablet 400 mcg PO DAILY 10/11/23 [History Confirmed 10/25/23] fluconazole 150 mg tablet 150 mg PO ONCE PRN yeast infections 10/11/23 [History Confirmed 10/25/23] Active Medications: Active Medications Generic Name Dose Route Start Last Admin Trade Name Freq PRN Reason Stop Dose Admin Acetaminophen 500 mg 10/25/23 17:30 Acetaminophen 500 Mg Tablet PO 10/28/23 17:29 Q6H LONA Ascorbic Acid 500 mg 10/25/23 08:00 10/25/23 17:06 Ascorbic Acid 500 Mg Tablet PO 10/24/24 07:59 Not Given BID.WITH.MEALS LONA Calcium Carbonate 1 tab 10/25/23 09:00 10/25/23 17:06 Calcium Carbonate/Vitamin D3 500 Mg/200 Unit Tablet PO 10/24/24 08:59 Not Given BID LONA Clindamycin HCl 300 mg 10/26/23 14:00 Clindamycin 300 Mg Capsule PO 11/09/23 13:59 Q8HR LONA Ferrous Sulfate 324 mg 10/25/23 08:00 10/25/23 17:06 Ferrous Sulfate 324 Mg Tablet.Dr PO 10/24/24 07:59 Not Given BID.WITH.MEALS LONA Lactated Ringer's 1,000 mls @ 75 mls/hr 10/25/23 07:30 10/25/23 17:07 Lactated Ringers IV 10/24/24 07:29 75 mls/hr .[id number] LONA Administration Cefazolin Sodium 1 gm in 50 mls @ 100 mls/hr 10/25/23 15:30 Ancef IV 10/25/23 23:59 Q8H LONA Lactated Ringer's 1,000 mls @ 20 mls/hr 10/25/23 10:10 10/25/23 16:25 Lactated Ringers IV 10/26/23 10:09 20 mls/hr .Q24H ONE Infusion Lidocaine HCl 0.1 ml 10/25/23 10:10 Lidocaine 1% 50 Ml Vial INTRADERMA PREOP PRN Venipuncture x 1 Dose Mineral Oil 1 each 10/28/23 07:19 Mineral Oil ([place]) 1 Each Enema MD ONCE PRN Constipation Morphine Sulfate 15 mg 10/25/23 07:19 Morphine Sulfate 12hr Er 15 Mg Tablet.Er PO Q12H PRN Pain Naloxone HCl 0.4 mg 10/25/23 07:19 Naloxone Hcl 0.4 Mg/Ml Vial IV-PUSH 10/24/24 07:18 Q2M PRN Opioid Reversal Ondansetron HCl 8 mg 10/25/23 07:19 Ondansetron Odt 4 Mg Tab.Rapdis PO 10/24/24 07:18 TID PRN Nausea Oxycodone HCl 5 mg 10/25/23 07:19 Oxycodone Ir 5 Mg Tablet PO Q4HR PRN Pain Scale 6 - 10 Polyethylene Glycol 17 gm 10/25/23 07:19 Polyethylene Glycol 3350 17 Gm Powd.Pack PO 11/01/23 07:18 DAILY PRN Constipation Prednisone 10 mg 10/25/23 09:00 10/25/23 17:06 Prednisone 10 Mg Tablet PO 11/03/23 09:01 Not Given DAILY LONA Rivaroxaban 10 mg 10/26/23 09:00 Rivaroxaban 10 Mg Tablet PO 11/29/23 09:01 DAILY LONA Senna/Docusate Sodium 2 tab 10/25/23 09:00 10/25/23 17:06 Sennosides/Docusate 8.6-50mg 1 Tab Tablet PO 11/24/23 08:59 Not Given DAILY LONA Sodium Chloride 0 ml 10/25/23 11:30 Sodium Chloride 0.9 % 10 Ml Syringe IV-PUSH 10/24/24 11:29 PRN PRN Flush Sodium Chloride 0 ml 10/25/23 14:00 10/25/23 17:06 Sodium Chloride 0.9 % 10 Ml Syringe IV-PUSH 10/24/24 13:59 Not Given QSHIFT LONA Sodium Chloride 0 ml 10/25/23 10:10 Sodium Chloride 0.9 % 10 Ml Syringe IV-PUSH 10/24/24 10:09 PRN PRN Flush Tramadol HCl 50 mg 10/25/23 07:19 Tramadol 50 Mg Tablet PO 04/22/24 07:18 Q4H PRN Pain Scale 1 - 5 Exam Physical Exam Vital Signs: Temp Pulse Resp BP Pulse Ox O2 Del Method O2 Flow Rate 97.8 F 62 16 139/80 98 Room Air 6 10/25/23 17:00 10/25/23 17:30 10/25/23 17:30 10/25/23 17:30 10/25/23 17:30 10/25/23 17:30 10/25/23 16:27 Narrative: General: Patient is alert and awake, laying comfortably in bed, no signs of distress HEENT: Head atraumatic normocephalic, moist mucous membrane, Normal nose and ears, no throat lesions, normal conjunctiva. neck: Supple, no masses, no lymphadenopathy CVS: Regular rate and rhythm, no added sounds or murmurs RES: Clear to auscultation bilaterally, symmetric expansion, no distress ABD: Soft, not distended, no tenderness, positive bowel sounds, no palpable masses EXT: Right lower extremity with dressing and brace, limited motion of the right lower extremity, no edema or calf tenderness NEURO: Alert, oriented by 3, normal speech, normal motor function Skin: Dry, intact, no rashes or lesions Results Lab Results Labs: Laboratory Results - last 72 hr 10/25/23 11:05: Blood Type Recheck A Positive 10/25/23 11:00: POC Glucose 111, POC Glucose Comment Glu2: cleaned meter Assessment & Plan Assessment/Plan (1) Diabetes mellitus, type 2: (2) Hypertension: Plan Status post right hip replacement Continue postoperative care per orthopedic surgery including pain control and bowel regimen for constipation PT/OT discharge planning Hypertension Blood pressure seems to be well-controlled Resume home dose of bisoprolol/HCTZ and ramipril 10 mg Type 2 diabetes mellitus Takes Farxiga at home which will be substituted by Jardiance while in the hospital The patient will be on oral steroids started by orthopedic surgery, her blood sugar may go up high, will monitor blood readings with insulin sign scale coverage History of paroxysmal atrial fibrillation Not on anticoagulation with recent echocardiogram and February showing normal ejection fraction without any significant diastolic dysfunction and mild mitral and tricuspid regurgitation Documented By: Hina Prakash MD 10/25/231911 Signed By: <Electronically signed by Hina Prakash MD> 10/25/231917 [facility] Work Phone: [phone] 506-776512-14-2023 Evaluation note* Encounter Date Diagnosis Assessment Notes Treatment Notes Treatment Clinical Notes Oct, UTI symptoms (ICD-10 - R39.9) [facility] Other 12-08-2023 Evaluation note* Encounter Date Diagnosis Assessment Notes Treatment Notes Treatment Clinical Notes Oct, Primary osteoarthritis of right hip (ICD-10 - M16.11) [facility] Other 12-06-2023 Evaluation note* Encounter Date Diagnosis Assessment Notes Treatment Notes Treatment Clinical Notes Oct, Primary osteoarthritis of right hip (ICD-10 - M16.11) Oct, Lymphedema of both lower extremities (ICD-10 - I89.0) Oct, Other 1. Right ZEHRA Home Medications - DVT prophylaxis: Xarelto - NSAID: Prednisone 10 mg x 10 days postop - Disposition: Inpatient-This patient has a medical history and risk factors that are outlined below. They have steps in their home. Their BMI is 32.7. The patient is relying on assistive devices to help her around the house. In my medical opinion they should be an inpatient for their joint replacement surgery. Not being considered inpatient would likely increase their risk of complications postoperatively. Joints Meeting Checklist - Pharmacy: [facility] med to bed - Approach/Technique: anterior, Hankamer bed - Implants: Avenir Complete/G7; none - Anesthesia: general vs spinal - Blocks: Fascia iliaca - Preop Antibiotics: Ancef and Vanco - TXA: yes-systemic - Positioning/OR Bed: supine on Hankamer bed - Intraop X-ray: yes - Abarca: no - Tourniquet: no - Antibiotic powder: yes-2 grams of vanc - Antibiotic cement: no - Dressing: Zipline and Prevena 14-day The patient has tried and failed all conservative treatment options to include: activity modification, physical therapy, oral anti-inflammatories , and intra-articular steroid injections. We will move forward with the definitive treatment option and schedule the patient for the above mentioned procedure. The risks involved with surgery and postoperative complications were discussed in relation to the patient's non-modifiable risk factors including but not limited to the following: Bbm-pinipgz-hytbpac nt diabetes Atrial fibrillation Chronic opioid use All questions were answered after discussing these increased risks. The patient voiced understanding of these increased risks and still wishes to proceed with surgery. The risks involved with surgery and postoperative complications were discussed in relation to the patient's modifiable risk factors including but not limited to the following: Bilateral lower extremity lymphedema-this is improved drastically since she is worked with the lymphedema clinic All questions were answered after discussing these increased risks. The patient voiced understanding of these increased risks and still wishes to proceed with surgery. The risks and benefits of the surgery were reviewed in depth with the patient, and all questions were answered. Informed consent was obtained. The risks and potential complications of the surgery include, but are not limited to: avascular necrosis, nonunion, nerve injury, blood vessel injury, excessive bleeding, blood transfusion, infection, persistent pain, loss of fixation, failure of the implant, deep vein thrombosis, pulmonary embolus, loss of limb, fracture, leg length discrepancy, and . Patient voiced understanding of these risks and has elected to proceed with the above surgery. OARRS report generated and reviewed. [facility] Other 11-27-2023 Hospital Discharge instructions Patient Education 10/04/2023 13:11:51 Hemorrhoids Hemorrhoids Hemorrhoids are swollen veins in and around the rectum or anus. There are two types of hemorrhoids: Internal hemorrhoids. These occur in the veins that are just inside the rectum. They may poke through to the outside and become irritated and painful. External hemorrhoids. These occur in the veins that are outside the anus and can be felt as a painful swelling or hard lump near the anus. Most hemorrhoids do not cause serious problems, and they can be managed with home treatments such as diet and lifestyle changes. If home treatments do not help the symptoms, procedures can be done toshrink or remove the hemorrhoids. What are the causes? This condition is caused by increased pressure in the anal area. This pressure may result from various things, including: Constipation. Straining to have a bowel movement. Diarrhea. . Obesity. Sitting for long periods of time. Heavy lifting or other activity that causes you to strain. Anal sex. Riding a bike for a long period of time. What are the signs or symptoms? Symptoms of this condition include: Pain. Anal itching or irritation. Rectal bleeding. Leakage of stool (feces). Anal swelling. One or more lumps around the anus. How is this diagnosed? This condition can often be diagnosed through a visual exam. Other exams or tests may also be done,such as: An exam that involves feeling the rectal area with a gloved hand (digital rectal exam). An exam of the anal canal that is done using a small tube (anoscope). A blood test, if you have lost a significant amount of blood. A test to look inside the colon using a flexible tube with a camera on the end (sigmoidoscopy or colonoscopy). How is this treated? This condition can usually be treated at home. However, various procedures may be done if dietary changes, lifestyle changes, and other home treatments do not help your symptoms. These procedures canhelp make the hemorrhoids smaller or remove them completely. Some of these procedures involve surgery, and others do not. Common procedures include: Rubber band ligation. Rubber bands are placed at the base of the hemorrhoids to cut off their bloodsupply. Sclerotherapy. Medicine is injected into the hemorrhoids to shrink them. Infrared coagulation. A type of light energy is used to get rid of the hemorrhoids. Hemorrhoidectomy surgery. The hemorrhoids are surgically removed, and the veins that supply them are tied off. Stapled hemorrhoidopexy surgery. The surgeon arabella the base of the hemorrhoid to the rectal wall. Follow these instructions at home: Eating and drinking Eat foods that have a lot of fiber in them, such as whole grains, beans, nuts, fruits, and vegetables. Ask your health care provider about taking products that have added fiber (fiber supplements). Reduce the amount of fat in your diet. You can do this by eating low-fat dairy products, eating less red meat, and avoiding processed foods. Drink enough fluid to keep your urine pale yellow. Managing pain and swelling Take warm sitz baths for 20 minutes, 3 4 times a day to ease pain and discomfort. You may do this in a bathtub or using a portable sitz bath that fits over the toilet. If directed, apply ice to the affected area. Using ice packs between sitz baths may be helpful. ?Put ice in a plastic bag. ?Place a towel between your skin and the bag. ?Leave the ice on for 20 minutes, 2 3 times a day. General instructions Take raul-lkb-flcmhnp and prescription medicines only as told by your health care provider. Use medicated creams or suppositories as told. Get regular exercise. Ask your health care provider how much and what kind of exercise is best for you. In general, you should do moderate exercise for at least 30 minutes on most days of the week (150 minutes each week). This can include activities such as walking, biking, or yoga. Go to the bathroom when you have the urge to have a bowel movement. Do not wait. Avoid straining to have bowel movements. Keep the anal area dry and clean. Use wet toilet paper or moist towelettes after a bowel movement. Do not sit on the toilet for long periods of time. This increases blood pooling and pain. Keep all follow-up visits as told by your health care provider. This is important. Contact a health care provider if you have: Increasing pain and swelling that are not controlled by treatment or medicine. Difficulty having a bowel movement, or you are unable to have a bowel movement. Pain or inflammation outside the area of the hemorrhoids. Get help right away if you have: Uncontrolled bleeding from your rectum. Summary Hemorrhoids are swollen veins in and around the rectum or anus. Most hemorrhoids can be managed with home treatments such as diet and lifestyle changes. Taking warm sitz baths can help ease pain and discomfort. In severe cases, procedures or surgery can be done to shrink or remove the hemorrhoids. This information is not intended to replace advice given to you by your health care provider. Make sure you discuss any questions you have with your health care provider. Document Revised: 05/06/2022 Document Reviewed: 05/06/2022 [employer] Patient Education 2022 [employer]. Follow Up Care 09/27/2023 14:44:50 With:Kortney Shelley CNP Address: When:1 month [facility] 11-15-2023 Note [id number] Discharge instructions Patient Education 09/20/2023 14:00:58 [facility] [place] NSAIDS-Nonsteroidal Anti-Inflammatory Medications (CUSTOM) AVOIDNonsteroidal Anti-Inflammatory Medications (NSAIDS) Non-steroidal anti-inflammatory drugs (NSAIDs) are a medication widely used to treat a wide range of conditions. Common acute (short-term) conditions that can be treated with NSAIDs include: headaches painful periods toothache soft tissue injuries such as sprains and strains reduce inflammation (redness and swelling) infections, such as the common cold or the flu (NSAIDs do not treat the underlying infections, but can help to relieve symptoms; especially fever) Common chronic (long-term) conditions that can be treated with NSAIDs include: most types of arthritis, including rheumatoid arthritis and osteoarthritis back pain neck pain Some NSAIDs are available hgrc-pbg-keqqsic, without the need for a prescription. However, because a medication is available over the counter it does not mean it is safe or suitablefor everyone. Again, it is important to read the patient information leaflet that comes with your medication. NSAID drugs include: Brand: Generic: Bufferin; Des Aspirin; ASA Celebrex Celecoxib Zipsor; Cambia Diclofenac Motrin; Advil Ibuprofen Indosin Indometacin Actron; Orudis Ketoprofen Toradol Ketorolac Mobic Meloxicam Ponstel Mefenamic Acid Aleve; Naprosyn Naproxen Side effects: Most people take NSAIDs without having any side effects. Short term use is unlikely to cause significant problems, especially in younger patients. If side effects do occur they usually affect the stomach and can include: Indigestion Nausea Stomach pain Stomach ulcer Bleeding from the stomach and intestines 09/20/2023 13:49:21 Colonoscopy, Care After Surgery Salam (CUSTOM) Colonoscopy Care After Surgery Please read the instructions outlined below and refer to this sheet in the next few weeks. These discharge instructions provide you with general information on caring [facility] Your doctor may also give you specific instructions. While your treatment has been planned according to the most current medical practices available, unavoidable complications occasionally occur. If you have any problems or questions after discharge, please call your doctor. ACTIVITY You may resume your regular activity, but move at a slower pace for the next 24 hours. Take frequent rest periods for the next 24 hours. Walking will help get rid of the air and reduce the bloated feeling in your abdomen (belly). No driving for 24 hours (because of the anesthesia (medicine) used during the test). You may shower. Do not sign any important legal documents or operate any machinery for 24 hours (because of the anesthesia used during the test). NUTRITION Drink plenty of fluids. You may resume your normal diet as instructed by your doctor. Begin with a light meal and progress to your normal diet. Heavy or fried foods are harder to digestand may make you feel nauseated (sick to your stomach). Avoid alcoholic beverages for 24 hours or as instructed. MEDICATIONS You may resume your normal medications unless your doctor tells you otherwise. WHAT YOU CAN EXPECT TODAY Some feelings of bloating in the abdomen. Passage of more gas than usual. Spotting of blood in your stool or on the toilet paper. FOLLOW-UP Your doctor will discuss the results of your test with you. SEEK IMMEDIATE MEDICAL ATTENTION IF: There is more than a spotting of blood in your stool. There is abdominal distention (your abdomen is swollen). There is vomiting. You have a temperature over 101.5 F. There is abdominal pain or discomfort that is severe or gets worse throughout the day. Follow Up Care 08/24/2023 15:21:23 With:Elroy LORENZO, KJ Hernandez, [facility] Address: [address] [place] [address], [address] [phone] When: Unknown Comments:Office will call date and time of follow-up appt. [facility]11-07-2023 History of Present illness Narrative* Alfie Neff MD - 09/14/2023 9:50 AM EST Subjective Radha Wright is a 68 y.o. female Chief Complaint Annual Exam; Pre-op Clearance HPI Last afib episode was years ago Patient returns in follow-up of problems as noted. She is doing well. I cannot elicit any angina CHF or arrhythmia symptomatology. Sinus rhythm appears to be well maintained because of this no changes in therapy are necessary She is planning hip surgery in the near future. She was evaluated previously and found to have no signs or symptoms of coronary disease or cardiomyopathy that would complicate surgery and we will correspond with her surgeon in this regard. Review of Systems All other systems reviewed and are negative. Visit Vitals BP 126/60 (BP Location: Left arm, Patient Position: Sitting) Pulse 67 Ht 1.575 m (5' 2 ) Wt 83.9 kg (185 lb) BMI 33.84 kg/m Smoking Status Former BSA 1.92 m Objective Physical Exam Constitutional: Appearance: Normal appearance. She is normal weight. HENT: Nose: Nose normal. Neck: Vascular: No carotid bruit. Cardiovascular: Rate and Rhythm: Normal rate. Pulses: Normal pulses. Heart sounds: Normal heart sounds. Pulmonary: Effort: Pulmonary effort is normal. Abdominal: General: Bowel sounds are normal. Palpations: Abdomen is soft. Genitourinary: Rectum: Normal. Musculoskeletal: General: Normal range of motion. Cervical back: Normal range of motion. Right lower leg: No edema. Left lower leg: No edema. Skin: General: Skin is warm and dry. Neurological: General: No focal deficit present. Mental Status: She is alert. Psychiatric: Mood and Affect: Mood normal. Behavior: Behavior normal. Thought Content: Thought content normal. Judgment: Judgment normal. Current Medications Current Outpatient Medications: bisoproloL-hydrochlorothiazide (Ziac) 5-6.25 mg tablet, Take 1 tablet by mouth once daily., Disp: ,Rfl: dapagliflozin propanediol (Farxiga) 5 mg, Take 1 tablet (5 mg) by mouth once daily in the morning.,Disp: , Rfl: omeprazole (PriLOSEC) [address] capsule, Take 1 capsule (20 mg) by mouth once daily in the morning. Take before meals. Do not crush or chew., Disp: , Rfl: ramipril (Altace) 10 mg capsule, Take 1 capsule (10 mg) by mouth once daily. FOR 90 DAYS, Disp: , Rfl: Assessment/Plan 1. Palpitations None recurrent 2. Mixed hyperlipidemia Well-controlled on current therapy 3. Essential hypertension Well-controlled on current therapy 4. Paroxysmal atrial fibrillation (CMS/HCC) No clinical recurrence. EKG done in office today [facility] 1(850) 367-583711-07-2023 Instructions* Patient Instructions* Capri Baeza LPN - 09/14/2023 9:50 AM EST Please bring all medicines, vitamins, and herbal supplements with you when you come to the office. Prescriptions will not be filled unless you are compliant with your follow up appointments or have a follow up appointment scheduled as per instruction of your physician. Refills should be requested at the time of your visit. Patient is cleared for surgery from cardiac standpoint. [facility] Work Phone: 1(144) 908-924010-18-2023 Evaluation note* Encounter Date Diagnosis Assessment Notes Treatment Notes Treatment Clinical Notes Aug, Primary osteoarthritis of right hip (ICD-10 - M16.11) Aug, Iliotibial band syndrome of right side (ICD-10 - M76.31) Aug, Trochanteric bursitis, right hip (ICD-10 - M70.61) Aug, Age-related osteoporosis without current pathological fracture (ICD-10 - M81.0) Aug, Other lobsterman (current) drug therapy (ICD-10 - Z79.899) Aug, Lymphedema of both lower extremities (ICD-10 - I89.0) Aug, Other 1. Right ZEHRA - DVT prophylaxis: Xarelto - Antibiotics: Ancef and then - NSAID: Prednisone 10 mg x 10 days postop - Implants: Avenir Complete, G7 - Disposition: Inpatient with possible rehab 2. Preop screening labs will be ordered including: - hemoglobin - serum albumin - 25-OH Vit D - HgbA1c - serum cotinine - MRSA nasal culture 3. Patient will obtain preop clearances including: -PCP -GI: , patient has an EGD/colonoscopy on 09/20/2023 4. Once our office has reviewed the above labs and clearances, we will contact the patient to discuss surgery scheduling. Patient is in agreement with the above plan. 5. The risks involved with surgery and postoperative complications were discussed in relation to the patient's nonmodifiable risk factors including but not limited to the following: Onc-fmshzmk-ndgppta nt diabetes Atrial fibrillation Chronic opioid use All questions were answered after discussing these increased risks. The patient voiced understanding of these increased risks and still wishes to proceed with surgery. 6. The risks involved with surgery and postoperative complications were discussed in relation to the patient's modifiable risk factors including but not limited to the following: Bilateral lower extremity lymphedema-patient has been working with her lymphedema clinic for the past 5 weeks and has improved drastically. She will continue to get treatment and continue with compression stockings which we have prescribed her today. She is also can work with Medicare to get her pneumatic devices. All questions were answered after discussing these increased risks. The patient voiced understanding of these increased risks and still wishes to proceed with surgery. The patient has tried and failed all conservative treatment options to include: oral anti-inflammatories , intra-articular steroid injections, physical therapy, and assistive devices. We will move forward with the definitive treatment option and schedule the patient for the above mentioned procedure after we have reviewed screening labs and clearances. Patient understands abnormal screening labs or absent clearances could delay their surgery. [facility] Other 10-17-2023 Evaluation + Plan note Future Scheduled Tests Laboratory* Basic Metabolic Panel 08/24/23 * CBC w/ Auto Diff 08/24/23 [facility]10-17[facility] Evaluation + Plan note Future Scheduled Tests Laboratory* Basic Metabolic Panel 08/24/23 * CBC w/ Auto Diff 08/24/23 * CBC w/ Auto Diff 10/04/23 * Comprehensive Metabolic Panel 10/04/23 * Lipase Level 10/04/23 Radiology* US Abdomen, Limited 10/04/23 [facility] 09-06-2023 Evaluation note* Encounter Date Diagnosis Assessment Notes Treatment Notes Treatment Clinical Notes Jul, Primary osteoarthritis of right hip (ICD-10 - M16.11) Jul, Iliotibial band syndrome of right side (ICD-10 - M76.31) Jul, Trochanteric bursitis, right hip (ICD-10 - M70.61) Jul, Age-related osteoporosis without current pathological fracture (ICD-10 - M81.0) Jul, Other lobsterman (current) drug therapy (ICD-10 - Z79.899) Jul, Lymphedema of both lower extremities (ICD-10 - I89.0) Jul, Other We had a long discussion today regarding further treatment for her right hip. I again explained to her that she is an excellent radiographic candidate for a right total hip arthroplasty. Overall I think she is a good clinical candidate as well but she needs to have her lymphedema addressed and treated to help decrease her risk of complications following the surgery. At this point in time she is getting reevaluated by lymphedema clinic this Wednesday. I recommended that she follow-up with them for routine care for these next 6 weeks as well as take her Lasix as prescribed daily for these next 6 weeks to try and improve her lymphedema status. A week before she sees me she is going to get the 6 preoperative screening labs. When I see her in 6 weeks then we will go over those results and check on her progress with the lymphedema. At that time we can discuss further about setting up a right total hip arthroplasty. [facility] Other 06-26-2023 NotePatient Outreach (NETNAV) RADHA WRIGHT ([id number]) 1955 F Date Time Provider Department 05/03/23 NO PCP NETNAV During your visit today, we recorded the following information about you: Radha Mcgowan 06/03/2023 3:00 AM Signed POPULATION HEALTH NAVIGATION OUTREACH Action/ Patient Outreach: 2nd Attempt Left voicemail for patient to call back to schedule in RST. (Please see Epic order dated for (04/14/2023). Any agent can assist with scheduling. Patient Identified by Name and : NO Outreach Outcome/Action Unable to reach patient: Left message Did you use a PCP flex slot to schedule this appointment? No Reason for Outreach Care Gap or Scheduling/Wellness visits Payer: Payor: MMO / Plan: MMO MEDICARE SUPPLEMENT / Product Type: Indemnity / Care Gap Reviewed:: Specialty Scheduling Reminder: Reminder note to check Health Maintenance for items below Health Maintenance items due: PNEUMOCOCCAL: 66+(1 - PCV) Never done SPIROMETRY Never done ANNUAL PCP TEAM CHRONIC DISEASE VISIT Never done HEPATITIS C SCREENING Never done BP CONTROLLED (<130/80) Never done DTAP,TDAP,TD(1 - Tdap) Never done MAMMOGRAM Never done LIPID SCREEN Never done DIABETES SCREEN Never done COLORECTAL CANCER SCREENING Never done SHINGRIX VACCINE(1 of 2) Never done BONE DENSITY Never done COVID-19 VACCINE(3 - Booster for Ricardo series) due on 11/10/2021 ADVANCE DIRECTIVE DISCUSSION Never done DEPRESSION ASSESSMENT Never done Navigation Signature: Radha Abdullahi Pss May 03, 2023 11:41 AM Allergies As of Date: 05/03/2023 Noted Allergy Reaction ALUPENT (METAPROTERENOL SULFATE) 07/20/2014 16 - Unknown BIAXIN (CLARITHROMYCIN) 07/20/2014 16 - Unknown CLARITIN (LORATADINE) 07/20/2014 16 - Unknown COMPAZINE (PROCHLORPERAZINE EDISY*07/20/2014 16 - Unknown DIAZEPAM 01/22/2014 16 - Unknown Comments: Other reaction(s): Unknown ERYTHROMYCIN BASE 12/15/2019 10 - Anaphylaxis Comments: Other reaction(s): Unknown FLAGYL (METRONIDAZOLE HCL) 07/20/2014 16 - Unknown FLOXACILLIN 07/20/2014 16 - Unknown ISOETHARINE 07/20/2014 16 - Unknown IV DYE (IODINATED CONTRAST MEDIA) 07/20/2014 16 - Unknown PENICILLINS 07/20/2014 16 - Unknown SKELAXIN (METAXALONE) 07/20/2014 16 - Unknown VANCENASE 07/20/2014 16 - Unknown VIBRAMYCIN (DOXYCYCLINE CALCIUM) 07/20/2014 16 - Unknown ZOLOFT (SERTRALINE HCL) 07/20/2014 16 - Unknown Date Reviewed: 03/19/2023 Reviewed by: Bhakti Connor LPN - Fully Assessed Prescriptions as of 06/03/2023 - chromium picolinate 1,000 mcg tab CHROMIUM PICOLINATE (20 sources) - FARXIGA 5 mg tablet Take 5 mg by mouth once daily. - furosemide (LASIX) 40 mg tablet Take 40 mg by mouth. - diltiazem CD (CARDIZEM CD, CARTIA XT) 180 mg 24 hr capsule Take 1 capsule by mouth once daily. - MOMETASONE/FORMOTEROL (DULERA INHALATION) Inhale as instructed once daily. - bisoprolol-hydrochlorothiazide (ZIAC) 5-6.25 mg per tablet Take 1 tablet by mouth once daily. - albuterol HFA (PROVENTIL HFA, VENTOLIN HFA) 90 mcg/actuation inhaler Inhale 1 Puff as instructed every 6 hours as needed. - ramipril (ALTACE) 10 mg capsule Take 10 mg by mouth once daily. Problem List As Of Date 05/03/2023 Noted Resolved Sleep apnea [G47.30] Hypertension [I10] Head injury [S09.90XA] GERD (gastroesophageal reflux disease) [K21.9] DVT (deep venous thrombosis) ([facility]) [I82.409] Bronchitis [J40] Asthma [J45.909] Anemia [D64.9] PVCs (premature ventricular contractions) [I49.*07/23/2014 Breast pain, left [N64.4] 03/19/2023 Lymphedema [I89.0] 03/19/2023 Left arm swelling [M79.89] 03/19/2023 Encounter Status:Closed by ANTONETTE FARLEYUSEBen on 06/03/23[facility] 05-03-[facility]23 NoteHNO ID: [id number] Author: Radha Mcgowan Service: ? Author Type: ? Type: Progress Notes Filed: 06/03/2023 3:00 AM Note Text: POPULATION HEALTH NAVIGATION OUTREACH Action/FYI Patient Outreach: 2nd Attempt Left voicemail for patient to call back to schedule in RST. (Please see Epic order dated for (04/14/2023). Any agent can assist with scheduling. Patient Identified by Name and : NO Outreach Outcome/Action Unable to reach patient: Left message Did you use a PCP flex slot to schedule this appointment? No Reason for Outreach Care Gap or Scheduling/Wellness visits Payer: Payor: MMO / Plan: MMO MEDICARE SUPPLEMENT / Product Type: Indemnity / Care Gap Reviewed:: Specialty Scheduling Reminder: Reminder note to check Health Maintenance for items below Health Maintenance items due: PNEUMOCOCCAL: 66+(1 - PCV) Never done SPIROMETRY Never done ANNUAL PCP TEAM CHRONIC DISEASE VISIT Never done HEPATITIS C SCREENING Never done BP CONTROLLED (<130/80) Never done DTAP,TDAP,TD(1 - Tdap) Never done MAMMOGRAM Never done LIPID SCREEN Never done DIABETES SCREEN Never done COLORECTAL CANCER SCREENING Never done SHINGRIX VACCINE(1 of 2) Never done BONE DENSITY Never done COVID-19 VACCINE(3 - Booster for Ricardo series) due on 11/10/2021 ADVANCE DIRECTIVE DISCUSSION Never done DEPRESSION ASSESSMENT Never done Navigation Signature: Radha Cole May 03, 2023 11:41 [facility]06-26-2023 History of Present illness Narrative* Radha Mcgowan - 05/03/2023 11:41 AM EDT POPULATION HEALTH NAVIGATION OUTREACH Action/ Patient Outreach: 2nd Attempt Left voicemail for patient to call back to schedule in RST. (Please see [employer] order dated for (04/14/2023). Any agent can assist with scheduling. Patient Identified by Name and : NO Outreach Outcome/Action Unable to reach patient: Left message Did you use a PCP flex slot to schedule this appointment? No Reason for Outreach Care Gap or Scheduling/Wellness visits Payer: Payor: MMO / Plan: MMO MEDICARE SUPPLEMENT / Product Type: Indemnity / Care Gap Reviewed:: Specialty Scheduling Reminder: Reminder note to check Health Maintenance for items below Health Maintenance items due: PNEUMOCOCCAL: 66+(1 - PCV) Never done SPIROMETRY Never done ANNUAL PCP TEAM CHRONIC DISEASE VISIT Never done HEPATITIS C SCREENING Never done BP CONTROLLED (<130/80) Never done DTAP,TDAP,TD(1 - Tdap) Never done MAMMOGRAM Never done LIPID SCREEN Never done DIABETES SCREEN Never done COLORECTAL CANCER SCREENING Never done SHINGRIX VACCINE(1 of 2) Never done BONE DENSITY Never done COVID-19 VACCINE(3 - Booster for Ricardo series) due on 11/10/2021 ADVANCE DIRECTIVE DISCUSSION Never done DEPRESSION ASSESSMENT Never done Navigation Signature: Radha Abdullahi Pss May 03, 2023 11:41 AM documented [facility] NotePatient Outreach (NETNAV) RADHA WRIGHT ([id number]) 1955 F Date Time Provider Department 04/26/23 NO PCP NETNAV During your visit today, we recorded the following information about you: Radha Abdullahi Pss 04/26/2023 9:27 AM Signed POPULATION HEALTH NAVIGATION OUTREACH Action/ Patient Outreach: Left voicemail for patient to call back to schedule in RST. (Please see [employer] order dated for (04/14/2023). Any agent can assist with scheduling. Patient Identified by Name and : NO Outreach Outcome/Action Unable to reach patient: Left message Did you use a PCP flex slot to schedule this appointment? No Reason for Outreach Care Gap or Scheduling/Wellness visits Payer: Payor: MMO / Plan: MMO MEDICARE SUPPLEMENT / Product Type: Indemnity / Care Gap Reviewed:: Specialty Scheduling Reminder: Reminder note to check Health Maintenance for items below Health Maintenance items due: PNEUMOCOCCAL: 66+(1 - PCV) Never done SPIROMETRY Never done ANNUAL PCP TEAM CHRONIC DISEASE VISIT Never done HEPATITIS C SCREENING Never done BP CONTROLLED (<130/80) Never done DTAP,TDAP,TD(1 - Tdap) Never done MAMMOGRAM Never done LIPID SCREEN Never done DIABETES SCREEN Never done COLORECTAL CANCER SCREENING Never done SHINGRIX VACCINE(1 of 2) Never done BONE DENSITY Never done COVID-19 VACCINE(3 - Booster for Ricardo series) due on 11/10/2021 ADVANCE DIRECTIVE DISCUSSION Never done DEPRESSION ASSESSMENT Never done Navigation Signature: Radha Abdullahi Pss April 26, 2023 9:25 AM Allergies As of Date: 04/26/2023 Noted Allergy Reaction ALUPENT (METAPROTERENOL SULFATE) 07/20/2014 16 - Unknown BIAXIN (CLARITHROMYCIN) 07/20/2014 16 - Unknown CLARITIN (LORATADINE) 07/20/2014 16 - Unknown COMPAZINE (PROCHLORPERAZINE EDISY*07/20/2014 16 - Unknown DIAZEPAM 01/22/2014 16 - Unknown Comments: Other reaction(s): Unknown ERYTHROMYCIN BASE 12/15/2019 10 - Anaphylaxis Comments: Other reaction(s): Unknown FLAGYL (METRONIDAZOLE HCL) 07/20/2014 16 - Unknown FLOXACILLIN 07/20/2014 16 - Unknown ISOETHARINE 07/20/2014 16 - Unknown IV DYE (IODINATED CONTRAST MEDIA) 07/20/2014 16 - Unknown PENICILLINS 07/20/2014 16 - Unknown SKELAXIN (METAXALONE) 07/20/2014 16 - Unknown VANCENASE 07/20/2014 16 - Unknown VIBRAMYCIN (DOXYCYCLINE CALCIUM) 07/20/2014 16 - Unknown ZOLOFT (SERTRALINE HCL) 07/20/2014 16 - Unknown Date Reviewed: 03/19/2023 Reviewed by: Bhakti Connor LPN - Fully Assessed Prescriptions as of 04/26/2023 - chromium picolinate 1,000 mcg tab CHROMIUM PICOLINATE (20 sources) - FARXIGA 5 mg tablet Take 5 mg by mouth once daily. - furosemide (LASIX) 40 mg tablet Take 40 mg by mouth. - diltiazem CD (CARDIZEM CD, CARTIA XT) 180 mg 24 hr capsule Take 1 capsule by mouth once daily. - MOMETASONE/FORMOTEROL (DULERA INHALATION) Inhale as instructed once daily. - bisoprolol-hydrochlorothiazide (ZIAC) 5-6.25 mg per tablet Take 1 tablet by mouth once daily. - albuterol HFA (PROVENTIL HFA, VENTOLIN HFA) 90 mcg/actuation inhaler Inhale 1 Puff as instructed every 6 hours as needed. - ramipril (ALTACE) 10 mg capsule Take 10 mg by mouth once daily. Problem List As Of Date 04/26/2023 Noted Resolved Sleep apnea [G47.30] Hypertension [I10] Head injury [S09.90XA] GERD (gastroesophageal reflux disease) [K21.9] DVT (deep venous thrombosis) (HCC) [I82.409] Bronchitis [J40] Asthma [J45.909] Anemia [D64.9] PVCs (premature ventricular contractions) [I49.*07/23/2014 Breast pain, left [N64.4] 03/19/2023 Lymphedema [I89.0] 03/19/2023 Left arm swelling [M79.89] 03/19/2023 Encounter Status:Closed by RADHA MCGOWAN on 04/26/23[facility]06-19-2023 NoteHNO ID: [id number] Author: Radha Cole Service: ? Author Type: ? Type: Progress Notes Filed: 04/26/2023 9:27 AM Note Text: POPULATION HEALTH NAVIGATION OUTREACH Action/FYI Patient Outreach: Left voicemail for patient to call back to schedule in RST. (Please see [employer] order dated for (04/14/2023). Any agent can assist with scheduling. Patient Identified by Name and : NO Outreach Outcome/Action Unable to reach patient: Left message Did you use a PCP flex slot to schedule this appointment? No Reason for Outreach Care Gap or Scheduling/Wellness visits Payer: Payor: MMO / Plan: MMO MEDICARE SUPPLEMENT / Product Type: Indemnity / Care Gap Reviewed:: Specialty Scheduling Reminder: Reminder note to check Health Maintenance for items below Health Maintenance items due: PNEUMOCOCCAL: 66+(1 - PCV) Never done SPIROMETRY Never done ANNUAL PCP TEAM CHRONIC DISEASE VISIT Never done HEPATITIS C SCREENING Never done BP CONTROLLED (<130/80) Never done DTAP,TDAP,TD(1 - Tdap) Never done MAMMOGRAM Never done LIPID SCREEN Never done DIABETES SCREEN Never done COLORECTAL CANCER SCREENING Never done SHINGRIX VACCINE(1 of 2) Never done BONE DENSITY Never done COVID-19 VACCINE(3 - Booster for Ricardo series) due on 11/10/2021 ADVANCE DIRECTIVE DISCUSSION Never done DEPRESSION ASSESSMENT Never done Navigation Signature: Radha Malu Cole April 26, 2023 9:25 [facility]06-19-2023 History of Present illness Narrative* Radha Malukaren Cole - 04/26/2023 9:24 AM EDT POPULATION HEALTH NAVIGATION OUTREACH Action/FYI Patient Outreach: Left voicemail for patient to call back to schedule in RST. (Please see Epic order dated for (04/14/2023). Any agent can assist with scheduling. Patient Identified by Name and : NO Outreach Outcome/Action Unable to reach patient: Left message Did you use a PCP flex slot to schedule this appointment? No Reason for Outreach Care Gap or Scheduling/Wellness visits Payer: Payor: MMO / Plan: MMO MEDICARE SUPPLEMENT / Product Type: Indemnity / Care Gap Reviewed:: Specialty Scheduling Reminder: Reminder note to check Health Maintenance for items below Health Maintenance items due: PNEUMOCOCCAL: 66+(1 - PCV) Never done SPIROMETRY Never done ANNUAL PCP TEAM CHRONIC DISEASE VISIT Never done HEPATITIS C SCREENING Never done BP CONTROLLED (<130/80) Never done DTAP,TDAP,TD(1 - Tdap) Never done MAMMOGRAM Never done LIPID SCREEN Never done DIABETES SCREEN Never done COLORECTAL CANCER SCREENING Never done SHINGRIX VACCINE(1 of 2) Never done BONE DENSITY Never done COVID-19 VACCINE(3 - Booster for Ricardo series) due on 11/10/2021 ADVANCE DIRECTIVE DISCUSSION Never done DEPRESSION ASSESSMENT Never done Navigation Signature: Radha Abdullahi Pss April 26, 2023 9:25 AM documented [facility] Miscellaneous Notes* Telephone Encounter - Bhakti Connor LPN - 04/23/2023 1:45 PM EDT Called and spoke to pt regarding her thyroid ultrasound results. I had faxed over the results to her pcp as requested. Informed pt follow up with her pcp regarding results. Pt verbalized understanding will call her primary's office. She thanked me for the call. Bhakti Connor LPN documented in this encounterSelect [facility]-07-2023 NoteHNO ID: [id number] Author: Britney Strong RDMS Service: Radiology Author Type: Technologist Type: Progress Notes Filed: 04/14/2023 2:37 PM Note Text: Radiology Service Progress Note PATIENT NAME: Radha Wright DATE OF SERVICE: April 14, 2023 TIME: 2:37 PM PATIENT IDENTITY VERIFICATION COMPLETED USING TWO (2) IDENTIFIERS: Name and Date of confirmed by patient verbally and Name and Date of confirmed by identification band. FALL SCREENING: Has the patient had 2 falls in the last year or 1 fall with injury or currently using an Ambulatory Assistive Device (Walker, Cane, Wheelchair, Crutches, etc.)? No PATIENT GENDER DATA: Female. status: : No status: N/A PATIENT RELEVANT IMPLANT DATA REVIEWED: Not Applicable RADIOLOGY DEPARTMENT: Ultrasound PERIPHERAL IV DATA: Not applicable SIGNED BY: BRITNEY STRONG RDMS April 14, 2023 2:37 [facility]06-07-2023 History of Present illness Narrative* Britney Strong RDMS - 04/14/2023 3:15 PM EDT Radiology Service Progress Note PATIENT NAME: Radha Wright DATE OF SERVICE: April 14, 2023 TIME: 2:37 PM PATIENT IDENTITY VERIFICATION COMPLETED USING TWO (2) IDENTIFIERS: Name and Date of confirmedby patient verbally and Name and Date of confirmed by identification band. FALL SCREENING: Has the patient had 2 falls in the last year or 1 fall with injury or currently using an Ambulatory Assistive Device (Walker, Cane, Wheelchair, Crutches, etc.)? No PATIENT GENDER DATA: Female. status: : No status: N/A PATIENT RELEVANT IMPLANT DATA REVIEWED: Not Applicable RADIOLOGY DEPARTMENT: Ultrasound PERIPHERAL IV DATA: Not applicable SIGNED BY: BRITNEY STRONG RDMS April 14, 2023 2:37 PM documented in this encounterSelect [facility]-12-2023 NoteHNO ID: [id number] Author: Annelise Morgan, DO Service: ? Author Type: Physician Type: Progress Notes Filed: 03/20/2023 8:17 AM Note Text: REASON FOR TODAY'S VISIT: Patient presents with: New Patient: Left arm swelling breast pain arm swelling Radha Wright is a 68 year old year old white female who [facility] at the request of Anabela Abdul, WAQAR family medicine for an opinion regarding left breast pain and axillary / arm swelling. Per the patient, in 2012 she fell and hit her left breast and had significant swelling. A few years later she had another fall with trauma to the left breast. States at some point she had an IV placed in her left hand which infiltrated and she has resultant lymphedema of her hand and upper extremity. She also reports that she may have had an embolus but has not had Duplex US performed on the LUE. Since then she has had chronic left breast pain that she has worsened in the last 6 months She has been getting mammograms and US at [facility] every 6 months. We are following an asymmetry in her breast as well as a lymph node both which have appeared stable and normal. Per her history, states la was also recently diagnosed with left breast mastitis and treated with doxycycline, abscess. This improved her symptoms, but they came back after she completed the course. She had another course of antibiotics, but continues to have symptoms of pain in her upper outer quadrant her left breast. Also has upper extremity pain that rotates through her axilla and to her breast. She denies any recent trauma or overuse of her upper extremity. She also notes a history of left breast biopsies in her 30s. Excisional biopies with benign findings. Most recent in 1997. She denies any palpable masses, skin changes, nipple discharge, or nipple retraction. There is a family history of breast cancer in her maternal grandmother. She has bilateral lower extremity lymphedema she states she had a superficial ? DVT there at some point. Follows with vascular medicine. Is not on any anticoagulation. PAST MEDICAL HISTORY Diagnosis Date Anemia Asthma Bronchitis Colitis DVT (deep venous thrombosis) ([facility]) 1997 GERD (gastroesophageal reflux disease) Head injury Hypertension Sleep apnea No CPAP use Symptomatic PVCs ALLERGIES ALLERGIES Allergen Reactions Alupent [Metaproter* Unknown Biaxin [Clarithromy* Unknown Claritin [Loratadin* Unknown Compazine [Prochlor* Unknown Diazepam Unknown Other reaction(s): Unknown Erythromycin Base Anaphylaxis Other reaction(s): Unknown Flagyl [Metronidazo* Unknown Floxacillin Unknown Isoetharine Unknown Iv Dye [Iodinated C* Unknown Penicillins Unknown Skelaxin [Metaxalon* Unknown Vancenase Unknown Vibramycin [Doxycyc* Unknown Zoloft [Sertraline * Unknown Current Outpatient Medications Medication Sig Dispense Refill chromium picolinate 1,000 mcg tab CHROMIUM PICOLINATE (20 sources) FARXIGA 5 mg tablet Take 5 mg by mouth once daily. furosemide (LASIX) 40 mg tablet Take 40 mg by mouth. diltiazem CD (CARDIZEM CD, CARTIA XT) 180 mg 24 hr capsule Take 1 capsule by mouth once daily. (Patient not taking: Reported on 03/19/2023) 90 capsule 3 MOMETASONE/FORMOTEROL (DULERA INHALATION) Inhale as instructed once daily. (Patient not taking: Reported on 03/19/2023) bisoprolol-hydrochlorothiazide (ZIAC) 5-6.25 mg per tablet Take 1 tablet by mouth once daily. albuterol HFA (PROVENTIL HFA, VENTOLIN HFA) 90 mcg/actuation inhaler Inhale 1 Puff as instructed every 6 hours as needed. (Patient not taking: Reported on 03/19/2023) ramipril (ALTACE) 10 mg capsule Take 10 mg by mouth once daily. No current facility-administered medications for this visit. 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 Exogenous Hormones: OCP for 6 years. HRT for 4 years. BREAST PROCEDURE HISTORY: Breast Biopsies: Excisional biopsies as below Breast Surgeries: No prior history Excisional Biopsy: roight breast 1 or 2 excisional biopsies. left breast 4 excisional biopsies., which was Negative for malignancy FAMILY HISTORY Problem Relation Age of Onset Cancer Father lung Diabetes Father Heart Father other (tia [Other]) Father Stroke Mother Diabetes Mother other (parkesons [Other]) Mother other (tremors [Other]) Sister Patient is not of Ashkenazi rastafarian ancestry. Father was adopted Social History Tobacco Use Smoking status: Former Packs/day: 0.50 Types: Cigarettes Start date: (more content not included)...[id number] Nurse Note * Bhakti Connor LPN - 03/19/2023 11:52 AM EDT Patient was referred by: Atilio Cabrera Sr, MD Did patient bring outside records to appt today? : Films: Sent in by other facility Reports: Sent in by other facility Last mammogram on: 07/02/22 bilateral Results: see report Patient current bra size: 42DD Is the patient active on MyChart No: Electronically Signed By: Bhakti Connor LPN In Department: GENERAL SURGERY REVIEW OF PATIENT HISTORY: OB History No obstetric history on file. FAMILY HISTORY Problem Relation Age of Onset Cancer Father lung Diabetes Father Heart Father other (tia [Other]) Father Stroke Mother Diabetes Mother other (parkesons [Other]) Mother other (tremors [Other]) Sister PAST MEDICAL HISTORY Diagnosis Date Anemia Asthma Bronchitis Colitis DVT (deep venous thrombosis) ([facility]) 1997 GERD (gastroesophageal reflux disease) Head injury Hypertension Sleep apnea No CPAP use Symptomatic PVCs PAST SURGICAL HISTORY Procedure Laterality Date APPENDECTOMY BACK SURGERY HX COLONOSCOPY HYSTERECTOMY HX PAST SURGICAL HISTORY OF multiple breast bx PAST SURGICAL HISTORY OF hiatal hernia repair PAST SURGICAL HISTORY OF rectal fissurectomy PAST SURGICAL HISTORY OF adhesions removed 2011 Social History Tobacco Use Smoking status: Former Packs/day: 0.50 Types: Cigarettes Start date: 11/08/1968 Quit date: 11/08/1977 Years since quittin.3 Substance Use Topics Alcohol use: No Drug use: No documented in this encounterSelect [facility]-12-[facility]23 History of Present illness Narrative* Annelise Morgan DO - 03/19/2023 11:30 AM EDT Images from the original note were not included. REASON FOR TODAY'S VISIT: Patient presents with: New Patient: Left arm swelling breast pain arm swelling Radha Wright is a 68 year old year old white female who [facility] at the request of Anabela Abdul, WAQAR family medicine for an opinion regarding left breast pain and axillary / arm swelling. Per the patient, in 2012 she fell and hit her left breast and had significant swelling. A few yearslater she had another fall with trauma to the left breast. States at some point she had an IV placed in her left hand which infiltrated and she has resultant lymphedema of her hand and upper extremity. She also reports that she may have had an embolus but has not had Duplex US performed on the LUE. Since then she has had chronic left breast pain that she has worsened in the last 6 months She has been getting mammograms and US at [facility] every 6 months. We are following an asymmetry in her breast as well as a lymph node both which have appeared stable and normal. Per her history, states la was also recently diagnosed with left breast mastitis and treated with doxycycline, abscess. This improved her symptoms, but they came back after she completed the course. She had another course of antibiotics, but continues to have symptoms of pain in her upper outer quadrant her left breast. Also has upper extremity pain that rotates through her axilla and to her breast. She denies any recent trauma or overuse of her upper extremity. She also notes a history of left breast biopsies in her 30s. Excisional biopies with benign findings. Most recent in 1997. She denies any palpable masses, skin changes, nipple discharge, or nipple retraction. There is a family history of breast cancer in her maternal grandmother. She has bilateral lower extremity lymphedema she states she had a superficial ? DVT there at some point. Follows with vascular medicine. Is not on any anticoagulation. PAST MEDICAL HISTORY Diagnosis Date Anemia Asthma Bronchitis Colitis DVT (deep venous thrombosis) ([facility]) 1997 GERD (gastroesophageal reflux disease) Head injury Hypertension Sleep apnea No CPAP use Symptomatic PVCs ALLERGIES ALLERGIES Allergen Reactions Alupent [Metaproter* Unknown Biaxin [Clarithromy* Unknown Claritin [Loratadin* Unknown Compazine [Prochlor* Unknown Diazepam Unknown Other reaction(s): Unknown Erythromycin Base Anaphylaxis Other reaction(s): Unknown Flagyl [Metronidazo* Unknown Floxacillin Unknown Isoetharine Unknown Iv Dye [Iodinated C* Unknown Penicillins Unknown Skelaxin [Metaxalon* Unknown Vancenase Unknown Vibramycin [Doxycyc* Unknown Zoloft [Sertraline * Unknown Current Outpatient Medications Medication Sig Dispense Refill chromium picolinate 1,000 mcg tab CHROMIUM PICOLINATE (20 sources) FARXIGA 5 mg tablet Take 5 mg by mouth once daily. furosemide (LASIX) 40 mg tablet Take 40 mg by mouth. diltiazem CD (CARDIZEM CD, CARTIA XT) 180 mg 24 hr capsule Take 1 capsule by mouth once daily. (Patient not taking: Reported on 03/19/2023) 90 capsule 3 MOMETASONE/FORMOTEROL (DULERA INHALATION) Inhale as instructed once daily. (Patient not taking: Reported on 03/19/2023) bisoprolol-hydrochlorothiazide (ZIAC) 5-6.25 mg per tablet Take 1 tablet by mouth once daily. albuterol HFA (PROVENTIL HFA, VENTOLIN HFA) 90 mcg/actuation inhaler Inhale 1 Puff as instructed every 6 hours as needed. (Patient not taking: Reported on 03/19/2023) ramipril (ALTACE) 10 mg capsule Take 10 mg by mouth once daily. No current facility-administered medications for this visit. 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 Exogenous Hormones: OCP for 6 years. HRT for 4 years. BREAST PROCEDURE HISTORY: Breast Biopsies: Excisional biopsies as below Breast Surgeries: No prior history Excisional Biopsy: roight breast 1 or 2 excisional biopsies. left breast 4 excisional biopsies., which was Negative for malignancy FAMILY HISTORY Problem Relation Age of Onset Cancer Father lung Diabetes Father Heart Father other (tia [Other]) Father Stroke Mother Diabetes Mother other (parkesons [Other]) Mother other (tremors [Other]) Sister Patient is not of Ashkenazi rastafarian ancestry. Father was adopted Social History Tobacco Use Smoking status: Former Packs/day: 0.50 Types: Cigarettes Start date: 11/08/1968 Quit date: 11/08/1977 Years since quittin.3 Substance Use Topics Alcohol use: No Drug use: No Occupation: retired Caffeine: 1-3 c/day REVIEW OF SYSTEMS GENERAL: Denies weight loss, malaise or fevers. 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 RESP: Negative for cough, wheezing or shortness of breath. CARD: Negative for chest pain, palpitations or leg swelling. GI: Negative for abdominal pain, no change in bowel habits, no blood in stool. : Negative for dysuria, frequency or incontinence. HEME: Patient denies known coagulopathy. 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 BREAST: Patient admits to LEFT breast and axilla vaginal intermittent pain for the last 6 months, as per HPI. MUSCULOSKELETAL: Negative for joint pain or swelling, no new back or bone pain. SKIN: Negative for lesions, rash, and itching. RADIATION EXPOSURE: There is no history of Radiation Therapy. PHYSICAL EXAM Wt 188 lb (85.3kg) GENERAL: Well-nourished, healthy, cooperative, female, in no acute distress, alert and oriented x 3, calm SKIN: Warm, dry, skin color, texture and turgor are normal. HEAD/EYES: Normocephalic, atraumatic and anicteric. NECK: Supple, symmetrical, no thyromegaly. RESP: Chest symmetrical with respirations, non-labored, no wheezing. ABD: Soft, non-distended. No hepatomegaly. No masses. MUSCULOSKELETAL: Upper extremities with normal range of motion, patient ambulates independently. Has grade 1 edema in her left dorsal hand as well as her forearm, she has pain in the medial aspect ofher left upper extremity radiating to her axilla, no axillary web, good range of motion No lower extremity pitting edema, appears somewhat chronic, REGIONAL LYMPH NODES: There is no concerning cervical, supraclavicular, infraclavicular or axillarylymphadenopathy. BREASTS: The patient was examined in the upright and supine positions. Breasts are symmetric 42 DD RIGHT Breast - Soft, no dominant masses, nipple everted, no discharge, no skin changes RIGHT Axilla - No palpable axillary lymphadenopathy. LEFT Breast - Soft, no dominant masses, incision in the upper outer quadrant from prior excisional biopsy, pain on palpation reproducible, noted just lateral to this incision and in the axillary tail, area nipple everted, no discharge, no skin changes. Tender to palpation over lateral breast LEFT Axilla - No palpable axillary lymphadenopathy.. tender to palpable in medial axilla IMAGING Breast imaging and reports were reviewed by myself with the breast radiologist and findings were discussed with the patient. The results are as follows: 01/05/2023 Left diagnostic mammogram with gilma The left breast is composed of scattered fibroglandular densities. No new areas of architectural distortion, worrisome masses or suspicious microcalcifications 01/05/2023 Left limited breast US Imaging of the left axilla demonstrates the previously described benign appearing lymph node measuring 1.4 x 1.1 x 0.9 cm similar to the prior US on 07/02/2022. No new suspicious lymph nodes or masses 07/02/2022 Bilateral diagnostic mammogram with gilma Scattered fibroglandular tissue is noted bilaterally. There is similar fibroglandular asymmetry in the upper outer left breast showing no significant interval change. There are no dominant masses typically malignant calcifications or architectural distortion. There has been no significant interval change. 07/02/2022 Left limited breast US There is no evidence of mass, cyst, architectural distortion, or atypical calcifications. Benign appearing lymph nodes noted along the left axilla 11/28/2021 Left diagnostic mammogram with gilma The breast parenchyma has been largely replaced by fat. Bilateral calcifications present including multiple oil cysts. There are no developing masses, typically malignant calcifications or architectural distortion, There has been no significant interval change 11/28/2021 Left breat limited US There is normal breat architecture. No discrete cystic or solid masses are identified. SOZO Review 03/19/2023 Extremity measured Left Arm Pacemaker/ Defibrillator/ Possible No Dominant Side Right Bilateral/ Unilateral Measurement Unilateral Patient Position Standing LDEX Result Green LDEX Score 19.5 Provider notified Yes Another SOZO Measurement needed No IMPRESSION Radha Wright is a 68 year old white female with LEFT breast/axillary pain and LUE swelling. Breast imaging from 2022 appear normal. Her history is suggestive of a superficial thrombosis, which may be leading to referred pain. SOZO >10 - indicated lymphedema PLAN -Left breast diagnostic mammogram and US -Left arm DVT US Future Appointments Date Time Provider Department Center 03/26/2023 12:30 PM [facility] 05/28/2023 2:40 PM DIAGNOSTIC MAMMO [address] [facility] [facility] [facility] Still needs to schedule US DVT Will need PT/OT for compression sleeve one DVT ruled out We will schedule to follow-up with me after her breast and UE imaging Ms. Wright was given my contact information if she has any further questions or concerns. My final recommendation will be communicated back to the referring physician by way of shared medical record and/or written letter via US mail. Total face to face time was 40 minutes with >50% spent on doing her prior imaging and reports, during information and past history, counseling the patient or coordinating her care. Annelise Morgan DO Breast Surgeon cc: documented in this encounterSelect [facility]-28-[facility]23 NoteHNO ID: [id number] Author: Bhakti Connor LPN Service: ? Author Type: LICENSED NURSE Type: Progress Notes Filed: 03/05/2023 11:13 AM Note Text: All images downloaded with reports. Order placed for Over read. [facility] Discharge instructions Patient Education 01/24/2023 14:46:43 Peripheral Edema Peripheral Edema Peripheral edema is swelling that is caused by a buildup of fluid. Peripheral edema most often affects the lower legs, ankles, and feet. It can also develop in the arms, hands, and face. The area of the body that has peripheral edema will look swollen. It may also feel heavy or warm. Your clothes may start to feel tight. Pressing on the area may make a temporary dent in your skin. You may not be able to move your swollen arm or leg as much as usual. There are many causes of peripheral edema. It can happen because of a complication of other conditions such as congestive heart failure, kidney disease, or a problem with your blood circulation. It also can be a side effect of certain medicines or because of an infection. It often happens to women d uring . Sometimes, the cause is not known. Follow these instructions at home: Managing pain, stiffness, and swelling Raise (elevate) your legs while you are sitting or lying down. Move around often to prevent stiffness and to lessen swelling. Do not sit or stand for long periods of time. Wear support stockings as told by your health care provider. Medicines Take egmk-hkg-kldgiph and prescription medicines only as told by your health care provider. Your health care provider may prescribe medicine to help your body get rid of excess water (diuretic). General instructions Pay attention to any changes in your symptoms. Follow instructions from your health care provider about limiting salt (sodium) in your diet. Sometimes, eating less salt may reduce swelling. Moisturize skin daily to help prevent skin from cracking and draining. Keep all follow-up visits as told by your health care provider. This is important. Contact a health care provider if you have: A fever. Edema that starts suddenly or is getting worse, especially if you are or have a medical condition. Swelling in only one leg. Increased swelling, redness, or pain in one or both of your legs. Drainage or sores at the area where you have edema. Get help right away if you: Develop shortness of breath, especially when you are lying down. Have pain in your chest or abdomen. Feel weak. Feel faint. Summary Peripheral edema is swelling that is caused by a buildup of fluid. Peripheral edema most often affects the lower legs, ankles, and feet. Move around often to prevent stiffness and to lessen swelling. Do not sit or stand for long periodsof time. Pay attention to any changes in your symptoms. Contact a health care provider if you have edema that starts suddenly or is getting worse, especially if you are or have a medical condition. Get help right away if you develop shortness of breath, especially when lying down. This information is not intended to replace advice given to you by your health care provider. Make sure you discuss any questions you have with your health care provider. Document Released: 12/02/2005 Document Revised: 07/19/2019 Document Reviewed: 07/19/2019 [employer] Patient Education 2020 [employer]. Follow Up Care 01/24/2023 12:06:14 With:ANNELISE PEÑALOZA Address: [address] [place], [place] [id number]- Business (1) When:01/27/2023 14:34:07 [facility]03-19-2023 Evaluation + Plan noteExtracted from: Title:ED Note Author:Kevin Chairez PA-C te:01/24/23 Edema, lower extremity (R60. 0: Localized edema) Ordered: tramadol, 50 mg = 1 tab(s), Oral, q6hr, PRN as needed for pain, Take one tab by mouth every six hours as needed for pain, X 3 day(s), # 15 tab(s), Refills(s) 0, Pharmacy[place] [facility] [id number], 159, cm, 01/24/23 12:15:00 EDT, Height/Length Dosing, 87, kg, 01/24/23... Orders: furosemide, 20 mg = 1 tab(s), Oral, Daily, X 10 day(s), # 10 tab(s), Refills(s) 0, Pharmacy: [facility] [id number], 159, cm, 01/24/23 12:15:00 EDT, Height/Length Dosing, 87, kg, 01/24/23 12:15:00 EDT, Weight Dosing Automated Diff Basic Metabolic Panel CBC w/ Auto Diff ECG 12 Lead Adult eGFR Hepatic Function Panel PT & PTT Troponin 0 Hr. UA With Cult Reflex XR Chest Single View Future Appointments Appointment Date:02/23/2023 03:30:00 PM Scheduled Provider:Adryan KELLOGG MD Location:[facility] Appointment Type:URO Office Visit Diagnostic Tests Pending * UA With Cult Reflex 01/24/23 [facility]03-08-2023 Evaluation note* Encounter Date Diagnosis Assessment Notes Treatment Notes Treatment Clinical Notes Jan, Primary osteoarthritis of right hip (ICD-10 - M16.11) Jan, Iliotibial band syndrome of right side (ICD-10 - M76.31) Jan, Trochanteric bursitis, right hip (ICD-10 - M70.61) Jan, Other We had a long discussion regarding her right hip as well as her other medical problems today. I explained to her that in regards to the right osteoarthritis we can continue with the steroid injections every 3 months if she is continuing to get some relief. I feel at this point in time she has some pressing matters with the axilla lymph nodes and the bilateral lower extremity swelling that is being explored by specialist in those areas. Discussed that our plan will now shift to her getting these things explored. Once she has answers on her axillary lymph nodes as well as her bilateral lower extremity swelling then she will get back in touch with our office and we can discuss plans moving forward from a treatment standpoint. However, as she goes through the work-up and evaluation of those 2 issues and she wants to do another hip injection she can call our office and we can get that scheduled with Dr. Pepper again without the patient coming back in for repeat evaluation by me. [facility] Other 03-01-2023 Evaluation note* Encounter Date Diagnosis Assessment Notes Treatment Notes Treatment Clinical Notes Jan, Chronic mastitis of left breast (ICD-10 - N60.12) Antibiotics sent as discussed and referrals placed due to drug allergy history and chronic breast problems. Jan, Drug allergy, antibiotic (ICD-10 - Z88.1) [facility] Other 02-21-2023 Evaluation note* Encounter Date Diagnosis Assessment Notes Treatment Notes Treatment Clinical Notes Dec, Abscess (ICD-10 - L02.91) Warm compresses to area 3-4 times a day, gentle soap to area, and use medication as directed. Dec, Lumbar pain (ICD-10 - M54.50) Xray shows SI joint degeneration; recommend discussing with ortho next appointment. [facility] Other 01-16-2023 Evaluation note* Encounter Date Diagnosis Assessment Notes Treatment Notes Treatment Clinical Notes Nov, Atrial fibrillation, unspecified type (ICD-10 - I48.91) Nov, Medicare annual wellness visit, subsequent (ICD-10 - Z00.00) Nov, Leg edema (ICD-10 - R60.0) patient to follow up with vascular that she follows in [place]. [facility] Other 01-12-2023 Evaluation note* Encounter Date Diagnosis Assessment Notes Treatment Notes Treatment Clinical Notes Nov, Primary osteoarthritis of right hip (ICD-10 - M16.11) Nov, Age-related osteoporosis without current pathological fracture (ICD-10 - M81.0) Nov, Other penitentiary (current) drug therapy (ICD-10 - Z79.899) [facility] Other 01-02-2023 Evaluation note* Encounter Date Diagnosis Assessment Notes Treatment Notes Treatment Clinical Notes Nov, Lower extremity edema (ICD-10 - R60.0) Get labwork completed as discussed. Take medication in the morning as directed when needed. make sure you are elevating legs and start back with your exercising when able. [facility] Other 12-28-2022 Evaluation note* Encounter Date Diagnosis Assessment Notes Treatment Notes Treatment Clinical Notes Oct, Arthritis of right hip (ICD-10 - M16.11) [facility] Other 12-27-2022 Hospital Discharge instructions Patient Education 11/03/2022 15:52:55 Overactive Bladder, Adult Overactive Bladder, Adult Overactive bladder refers to a condition in which a person has a sudden need to pass urine. The person may leak urine if he or she cannot get to the bathroom fast enough (urinary incontinence). A person with this condition may also wake up several times in the night to go to the bathroom. Overactive bladder is associated with poor nerve signals between your bladder and your brain. Your bladder may get the signal to empty before it is full. You may also have very sensitive muscles thatmake your bladder squeeze too soon. These symptoms might interfere with daily work or social activities. What are the causes? This condition may be associated with or caused by: Urinary tract infection. Infection of nearby tissues, such as the prostate. Prostate enlargement. Surgery on the uterus or urethra. Bladder stones, inflammation, or tumors. Drinking too much caffeine or alcohol. Certain medicines, especially medicines that get rid of extra fluid in the body (diuretics). Muscle or nerve weakness, especially from: ?A spinal cord injury. ?Stroke. ?Multiple sclerosis. ?Parkinson's disease. Diabetes. Constipation. What increases the risk? You may be at greater risk for overactive bladder if you: Are an older adult. Smoke. Are going through menopause. Have prostate problems. Have a neurological disease, such as stroke, dementia, Parkinson's disease, or multiple sclerosis (MS). Eat or drink things that irritate the bladder. These include alcohol, spicy food, and caffeine. Are overweight or obese. What are the signs or symptoms? Symptoms of this condition include: Sudden, strong urge to urinate. Leaking urine. Urinating 8 or more times a day. Waking up to urinate 2 or more times a night. How is this diagnosed? Your health care provider may suspect overactive bladder based on your symptoms. He or she will diagnose this condition by: A physical exam and medical history. Blood or urine tests. You might need bladder or urine tests to help determine what is causing your overactive bladder. You might also need to see a health care provider who specializes in urinary tract problems (urologist). How is this treated? Treatment for overactive bladder depends on the cause of your condition and whether it is mild or severe. You can also make lifestyle changes at home. Options include: Bladder training. This may include: ?Learning to control the urge to urinate by following a schedule that directs you to urinate at regular intervals (timed voiding). ?Doing Kegel exercises to strengthen your pelvic floor muscles, which support your bladder. Toning these muscles can help you control urination, even if your bladder muscles are overactive. Special devices. This may include: ?Biofeedback, which uses sensors to help you become aware of your body's signals. ?Electrical stimulation, which uses electrodes placed inside the body (implanted) or outside the body. These electrodes send gentle pulses of electricity to strengthen the nerves or muscles that control the bladder. ?Women may use a plastic device that fits into the vagina and supports the bladder (pessary). Medicines. ?Antibiotics to treat bladder infection. ?Antispasmodics to stop the bladder from releasing urine at the wrong time. ?Tricyclic antidepressants to relax bladder muscles. ?Injections of botulinum toxin type A directly into the bladder tissue to relax bladder muscles. Lifestyle changes. This may include: ?Weight loss. Talk to your health care provider about weight loss methods that would work best for you. ?Diet changes. This may include reducing how much alcohol and caffeine you consume, or drinking fluids at different times of the day. ?Not smoking. Do not use any products that contain nicotine or tobacco, such as cigarettes and e-cigarettes. If you need help quitting, ask your health care provider. Surgery. ?A device may be implanted to help manage the nerve signals that control urination. ?An electrode may be implanted to stimulate electrical signals in the bladder. ?A procedure may be done to change the shape of the bladder. This is done only in very severe cases. Follow these instructions at home: Lifestyle Make any diet or lifestyle changes that are recommended by your health care provider. These may include: ?Drinking less fluid or drinking fluids at different times of the day. ?Cutting down on caffeine or alcohol. ?Doing Kegel exercises. ?Losing weight if needed. ?Eating a healthy and balanced diet to prevent constipation. This may include: ?Eating foods that are high in fiber, such as fresh fruits and vegetables, whole grains, and beans. ?Limiting foods that are high in fat and processed sugars, such as fried and sweet foods. General instructions Take jejy-uye-oxvmmsl and prescription medicines only as told by your health care provider. If you were prescribed an antibiotic medicine, take it as told by your health care provider. Do notstop taking the antibiotic even if you start to feel better. Use any implants or pessary as told by your health care provider. If needed, wear pads to absorb urine leakage. Keep a journal or log to track how much and when you drink and when you feel the need to urinate. This will help your health care provider monitor your condition. Keep all follow-up visits as told by your health care provider. This is important. Contact a health care provider if: You have a fever. Your symptoms do not get better with treatment. Your pain and discomfort get worse. You have more frequent urges to urinate. Get help right away if: You are not able to control your bladder. Summary Overactive bladder refers to a condition in which a person has a sudden need to pass urine. Several conditions may lead to an overactive bladder. Treatment for overactive bladder depends on the cause and severity of your condition. Follow your health care provider's instructions about lifestyle changes, doing Kegel exercises, keeping a journal, and taking medicines. This information is not intended to replace advice given to you by your health care provider. Make sure you discuss any questions you have with your health care provider. Document Released: 08/21/2010 Document Revised: 02/15/2020 Document Reviewed: 11/10/2018 [employer] Patient Education 2020 [employer]. Follow Up Care 09/08/2022 15:32:00 With:BESS LORENZO, Adryan Kathleen, URL Address: [address] [place] [address] When:6 months [facility] [place] [phone] Evaluation note* Encounter Date Diagnosis Assessment Notes Treatment Notes Treatment Clinical Notes Sep, Dysuria (ICD-10 - R30.0) Sep, Arthritis of right hip (ICD-10 - M16.11) Refilled medication as we discussed. Take medication only as needed as we discussed. No driving or using heavy machinery OAR[place] report shows no medication filled since I filled one in Sep, Overactive bladder (ICD-10 - N32.81) Take medication as directed. FOllow up with Urology is recommended due to history [facility] Other 10-26-2022 Evaluation note* Encounter Date Diagnosis Assessment Notes Treatment Notes Treatment Clinical Notes Aug, Dysuria (ICD-10 - R30.0) Dysuria: adult home care material was printed Drink plenty fluids, get plenty of rest. Take the Pyridium as prescribed until gone. Continue home medications as prescribed. Follow-up with your family physician for recheck next week. Go to the ER for worsening symptoms or concerns [facility] Other 09-22-2022 Evaluation note* Encounter Date Diagnosis Assessment Notes Treatment Notes Treatment Clinical Notes Jul, Trochanteric bursiti s of right hip (ICD-10 - M70.61) Jul, Primary osteoarthritis of right hip (ICD-10 - M16.11) Jul, Acute pain of right knee (ICD-10 - M25.561) Jul, Other 1. We had a sen g discussion regarding the etiology of their symptoms. I explained to the patient that greater trochanteric bursitis is a chronic condition and as a result may require several rounds of physical therapy and or injections. Furthermore, it requires a diligent home exercise regimen to prevent flareups. 2. We discussed oral anti-inflammatorie s and Tylenol. Recommended utilizing kkvf-jxs-gayyrhq oral anti-inflammatorie s. Recommended adjusting their Tylenol dosing to 1000mg by mouth up to 3 times a day. 3. We discussed physical therapy. We put a referral for formal physical therapy for her right greater trochanteric bursitis. 4. We discussed steroid injections as a treatment option. Patient preferred another hip bursa injection by Dr. Pepper. We will get this set up. At this point she is not having pain in her groin and I do not think she needs another intra-articular injection. 5. Follow up 3 months after the injection. 6. In regards to the right knee, if she still has right knee pain when she sees me in 3 months then we will get 4 views of the right knee. [facility] Other 08-29-2022 Evaluation note* Encounter Date Diagnosis Assessment Notes Treatment Notes Treatment Clinical Notes Jun, Contact with and (suspected) exposure to covid-19 (ICD-10 - Z20.822) Jun, Type 2 diabetes mellitus without complication, without long-term current use of insulin (ICD-10 - E11.9) Jun, Essential hypertension (ICD-10 - I10) Jun, ANIL (obstructive sleep apnea) (ICD-10 - G47.33) Try OTC Zyrtec (generic is Okay) as we discussed. If this doesn't help with the symptoms, contact sleep doctor. Jun, Allergic sinusitis (ICD-10 - J30.9) Allergy season and PND may have cause issues with gagging during sleep. If this doesn't help. Follow up with sleep doctor as discussed. [facility] Other 08-25-2022 Evaluation note* Encounter Date Diagnosis Assessment Notes Treatment Notes Treatment Clinical Notes Jun, Breast pain (ICD-10 - N64.4) [facility] Other 08-16-2022 Evaluation note* Encounter Date Diagnosis Assessment Notes Treatment Notes Treatment Clinical Notes Jun, Pain of left breast (ICD-10 - N64.4) [facility] Other 08-09-2022 Evaluation note* Encounter Date Diagnosis Assessment Notes Treatment Notes Treatment Clinical Notes Jun, Breast pain (ICD-10 - N64.4) Breast pain is resolved and at patients baseline for now. 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 [facility] Other 07-28-2022 Evaluation note* Encounter Date Diagnosis Assessment Notes Treatment Notes Treatment Clinical Notes May, Mastitis (ICD-10 - N61.0) take antibiotic as discussed. Call office if symptoms persist and will order follow up diagnostic mammogram instead of routine. [facility] Other 06-22-2022 Evaluation note* Encounter Date Diagnosis Assessment Notes Treatment Notes Treatment Clinical Notes Apr, Primary osteoarthritis of right hip (ICD-10 - M16.11) The patient is suffering from degenerative arthritis involving the hip. We discussed the conservative treatment options which can be beneficial in relieving pain, including gentle non-impact motion exercise and non-steroidal anti-inflammatory medication. We discussed the use of occasional intra-articular cortisone injections that can provide pain relief. Discussed with patient we will schedule a hip joint and troch bursa injection with Dr. Alejandro Pepper Apr, Trochanteric bursitis, right hip (ICD-10 - M70.61) Apr, BMI 29.0-29.9,adult (ICD-10 - Z68.29) Apr, Opioid dependence (ICD-10 - F11.20) [facility] Other 06-16-2022 Evaluation note* Encounter Date Diagnosis Assessment Notes Treatment Notes Treatment Clinical Notes Apr, Primary osteoarthritis of right hip (ICD-10 - M16.11) [facility] Other 05-29-2022 Evaluation note* Encounter Date Diagnosis Assessment Notes Treatment Notes Treatment Clinical Notes March, Cutaneous abscess of groin (ICD-10 - L02.214) Follow up with your primary provider, Annelise Peñaloza. Apply warm compresses for 15 minutes, 4 times per day for 5 days. Given the location of the abscess, culture was obtained using an 18-gauge needle, see procedure note. Patient tolerated the procedure well. Given that there is no fluctuance, I feel that I&D is not necessary at this time. I did consider performing an I&D on the abscess, however, the abscess is just lateral to the labia majora. We will prescribe her doxycycline. We will call her when the culture results return. We will have her follow-up with her PCP. Patient understands and agrees with plan. [facility] Other 04-28-2022 Evaluation note* Encounter Date Diagnosis Assessment Notes Treatment Notes Treatment Clinical Notes Feb, Primary osteoarthritis of right hip (ICD-10 - M16.11) Feb, Trochanteric bursitis, right hip (ICD-10 - M70.61) Feb, BMI 29.0-29.9,adult (ICD-10 - Z68.29) Feb, Opioid dependence (ICD-10 - F11.20) Feb, Other I do long discu ssion with the patient regarding the flareup of the symptoms. While we discussed what may have caused some of this increased pain we did get to the bottom of the root cause, but nonetheless she is again having significant pain in the groin as well as now significant pain on the outside part of her hip consistent with greater trochanteric bursitis. We discussed injections today of the greater trochanteric bursa as well as a repeat injection in the hip joint. However, the patient has had bad experiences with ultrasound-guided injections in the office previously. As a result, we will get her set up with Dr. Eliseo Pepper for repeat right hip intra-articular corticosteroid injection and a right hip greater trochanteric bursa injection at the same time. I spent a lot of time talking with the patient about doing another injection in her hip joint so close to the last injection. While typically we would wait 3 months after the injection, she was doing so well that this slight flareup has now caused her to have the same pain in that hip joint. As I explained to her we already know she has significant osteoarthritis and will need a total hip in the future. Given this sudden increase in pain and sudden onset of hip bursitis, I feel it is medically necessary to repeat the right hip intra-articular injection as well as the right hip greater trochanteric bursa injection. I will plan to see her back 3 months after the injection. [facility] Other 02-24-2022 Evaluation note* Encounter Date Diagnosis Assessment Notes Treatment Notes Treatment Clinical Notes Dec, Primary osteoarthritis of right hip (ICD-10 - M16.11) Dec, Trochanteric bursitis, right hip (ICD-10 - M70.61) Dec, BMI 29.0-29.9,adult (ICD-10 - Z68.29) Dec, Opioid dependence (ICD-10 - F11.20) Dec, Other 1. We had a long discussion with the patient today concerning their right hip osteoarthritis. The radiographs do show osteoarthritis of the hip. At this time the patient would like to avoid surgical intervention. We did discuss the risk and benefits of surgical versus nonoperative management. The patient would like to proceed with nonoperative management. We discussed that our options include injections, physical therapy, and the consistent use of anti-inflammatories. All 3 of these options, including their risks and benefits, were discussed at length with the patient. 2. Tylenol: Discussed taking Tylenol (acetaminophen). Recommended adjusting their dosing to 1000mg by mouth up to 3 times a day. 3. NSAIDs: Celebrex 100 mg twice daily since she had difficulty tolerating her meloxicam that we previously prescribed 4. Physical therapy: Discussed formal physical therapy and home regimen. Patient preferred to continue doing her normal activities. 5. Injections: Discussed injections as a treatment option. We will get the patient set up with Dr Eliseo Pepper for a right hip intra-articular corticosteroid injection. I offered her an ultrasound-guided injection today in the office, however, she had a bad experience with a prior ultrasound-guided injection and therefore would prefer another option. 6. Follow up 3 months after the injection [facility] Other 02-22-2022 Evaluation note* Encounter Date Diagnosis Assessment Notes Treatment Notes Treatment Clinical Notes Dec, Dizziness (ICD-10 - R42) Move positions more slowly at this time. Will discuss bloodwork before we determine cause of what may be causing dizziness. Blood pressures did not change with position changing. Dec, Hair loss (ICD-10 - L65.9) Thyroid labs ordered [facility] Other 12-01-2021 Evaluation note* Encounter Date Diagnosis Assessment Notes Treatment Notes Treatment Clinical Notes Oct, Primary osteoarthritis of right hip (ICD-10 - M16.11) Oct, On penitentiary drug therapy (ICD-10 - Z79.899) Oct, Type 2 diabetes mellitus without complication, without long-term current use of insulin (ICD-10 - E11.9) Oct, Other osteoporosis without current pathological fracture (ICD-10 - M81.8) [facility] Other 11-22-2021 Evaluation note* Encounter Date Diagnosis Assessment Notes Treatment Notes Treatment Clinical Notes Sep, Arthritis of right hip (ICD-10 - M16.11) Patient states that she isn't tolerating the meloxicam very well and that it seems to be causing her an upset stomach and not helping with pain much. Encouraged patient to discuss this with Dr. Flower so they can discuss other treatment options. Sep, Generalized abdominal pain (ICD-10 - R10.84) Pain has resolved with treatments that she had received from > [facility] Other 11-12-2021 Evaluation note* Encounter Date Diagnosis Assessment Notes Treatment Notes Treatment Clinical Notes Sep, Primary osteoarthritis of right hip (ICD-10 - M16.11) The patient is suffering from degenerative arthritis involving the hip. We discussed the conservative treatment options which can be beneficial in relieving pain, including gentle non-impact motion exercise and non-steroidal anti-inflammatory medication. We discussed the use of occasional intra-articular cortisone injections that can provide pain relief. Prescription for mobic sent into patients pharmacy. We will schedule patient for hip joint and troch bursa injection by Dr. Alejandro Pepper. Patient was in understanding and agrees Sep, Trochanteric bursitis, right hip (ICD-10 - M70.61) Sep, BMI 29.0-29.9,adult (ICD-10 - Z68.29) Sep, Opioid dependence (ICD-10 - F11.20) Sep, Other 1. We will get the patient referred to Dr. Eliseo Pepper for a right hip intra-articular corticosteroid injection 2. Tylenol: Discussed taking Tylenol (acetaminophen). Recommended adjusting their dosing to 1000mg by mouth up to 3 times a day. 3. NSAIDs: Patient already has meloxicam 7.5 mg but she only takes that sparingly, approximately 1 time a month. Prescribed the patient 15 mg Mobic (meloxicam) to be taken by mouth daily. 4. We had a long discussion with the patient today concerning their right hip osteoarthritis. The radiographs do show osteoarthritis of the hip. I think the patient would be a great candidate for a right total hip in the future. However, we did discuss the amount of tramadol she is taking. We discussed minimizing her risks preoperatively which would include getting her off of the tramadol. By getting her an injection, starting her on a consistent anti-inflammatory, and utilizing Tylenol for as needed pain we will attempt to get her off of tramadol. 5. Follow up in 3 months after the right hip injection. If she has been able to wean off of the tramadol and is doing well we can consider continuing this conservative management versus a right total hip arthroplasty. [facility] Other 11-04-2021 Evaluation note* Encounter Date Diagnosis Assessment Notes Treatment Notes Treatment Clinical Notes Sep, Type 2 diabetes mellitus without complication, without long-term current use of insulin (ICD-10 - E11.9) Today during the appointment we performed and ordered labs to see how your blood sugars are doing and how your kidneys are doing. Diabetes can cause issues with kidneys, vision, and circulation. We will be working together to find the right medication and healthy choices to treat this condition. It may take a couple of visits before we find the right medication regimen to get your blood sugars in a good range, but it will be worth it in the long run as you will feel better once your blood sugars are in the normal range. Once we get them regulated you will not have to come back as frequently. Also we will check other labs yearly to screen for other issues. Please remember we are a team and your opinion is very important in all of your healthcare decisions. Sep, Arthritis of right hip (ICD-10 - M16.11) Sep, Essential hypertension (ICD-10 - I10) Today during the appointment we ordered labs to check on how your kidneys are functioning since you have high blood pressure. It is important for us to make sure we protect your kidneys since vision, kidneys and blood circulation are all effected by high blood pressure. It may take us a couple of visits to get your blood pressure in a healthy range and once we do we can space them out a lot more. In addition to medication prescribed we will also talk about healthy changes you can try. Also we will check other labs yearly to screen for other issues. 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 She has heard positive things about darnell Flower. She has already been told that she needed hip surgery, just had poor experience with previous office and did not like staff and would like to stay with the [facility] family due to positive experiences with us in the past Sep, Candidiasis (ICD-10 - B37.9) [facility] Other Evaluation + Plan note No data available for this section [facility] Future Appointments Appointment Date:12/15/2022 03:15:00 PM Scheduled Provider:Adryan KELLOGG MD Location:[facility] Appointment Type:URO Office Visit [facility] Evaluation + Plan note Future Appointments Appointment Date:02/23/2023 03:30:00 PM Scheduled Provider:Adryan KELLOGG MD Location:[facility] Appointment Type:[facility]O [facility] Future Appointments Appointment Date:08/26/2023 08:30:00 AM Scheduled Provider: Location:.OCCUPATIONAL Appointment Type:OT Lymphedema (FT) Appointment Date:08/31/2023 10:15:00 AM Scheduled Provider: Location:.OCCUPATIONAL Appointment Type:OT Lymphedema (FT) Appointment Date:09/03/2023 08:00:00 AM Scheduled Provider: Location:.OCCUPATIONAL Appointment Type:OT Lymphedema Re-Eval (FT) Appointment Date:09/20/2023 12:00:00 PM Scheduled Provider: Location:[facility] Appointment Type:Surgery FT Future Scheduled Tests Laboratory* Basic Metabolic Panel 08/24/23 * CBC w/ Auto Diff 08/24/23 [facility] Evaluation noteNo [employer] Other Evaluation noteNort [employer] Other Evaluation noteNo assessment information available [facility] Work Phone: Evaluation note* Diagnosis Breast pain, left- Primary Mastodynia Lymphedema Other lymphedema Left arm swelling Swelling of limb [facility] Diagnosis Lymphedema- Primary Other lymphedema [facility] Diagnosis Thyroid nodule Nontoxic uninodular goiter documented [facility] this [facility]* Diagnosis Breast pain, left Mastodynia Lymphedema Other lymphedema Left arm swelling Swelling of limb documented [facility]* Diagnosis Palpitations- Primary Mixed hyperlipidemia Essential hypertension Unspecified essential hypertension Paroxysmal atrial fibrillation ([facility]/HCC) Atrial fibrillation documented in this encounter [facility] Work Phone: Evaluation note* Diagnosis Onset Date Resolution Status Diabetes mellitus, type 2 ac nenana Hypertension acute Impaired mobility and activities of daily living acute Status post total replacement of right hip acute [facility] Work Phone: Evaluation note* Diagnosis Right hip pain- Primary Pain in joint, pelvic region and thigh Aftercare following right hip joint replacement surgery Difficulty walking Difficulty in walking documented in this encounter [facility]* Diagnosis Right hip pain- Primary Pain in joint, pelvic region and thigh Aftercare following right hip joint replacement surgery Difficulty walking Difficulty in walking documented in this encounter [facility]* Diagnosis Right hip pain- Primary Pain in joint, pelvic region and thigh Aftercare following right hip joint replacement surgery Difficulty walking Difficulty in walking documented in this encounter [facility]* Diagnosis Right hip pain- Primary Pain in joint, pelvic region and thigh Aftercare following right hip joint replacement surgery Difficulty walking Difficulty in walking Diabetes mellitus due to underlying condition with diabetic polyneuropathy, without long-term current use of insulin (CMS/HCC)- Primary documented in this encounter [facility]* Diagnosis Contusion of right foot, initial encounter- Primary Diabetes mellitus due to underlying condition with diabetic polyneuropathy, without long-term current use of insulin (CMS/HCC) Venous insufficiency Unspecified venous (peripheral) insufficiency Closed nondisplaced fracture of proximal phalanx of lesser toe of right foot, initial encounter Contracture of right ankle documented in this encounter [facility]* Diagnosis Onset Date Resolution Status Status post total replacement of right hip acute [facility] Work Phone: History general Narrative - Reported* Type Description Date Medical History asthma Medical History atrial fib Medical History osteoarthritis Medical History type II diabetes Surgical History breast biopsy Surgical History laparoscopy Surgical History colonoscopy 04/19/19 Surgical History gallbladder Surgical History hysterectomy Surgical History adominal adhesion from lapcholy Surgical History vascular bypass Surgical History urethral stricture Hospitalization History see above [facility] Other [facility]gjan general [facility] [employer] Other Hismuwb general Narrative - Reported* Type Description Date Medical History asthma Medical History atrial fib Medical History osteoarthritis Medical History type II diabetes Medical History bee allergy Surgical History breast biopsy Surgical History laparoscopy Surgical History colonoscopy 04/19/19 Surgical History gallbladder Surgical History hysterectomy Surgical History adominal adhesion from lapcholy Surgical History vascular bypass Surgical History urethral stricture Hospitalization History see above [facility] Other Hiswjbb general Narrative - Reported* Type Description Date Medical History asthma Medical History atrial fib Medical History osteoarthritis Medical History type II diabetes Medical History bee allergy Surgical History breast biopsy Surgical History laparoscopy Surgical History colonoscopy 04/19/19 Surgical History gallbladder Surgical History hysterectomy Surgical History adominal adhesion from lapcholy Surgical History vascular bypass Surgical History urethral stricture Surgical History left great toe Hospitalization History see above [facility] Other Hisdtsq general Narrative - Reported* Type Description Date Medical History asthma Medical History atrial fib Medical History osteoarthritis Medical History type II diabetes Medical History bee allergy Surgical History breast biopsy Surgical History laparoscopy Surgical History colonoscopy 04/19/19 Surgical History gallbladder Surgical History hysterectomy Surgical History adominal adhesion from lapcholy Surgical History vascular bypass Surgical History urethral stricture Surgical History left great toe Surgical History thyroid biopsy Hospitalization History see above [facility] Other History of Present illness NarrativeReturns in follow- up of problems as noted. She doing well. She has not arrhythmia symptoms that preceded her diagnosis of paroxysmal atrial fibrillation. She not on antiarrhythmics or anticoagulant therapy and this was discussed in great detail and she does not wish to implement either therapy. Sheis convinced she can tell if or when she goes out of rhythm and will seek care or attention if and when such an event occurs. Treatment of other risk factors including her lipids and blood pressure is reviewed and felt to be adequate and appropriate as is that of her diabetes treatment. Because of all the above we believe she is doing well. Once again we advocated statin treatment which she is not interested. Merits of diet and weight loss were advocated.-[facility] DO Work Phone: Hospital Discharge instructions No data available for this section [facility] No data available for this section [facility] Reason for referral (narrative)* Diagnostic Procedure Only (Routine) - Authorized Specialty Diagnoses / Procedures Referred By Contac t Referred To Contact US IMAGING Diagnoses Breast pain, left Lymphedema Left arm swelling Procedures US DVT UPPER LEFT DUP-SCAN XTR VEINS UNILATERAL/[place] [address] [address] [id number] [facility] Referral ID Status Reason Start Date Expiration Date Visits Requested Visits Authorized [id number] Authorized Auto-Generat ed Referral 03/19/2023 04/17/2024 1 1 * Diagnostic Procedure Only (Routine) - Authorized Specialty Diagnoses / Procedures Referred By Contac t Referred To Contact BR IMAGING Diagnoses Breast pain, left Procedures US BREAST LTD LEFT US BREAST UNI REAL [place] [address] [id number] [facility] [address] [place] [address] Referral ID Status Reason Start Date Expiration Date Visits Requested Visits Authorized [id number] Authorized Auto-Generat ed Referral 03/19/2023 04/17/2024 1 1 * Diagnostic Procedure Only (Routine) - Authorized Specialty Diagnoses / Procedures Referred By Contac t Referred To Contact BR IMAGING Diagnoses Breast pain, left Procedures JOSE DIAGNOSTIC LEFT DIAGNOSTIC MAMMOGRAPHY COMPUTER-[place]ID[place] [address] [address] [id number] [facility] [address] [place] [address] Referral ID Status Reason Start Date Expiration Date Visits Requested Visits Authorized [id number] Authorized Auto-Generat ed Referral 03/19/2023 04/17/2024 1 1 [facility] for referral (narrative)* Diagnostic Procedure Only (Routine) - Closed Specialty Diagnoses / Procedures Referred By Contac t Referred To Contact US IMAGING Diagnoses Thyroid nodule Procedures US THYROID/PARATHYROID US SOFT TISSUE HEAD & NECK [place] [address] [place] [address] Us Imaging Referral ID Status Reason Start Date Expiration Date V isits Requested Visits Authorized [id number] Closed Auto-Generate d Referral 04/12/2023 05/11/2024 1 1 [facility] for referral (narrative)* Diagnostic Procedure Only (Routine) - Closed Specialty Diagnoses / Procedures Referred By Contac t Referred To Contact US IMAGING Diagnoses Breast pain, left Lymphedema Left arm swelling Procedures US DVT UPPER LEFT DUP-SCAN XTR VEINS UNILATERAL/[place] [address] [place] [address] [place] [address] Referral ID Status Reason Start Date Expiration Date V isits Requested Visits Authorized [id number] Closed Auto-Generate d Referral 03/19/2023 04/17/2024 1 1 [facility] for referral (narrative)* Consultation (Routine) - Authorized Specialty Diagnoses / Procedures Referred By Contac t Referred To Contact Cardiology Diagnoses Essential hypertension Paroxysmal atrial fibrillation (CMS/HCC) Procedures Follow Up In Cardiology Alfie Neff MD [address] [place] [address], [address] [address] Alfie Neff MD [address] [place] [address] 2, [address] [address] Referral ID Status Reason Start Date Expiration Date V isits Requested Visits Authorized [id number] Authorized 09/14/2023 09/13/2024 1 1 * Cardiovascular (Routine) - Pending Review Specialty Diagnoses / Procedures Referred By Contac t Referred To Contact Diagnoses Palpitations Paroxysmal atrial fibrillation (CMS/HCC) Procedures ECG 12 Lead Alfie Neff MD [address] [facility] 2, [facility] [address] [place] [address] Referral ID Status Reason Start Date Expiration Date V isits Requested Visits Authorized [id number] Pending Review 09/14/2023 09/13/[address] [facility] Work Phone: Reason for visit Narrative* Diagnostic Procedure Only (Routine) - Closed Specialty Diagnoses / Procedures Referred By Contac t Referred To Contact US IMAGING Diagnoses Thyroid nodule Procedures US THYROID/PARATHYROID US SOFT TISSUE HEAD & NECK [place] [address] [place] [address] Us Imaging Referral ID Status Reason Start Date Expiration Date V isits Requested Visits Authorized [id number] Closed Auto-Generate d Referral 04/12/2023 05/11/2024 1 1 [facility] for visit Narrative* Diagnostic Procedure Only (Routine) - Closed Specialty Diagnoses / Procedures Referred By Contac t Referred To Contact US IMAGING Diagnoses Breast pain, left Lymphedema Left arm swelling Procedures US DVT UPPER LEFT DUP-SCAN XTR VEINS UNILATERAL/[place] [address] [place] [address] [place] [address] Referral ID Status Reason Start Date Expiration Date V isits Requested Visits Authorized [id number] Closed Auto-Generate d Referral 03/19/2023 04/17/2024 1 1 [facility] Summary Purpose Family History No Family History Records FoundUnknown Family Member Name Dates Details Family history of myocardial infarction: Father(V17.3, Z82.49) Status:Active Relationship Condition Age at Onset Recorded Date/T toro Not Specified Parkinson's disease Unknown Cerebrovascular accident (CVA) Unknown Diabetes mellitus Unknown father Myocardial infarction Unknown Malignant neoplasm of lung Unknown brother Cerebrovascular accident (CVA) Unknown sister Malignant neoplasm of uterus Unknown Malignant neoplasm of skin Unknown sister Malignant neoplasm of skin Unknown Relationship Condition Age at Onset Recorded Date/T toro Not Specified Parkinson's disease Unknown Cerebrovascular accident (CVA) Unknown Diabetes mellitus Unknown father Myocardial infarction Unknown Malignant neoplasm of lung Unknown brother Cerebrovascular accident (CVA) Unknown sister Malignant neoplasm of uterus Unknown Malignant neoplasm of skin Unknown sister Malignant neoplasm of skin Unknown father Diabetes mellitus Unknown Unknown Not Specified Diabetes mellitus Unknown Advance Directives No Advanced Directives Records Found Advance Directive Response Recorded Date/ Time Advance Directives No July 3:36pm Advance Directive Response Recorded Date/ Time Advance Directives No July 2:36pm Reason for Referral Specialty Diagnoses / Procedures Referred By Danial t Referred To Contact [facility] Diagnoses Lymphedema Procedures CONSULT TO BREAST REHAB PROGRAM THERAPEUTIC EXERCISES RE, EA 15 MIN. THERAPEUT ACTVITY DIRECT PT CONTACT EACH 15 [place] [address] [place] [address] [facility] [address] [address] Referral ID Status Reason Start Date Expiration Date Visits Requested Visits Authorized [id number] Pending Review PCP Requested Referral Auto-Generate d Referral 04/14/2023 04/13/2024 1 1 Reason DECLINED chronic b reast problems Diagnosis 1 Chronic mastitis of left breast (N60.12) Referral Organization [facility] Referring Provider First Name Annelise Referring Provider Last Name Anabela Referring Provider Specialty Nurse Pract itioner Referred Organization [facility] Referred Provider Annelise Morgan Referred Address [address] [place], [place],[address] Referred Provider Specialty Surgery Referral Priority Routine General Notes Katina Dawson 023 01:06:28 PM >Received today and referral was fax to [facility] with their form. 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) Diagnosis 2 Arthritis of right h ip (M16.11) Referral Organization [facility] Family Medicin harman Swain Referring Provider First Name Annelise Referring Provider Last Name Anabela Referring Provider Specialty Nurse Roxanne schaffer Referred Organization [facility] Referred Provider Luigi Flower II Referred Address [address] [facility] [place],[address] Referred Provider Specialty Orthopedic S urgery Referral Priority Routine General Notes Katina Dawson 021 03:39:22 PM >Received today and sent P2P Chief Complaint and Reason for Visit Chief Complaint Pain Chief Complaint Pain Dysuria Chief Complaint R30.0 M25.561 Chief Complaint M25.561 Chief Complaint M25.561 M54.50 n63.20 n64.4 z86.79 r60.00 r79.89 i10 Chief Complaint M16.11 Hip pain Chief Complaint Hip pain Right Total Hip Pre Op Hip pain Reason for Visit Diabetes mellitus, t ype 2 Hypertension Impaired mobility and activities of daily living Status post total replacement of right hip Chief Complaint Hip pain Right Total Hip Pre Op Hip pain 2 Wk Post Op Rtha Reason for Visit Diabetes mellitus, t ype 2 Hypertension Impaired mobility and activities of daily living Status post total replacement of right hip Chief Complaint 2 Wk Post Op Rtha z47.1 z96.641 Z92.89 abnormal mamm Chief Complaint 2 Wk Post Op Rtha z47.1 z96.641 Z92.89 abnormal mamm 6 weeks Z96.641 - Presence of right artificial hip joint Reason for Visit Status post total re placement of right hip Chief Complaint RADHA WRIGHT is being seen for an annual follow-up of.RADHA WRIGHT is being seen for an annual follow-up of. Additional Source Comments INFORMATION SOURCE (unrecogn ized section and content) DATE CREATED AUTHOR 04/27/2018 [facility] DATE CREATED AUTHOR AUTHOR'S ORGANIZ ATION 09/11/2022 [facility] DATE CREATED AUTHOR AUTHOR'S ORGANIZ ATION 02/08/2023 [facility] DATE CREATED AUTHOR AUTHOR'S ORGANIZ ATION 02/19/2023 [facility] DATE CREATED AUTHOR AUTHOR'S ORGANIZ ATION 04/24/2023 [facility] DATE CREATED AUTHOR AUTHOR'S ORGANIZ ATION 06/03/2023 [facility] DATE CREATED AUTHOR AUTHOR'S ORGANIZ ATION 09/15/2023 [facility] DATE CREATED AUTHOR AUTHOR'S ORGANIZ ATION 11/10/2023 May Gilson [facility] DATE CREATED AUTHOR AUTHOR'S ORGANIZ ATION 01/27/2024 [facility] EPIC DATE CREATED AUTHOR AUTHOR'S ORGANIZ ATION 01/29/2024 [facility] REASON FOR VISIT (unrecogniz ed section and content) Reason Comments New Patient Left arm swelling breast pain arm swelling Reason Comments Results Reason Comments Annual Exam Pre-op Clearance Colonoscopy 09/20, h ip replacement not scheduled yet Specialty Diagnoses / Procedures Referred By Contac t Referred To Contact Diagnoses Palpitations Paroxysmal atrial fibrillation (CMS/HCC) Procedures ECG 12 Lead Alfie Neff MD [address] [address], [address] [address] Referral ID Status Reason Start Date Expiration Date V isits Requested Visits Authorized [id number] Pending Review 09/14/2023 09/13/2024 1 1 Specialty Diagnoses / Procedures Referred By Contac t Referred To Contact Physical Therapy Diagnoses Presence of right artificial hip joint Aftercare following joint replacement surgery Procedures MD PHYSICAL THERAPY EVALUATION LOW COMPLEX 20 MINS Luigi Flower MD [address] [place] [address] Azael Pak, PT [address] [facility] [address] [place] [address] Referral ID Status Reason Start Date Expiration Date V isits Requested Visits Authorized [id number] Authorized 11/17/2023 05/15/2024 30 30 Reason Comments Foot/ankle Fracture Rt Toe FX Care Teams (unrecognized sec tion and content) Team Status: Inactive Member Role Status Dates JEN Zimmerman Primary Care Provider, Atten ding Provider Active Team Status: Active Member Role Status Dates Annelise Peñaloza , 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 Primary Care Provider Active Team Status: Inactive Member Role Status Dates Annelise Peñaloza , 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 Primary Care Provider Active RAHEEL Dan Attending Provider Active Team Status: Inactive Member Role Status Dates Annelise Peñaloza , 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 Primary Care Provider Active Luigi Flower II, MD Attending Provider Active Team Status: Inactive Member Role Status Dates Annelisegilberto Peñaloza , 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 Primary Care Provider Active Simone Leiva DO Attending Provider Active Team Status: Inactive Member Role Status Dates Annelisegilberto Peñaloza , 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 Primary Care Provider Active Annelise Peñaloza , CIDER PRESS OPERATOR-BC Attending Provider Active Hemodialysis Technician Relationship Specialty Start Date End Date Rick Atilio Juanluis armando Fitch PCP - General Family Medicine 07/12/14 Hemodialysis Technician Relationship Specialty Start Date End Date Rick Atilio Juanluis armando Fitch PCP - General Family Medicine 07/12/14 Hemodialysis Technician Relationship Specialty Start Date End Date Rick Atilio Juanip Sr. PCP - General Family Medicine 07/12/14 Annelise Peñaloza, DENTAL TECHNOLOGY ADVISOR [address] [place] [address] Family Medicine 03/20/23 Hemodialysis Technician Relationship Specialty Start Date End Date Rick Atilio Juanluis armando Carrasquillo. PCP - General Family Medicine 07/12/14 Annelise Peñaloza, DENTAL TECHNOLOGY ADVISOR [address] [place] [address] Family Medicine 03/20/23 Hemodialysis Technician Relationship Specialty Start Date End Date Rick Atilio Juanluis armando Carrasquillo. PCP - General Family Medicine 07/12/14 Annelise Peñaloza, DENTAL TECHNOLOGY ADVISOR [address] [place] [address] Family Medicine 03/20/23 Hemodialysis Technician Relationship Specialty Start Date End Date Atilio aCbrera Sr. PCP - General Family Medicine 07/12/14 Annelise Peñaloza CNP [address] [facility] [place] [address] [facility] Medicine 03/20/23 Hemodialysis Technician Relationship Specialty Start Date End Date Atilio Cabrera Sr. PCP - General Family Medicine 07/12/14 Annelise Peñaloza CNP [address] [facility] [place] [address] [facility] Medicine 03/20/23 Hemodialysis Technician Relationship Specialty Start Date End Date Atilio Cabrera Sr., PCP - General Family Medicine 07/12/14 Annelise Peñaloza CNP Family Medicine 03/20/23 Hemodialysis Technician Relationship Specialty Start Date End Date Annelise Peñaloza APRN-DENTAL TECHNOLOGY ADVISOR [address] [place] [id number] PCP - General 11/08/19 Team Status: Inactive Member Role Status Dates ALEX ZimmermanP-C Primary Care Provider Active Luigi Flower II, MD Admit Provider, Attending Pro vider Active Megan Hammer , ISABELLA Other Provider Active Rocio Christensen , ISABELLA Other Provider Active Beth Deleon , RN Other Provider Active Mary Jane Mendoza , ISABELLA Other Provider Active Margo Phan RN Other Provider Active Sandee Pennington RN Other Provider Active Calvin Balderas MD Other Provider Active Dianne Hansen , MOBILITY ARCHITECT MANAGER Other Provider Active Dewey Chapman , DO Other Provider Active Brian Kruger MD Other Provider Active Kyle Morse , DO Other Provider Active Yann Peterson MD Other Provider Active Clary Kirk MD Other Provider Active Magda Iyer , MOBILITY ARCHITECT MANAGER Other Provider Active Cecy Goodwin MD Other Provider Active Man Clifford MD Other Provider Active Zack Don MD Other Provider Active Hina Prakash MD Other Provider Active Roscoe Wood , DO Other Provider Active Ayo Brice MD Other Provider Active Raoul Griffiths MD Other Provider Active Yaquelin De La O , PATHOLOGY LABORATORY TECHNOLOGIST-C Other Provider Active Domenico Stephen MD Other Provider Active Dylan Shafer MD Other Provider Active Chriss Blackwell MD Other Provider Active Fam Nunez MD Other Provider Active Laurie Stern , DO Other Provider Active Parth Chairez , DO Other Provider Active Sudheer Acosta , DO Other Provider Active Delicia Bennett , MOBILITY ARCHITECT MANAGER Other Provider Active Rubio Heart , DO Other Provider Active Maria Elena Alberto MD Other Provider Active Lindsay Nunes , MOBILITY ARCHITECT MANAGER Other Provider Active Sonia Silva , MOBILITY ARCHITECT MANAGER Other Provider Active Pavel Mendez MD Other Provider Active Jeb Marin MD Other Provider Active Dominguez Emerson , DO Other Provider Active Stacy Pelletier , MOBILITY ARCHITECT MANAGER Other Provider Active Jocelyn Encarnacion , DO Other Provider Active Mariely Desouza RN Other Provider Active Alexander Blue MD Other Provider Active Team Status: Active Member Role Status Dates Annelise Peñaloza 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 Primary Care Provider Active Luigi Flower II, MD Attending Provider Active Team Status: Inactive Member Role Status Dates Annelise Peñaloza 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 Primary Care Provider Active Start: October 11, 2023 End: October 11, 2023 Luigi Flower II, MD Attending Provider Active Start: October 11, 2023 End: October 11, 2023 Team Status: Active Member Role Status Dates Annelise Peñaloza 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 Primary Care Provider Active Start: October 14, 2023 Luigi Flower II, MD Attending Provider Active Start: October 14, 2023 Team Status: Inactive Member Role Status Dates Annelise Peñaloza 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 Primary Care Provider Active Start: October 25, 2023 End: October 27, 2023 Luigi Flower II, MD Attending Provider Active Start: October 25, 2023 End: October 27, 2023 Megan Hammer RN Other Provider Active Star t: October 25, 2023 End: October 27, 2023 Rocio Christensen RN Other Provider Active Start : October 25, 2023 End: October 27, 2023 Beth Deleon RN Other Provider Active Start: D ec2022 End: October 27, 2023 Mary Jane Mendoza RN Other Provider Active Star t: October 25, 2023 End: October 27, 2023 Margo Phan RN Other Provider Active Start : October 25, 2023 End: October 27, 2023 Sandee Pennington RN Other Provider Active Start: D ec2022 End: October 27, 2023 Calvin Balderas MD Other Provider Active Start: October 25, 2023 End: October 27, 2023 Dianne Hansen APRN Other Provider Active Start: October 25, 2023 End: October 27, 2023 Dewey Chapman DO Other Provider Active Start : October 25, 2023 End: October 27, 2023 Brian Kruger MD Other Provider Active Start : October 25, 2023 End: October 27, 2023 Kyle Morse DO Other Provider Active Start: October 25, 2023 End: October 27, 2023 Yann Peterson MD Other Provider Active Start: October 25, 2023 End: October 27, 2023 Clary Kirk MD Other Provider Active Start : October 25, 2023 End: October 27, 2023 Magda Iyer APRN Other Provider Active Start: October 25, 2023 End: October 27, 2023 Cecy Goodwin MD Other Provider Active Start: October 25, 2023 End: October 27, 2023 Man Clifford MD Other Provider Active Start: D ec2022 End: October 27, 2023 Zack Don MD Other Provider Active Start: October 25, 2023 End: October 27, 2023 Hina Prakash MD Other Provider Active Start: October 25, 2023 End: October 27, 2023 Roscoe Wood DO Other Provider Active Start: October 25, 2023 End: October 27, 2023 Ayo Brice MD Other Provider Active Start: 2022 End: October 27, 2023 Raoul Griffiths MD Other Provider Active Start: Oct End: October 27, 2023 KATE CharlesC Other Provider Active St art: October 25, 2023 End: October 27, 2023 Domenico Stephen MD Other Provider Active Start: October 25, 2023 End: October 27, 2023 Dylan Shafer MD Other Provider Active Start: 2022 End: October 27, 2023 Chrsis Blackwell MD Other Provider Active Start: Oct End: October 27, 2023 Fam Nunez MD Other Provider Active Start: 2022 End: October 27, 2023 Laurie Stern DO Other Provider Active Start: 2022 End: October 27, 2023 Parth Chairez DO Other Provider Active Start : October 25, 2023 End: October 27, 2023 Sudheer cAosta DO Other Provider Active Sta rt: October 25, 2023 End: October 27, 2023 Delicia Bennett APRN Other Provider Active Start: October 25, 2023 End: October 27, 2023 Rubio Heart DO Other Provider Active Start: October 25, 2023 End: October 27, 2023 Maria Elena Alberto MD Other Provider Active Sta rt: October 25, 2023 End: October 27, 2023 Lindsay Nunes APRN Other Provider Active Start : October 25, 2023 End: October 27, 2023 Sonia Silva APRN Other Provider Active St art: October 25, 2023 End: October 27, 2023 Pavel Mendez MD Other Provider Active Start: D ec2022 End: October 27, 2023 Jeb Marin MD Other Provider Active S tart: October 25, 2023 End: October 27, 2023 Dominguez Emerson , Other Provider Active Star t: October 25, 2023 End: October 27, 2023 Stacy Pelletier APRN Other Provider Active S tart: October 25, 2023 End: October 27, 2023 Jocelyn Encarnacion DO Other Provider Active Start: October 25, 2023 End: October 27, 2023 Mariely Desouza RN Other Provider Active Start: D 2022 End: October 27, 2023 Alexander Blue MD Other Provider Active Start: D ec2022 End: October 27, 2023 Team Status: Inactive Member Role Status Dates Luigi Flower II, MD Attending Provider Active Start: November 10, 2023 End: November 10, 2023 Team Status: Inactive Member Role Status Dates Annelise Peñaloza 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 Primary Care Provider Active Start: December 09, 2023 End: December 09, 2023 Luigi Flower II, MD Attending Provider Active Start: December 09, 2023 End: December 09, 2023 Team Status: Inactive Member Role Status Dates Annelise Peñaloza 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 Primary Care Provider Active Start: January 21, 2024 End: January 21, 2024 ARMAAN Zimmerman-BC Attending Provider Active Start: January 21, 2024 End: January 21, 2024 Team Status: Inactive Member Role Status Dates Annelise Peñaloza 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 Primary Care Provider Active Start: January 27, 2024 End: January 27, 2024 Luigi Folwer II, MD Attending Provider Active Start: January 27, 2024 End: January 27, 2024 Team Status: Active Member Role Status Dates Annelise Peñaloza 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 Primary Care Provider Active Start: January 27, 2024 Luigi Flower II, MD Attending Provider Active Start: January 27, 2024 Goals (unrecognized section and content) Goals may be documented in a n alternate section Source Comments (unrecognize d section and content) In the event this informatio n is protected by the Federal Confidentiality of Alcohol and Drug Abuse Patient Records regulations: The Federal rules restrict any use of the information to criminally investigate or prosecute any alcohol or drug abuse patient.[facility] the event this information is protected by the Federal Confidentiality of Alcohol and Drug Abuse Patient Records regulations: The Federal rules restrict any use of the information to criminally investigate or prosecute any alcohol or drug abuse patient.[facility] the event this information is protected by the Federal Confidentiality of Alcohol and Drug Abuse Patient Records regulations: The Federal rules restrict any use of the information to criminally investigate or prosecute any alcohol or drug abuse patient.[facility] the event this information is protected by the Federal Confidentiality of Alcohol and Drug Abuse Patient Records regulations: The Federal rules restrict any use of the information to criminally investigate or prosecute any alcohol or drug abuse patient.[facility] the event this information is protected by the Federal Confidentiality of Alcohol and Drug Abuse Patient Records regulations: The Federal rules restrict any use of the information to criminally investigate or prosecute any alcohol or drug abuse patient.[facility] the event this information is protected by the Federal Confidentiality of Alcohol and Drug Abuse Patient Records regulations: The Federal rules restrict any use of the information to criminally investigate or prosecute any alcohol or drug abuse patient.[facility] the event this information is protected by the Federal Confidentiality of Alcohol and Drug Abuse Patient Records regulations: The Federal rules restrict any use of the information to criminally investigate or prosecute any alcohol or drug abuse patient.[facility] the event this information is protected by the Federal Confidentiality of Alcohol and Drug Abuse Patient Records regulations: The Federal rules restrict any use of the information to criminally investigate or prosecute any alcohol or drug abuse patient.[facility] FOR RECORDS PERTAINING TO PATIENTS WHO ARE OR HAVE BEEN ENROLLED IN A CHEMICAL DEPENDENCY/SUBSTANCEABUSE PROGRAM, SOME INFORMATION MAY BE OMITTED. This clinical summary was aggregated from multiple sources. Caution should be exercised in using it in the provision of clinical care. This summary normalizes information from multiple sources, and as a consequence, information in this document may materially change the coding, format and clinical context of patient data. In addition, data may be omitted in some cases. CLINICAL DECISIONS SHOULD BE BASED ON THE PRIMARY CLINICAL RECORDS. [facility]. provides no warranty or guarantee of the accuracy or completeness of information in this document.
[2024-02-05 12:45] VITALS: BP 167/97; PULSE 98; TEMP 36.7; O2SAT 99; BMI 32.7
--- NOTE | 2024-02-05 13:07 | CT_ITS ---
[address] [address] Patient Name: JERICA OGDEN MRN: [id number] date: 1955 Sex: F Assigned Patient Location: ER Current Patient Location: Accession/Order Number: [id number] Exam Date: 02/05/2024 14:15 Report Date: 02/05/2024 14:58 At the request of: ANI HOLT Procedure: CT abdomen pelvis wo con EXAM: CT abdomen pelvis wo con INDICATION: sbo. COMPARISON: None. TECHNIQUE: Multiple contiguous axial CT images of the abdomen and pelvis were obtained without the use of intravenous contrast. Sagittal and coronal reconstructions were performed. Dose reduction techniques were achieved by using: automated exposure control and/or adjustment of mA and /or kV according to patient size and/or use of iterative reconstruction technique. FINDINGS: Evaluation of visceral organs limited by noncontrast technique. LOWER CHEST: Right lower lobe 6 mm solid nodule (3:2). ABDOMEN AND PELVIS: LIVER: Diffuse fatty infiltration. BILIARY SYSTEM: Cholecystectomy. No biliary ductal dilatation. PANCREAS: Unremarkable. SPLEEN: Unremarkable. ADRENAL GLANDS: Normal. URINARY SYSTEM: Unremarkable right kidney. Small left renal peripelvic cysts. No hydronephrosis or urolithiasis. Unremarkable bladder partially obscured by metallic streak artifact from right hip arthroplasty. REPRODUCTIVE: Hysterectomy. GASTROINTESTINAL TRACT: Congenital bowel malrotation. Normal caliber bowel without wall thickening or inflammation. Liquefied stool throughout the colon. The appendix is not identified. VESSELS: Nonaneurysmal abdominal aorta with severe atherosclerotic calcifications. LYMPH NODES: No adenopathy. PERITONEUM: No ascites or pneumoperitoneum. MUSCULOSKELETAL: SOFT TISSUES: Unremarkable soft tissues. BONES: No acute osseous abnormality or suspicious osseous lesion. Discectomy changes noted in the lower lumbar spine. Right hip arthroplasty. BARNETT: (series:image) CT/CT abdomen pelvis wo con IMPRESSION: 1. No acute abdominal or pelvic process. 2. Congenital bowel malrotation. Liquefied stool throughout the colon suggestive of diarrheal state. 3. Hepatic steatosis. 4. Right lower lobe 6 mm solid nodule. Follow-up CT of the chest in 3-6 months recommended. Electronically authenticated by: RUSS RUGGIERO Date: 02/05/2024 14:58
[2024-02-05 13:14] LABS: Influenza Virus A Antigen Negative; Influenza Virus B Antigen Negative; Internal Control Within Normal Limits
[2024-02-05] MEDS: ONDANSETRON PF 4 MG/2 ML VIAL IV (13:20)
[2024-02-05 13:32] LABS: Basophils Percent Auto 0.3 % (0.2-2.0); Eosinophils Percent Auto 0.2 % (0.9-7.0); Hematocrit 41.4 % (36.0-48.0); Hemoglobin 13.9 g/dL (12.0-16.0); Immature Granulocytes Abs Auto 0.03 10^3/uL (0.00-0.03); Immature Granulocytes Pct Auto 0.5 % (0.0-0.5); Lymphocytes Absolute Auto 0.2 10^3/uL (1.2-3.8); Lymphocytes Percent Auto 3.8 % (20.5-60.0); Mean Corpuscular HGB Conc 33.6 g/dL (29.9-35.2); Mean Corpuscular Hemoglobin 30.3 pg (26.7-34.0); Mean Corpuscular Volume 90.4 fL (81.0-99.0); Mean Platelet Volume 8.7 fL (9.5-13.5); Monocytes Absolute Auto 0.3 10^3/uL (0.3-0.8); Monocytes Percent Auto 4.2 % (1.7-12.0); Neutrophils Absolute Auto 5.8 10^3/uL (1.4-6.5); Platelet Count 149 10^3/uL (150-450); Red Blood Count 4.58 10^6/uL (4.20-5.40); Red Cell Distribution Width 13.4 % (11.0-15.0); White Blood Count 6.4 10^3/uL (4.0-11.0)
[2024-02-05 14:02] VITALS: BP 145/75; PULSE 95; O2SAT 96
[2024-02-05 14:04] LABS: Alanine Aminotransferase 22 U/L (14-59); Albumin Globulin Ratio 1.1; Albumin Level 4.1 g/dL (3.4-5.0); Alkaline Phosphatase 58 U/L (46-116); Anion Gap 14.1; Aspartate Amino Transferase 15 U/L (15-37); BUN Creatinine Ratio 27.4; Calcium 9.1 mg/dL (8.5-10.1); Carbon Dioxide 29.5 mmol/L (21.0-32.0); Chloride 101 mmol/L (98-107); Estimated GFR (African America >60 (>=60); Estimated GFR (Non-African Ame >60 (>=60); Globulin 3.6 g/dL; Glucose 155 mg/dL (74-106); Potassium 3.6 mmol/L (3.5-5.1); Sodium 141 mmol/L (136-145); Total Protein 7.7 g/dL (6.4-8.2); Troponin I High Sensitivity 4.3 pg/mL (4.0-51.3)
--- NOTE | 2024-02-05 15:29 | ED_ITS ---
HPI - Nausea/Vomiting/Diarrhea General Chief complaint: Nausea/Vomiting/Diarrhea Stated complaint: VOMITING Time Seen by Provider: 02/05/24 13:02 Source: patient Mode of arrival: walk-in History of Present Illness HPI Narrative: The patient is coming to us with nausea and vomiting that according to her happened at least 3-4 times since the a.m. hours. It woke her up from sleep and she mentioned that the last thing that she ate was a coleslaw. The patient also have a history of multiple surgeries and 7 years ago she had a small bowel obstruction. The patient also has been exposed to children in the last few days as source of infection as well. Last bowel movement was today and it was normal and she also had a bowel movement yesterday. No abdominal pain Related Data Home Medications ?Medication ?Instructions ?Recorded ?Confirmed bisoprolol 5 1 tab PO DAILY 02/05/24 02/05/24 mg-hydrochlorothiazide 6.25 mg tablet dapagliflozin propanediol 5 mg 5 mg PO DAILY 02/05/24 02/05/24 tablet (Farxiga) ramipril 10 mg capsule 10 mg PO DAILY 02/05/24 02/05/24 Previous Rx's ?Medication ?Instructions ?Recorded ondansetron HCl 4 mg tablet 4 mg PO Q8H PRN nausea and 02/05/24 vomiting 48 hours #6 tabs Allergies Allergy/AdvReac Type Severity Reaction Status Date / Time beclomethasone Allergy Unknown Verified 11/29/23 13:01 [From Vancenase] clarithromycin [From Biaxin] Allergy Unknown Verified 11/29/23 13:01 diazepam [From Valium] Allergy Unknown Verified 11/29/23 13:01 doxycycline [From Vibramycin] Allergy Unknown Verified 11/29/23 13:01 erythromycin base Allergy Unknown Verified 11/29/23 13:01 Iodinated Contrast Media Allergy Unknown Verified 11/29/23 13:01 isoetharine [From Bronkosol] Allergy Unknown Verified 11/29/23 13:01 loratadine [From Claritin] Allergy Unknown Verified 11/29/23 13:01 metaxalone [From Skelaxin] Allergy Unknown Verified 11/29/23 13:01 metronidazole [From Flagyl] Allergy Unknown Verified 11/29/23 13:01 ofloxacin [From Floxin] Allergy Unknown Verified 11/29/23 13:01 Penicillins Allergy Unknown Verified 11/29/23 13:01 prochlorperazine Allergy Unknown Verified 11/29/23 13:01 [From Compazine] ibuprofen AdvReac Unknown Gastrointestinal Verified 02/05/24 13:12 Upset tramidol AdvReac Unknown Gastrointestinal Uncoded 02/05/24 13:12 Upset Review of Systems ROS Status of ROS 10 or more systems reviewed and unremark able except as noted in history and below Exam Narrative Exam Narrative: Nurses notes and vital signs reviewed and patient is not hypoxic. General: Well-appearing and in no apparent distress. Skin: Warm, dry, no pallor noted. No rash. Head: Normocephalic, atraumatic. Neck: Supple, non-tender. Eye: Pupils are equal, round and EOMI. No scleral icterus. Ears, Nose, Mouth, and Throat: TM are clear, no nasal mucosal hypertrophy. Oral mucosa is moist, no posterior oropharynx erythema, uvula is mid-line Cardiovascular: Regular Rate and Rhythm without murmur, gallop or rub. Respiratory: No accessory muscle use or respiratory distress. Lungs are clear to auscultation, no wheezing, rales or rhonchi Chest Wall: no tenderness Back: No midline thoracic or lumbar vertebral tenderness. No CVA tenderness Musculoskeletal: normal ROM, no calf or popliteal tenderness, no lower extremity edema/swelling GI: Abdomen is soft, non-distended. Normal bowel sounds. No masses appreciated. No tenderness to palpation. No rebound, guarding, or rigidity noted. Neurological: A&O x4. No cranial nerve dysfunction observed. No truncal ataxia. Moves all extremities. Sensation intact. Psychiatric: Cooperative and interactive. Normal mood and affect. Constitutional Vital Signs, click to edit/add: Last Vital Signs Temp 98.0 F 02/05/24 12:45 Pulse 94 H 02/05/24 15:38 Resp 18 02/05/24 15:38 BP 137/71 02/05/24 15:38 Pulse Ox 97 02/05/24 15:38 O2 Del Method Room Air 02/05/24 15:38 Course Vital Signs Vital signs: Vital Signs Temperature 98.0 F 02/05/24 12:45 Pulse Rate 98 H 02/05/24 12:45 Respiratory Rate 18 02/05/24 12:45 Blood Pressure 167/97 H 02/05/24 12:45 Pulse Oximetry 99 03/30/24 12:45 Oxygen Delivery Method Room Air 02/05/24 12:45 Temperature 98.0 F 02/05/24 12:45 Pulse Rate 94 H 02/05/24 15:38 Respiratory Rate 18 02/05/24 15:38 Blood Pressure 137/71 02/05/24 15:38 Pulse Oximetry 97 02/05/24 15:38 Oxygen Delivery Method Room Air 02/05/24 15:38 MDM - Nausea/Vomiting/Diarrhea MDM Narrative Medical decision making narrative: The patient CBC and chemistry showed no acute pathology CAT scan of the abdomen showed no acute pathology as well The patient right now is feeling much better after being treated with Zofran. Flu test are negative in the ER The patient will continue hydration as well as Zofran she is to come back to the ER in case of any new symptoms or progression of her current symptoms The patient is to follow up with primary care physician in next 2-3 days or to return to the emergency department should any of the signs or symptoms worsen or new symptoms develop. The patient agrees with the following Diagnosis and Treatment plan and the patient will be discharged home. Lab Data Labs: Lab Results 02/05/24 02/05/24 Range/Units 12:50 13:15 WBC 6.4 (4.0-11.0) 10^3/uL RBC 4.58 (4.20-5.40) 10^6/uL Hgb 13.9 (12.0-16.0) g/dL Hct 41.4 (36.0-48.0) % MCV 90.4 (81.0-99.0) fL MCH 30.3 (26.7-34.0) pg MCHC 33.6 (29.9-35.2) g/dL RDW 13.4 (11.0-15.0) % Plt Count 149 L (150-450) 10^3/uL MPV 8.7 L (9.5-13.5) fL Neut % (Auto) 91.0 H (43.0-75.0) % Lymph % (Auto) 3.8 L (20.5-60.0) % [place] % (Auto) 4.2 (1.7-12.0) % Eos % (Auto) 0.2 L (0.9-7.0) % Baso % (Auto) 0.3 (0.2-2.0) % Neut # (Auto) 5.8 (1.4-6.5) 10^3/uL Lymph # (Auto) 0.2 L (1.2-3.8) 10^3/uL [place] # (Auto) 0.3 (0.3-0.8) 10^3/uL Eos # (Auto) 0.0 (0.0-0.7) 10^3/uL Baso # (Auto) 0.0 (0.0-0.1) 10^3/uL Abs Immat Gran (auto) 0.03 (0.00-0.03) 10^3/uL Imm/Tot Granulo (auto) 0.5 (0.0-0.5) % Sodium 141 (136-145) mmol/L Potassium 3.6 (3.5-5.1) mmol/L Chloride 101 (98-107) mmol/L Carbon Dioxide 29.5 (21.0-32.0) mmol/L Anion Gap 14.1 BUN 17.0 (7.0-18.0) mg/dL Creatinine 0.62 (0.55-1.02) mg/dL Est GFR ( Amer) >60 (>=60) Est GFR (Non-Af Amer) >60 (>=60) BUN/Creatinine Ratio 27.4 Glucose 155 H (74-106) mg/dL Calcium 9.1 (8.5-10.1) mg/dL Total Bilirubin 1.0 (0.2-1.0) mg/dL AST 15 (15-37) U/L ALT 22 (14-59) U/L Alkaline Phosphatase 58 (46-116) U/L Troponin I High Sens 4.3 (4.0-51.3) pg/mL Total Protein 7.7 (6.4-8.2) g/dL Albumin 4.1 (3.4-5.0) g/dL Globulin 3.6 g/dL Albumin/Globulin Ratio 1.1 Influenza Type A Ag Negative Influenza Type B Ag Negative Discharge Plan Discharge Stand Alone Forms: Portal Instructions Chief Complaint: Nausea/Vomiting/Diarrhea Clinical Impression: Gastroenteritis Patient Disposition: Home, Self-Care Time of Disposition Decision: 15:28 Condition: Good Prescriptions / Home Meds: New ondansetron HCl 4 mg tablet 4 mg PO Q8H PRN (Reason: nausea and vomiting) 2 Days Qty: 6 0RF No Action bisoprolol-hydrochlorothiazide 5-6.25 mg tablet 1 tab PO DAILY dapagliflozin propanediol [Farxiga] 5 mg tablet 5 mg PO DAILY ramipril 10 mg capsule 10 mg PO DAILY Print Language: Jordanian Instructions: Gastroenteritis (DC) Referrals: ITA STANLEY [Primary Care Provider] - 1 week Discharge Date/Time: 02/05/24 15:40
[2024-02-05 15:38] VITALS: BP 137/71; PULSE 94; O2SAT 97
== END 2024-02-05 15:40 | disposition home or self-care (01) ==
PROVIDERS: Emergency Provider Emergency Medicine; PCP Nurse Practitioner Family
DX: K52.9 Noninfective gastroenteritis and colitis, unspecified (principal); Z79.899 Other long term (current) drug therapy
CPT/HCPCS: 36415; 74176; 80053; 84484; 85025; 87804; 96374; 99285

== ENCOUNTER 2024-12-08 10:23 | Outpatient (OUT) | payer MEDICARE, OTHER, SELFPAY ==
[2024-12-08 10:52] LABS: Basophils Absolute Auto 0.1 10^3/uL (0.0-0.1); Basophils Percent Auto 1.4 % (0.2-2.0); Eosinophils Absolute Auto 0.1 10^3/uL (0.0-0.7); Eosinophils Percent Auto 2.5 % (0.9-7.0); Hematocrit 39.8 % (36.0-48.0); Hemoglobin 13.3 g/dL (12.0-16.0); Immature Granulocytes Abs Auto 0.02 10^3/uL (0.00-0.03); Immature Granulocytes Pct Auto 0.6 % (0.0-0.5); Lymphocytes Absolute Auto 1.4 10^3/uL (1.2-3.8); Lymphocytes Percent Auto 39.4 % (20.5-60.0); Mean Corpuscular HGB Conc 33.4 g/dL (29.9-35.2); Mean Corpuscular Hemoglobin 31.2 pg (26.7-34.0); Mean Corpuscular Volume 93.4 fL (81.0-99.0); Mean Platelet Volume 8.7 fL (9.5-13.5); Monocytes Absolute Auto 0.4 10^3/uL (0.3-0.8); Monocytes Percent Auto 10.1 % (1.7-12.0); Neutrophils Absolute Auto 1.6 10^3/uL (1.4-6.5); Platelet Count 157 10^3/uL (150-450); Red Blood Count 4.26 10^6/uL (4.20-5.40); Red Cell Distribution Width 14.4 % (11.0-15.0); White Blood Count 3.6 10^3/uL (4.0-11.0)
[2024-12-08 11:24] LABS: D Dimer 0.42 mg/L FEU (<=0.59)
[2024-12-08 11:44] LABS: Alanine Aminotransferase 52 U/L (14-59); Albumin Level 3.7 g/dL (3.4-5.0); Alkaline Phosphatase 50 U/L (46-116); Anion Gap 8.4; Aspartate Amino Transferase 27 U/L (15-37); BUN Creatinine Ratio 16.9; Bilirubin Total 0.7 mg/dL (0.2-1.0); Carbon Dioxide 33.6 mmol/L (21.0-32.0); Chloride 103 mmol/L (98-107); Chol HDL Ratio 5.3; Cholesterol 234 mg/dL (<=200); Estimated GFR (African America >60 (>=60 mL/min/1.73m^2); Estimated GFR (Non-African Ame >60 (>=60 mL/min/1.73m^2); Globulin 3.6 g/dL; Glucose 137 mg/dL (74-106); HDL Cholesterol 44 mg/dL (40-60); Sodium 141 mmol/L (136-145); Total Protein 7.3 g/dL (6.4-8.2); Triglycerides 119 mg/dL (<=150); VLDL CHOLESTEROL 23.8 mg/dL
== END 2024-12-08 10:24 | disposition home or self-care (01) ==
LOC: LAB 10:24
PROVIDERS: PCP Nurse Practitioner Family
DX: R06.02 Shortness of breath (principal); E11.9 Type 2 diabetes mellitus without complications; I48.91 Unspecified atrial fibrillation
CPT/HCPCS: 36415; 80053; 80061; 85025; 85378